=== PATIENT | female | born 1970 | race Caucasian/White ===

== ENCOUNTER → 2018-02-10 12:46 | Outpatient (REF) | payer MEDICAID, SELFPAY ==
[2018-02-10 20:46] LABS: TSH (W/Ref FT4) 2.23 uIU/mL (0.358-3.74)
== END ==
LOC: NCHCN 12:46
PROVIDERS: PCP Nurse Practitioner Family; Visit Provider Nurse Practitioner Family
DX: E03.9 Hypothyroidism, unspecified (principal)
CPT/HCPCS: 84443

== ENCOUNTER 2018-07-19 12:50 | Emergency (ER) | payer MEDICAID, SELFPAY ==
[2018-07-19] VITALS (23 sets, daily range): BP systolic 107–175; BP diastolic 57–94; PULSE 73–110; RESP 11–21; TEMP 36.8–37; O2SAT 91–100
[2018-07-19 13:48] LABS: Bilirubin Negative (Negative); Blood Negative (Negative); Clarity Clear; Glucose Negative (Negative); Ketones Negative (Negative); Leukocyte Esterase Negative (Negative); Nitrite Negative (Negative); Urobilinogen 0.2 EU/dL (Up TO 0.2)
--- NOTE | 2018-07-19 14:10 | DI.CT_ITS ---
SYMPTOM/DIAGNOSIS: PAIN, THORACIC SPINE AND TENDER RIGHT PARASPINAL CT THORACIC SPINE: There is no evidence of fracture. There is slight scoliosis vs patient positioning. End plate osteophytes are seen projecting anteriorly in the mid thoracic region. There is no gross evidence of a disc herniation. The central canal is well maintained. There is no significant neural foraminal narrowing. No paraspinal mass or bony destruction is seen. The visualized portions of the lungs appear clear. No pleural or pericardial effusions seen. IMPRESSION: Degenerative disc changes . No acute abnormality.
--- NOTE | 2018-07-19 14:13 | ED.GENADUL_ITS ---
Discharge Plan Disposition Patient Disposition: HOME Discharge Details Chief Complaint: FlankPain Clinical Impression: Acute hypokalemia, Back pain Primary Care Provider: Rozina Tee ED Provider: Bladimir Park Home Meds and New Rx's Prescriptions: Continued omeprazole [Prilosec] 40 MG capsule,delayed release(DR/EC) 40 mg PO DAILY RF: 0 methadone [Methadose] 40 MG tablet,soluble 130 mg PO DAILY RF: 0 ProAir HFA 8.5 GM HFA aerosol inhaler 1 - 2 puff Inhalation Q6H PRN RF: 0 mirtazapine 7.5 MG tablet 7.5 mg PO HS RF: 0 cyclobenzaprine 10 MG tablet 10 mg PO BID PRNRF: 0 duloxetine [Cymbalta] 20 MG capsule,delayed release(DR/EC) 60 mg PO BID RF: 0 triamcinolone acetonide [Nasacort AQ] 16.5 GM aerosol,spray 2 spry Inhalation DAILY PRNRF: 0 hydroxyzine HCl 25 MG tablet 25 mg PO TID PRNRF: 0 clonidine HCl 0.1 MG tablet extended release 12 hr 0.1 mg PO BID RF: 0 gabapentin 800 MG tablet 800 mg PO TID RF: 0 lamotrigine [Lamictal] 100 MG tablet 100 mg PO HS RF: 0 simvastatin 40 MG tablet 40 mg PO HS RF: 0 epinephrine 0.3 MG/SYR auto-injector 0.3 mg IJ PRN PRN (Reason: Anaphylaxis) Qty: 1 RF: 0 chlorthalidone 25 MG tablet 12.5 mg PO DAILY RF: 0 levothyroxine 25 MCG tablet 25 mcg PO DAILY RF: 0 Discontinued Symbicort 10.2 GM HFA aerosol inhaler 2 puff Inhalation DAILY RF: 0 Discharge Instructions Instructions: Hypokalemia (ED), Back Pain (ED) Additional Instructions: Please follow-up with your primary care physician. If pain persist additional diagnostics will be needed. Work today revealed that you have anemia. This appears to be chronic. You also have low potassium. Please contact your primary care physician to arrange follow-up. Return to the ER for any worsening or new concerning symptoms. Referrals: Rozina Tee [Primary Care Provider] - Discharge Data Discharge Date/Time-TO BE ENTERED AT DEPARTURE: 07/19/18 18:59 Medical Decision Making 47-year-old female with prior history thoracic spinal surgery, here with right flank and back pain. Consider renal stone. Urine negative for blood. Patient notes no hematuria or dysuria. Pain does seem higher then CVA. Saturating well no respiratory distress with clear lung vasquez and normal saturations. Labs reviewed: Chronic anemia noted. Patient does have hypokalemia of unclear etiology. Labs were reviewed with the patient. She was given potassium IV supplementation as well as oral. She was tolerating oral intake and feeling better and requested discharge. Disposition decision was made weighing the risks and benefits of hospitalization versus outpatient treatment, the risk for further decompensation, and the patient's wishes. The patient was stable and requested discharge. Prior to discharge, my usual and customary return precautions were reviewed with the patient - this included follow-up instructions and reason to return to the emergency department if condition worsens, does not improve as expected, or other new concerns arise. HPI General Mode of arrival: ambulatory . Date/Time Provider Initiated Documentation: 07/19/18 13:45 . Limitations to Documentation: no limitations . Information obtained by: patient . HPI Narrative: 47-year-old female with prior history thoracic spinal surgery, here with right flank and back pain. Pain started yesterday. Pain is moderate to severe. Intermittent. Feels like a spasm. No associated SOB. No fever. Related Data Home Medications Medication Instructions Recorded Confirmed cyclobenzaprine 10 mg PO BID PRN 11/28/12 07/19/18 duloxetine [Cymbalta] 60 mg PO BID 11/28/12 07/19/18 hydroxyzine HCl 25 mg PO TID PRN 04/13/13 07/19/18 triamcinolone acetonide [Nasacort 2 spry INHALATION DAILY PRN 04/13/13 07/19/18 AQ] clonidine HCl 0.1 mg PO BID 09/05/15 07/19/18 gabapentin 800 mg PO TID 09/06/15 07/19/18 ProAir HFA 1 - 2 puff INHALATION Q6H PRN 11/02/15 07/19/18 inhaler methadone [Methadose] 130 mg PO DAILY tab-cap 11/02/15 07/19/18 mirtazapine 7.5 mg PO HS tab-cap 11/02/15 07/19/18 omeprazole [Prilosec] 40 mg PO DAILY tab-cap 11/02/15 07/19/18 lamotrigine [Lamictal] 100 mg PO HS 03/16/16 07/19/18 simvastatin 40 mg PO HS 03/16/16 07/19/18 epinephrine 0.3 mg IJ PRN PRN #1 kit 08/16/16 07/19/18 chlorthalidone 12.5 mg PO DAILY 07/12/17 07/19/18 levothyroxine 25 mcg PO DAILY 07/12/17 07/19/18 Previous Rx's Medication Instructions Recorded epinephrine 0.3 mg IJ PRN PRN #1 kit 08/16/16 Allergies Allergy/AdvReac Type Severity Reaction Status Date / Time penicillin G Allergy Severe THROAT Unverified 07/19/18 13:44 CLOSES clindamycin Allergy Intermediate Skin Rash Unverified 07/19/18 13:44 milnacipran HCl Allergy Intermediate Skin Rash Unverified 07/19/18 13:44 [From Savella] cefuroxime axetil Allergy Unverified 07/19/18 13:44 [From Ceftin] doxycycline Allergy possible Unverified 07/19/18 13:44 allergy acetaminophen [From Vicodin] AdvReac Intermediate I cant Unverified 07/19/18 13:44 take it it ruins my liver azithromycin [From Zithromax] AdvReac Intermediate GI upset Unverified 07/19/18 13:44 clarithromycin [From Biaxin] AdvReac Intermediate Nausea Unverified 07/19/18 13:44 hydrocodone [From Vicodin] AdvReac Intermediate I cant Unverified 07/19/18 13:44 take it it ruins my liver ibuprofen AdvReac Intermediate GI Upset Unverified 07/19/18 13:44 ketorolac tromethamine AdvReac Intermediate GI Upset, Unverified 07/19/18 13:44 [From Toradol] can take IV form pregabalin [From Lyrica] AdvReac Intermediate Worsen Mood Unverified 07/19/18 13:44 Sulfa (Sulfonamide AdvReac Intermediate GI upset Unverified 07/19/18 13:44 Antibiotics) ENVIORNMENTAL Allergy Mild SINUSES Uncoded 07/19/18 13:44 MESSED UP-EYES General Stated Complaint: FlankPain GRISEL: 3 Review of Systems Review of Systems All systems reviewed & are unremarkable except as noted in HPI and below Cardiovascular Denies chest pain and Denies dyspnea Respiratory Denies dyspnea Gastrointestinal Denies abdominal pain PFSH Surgical History Cholecystectomy Vaginal hysterectomy right arm surgery on nerves Social History Smoking and Tabacco status: Current every day Exam Const General: cooperative and no acute distress HENMT Head: normocephalic and atraumatic Mouth: moist mucous membranes Eyes Conjunctivae: normal conjunctivae Sclera: normal sclerae EOM: EOM intact bilaterally Neck Neck: trachea midline and supple Resp Auscultation: clear to auscultation bilaterally, no rales, no rhonchi and no wheezes Cardio Jugular venous pressure: no JVD Rate: regular rate and not tachycardic Rhythm: regular rhythm GI Palpation: soft, not firm, no guarding, no masses, not rigid and nontender Back/Spine/Pelvis Back: no CVA tenderness Skin General skin exam: no rashes or lesions noted Neuro General: alert, awake, oriented x3 and tone normal Extrem General: no edema Psych Appearance: grossly normal Mental Status: mental status grossly normal Speech and Movement: speech and movement normal Course Vital Signs Temperature 37 C 07/19/18 13:39 Pulse 110 H 07/19/18 13:39 Respiratory Rate 18 07/19/18 13:39 Blood Pressure 175/94 H 07/19/18 13:39 Pulse Oximetry 100 07/19/18 13:39 Temperature 37 C 07/19/18 13:39 Temperature Source Temporal Artery Scan 07/19/18 13:39 Pulse 110 H 07/19/18 13:39 Respiratory Rate 18 07/19/18 13:39 Respiratory Effort Non-Labored 07/19/18 13:43 Blood Pressure 175/94 H 07/19/18 13:39 Blood Pressure Position Sitting 07/19/18 13:39 Pulse Oximetry 100 07/19/18 13:39 Oxygen Delivery Method Room Air 07/19/18 13:39 Oxygen Flow Rate 0 07/19/18 13:39 Pain Level 4 07/19/18 13:49 Lab/Test Results Lab/Test Results: Laboratory Tests Range/Units 07/19/18 13:38 Urine Color (Yellow) Yellow Urine Clarity Clear Urine pH (5-8) 6.0 Ur Specific [place] (1.005-1.025) 1.020 Urine Protein (Negative) mg/dL Negative Urine Ketones (Negative) mg/dL Negative Urine Blood (Negative) Negative Urine Nitrite (Negative) Negative Urine Bilirubin (Negative) Negative Urine Urobilinogen (Up TO 0.2) EU/dL 0.2 Ur Leukocyte Esterase (Negative) Negative Urine Glucose (Negative) mg/dL Negative
--- NOTE | 2018-07-19 15:11 | DI.VRAD_ITS ---
EXAM: CT Thoracic Spine Without Contrast EXAM DATE/TIME: 07/19/2018 2:11 PM CLINICAL HISTORY: 47 years old, female; Pain; Pain in thoracic spine TECHNIQUE: Axial computed tomography images of the thoracic spine without intravenous contrast. Coronal and sagittal reformatted images were created and reviewed. COMPARISON: CR THORACIC SPINE 01/01/2013 11:46 AM FINDINGS: Vertebrae: Mild degenerative spondylosis of the thoracic spine. Normal bone density. No fracture or subluxation. Discs/Spinal canal/Neural foramina: No bony spinal stenosis. Soft tissues: Unremarkable. IMPRESSION: Mild degenerative spondylosis of the thoracic spine. Dictated and Authenticated by: Brant Costa MD. Ordering:ARLET Garrison MD
[2018-07-19 15:17] LABS: ALT 12 U/L (12-78); AST 18 U/L (15-37); Albumin 3.5 g/dL (3.4-5.0); Alkaline Phosphatase 117 U/L (46-116); Anion Gap 7.9 mmol/L (3-11); BUN 16 mg/dL (7-18); Bilirubin, Total 0.2 mg/dL (0.2-1.0); CO2 34.1 mmol/L (21.0-32.0); Calcium 9.1 mg/dL (8.5-10.1); Chloride 96 mmol/L (98-107); Estimated GFR 52.79 (mL/min/1.73m2); Glucose 86 mg/dL (70-100); Sodium 138 mmol/L (136-145); Total Protein 7.3 g/dL (6.4-8.2)
[2018-07-19 15:26] LABS: HCT 26.5 % (36.0-46.0); HGB 7.4 g/dL (12.0-15.5); Mean Corp. HGB Concentration 27.9 g/dL (32.0-36.0); Mean Corpuscular Hemoglobin 18.2 pg (27.0-33.0); Mean Corpuscular Volume 65.1 fL (80-95); Mean Platelet Volume 9.7 fL (8.0-11.0); Platelet Count 298 x1000/uL (130-400); RBC 4.07 m/cumm (4.00-5.20); RBC Distribution Width 20.2 % (11.7-14.6); White Blood Cell Count 5.39 k/cumm (4.4-10.8)
[2018-07-19 15:29] LABS: Potassium 2.9 mmol/L (3.5-5.1)
[2018-07-19] MEDS: Potassium Chloride 10 MEQ TABCR 20 MEQ PO (15:51)
[2018-07-19] MEDS: Normal Saline 1,000 ML 100 ML IV (16:00)
[2018-07-19] MEDS: POTASSIUM CHLORIDE 20 MEQ/100 ML BAG 50 MEQ IVPB (16:03)
== END 2018-07-19 18:59 | disposition home or self-care (01) ==
PROVIDERS: Emergency Provider Student in an Organized Health Care Education/Training Program; PCP Nurse Practitioner Family
DX: E87.6 Hypokalemia (principal); M54.9 Dorsalgia, unspecified
CPT/HCPCS: 36415; 80053; 85027; 96361; 96365; 96366; 99284; 72128; 81003; J3480

== ENCOUNTER 2018-07-22 10:47 | Outpatient (REF) | payer MEDICAID, SELFPAY ==
[2018-07-22 13:31] LABS: Abs Immature Grans 0.01 k/cumm (0.0-0.09); Absolute Basophil Count 0.02 k/cumm (0.0-0.2); Absolute Lymphocyte Count 2.32 k/cumm (1.2-3.4); Absolute Monocyte Count 0.77 k/cumm (0.11-0.7); Absolute Neutrophil Count 3.32 k/cumm (1.2-6.7); Basophils % 0.3; Eosinophils % 1.5; HCT 30.6 % (36.0-46.0); HGB 8.7 g/dL (12.0-15.5); Immature Grans % 0.2; Lymphocytes % 35.5; Mean Corp. HGB Concentration 28.4 g/dL (32.0-36.0); Mean Corpuscular Hemoglobin 18.8 pg (27.0-33.0); Mean Corpuscular Volume 66.2 fL (80-95); Mean Platelet Volume 9.8 fL (8.0-11.0); Monocytes % 11.8; Neutrophils % 50.7; RBC 4.62 m/cumm (4.00-5.20); RBC Distribution Width 21.1 % (11.7-14.6); White Blood Cell Count 6.54 k/cumm (4.4-10.8)
[2018-07-22 13:54] LABS: Platelet Count 355 x1000/uL (130-400)
[2018-07-22 13:55] LABS: Anisocytosis 3+; Diff Comment RBC Morph Reviewed; Hypochromasia 2+; Microcytosis 2+; Polychromasia Present
[2018-07-22 13:56] LABS: Poikilocytes 1+
[2018-07-22 14:01] LABS: ALT 15 U/L (12-78); AST 22 U/L (15-37); Albumin 3.8 g/dL (3.4-5.0); Alkaline Phosphatase 122 U/L (46-116); Anion Gap 5.2 mmol/L (3-11); BUN 10 mg/dL (7-18); Bilirubin, Total 0.2 mg/dL (0.2-1.0); CO2 35.8 mmol/L (21.0-32.0); CREATININE 0.95 mg/dL (0.55-1.02); Calcium 9.2 mg/dL (8.5-10.1); Chloride 98 mmol/L (98-107); Glucose 46 mg/dL (70-100); Potassium 3.2 mmol/L (3.5-5.1); Sodium 139 mmol/L (136-145); TSH (W/Ref FT4) 1.16 uIU/mL (0.358-3.74); Total Protein 7.5 g/dL (6.4-8.2)
== END 2018-07-22 11:07 ==
LOC: NCHCN 10:47
PROVIDERS: PCP Nurse Practitioner Family; Visit Provider Nurse Practitioner Family
DX: D53.9 Nutritional anemia, unspecified (principal); R94.6 Abnormal results of thyroid function studies; E87.6 Hypokalemia
CPT/HCPCS: 80053; 84443; 85025

== ENCOUNTER 2018-07-29 10:28 | Outpatient (REF) | payer MEDICAID, SELFPAY ==
[2018-07-29 13:51] LABS: Iron 12 ug/dL (50-175); Total Iron Binding Capacity 383 ug/dL (250-450); Transferrin Sat 3 % (15-50)
[2018-07-29 14:07] LABS: Anion Gap 5.8 mmol/L (3-11); CO2 34.2 mmol/L (21.0-32.0); Chloride 101 mmol/L (98-107); Ferritin 7 ng/mL (8-388); Potassium 3.7 mmol/L (3.5-5.1); Sodium 141 mmol/L (136-145)
== END 2018-07-29 10:48 ==
LOC: NCHCN 10:28
PROVIDERS: PCP Nurse Practitioner Family; Visit Provider Nurse Practitioner Family
DX: D53.9 Nutritional anemia, unspecified (principal); E87.6 Hypokalemia
CPT/HCPCS: 80051; 82728; 83540; 83550

== ENCOUNTER 2018-08-06 11:31 | Outpatient (REF) | payer MEDICAID, SELFPAY ==
[2018-08-06 12:43] LABS: Abs Immature Grans 0.01 k/cumm (0.0-0.09); Absolute Basophil Count 0.02 k/cumm (0.0-0.2); Absolute Eosinophil Count 0.09 k/cumm (0.0-0.7); Absolute Lymphocyte Count 1.85 k/cumm (1.2-3.4); Absolute Monocyte Count 0.67 k/cumm (0.11-0.7); Absolute Neutrophil Count 3.21 k/cumm (1.2-6.7); Basophils % 0.3; Eosinophils % 1.5; HCT 31.2 % (36.0-46.0); HGB 8.8 g/dL (12.0-15.5); Immature Grans % 0.2; Lymphocytes % 31.6; Mean Corp. HGB Concentration 28.2 g/dL (32.0-36.0); Mean Corpuscular Hemoglobin 20.6 pg (27.0-33.0); Mean Corpuscular Volume 72.9 fL (80-95); Mean Platelet Volume 10.1 fL (8.0-11.0); Monocytes % 11.5; Neutrophils % 54.9; Platelet Count 341 x1000/uL (130-400); RBC 4.28 m/cumm (4.00-5.20); RBC Distribution Width 26.8 % (11.7-14.6); White Blood Cell Count 5.85 k/cumm (4.4-10.8)
[2018-08-06 13:15] LABS: Total Iron Binding Capacity 347 ug/dL (250-450); Transferrin Sat 20 % (15-50)
[2018-08-06 13:19] LABS: Anisocytosis 3+; Diff Comment RBC Morph Reviewed; Hypochromasia 3+; Microcytosis 3+; Poikilocytes 2+; Polychromasia Present
[2018-08-06 13:20] LABS: Iron 71 ug/dL (50-175)
[2018-08-06 13:26] LABS: Anion Gap 8.4 mmol/L (3-11); CO2 32.6 mmol/L (21.0-32.0); Chloride 100 mmol/L (98-107); Ferritin 42 ng/mL (8-388); Potassium 3.5 mmol/L (3.5-5.1); Sodium 141 mmol/L (136-145)
[2018-08-08 13:15] LABS: IgA 240 mg/dL (85-499); Interpretation SEE COMMENTS; Tissue Transglutaminase IgA <1.2 U/mL (<4.0)
== END 2018-08-06 11:51 ==
LOC: NCHCN 11:31
PROVIDERS: PCP Nurse Practitioner Family; Visit Provider Nurse Practitioner Family
DX: D53.9 Nutritional anemia, unspecified (principal); E87.6 Hypokalemia
CPT/HCPCS: 80051; 82784; 83516; 82728; 83540; 83550; 85025

== ENCOUNTER 2018-08-13 11:06 | Outpatient (REF) | payer MEDICAID, SELFPAY ==
[2018-08-13 12:58] LABS: HGB 10.1 g/dL (12.0-15.5); Mean Corp. HGB Concentration 28.9 g/dL (32.0-36.0); Mean Corpuscular Hemoglobin 22.1 pg (27.0-33.0); Mean Corpuscular Volume 76.4 fL (80-95); Mean Platelet Volume 10.1 fL (8.0-11.0); Platelet Count 326 x1000/uL (130-400); RBC 4.58 m/cumm (4.00-5.20); RBC Distribution Width 32.5 % (11.7-14.6); White Blood Cell Count 6.37 k/cumm (4.4-10.8)
== END 2018-08-13 11:26 ==
LOC: NCHCN 11:06
PROVIDERS: PCP Nurse Practitioner Family; Visit Provider Nurse Practitioner Family
DX: D64.9 Anemia, unspecified (principal)
CPT/HCPCS: 85027

== ENCOUNTER 2018-09-23 06:08 | Day surgery (SDC) | payer MEDICAID, SELFPAY ==
[2018-09-23 06:19] VITALS: BP 130/80; PULSE 93; RESP 18; TEMP 36.3; O2SAT 98
--- NOTE | 2018-09-23 06:31 | ENDO_ITS ---
Date of service: 09/23/18 Time of Service: 07:25 Endoscopy Report DATE OF PROCEDURE: 09/23/18 PRE-OP DIAGNOSIS: Iron deficiency anemia and Family history of colon cancer POST-OP DIAGNOSIS: other (gastritis/ incomplete prep) PROCEDURE: 1. EGD with biopsies 2. flex. sig SURGEON: Ivonne Townsend ANESTHESIA: other (General/ ASA 3/ Hemant Romero, SARA) ESTIMATED BLOOD LOSS: 2 PATHOLOGY: other (Antral biopsies) COMPLICATIONS: None DISPOSITION: same day INDICATIONS: Mrs. Goldberg is a pleasant 48 year old with chronic iron deficiency anemia and positive occult blood who was seen in the office for a colonoscopy and EGD. She also has a family history of colon cancer in her father who was in his 60's. She had a normal colonoscopy in 2010. She has a history of heart burn and has been on omeprazole. She has never had an EGD before. Risks, benefits and complications have been reviewed. Complications include but are not limited to bleeding, pain, perforation, missed small lesion/polyp, sore throat, aspiration and adverse reaction to the medications. Questions were entertained and answered to their satisfaction and they wished to proceed. No guarantees were given or implied. PREP: Miralax/Dulcolax PROCEDURE START TIME: 07:25 PROCEDURE END TIME: 07:36 FINDINGS: 1. EGD- moderate inflammation of the stomach. No ulcers. Duodenum normal Esophagus normal ? Lesion in front of the vocal cords 2. Flex. Sig- Incomplete prep. Lots of liquid stool and formed stool. PROCEDURE DESCRIPTION: After informed consent was obtained the patient was take to the procedure room and placed in a supine position. Monitors were applied and a time out was done. The patients name, date of , procedure type, allergies to medications and metal in their body was reviewed. A bite block was placed and the patient was sedated. Once sedated and comfortable the gastroscope was advanced through the oropharynx which was grossly normal into the esophagus. The proximal and mid- esophagus were normal. In the distal esophagus there was no inflammation noted. The scope was advanced into the stomach and through the pylorus into the 3rd portion of the duodenum. The duodenum was noted to be normal. The scope was retracted back into the stomach and biopsies were done in the antrum to rule out H. pylori. There were no ulcers. There was moderate inflammation. The scope was retroflexed. The cardia and fundus were noted to be normal. There was no hiatal hernia noted. The scope was retracted back into the esophagus which was normal. The Z line was regular. The GE junction was at 38 cm. While the patient was still sedated they were placed in a left decubitous position. A rectal exam was done. External exam revealed some skin tags. Internal exam revealed a normal sphincter tone and no palpable masses. The scope was then introduced and retro-flexed. No internal hemorrhoids were identified. The scope was then advanced to the sigmoid colon. There was a large amount of liquid and formed stool in the sigmoid colon. The scope was removed and the patient was woken up and taken back to Same day surgery in stable condition. The patient tolerated the procedure well and there were no immediate complications. I have spoken to the patient and we will do some enemas in the SDS department and try the colonoscopy again later. Dr. Bean will do the colonoscopy as I have office this afternoon. Patient is in agreement with that.
[2018-09-23] MEDS: Lactated Ringers 1,000 ML 80 ML IV ×2 (07:02→10:47)
[2018-09-23] MEDS: Lidocaine 2% Viscous 15 ML CUP (07:25)
--- NOTE | 2018-09-23 07:25 | STOM_PTH ---
PATIENT: Krissy Goldberg LOC: [facility] U#:[id number] AGE/SX: 48/F ROOM: RE09/23/[address]: Ivonne Townsend MD : 1970 BED: DIS: 09/23/2018 SPEC #: [id number] RECD: 09/23/18 09:39 STATUS: DAVIE RE #: [id number] WESLY: 09/23/18 07:[address]: Ivonne Townsend DEPT: Surgical Specimen RECD BY: Yeny Ferrell ENTERED: 09/23/18 09:39 SP TYPE: STOMACH OTHR DR: Rozina Tee Tissues: 1 - STOMACH BIOPSY Procedures: GROSS AND MICRO LEVEL 4 Comments: [id number]
[2018-09-23 09:07] VITALS: BP 128/80; PULSE 84; RESP 18; TEMP 36.8; O2SAT 96
--- NOTE | 2018-09-23 12:00 | BOWEL_PTH ---
PATIENT: Krissy Goldberg LOC: [facility] U#:[id number] AGE/SX: 48/F ROOM: RE09/23/[address]: Ivonne Townsend MD : 1970 BED: DIS: 09/23/2018 SPEC #: [id number] RECD: 09/23/18 13:14 STATUS: DAVIE RE #: [id number] WESLY: 09/23/18 12:[address]: Ivonne Townsend DEPT: Surgical Specimen RECD BY: Yeny Ferrell ENTERED: 09/23/18 13:17 SP TYPE: Bowel OTHR DR: Rozina Tee Tissues: 1 - BIOPSY BOWEL 2 - BIOPSY BOWEL Procedures: GROSS AND MICRO LEVEL 4 Comments: [id number]
--- NOTE | 2018-09-23 12:50 | W.COLOREPORT ---
Date of service: 09/23/18 Time of Service: 12:50 Colonoscopy Report Date of procedure: 09/23/18 Pre-op diagnosis general: iron defn anemai Post-op diagnosis procedure note: other Procedure: small polyp in rectum- removed w/ cold biter. no divertic. could not visualize cecum secondary to retained stool. scope was other trejo nl adn does not explain anemia. pt was noted to have mass in pharynx and should f/u w/ ENT for bx Procedure Description: After informed consent was obtained the patient was taken to the procedure room and placed in a left decubitous position. Monitors were applied and a time out was done. The patients name, date of , procedure, allergies to medications and metal in their body was reviewed. The patient was then sedated. Once sedated and comfortable a rectal exam was done. External exam grade III hemorrhoids. Internal exam revealed a normal sphincter tone and no palpable masses. The scope was then introduced and retrofelexed. grade II internal hemorrhoids were identified. There is a 5mm polyp in the rectum. This is removed w/ a cold biting forcept. Specimen is retrieved and no bleeding noted. The scope was then advanced to the cecum without difficulty. pt had an OK prep- the colon gutierrez/ most of the mucosa visualized. Once I get to the cecum- there is signif heavy green material. There are no large masses, but anything ,1cm would not have been visualized. The scope was then slowly retracted over 15 minutes back into the rectum. Polyps were removed at rectum. The scope was removed and the patient was woken up and taken back to Same day surgery in stable condition. The patient tolerated the procedure well and there were no immediate complications. Follow up: The patient should follow up in 10 years unless they develop changes in bowel habits or other new gastrointestinal complaints.
[2018-09-23 13:32] VITALS: BP 119/77; PULSE 70; RESP 18; TEMP 36.1; O2SAT 100
--- NOTE | 2018-09-23 13:41 | PDOC.DSDIS_ITS ---
Discharge Plan Disposition Patient Disposition: HOME Condition: Good Discharge Details Reason For Visit: CHRONIC ANEMIA Attending Provider: Ivonne Townsend Primary Care Provider: Rozina Tee Home Meds and New Rx's Prescriptions: Continued ferrous gluconate 324 mg (37.5 mg iron) tablet 324 mg PO BID RF: 0 potassium chloride 20 mEq tablet,ER particles/crystals 20 meq PO DAILY RF: 0 ketorolac 60 mg/2 mL cartridge 60 mg IM ONCE RF: 0 albuterol 90 mcg/actuation aerosol 2 puff IH PRN PRNRF: 0 Symbicort 160-4.5 mcg/actuation HFA aerosol inhaler 2 puff IH BID RF: 0 omeprazole [Prilosec] 40 MG capsule,delayed release(DR/EC) 40 mg PO DAILY RF: 0 methadone [Methadose] 40 MG tablet,soluble 130 mg PO DAILY RF: 0 mirtazapine 7.5 MG tablet 7.5 mg PO HS RF: 0 cyclobenzaprine 10 MG tablet 10 mg PO BID PRNRF: 0 duloxetine [Cymbalta] 20 MG capsule,delayed release(DR/EC) 60 mg PO BID RF: 0 triamcinolone acetonide [Nasacort AQ] 16.5 GM aerosol,spray 2 spry Inhalation DAILY PRNRF: 0 hydroxyzine HCl 25 MG tablet 25 mg PO TID PRNRF: 0 clonidine HCl 0.1 MG tablet extended release 12 hr 0.1 mg PO BID RF: 0 gabapentin 800 MG tablet 800 mg PO TID RF: 0 lamotrigine [Lamictal] 100 MG tablet 100 mg PO TID RF: 0 epinephrine 0.3 MG/SYR auto-injector 0.3 mg IJ PRN PRN (Reason: Anaphylaxis) Qty: 1 RF: 0 chlorthalidone 25 MG tablet 12.5 mg PO DAILY RF: 0 levothyroxine 25 MCG tablet 25 mcg PO DAILY RF: 0 Discharge Instructions Instructions: Colonoscopy (DC), Upper Endoscopy (DC) Additional Instructions: Findings: moderate inflammation of the stomach Follow up:10/17/18 @ 10:30 Please call if you develop: fevers >101.5 Nausea or Vomiting Abdominal pain that is not transient DAY SURGERY UNIT POST COLONOSCOPY INSTRUCTIONS 1. Because there will be medication in your system for the next 24 hours, you may feel a little sleepy. Your coordination will be affected. Therefore: a. Do not drive or operate dangerous equipment for 24 hours. b. Do not drink alcohol beverages for 24 hours (not even beer). c. Plan to go home and rest for the day. 2. Generally there are no restrictions on your activity after a day or so has gone by, but you may feel a bit fatigued for a few days. 3 After you arrive home you may have a light meal and return to a normal diet as you can tolerate it without feeling sick to your stomach. 4. After surgery, you may feel pain or discomfort. This should be only transient, but if it persists please contact your doctor. 5. If there are any questions regarding the findings of your procedure, please feel free to contact your doctor. 6. If you are unable to contact your doctor with a problem, contact the hospital at [phone]. 7. Continue all your regular medications unless directed otherwise. I understand the above instructions and have no questions. Signature of Patient or Responsible Adult Escort Date/Time Name of Responsible Adult Escort Signature of Nurse Date/Time Referrals: Ivonne Townsend MD [ [facility] STAFF PHYSICIAN] - 10/17/18 10:30 am Activity:: Activity as Tolerated Diet:: As Tolerated Discharge Orders Discharge Orders: Discharge Order (Routine); Ordered 09/23/18 Ordered By: Ivonne Townsend DS: Diagnosis Discharge Diagnosis (1) H/O esophagogastroduodenoscopy: Status: Chronic (2) Anemia: Status: Chronic
== END 2018-09-23 14:10 | disposition home or self-care (01) ==
PROVIDERS: Surgery; PCP Nurse Practitioner Family; Visit Provider Surgery
PROC: (CPT 45380; principal; 2018-09-23 07:30)
PROC: 0DJD8ZZ Inspection of Lower Intestinal Tract, Via Natural or Artificial Opening Endoscopic (ICD-10-PCS; CPT 45378; principal; 2018-09-23 09:45)
DX: D50.9 Iron deficiency anemia, unspecified (principal); Z80.0 Family history of malignant neoplasm of digestive organs; K31.89 Other diseases of stomach and duodenum; R19.5 Other fecal abnormalities; K21.9 Gastro-esophageal reflux disease without esophagitis; K29.70 Gastritis, unspecified, without bleeding; K64.4 Residual hemorrhoidal skin tags; J44.9 Chronic obstructive pulmonary disease, unspecified; I10 Essential (primary) hypertension
CPT/HCPCS: 45380; 43239; 88305

== ENCOUNTER 2018-10-09 00:57 | Outpatient (CLI) | payer MEDICAID, SELFPAY ==
[2018-10-09 13:30] LABS: BUN 10 mg/dL (7-18); CREATININE 1.15 mg/dL (0.55-1.02); Estimated GFR 49.95 (mL/min/1.73m2)
[2018-10-09] MEDS: Omnipaque 350 MG/ML 100 ML BTL IJ (14:10)
[2018-10-09] MEDS: Normal Saline Flush 10 ML SYR IVP (14:11)
--- NOTE | 2018-10-09 14:20 | DI.CT_ITS ---
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 CT examination of the abdomen and pelvis was performed utilizing CTA protocol with intravenous infusion of 100 cc of Omnipaque 350. Images obtained through the lung bases are unremarkable. The liver, spleen and pancreas appear normal. Mild biliary dilatation is noted at about 15 mm in a post cholecystectomy patient. This finding appears to have been present on previous examinations. Adrenals and kidneys appear normal with unremarkable bilateral cortical symmetrical enhancement of the kidneys. No abdominal wall hernia seen. No abdominal or pelvic adenopathy seen. The appendix is normal. No evidence of diverticulitis or bowel obstruction. Abdominal aorta is of normal diameter. No significant atheromatous disease. The common internal and external iliac arteries appear normal. Celiac trunk, superior mesenteric artery, inferior mesenteric artery and major branches appear normal. Renal arteries appear normal bilaterally. Note is made of previously described Lakhani rods in place in the lumbar spine. CONCLUSION: Normal abdominal and pelvic CTA. Mild common duct dilatation in a patient who is post cholecystectomy.
== END 2018-10-09 01:17 ==
PROVIDERS: PCP Nurse Practitioner Family; Visit Provider Surgery
DX: I99.8 Other disorder of circulatory system (principal); D64.9 Anemia, unspecified; K55.9 Vascular disorder of intestine, unspecified; K83.8 Other specified diseases of biliary tract; I10 Essential (primary) hypertension; E03.9 Hypothyroidism, unspecified
CPT/HCPCS: 36415; 84520; 74174; 82565; J3490

== ENCOUNTER 2018-11-13 06:23 | Day surgery (SDC) | payer MEDICAID, SELFPAY ==
[2018-11-13] VITALS (7 sets, daily range): BP systolic 91–117; BP diastolic 48–63; PULSE 66–82; RESP 11–18; TEMP 36.6–36.9; O2SAT 94–100
[2018-11-13] MEDS: Lactated Ringers 1,000 ML 80 ML IV (07:10)
--- NOTE | 2018-11-13 07:33 | W.PM.DSUDISC ---
Discharge Plan Disposition Patient Disposition: HOME Condition: Good Discharge Details Reason For Visit: Miccrolaryngoscopy Attending Provider: John Elder Primary Care Provider: Peter Piña Home Meds and New Rx's Prescriptions: No Action omeprazole [Prilosec] 40 MG capsule,delayed release(DR/EC) 40 mg PO DAILY RF: 0 methadone [Methadose] 40 MG tablet,soluble 130 mg PO DAILY RF: 0 mirtazapine 7.5 MG tablet 7.5 mg PO HS RF: 0 nicotine [Nicoderm CQ] 21 mg/24 hr Patch 24 Hour 1 patch TRANSDERMAL DAILY RF: 0 Discharge Instructions Additional Instructions: No whispering, shouting or throat clearing or excessive speech for 1 week. No smoking. Call with any concerns Referrals: John Elder MD [ [facility] STAFF PHYSICIAN] - (1 month) Activity:: No driving for 48 hours Diet:: As Tolerated Discharge Data Discharge Date/Time-TO BE ENTERED AT DEPARTURE: 11/13/18 07:33
--- NOTE | 2018-11-13 07:58 | VOCCOR_PTH ---
PATIENT: Krissy Goldberg LOC: [facility] U#:[id number] AGE/SX: 48/F ROOM: RE11/13/[address]: John Elder MD : 1970 BED: DIS: 11/13/2018 SPEC #: [id number] RECD: 11/13/18 11:29 STATUS: DAVIE REQ #: [id number] WESLY: 11/13/18 07:[address]: John Elder DEPT: Surgical Specimen RECD BY: Yeny Ferrell ENTERED: 11/13/18 11:30 SP TYPE: VOCCOR OTHR DR: Peter Piña Tissues: 1 - VOCAL CORD Procedures: GROSS AND MICRO LEVEL 4 Comments: [id number]
--- NOTE | 2018-11-13 12:59 | ROE_ITS ---
REPORT OF OPERATIVE PROCEDURE DATE OF PROCEDURE November 13, 2018 SURGEON John Elder M.D. ANESTHESIA General endotracheal. PREOPERATIVE DIAGNOSIS Right vocal cord mass. POSTOPERATIVE DIAGNOSIS Right vocal cord mass. PROCEDURES Microlaryngoscopy with right true vocal cord mass excision. SPECIMENS Right true vocal cord mass. ESTIMATED BLOOD LOSS Minimal. FLUIDS 300 cc. COMPLICATIONS None. FINDINGS Right true vocal cord polypoid mass with a broad mucosal base with no hypervascularity. This appears to be a polyp. Left vocal cord appears normal. INDICATIONS FOR SURGERY The patient with the above problems. Options were explained to the family regarding further manageme nt. They elected to undergo the above procedure. Consent was filled out and signed prior to surgery. OPERATIVE DESCRIPTION After obtaining adequate level of general endotracheal anesthesia, the patient was positioned in supi ne position, prepped and draped in appropriate fashion. A 4x4 was placed along the upper gumline to protect the upper gumline and a Aby laryngoscope was then carefully introduced in the oral cavi ty, advanced into the oropharynx and then advanced into the supraglottis to allow good visualization of the larynx. With this in place, the laryngoscope was placed into suspension. The operating microsc ope with a 400-mm lens was moved into position, and the larynx further examined. This revealed the ri ght-sided vocal cord mass and no other masses or lesions within the vocal cord. The mass was grasped and pulled medially and then a pair of upgoing scissors was then used to excise the vocal cord mass, taking care to avoid damage to the medial aspect of the vocal cord, and taking care to leave a small amount of soft tissue within Max's space. Once this mass had been excised completely, the wound wa s inspected for hemostasis. The mucosa was fairly well approximated side to side. After ensuring adeq uate hemostasis, the laryngoscope was removed from suspension and then withdrawn revealing no damage to the tissues on the way out. The patient was then awakened and extubated by Anesthesia and taken to the Recovery Room in stable condition. I was present during the entire case. CC: John Elder M.D. Peter Piña NP
== END 2018-11-13 10:25 | disposition home or self-care (01) ==
LOC: SUR 06:23
PROVIDERS: PCP Nurse Practitioner Family; Visit Provider Otolaryngology
PROC: 0CJS8ZZ Inspection of Larynx, Via Natural or Artificial Opening Endoscopic (ICD-10-PCS; CPT 31575; principal; 2018-11-13 07:30)
DX: J38.1 Polyp of vocal cord and larynx (principal); J38.3 Other diseases of vocal cords
CPT/HCPCS: 31541; 88305; J1100; J2405

== ENCOUNTER 2018-12-05 11:42 | Outpatient (REF) | payer MEDICAID, SELFPAY ==
[2018-12-05 12:36] LABS: ALT 15 U/L (12-78); Albumin 3.6 g/dL (3.4-5.0); Alkaline Phosphatase 129 U/L (46-116); Anion Gap 9.6 mmol/L (3-11); BUN 19 mg/dL (7-18); Bilirubin, Total 0.2 mg/dL (0.2-1.0); CO2 31.4 mmol/L (21.0-32.0); CREATININE 1.05 mg/dL (0.55-1.02); Calcium 9.2 mg/dL (8.5-10.1); Chloride 95 mmol/L (98-107); Estimated GFR 55.48 (mL/min/1.73m2); Glucose 303 mg/dL (70-100); Potassium 3.2 mmol/L (3.5-5.1); Sodium 136 mmol/L (136-145); TSH (W/Ref FT4) 2.39 uIU/mL (0.358-3.74)
[2018-12-05 12:42] LABS: Absolute Basophil Count 0.01 k/cumm (0.0-0.2); Absolute Eosinophil Count 0.12 k/cumm (0.0-0.7); Absolute Monocyte Count 0.63 k/cumm (0.11-0.7); Absolute Neutrophil Count 2.61 k/cumm (1.2-6.7); Basophils % 0.2; Eosinophils % 2.3; HCT 37.9 % (36.0-46.0); HGB 11.9 g/dL (12.0-15.5); Lymphocytes % 34.8; Mean Corp. HGB Concentration 31.4 g/dL (32.0-36.0); Mean Corpuscular Hemoglobin 27.1 pg (27.0-33.0); Mean Corpuscular Volume 86.3 fL (80-95); Monocytes % 12.2; Neutrophils % 50.5; Platelet Count 347 x1000/uL (130-400); RBC 4.39 m/cumm (4.00-5.20); RBC Distribution Width 16.4 % (11.7-14.6); White Blood Cell Count 5.17 k/cumm (4.4-10.8)
[2018-12-05 12:50] LABS: AST 21 U/L (15-37); Total Protein 6.9 g/dL (6.4-8.2)
== END 2018-12-05 12:02 ==
LOC: NCHCN 11:42
PROVIDERS: PCP Nurse Practitioner Family; Visit Provider Nurse Practitioner Family
DX: I10 Essential (primary) hypertension (principal); E87.6 Hypokalemia; D64.9 Anemia, unspecified; R94.6 Abnormal results of thyroid function studies
CPT/HCPCS: 80053; 84443; 85025

== ENCOUNTER 2019-01-13 00:40 | Outpatient (CLI) | payer MEDICAID, SELFPAY ==
--- NOTE | 2019-01-13 08:45 | DI.MAMMO_ITS ---
SYMPTOM/DIAGNOSIS: SCREENING, [facility], Z00.00 MAMMOGRAMS: Mammograms were interpreted according to the usual protocol including computer analysis with CAD system, tomosynthesis and C view imaging. Comparison is with the prior examinations. No suspicious masses or microcalcifications are seen. There is no definite evidence of malignancy. IMPRESSION: Negative mammogram. Routine screening is recommended. Category 1, breast density B. SA ASSESSMENT OF FINDINGS: Negative. Category 1. Patient will receive a letter notifying them of these results. BI-RADS category B. There are scattered areas of fibroglandular density.
== END 2019-01-13 01:00 ==
PROVIDERS: PCP Nurse Practitioner Family; Visit Provider Nurse Practitioner Family
DX: Z12.31 Encounter for screening mammogram for malignant neoplasm of breast (principal)
CPT/HCPCS: 77063; 77067

== ENCOUNTER 2019-01-15 11:37 | Outpatient (CLI) | payer MEDICAID, SELFPAY ==
--- NOTE | 2019-01-15 11:34 | DI.RAD_ITS ---
SYMPTOM/DIAGNOSIS: LEFT SHOULDER PAIN LEFT SHOULDER: No fracture or dislocation is seen. The AC joint and glenohumeral joint are well maintained. No tendon or joint space calcifications are seen. IMPRESSION: Negative left shoulder.
== END 2019-01-15 11:57 ==
PROVIDERS: PCP Nurse Practitioner Family; Visit Provider Physician Assistant
DX: M25.512 Pain in left shoulder (principal)
CPT/HCPCS: 73030

== ENCOUNTER 2019-03-17 13:19 | Outpatient (REF) | payer MEDICAID, SELFPAY ==
[2019-03-17 14:13] LABS: ALT 23 U/L (14-59); AST 16 U/L (15-37); Albumin 3.7 g/dL (3.4-5.0); Alkaline Phosphatase 102 U/L (46-116); Anion Gap 8.2 mmol/L (3-11); BUN 14 mg/dL (7-18); Bilirubin, Total 0.2 mg/dL (0.2-1.0); CO2 32.8 mmol/L (21.0-32.0); CREATININE 1.02 mg/dL (0.55-1.02); Calcium 9.5 mg/dL (8.5-10.1); Chloride 96 mmol/L (98-107); Cholesterol 301 mg/dL (50-200); Estimated GFR 57.36 (mL/min/1.73m2); Glucose 126 mg/dL (70-100); HDL Cholesterol 38 mg/dL (40-60); Potassium 3.1 mmol/L (3.5-5.1); Sodium 137 mmol/L (136-145); Triglyceride 567 mg/dL (30-150)
[2019-03-17 14:27] LABS: LDL CHOLESTEROL 141 mg/dL (<100)
== END 2019-03-17 13:39 ==
LOC: NCHCN 13:19
PROVIDERS: PCP Nurse Practitioner Family; Visit Provider Nurse Practitioner Family
DX: E87.6 Hypokalemia (principal); E78.5 Hyperlipidemia, unspecified
CPT/HCPCS: 80053; 80061; 83721

== ENCOUNTER 2019-07-24 18:39 | Outpatient (REF) | payer MEDICAID, SELFPAY ==
[2019-07-24 18:39] LABS: BUN 9 mg/dL (7-18); CREATININE 1.12 mg/dL (0.55-1.02); Calcium 8.9 mg/dL (8.5-10.1); Chloride 100 mmol/L (98-107); Estimated GFR 51.49 (mL/min/1.73m2); Glucose 80 mg/dL (74-106); Potassium 3.1 mmol/L (3.5-5.1); Sodium 139 mmol/L (136-145)
== END 2019-07-24 18:59 ==
LOC: NCHCN 18:39
PROVIDERS: PCP Nurse Practitioner Family; Visit Provider Nurse Practitioner Family
DX: E87.6 Hypokalemia (principal)
CPT/HCPCS: 80048

== ENCOUNTER 2019-08-17 01:01 | Outpatient (CLI) | payer MEDICAID, SELFPAY ==
--- NOTE | 2019-08-17 09:45 | DI.MRI_ITS ---
EXAM: MR UPPER JOINT LT WO CLINICAL HISTORY: L SHOULDER PAIN, TENDONITIS, M75.82-OTHER SHOULDER LESIONS, LT SHOULDER. TECHNIQUE: Multiplanar multisequence MRI was performed. COMPARISON: No exams were available for comparison FINDINGS: MR examination of the shoulder was performed according to the usual protocol. There are slight hyper trophic degenerative changes of the acromioclavicular joint. There is mild superior subluxation of h umeral head with respect to the glenoid without evidence of superior rotator cuff tear. Glenoid labr um appears grossly intact as visualized on this noncontrast examination. There is mild signal abnormality in supraspinatus tendon consistent with tendinosis. Otherwise the r otator cuff structures appear normal with no evidence of a full or partial thickness tear. Biceps tendon is normally positioned and shows normal signal within intact anchor. IMPRESSION: Mild AC joint DJD, mild superior subluxation of humerus with respect to glenoid which is uncertain cl inical significance. No rotator cuff tear identified. DATA REPOSITORY:
== END 2019-08-17 01:21 ==
PROVIDERS: PCP Nurse Practitioner Family; Visit Provider Orthopaedic Surgery
DX: M25.512 Pain in left shoulder (principal); M75.82 Other shoulder lesions, left shoulder; M19.012 Primary osteoarthritis, left shoulder
CPT/HCPCS: 73221

== ENCOUNTER 2019-09-03 12:32 | Outpatient (REF) | payer MEDICAID, SELFPAY ==
[2019-09-03 17:52] LABS: HCT 29.1 % (36.0-46.0); HGB 8.1 g/dL (12.0-15.5); Mean Corp. HGB Concentration 27.8 g/dL (32.0-36.0); Mean Corpuscular Hemoglobin 19.3 pg (27.0-33.0); Mean Corpuscular Volume 69.3 fL (80-95); Mean Platelet Volume 9.5 fL (8.0-11.0); Platelet Count 432 x1000/uL (130-400); RBC Distribution Width 20.4 % (11.7-14.6); White Blood Cell Count 6.15 k/cumm (4.4-10.8)
[2019-09-03 18:06] LABS: ALT 18 U/L (14-59); AST 23 U/L (15-37); Alkaline Phosphatase 115 U/L (46-116); Anion Gap 8.9 mmol/L (3-11); BUN 10 mg/dL (7-18); Bilirubin, Total 0.3 mg/dL (0.2-1.0); CO2 32.1 mmol/L (21.0-32.0); CREATININE 1.05 mg/dL (0.55-1.02); Calcium 8.5 mg/dL (8.5-10.1); Chloride 95 mmol/L (98-107); Cholesterol 254 mg/dL (<200); Estimated GFR 55.48 (mL/min/1.73m2); Glucose 108 mg/dL (74-106); HDL Cholesterol 38 mg/dL (40-60); Potassium 3.2 mmol/L (3.5-5.1); Sodium 136 mmol/L (136-145); Total Protein 7.4 g/dL (6.4-8.2); Triglyceride 460 mg/dL (<150)
[2019-09-03 18:28] LABS: LDL CHOLESTEROL 121 mg/dL (<100)
== END 2019-09-03 12:52 ==
LOC: NCHCN 12:32
PROVIDERS: PCP Nurse Practitioner Family; Visit Provider Nurse Practitioner Family
DX: E87.6 Hypokalemia (principal); I10 Essential (primary) hypertension; E78.5 Hyperlipidemia, unspecified; Z00.00 Encounter for general adult medical examination without abnormal findings
CPT/HCPCS: 80053; 80061; 83721; 85027

== ENCOUNTER 2019-09-08 19:54 | Outpatient (REF) | payer MEDICAID, SELFPAY ==
[2019-09-11 12:21] LABS: IgA 281 mg/dL (85-499); Tissue Transglutaminase IgA <1.2 U/mL (<4.0)
== END 2019-09-08 20:14 ==
LOC: NCHCN 19:54
PROVIDERS: PCP Nurse Practitioner Family; Visit Provider Nurse Practitioner Family
DX: D64.9 Anemia, unspecified (principal)
CPT/HCPCS: 82784; 83516

== ENCOUNTER 2019-10-05 16:27 | Outpatient (REF) | payer MEDICAID, SELFPAY ==
[2019-10-05 18:15] LABS: HCT 40.8 % (36.0-46.0); HGB 12.7 g/dL (12.0-15.5); Mean Corp. HGB Concentration 31.1 g/dL (32.0-36.0); Mean Corpuscular Hemoglobin 25.7 pg (27.0-33.0); Mean Corpuscular Volume 82.6 fL (80-95); Mean Platelet Volume 9.9 fL (8.0-11.0); Platelet Count 286 x1000/uL (130-400); RBC 4.94 m/cumm (4.00-5.20)
[2019-10-05 18:24] LABS: Iron 107 ug/dL (50-170); Total Iron Binding Capacity 293 ug/dL (250-450)
[2019-10-05 18:37] LABS: Ferritin 61 ng/mL (8-252)
== END 2019-10-05 16:47 ==
LOC: NCHCN 16:27
PROVIDERS: PCP Nurse Practitioner Family; Visit Provider Nurse Practitioner Family
DX: D64.9 Anemia, unspecified (principal)
CPT/HCPCS: 85027; 82728; 83540; 83550

== ENCOUNTER 2019-11-05 15:20 | Outpatient (REF) | payer MEDICAID, SELFPAY ==
[2019-11-05 18:14] LABS: HCT 44.3 % (36.0-46.0); HGB 14.7 g/dL (12.0-15.5); Mean Corp. HGB Concentration 33.2 g/dL (32.0-36.0); Mean Corpuscular Hemoglobin 28.5 pg (27.0-33.0); Mean Corpuscular Volume 85.9 fL (80-95); Mean Platelet Volume 10.1 fL (8.0-11.0); Platelet Count 284 x1000/uL (130-400); RBC 5.16 m/cumm (4.00-5.20); RBC Distribution Width 25.2 % (11.7-14.6); White Blood Cell Count 6.66 k/cumm (4.4-10.8)
[2019-11-05 19:09] LABS: Anion Gap 5.3 mmol/L (3-11); BUN 10 mg/dL (7-18); CO2 32.7 mmol/L (21.0-32.0); CREATININE 1.07 mg/dL (0.55-1.02); Calcium 9.7 mg/dL (8.5-10.1); Chloride 99 mmol/L (98-107); Estimated GFR 54.06 (mL/min/1.73m2); Glucose 84 mg/dL (74-106); Potassium 4.1 mmol/L (3.5-5.1); Sodium 137 mmol/L (136-145)
== END 2019-11-05 15:40 ==
LOC: NCHCN 15:20
PROVIDERS: PCP Nurse Practitioner Family; Visit Provider Nurse Practitioner Family
DX: D64.9 Anemia, unspecified (principal); E87.6 Hypokalemia; Z01.818 Encounter for other preprocedural examination
CPT/HCPCS: 80048; 85027

== ENCOUNTER 2019-11-09 14:59 | Outpatient (REF) | payer MEDICAID, SELFPAY ==
[2019-11-10 18:05] LABS: COVID-19 RT-PCR Result NEGATIVE (Negative)
== END 2019-11-09 15:19 ==
LOC: NCHCN 14:59
PROVIDERS: PCP Nurse Practitioner Family; Visit Provider Nurse Practitioner Family
DX: Z11.59 Encounter for screening for other viral diseases (principal); Z01.818 Encounter for other preprocedural examination
CPT/HCPCS: U0003

== ENCOUNTER 2019-11-19 07:14 | Outpatient (CLI) | payer MEDICAID, SELFPAY ==
[2019-11-20 15:54] LABS: COVID-19 RT-PCR UVMMC Result Negative (Negative)
== END 2019-11-19 07:34 ==
PROVIDERS: PCP Nurse Practitioner Family; Visit Provider Orthopaedic Surgery
DX: Z11.59 Encounter for screening for other viral diseases (principal)
CPT/HCPCS: U0003

== ENCOUNTER 2019-11-23 09:15 | Day surgery (SDC) | payer MEDICAID, SELFPAY ==
[2019-11-23] VITALS (10 sets, daily range): BP systolic 100–130; BP diastolic 56–80; PULSE 69–81; RESP 12–18; TEMP 36.1–36.7; O2SAT 93–100
[2019-11-23] MEDS: Lactated Ringers 1,000 ML 80 ML IV (09:50)
[2019-11-23] MEDS: ceFAZolin 1 GM/50 ML BAG IVPB (11:19)
--- NOTE | 2019-11-23 12:00 | W.PM.DSUDISC ---
Discharge Plan Disposition Patient Disposition: HOME Condition: Good Discharge Details Reason For Visit: Excision Distal Clavicle L Attending Provider: Derek Zamorano Primary Care Provider: Peter Piña Home Meds and New Rx's Prescriptions: New oxycodone 5 mg tablet 5 mg PO Q6H PRN (Reason: pain) Qty: 14 RF: 0 celecoxib [Celebrex] 200 mg capsule 200 mg PO BID Qty: 20 RF: 0 Continued diazepam [Valium] 10 mg tablet 10 mg PO ONCE PRNRF: 0 ferrous gluconate 324 mg (37.5 mg iron) tablet 324 mg PO BID RF: 0 potassium chloride 20 mEq tablet,ER particles/crystals 20 meq PO DAILY RF: 0 albuterol 90 mcg/actuation aerosol 2 puff IH PRN PRNRF: 0 budesonide-formoterol [Symbicort] 160-4.5 mcg/actuation HFA aerosol inhaler 2 puff IH BID RF: 0 omeprazole [Prilosec] 40 MG capsule,delayed release(DR/EC) 40 mg PO DAILY RF: 0 methadone [Methadose] 40 MG tablet,soluble 130 mg PO DAILY RF: 0 mirtazapine 7.5 MG tablet 7.5 mg PO HS RF: 0 cyclobenzaprine 10 MG tablet 10 mg PO BID PRNRF: 0 duloxetine [Cymbalta] 20 MG capsule,delayed release(DR/EC) 60 mg PO BID RF: 0 triamcinolone acetonide [Nasacort AQ] 16.5 GM aerosol,spray 2 spry Intranasal DAILY PRNRF: 0 hydroxyzine HCl 25 MG tablet 25 mg PO TID PRNRF: 0 clonidine HCl 0.1 MG tablet extended release 12 hr 0.1 mg PO BID RF: 0 gabapentin 800 MG tablet 800 mg PO TID RF: 0 lamotrigine [Lamictal] 100 MG tablet 100 mg PO TID RF: 0 epinephrine 0.3 MG/SYR auto-injector 0.3 mg IJ PRN PRN (Reason: Anaphylaxis) Qty: 1 RF: 0 chlorthalidone 25 MG tablet 12.5 mg PO DAILY RF: 0 levothyroxine 25 MCG tablet 25 mcg PO DAILY RF: 0 nicotine [Nicoderm CQ] 21 mg/24 hr Patch 24 Hour 1 patch TRANSDERMAL DAILY RF: 0 Discharge Instructions Additional Instructions: Sling for comfort. May take L arm out of sling as much as your pain allows. May discontinue sling when comfortable. Leave cyrocuff on L shoulder continuously overnite. Tomorrow, start to use 4 times/day for 1 hour each time. May shower and get dressing wet after 72 hours. Let the dressing fall off by itself. Take celebrex twice/day as prescribed to decrease swelling and inflammation. Take oxycodone for breakthru pain. if needed. Follow up with in 2 weeks. Outpatient Physical Therapy later this week. Equipment/Supplies: Sling Activity:: Activity as Tolerated Remove Dressings/Wound Care:: Do Not Remove Shower/Bathe:: 72 hours Diet:: As Tolerated Discharge Orders Discharge Orders: Discharge Order (Routine); Ordered 11/23/19 Ordered By: Derek Zamorano DS: Diagnosis Discharge Diagnosis (1) DJD of left AC (acromioclavicular) joint: Status: Acute
[2019-11-23] MEDS: oxyCODONE 5 mg/Acetaminophen 325 mg TAB 1 TAB PO (14:18)
--- NOTE | 2019-11-23 15:25 | W.PM.OP ---
Date of service: 11/23/19 Time of Service: 15:25 Operative Note Operative Note DATE OF PROCEDURE: 11/23/19 PRE-OP DIAGNOSIS: DJD AC joint left POST-OP DIAGNOSIS: same PROCEDURE: Excision distal clavicle left SURGEON: Derek Zamorano SCHEDULE PLANNING MANAGER: Faith Xavier ANESTHESIA: GETA PATHOLOGY: none sent COMPLICATIONS: None Patient was transported to: PACU Patient's condition: stable Indications: The 49-year-old white female with left shoulder pain over a years duration. Initially she presented as a rotator cuff tendinitis. Over time it became clear that her AC joint was the source of her pain. It was thought that the AC joint was causing irritation of her rotator cuff. MRI scan showed no significant rotator cuff pathology. Did show the significant DJD of the AC joint. Excision distal clavicle is recommended to alleviate her pain on a permanent basis since nonoperative treatment had failed. Procedure Description: Patient was taken to the operating room on 11/23/2019 she is placed supine on the operating table and general anesthetic was administered. She was placed in the stewart chair position. The left shoulder was prepped and draped in usual sterile fashion. Incision was made in the superior aspect of the AC joint incision was about 3 inches in length. Incision was carried down to the capsule of the AC joint. The AC Joint Was Longitudinally Incised and Then the Distal Clavicle Was Exposed with Subperiosteal Dissection. The Distal Centimeter of the Clavicle Was Then Transected with Oscillating Saw. The Resected End of the Clavicle Was Irrigated with Saline Solution and Then Packed with Bone Wax to Limit Postoperative Bleeding. The Wound Margins Were Infiltrated 0.5% Marcaine with Epinephrine Solution. AC Joint Capsule and Periosteum over the Distal Clavicle Were Repaired with Interrupted [id number] Sutures of #1 Backslash. Skin and Subcu Approximated with Running Subarticular Monocryl Suture Supplemented with Tissue Glue and Steri-Strips. Mepilex Dressing Was Applied. Left Arm Was Placed in a Sling. Patient's Anesthesia Was Resolved Complication Blood Loss Was Minimal and She Was Discharged to Recovery Room in Good Condition. Patient Was Later Discharged Home from Day Surgery Unit When Fully Recovered from Her General Anesthesia. She Is Given Instructions to Use a Sling for Comfort. She May Take Her Arm Out Of the Sling As Much As Discomfort Allows. She Can Wean Herself Out Of the Sling As Soon As She Is Comfortable. She May Shower and Get Her Dressing Wet in 72 Hours. She Should Not Attempt to Take the Dressing off. She Should Just Let It Fall off by Itself. Should Attend Outpatient Physical Therapy Later This Week for Range Of Motion of Her Left Shoulder. Follow-Up with Dr. Zamorano in 2 Weeks. She Has Had Prescription for Celebrex 200 Mg P.O. Twice Daily for Swelling and Inflammation. And She Is Given a Prescription of Oxycodone with APAP 10/24/2024 1 Tablet Every 6 Hours As Needed. She is him instructions also to apply ice to the surgical site 4 times a day for an hour each time.
== END 2019-11-23 15:30 | disposition home or self-care (01) ==
PROVIDERS: PCP Nurse Practitioner Family; Visit Provider Orthopaedic Surgery
PROC: (CPT 23120; principal; 2019-11-23 11:45)
DX: M19.012 Primary osteoarthritis, left shoulder (principal)
CPT/HCPCS: 23120; J0690; J1100; J1885; J2250; J2405; J2704; L3650

== ENCOUNTER 2019-12-01 02:38 | Outpatient (CLI) | payer MEDICAID, SELFPAY ==
--- NOTE | 2019-12-01 | DI.MRI_ITS ---
EXAM: MR LUMBAR SPINE WO CLINICAL HISTORY: LOW BACK PAIN,M54.5. TECHNIQUE: Multiplanar multisequence MRI of the Lumbar spine was performed. COMPARISON: MR MRI - LUMBAR SPINE WO CONTRAST from 04/06/2014 CT LUMBAR SPINE SI JOINTS WO from 10/27/2017 FINDINGS: There is artifact from the patient's posterior spinal surgery from L4 through S1 Bones: The last intervertebral disc space is designated the L5/S1 level for the numbering purpose of this examination. The vertebral body heights are well maintained. There is grade 1 spondylolisthesi s of L5 on S1. The signal characteristics are unremarkable. Cord: The conus tip ends at the L1 level. It is of normal size and signal intensity. T12-L1: No disc herniations or bulges are present. No central spinal canal or neural foraminal stenos is. L1-2: No disc herniations or bulges are present. No central spinal canal or neural foraminal stenosis . L2-3: No disc herniations or bulges are present. No central spinal canal or neural foraminal stenosis . L3-4: No disc herniations or bulges are present. No central spinal canal or neural foraminal stenosis . L4-5: No disc herniations or bulges are present. No central spinal canal or neural foraminal stenosis .There is loss of signal of the disc. L5-S1: No disc herniations or bulges are present. No central spinal canal stenosis is present. There does appear to be mild bilateral neural foraminal narrowing.There is loss of signal of the disc. Soft tissues: The visualized SI joints and sacrum are well maintained. The paraspinal soft tissues ar e unremarkable. IMPRESSION: 1. Posterior spinal surgery from L4 through S1. 2. Grade 1 spondylolisthesis of L5 on S1. Mild bilateral neural foraminal narrowing at L5-S1. DATA REPOSITORY:
== END 2019-12-01 02:58 ==
PROVIDERS: PCP Nurse Practitioner Family; Visit Provider Family Medicine
DX: M54.5 Low back pain (principal); M43.17 Spondylolisthesis, lumbosacral region; Z98.890 Other specified postprocedural states
CPT/HCPCS: 72148

== ENCOUNTER 2020-01-11 16:18 | Emergency (ER) | payer MEDICAID, SELFPAY ==
[2020-01-11 16:26] VITALS: BP 149/88; PULSE 96; RESP 18; TEMP 36.6; O2SAT 98
--- NOTE | 2020-01-11 16:40 | ED.GENADUL_ITS ---
Discharge Plan Disposition Patient Disposition: HOME Condition: Fair Discharge Details Chief Complaint: Allergic Clinical Impression: Cellulitis, Wasp sting Primary Care Provider: Peter Piña ED Provider: Anabela Parker Home Meds and New Rx's Prescriptions: New doxycycline hyclate 100 mg capsule 100 mg PO BID Qty: 14 RF: 0 Continued diazepam [Valium] 10 mg tablet 10 mg PO ONCE PRNRF: 0 ferrous gluconate 324 mg (37.5 mg iron) tablet 324 mg PO BID RF: 0 potassium chloride 20 mEq tablet,ER particles/crystals 20 meq PO DAILY RF: 0 albuterol 90 mcg/actuation aerosol 2 puff IH PRN PRNRF: 0 budesonide-formoterol [Symbicort] 160-4.5 mcg/actuation HFA aerosol inhaler 2 puff IH BID RF: 0 omeprazole [Prilosec] 40 MG capsule,delayed release(DR/EC) 40 mg PO DAILY RF: 0 methadone [Methadose] 40 MG tablet,soluble 130 mg PO DAILY RF: 0 mirtazapine 7.5 MG tablet 7.5 mg PO HS RF: 0 cyclobenzaprine 10 MG tablet 10 mg PO BID PRNRF: 0 duloxetine [Cymbalta] 20 MG capsule,delayed release(DR/EC) 60 mg PO BID RF: 0 triamcinolone acetonide [Nasacort AQ] 16.5 GM aerosol,spray 2 spry Intranasal DAILY PRNRF: 0 hydroxyzine HCl 25 MG tablet 25 mg PO TID PRNRF: 0 clonidine HCl 0.1 MG tablet extended release 12 hr 0.1 mg PO BID RF: 0 gabapentin 800 MG tablet 800 mg PO TID RF: 0 lamotrigine [Lamictal] 100 MG tablet 100 mg PO TID RF: 0 epinephrine 0.3 MG/SYR auto-injector 0.3 mg IJ PRN PRN (Reason: Anaphylaxis) Qty: 1 RF: 0 celecoxib [Celebrex] 200 mg capsule 200 mg PO BID Qty: 20 RF: 0 chlorthalidone 25 MG tablet 12.5 mg PO DAILY RF: 0 levothyroxine 25 MCG tablet 25 mcg PO DAILY RF: 0 nicotine [Nicoderm CQ] 21 mg/24 hr Patch 24 Hour 1 patch TRANSDERMAL DAILY RF: 0 Discharge Instructions Instructions: Cellulitis (ED) Additional Instructions: Encourage better intake. Try to cut back on smoking. Elevate your lower extremities. Pain continues to have infection of the skin around your stings. Please take antibiotics as prescribed. Even if symptoms improve, please take the entire course. Please hold on your iron until you finish your antibiotics. Please avoid sun exposure as this can cause skin reaction You may use Benadryl to help with swelling and possible slight reaction from your stings. Please keep the current dressings on until reevaluated by primary care. Please call primary care tomorrow, would like you to be seen in 3 days for reevaluation. If you develop fever/chills, redness, drainage and seems to your dressing or the new/worsening symptom please seek care urgently once again. Referrals: Peter Piña NP [Primary Care Provider] - Discharge Data Discharge Date/Time-TO BE ENTERED AT DEPARTURE: 01/11/20 18:20 Medical Decision Making Patient is a pleasant 49 of multiple wasp stings. She reports that she was cesar ng 5 days ago while mowing her lawn. States that since then, she has had erythema to the lateral aspect of the right ankle and wound to the medial right thigh. She also sustained smaller ulcerative wound to the left anterior calf as well as 2 puncture wounds to the right anterior calf. She denies any fevers or chills. Last tetanus was in 2010, will update this today. She states that she is not been taking her pulling at these. States that she is been cleaning the wounds and covered with bandages. Denies any numbness or tingling. On exam, patient is resting comfortably. On the right lower extremity, patient has a quarter size open wound. It is at this point that the patient report that she was stung multiple times by wasp. This is an ulcer. I will see if wound care is able to evaluate this. Mild ring of erythema but no spreading of this. No crepitus. No fluctuance or discharge. Exam of the right lateral ankle shows much smaller ulcerative wound. This is surrounded by erythema and warmth. This is tender to palpation. 2+ distal pulses. Sensation is intact. Brisk capillary refill. Good range of motion without any evidence of discomfort. Patient is ambulating without evidence of discomfort. She also has a small ulcerative lesion on the left anterior calf as well as 2 puncture wounds on the right anterior calf. None of these appear to be a significant wound. Wound care nursing staff to come to evaluate the patient. He applied antiseptic gel followed by Mepilex. He advised that this could stand for the next 3 days but that patient should be seen by primary care after that for wound reevaluation and dressing change. He did dress all 3 of the ulcerative wounds. Patient has a multitude of allergies. I am concerned that she has cellulitis in the setting of wasp stings. We did discuss using Benadryl if there is any correlation with potential persistent reaction although I do not see any evidence to suggest more of a diffuse reaction. I do not feel that steroids are appropriate at this point. We will place the patient on doxycycline. She will given her first dose while here. Patient will contact her primary care tomorrow and follow-up in 3 days for wound care assessment. She was given strict return precautions. All questions and concerns were addressed and she is in agreement this plan. HPI General Mode of arrival: ambulatory . Date/Time Provider Initiated Documentation: 01/11/20 16:40 . Limitations to Documentation: no limitations . Information obtained by: patient and RN notes reviewed . History of Present Illness 49 year old F presents to the emergency department with the chief complaint of wasp stings, described as moderate, with intensity rated at 7. Quality is described as aching, and is localized to the left, right and lower extremity. Patient reports no radiation. Patient started experiencing this day(s) (5) and it has been constant. No relieving factors improve symptom(s), No exacerbating factors reported . Patient notes rash; denies fever/chills, shortness of breath and weakness. Patient did receive the following treatments prior to arrival, none Related Data Home Medications Medication Instructions Recorded Confirmed cyclobenzaprine 10 mg PO BID PRN 11/28/12 01/11/20 duloxetine [Cymbalta] 60 mg PO BID 11/28/12 01/11/20 hydroxyzine HCl 25 mg PO TID PRN 04/13/13 01/11/20 triamcinolone acetonide [Nasacort 2 spry INTRANASAL DAILY PRN 04/13/13 01/11/20 AQ] clonidine HCl 0.1 mg PO BID 09/05/15 01/11/20 gabapentin 800 mg PO TID 09/06/15 01/11/20 methadone [Methadose] 130 mg PO DAILY tab-cap 11/02/15 01/11/20 mirtazapine 7.5 mg PO HS tab-cap 11/02/15 01/11/20 omeprazole [Prilosec] 40 mg PO DAILY tab-cap 11/02/15 01/11/20 lamotrigine [Lamictal] 100 mg PO TID 03/16/16 01/11/20 epinephrine 0.3 mg IJ PRN PRN #1 kit 08/16/16 01/11/20 chlorthalidone 12.5 mg PO DAILY 07/12/17 01/11/20 levothyroxine 25 mcg PO DAILY 07/12/17 01/11/20 albuterol 90 mcg/actuation aerosol 2 puff IH PRN PRN 08/19/18 01/11/20 inhaler budesonide-formoterol HFA 160 2 puff IH BID 08/19/18 01/11/20 mcg-4.5 mcg/actuation aerosol inhaler ferrous gluconate 324 mg (37.5 mg 324 mg PO BID tab 08/19/18 01/11/20 iron) tablet potassium chloride 20 mEq 20 meq PO DAILY 08/19/18 01/11/20 tablet,extended release(part/cryst) nicotine [Nicoderm CQ] 1 patch TRANSDERMAL DAILY 11/13/18 01/11/20 diazepam 10 mg tablet 10 mg PO ONCE PRN tab 08/04/19 01/11/20 celecoxib [Celebrex] 200 mg PO BID #20 cap 11/23/19 01/11/20 doxycycline hyclate 100 mg PO BID #14 cap 01/11/20 Previous Rx's Medication Instructions Recorded epinephrine 0.3 mg IJ PRN PRN #1 kit 08/16/16 celecoxib [Celebrex] 200 mg PO BID #20 cap 11/23/19 doxycycline hyclate 100 mg PO BID #14 cap 01/11/20 Allergies Allergy/AdvReac Type Severity Reaction Status Date / Time penicillin G Allergy Severe THROAT Unverified 01/11/20 16:32 CLOSES clindamycin Allergy Intermediate Skin Rash Unverified 01/11/20 16:32 milnacipran HCl Allergy Intermediate Skin Rash Unverified 01/11/20 16:32 [From Savella] cefuroxime axetil Allergy Unverified 01/11/20 16:32 [From Ceftin] acetaminophen [From Vicodin] AdvReac Intermediate I cant Unverified 01/11/20 16:32 take it it ruins my liver azithromycin [From Zithromax] AdvReac Intermediate GI upset Unverified 01/11/20 16:32 clarithromycin [From Biaxin] AdvReac Intermediate Nausea Unverified 01/11/20 16:32 hydrocodone [From Vicodin] AdvReac Intermediate I cant Unverified 01/11/20 16:32 take it it ruins my liver ibuprofen AdvReac Intermediate GI Upset Unverified 01/11/20 16:32 ketorolac tromethamine AdvReac Intermediate GI Upset, Unverified 01/11/20 16:32 [From Toradol] can take IV form pregabalin [From Lyrica] AdvReac Intermediate Worsen Mood Unverified 01/11/20 16:32 Sulfa (Sulfonamide AdvReac Intermediate GI upset Unverified 01/11/20 16:32 Antibiotics) ENVIORNMENTAL Allergy Mild SINUSES Uncoded 01/11/20 16:32 MESSED UP-EYES General Stated Complaint: Allergic GRISEL: 3 Review of Systems Constitutional Constitutional: Reports as per HPI, Denies chills and Denies fever(s) Musculoskeletal Musculoskeletal: Reports as per HPI Integumentary/Breasts Skin/Breast: Reports as per HPI Neurologic Neurologic: Reports as per HPI, Denies sensory deficit and Denies paresthesias [facility] Social History Smoking/Tobacco Use Status: Current every day Tobacco Type: cigarettes Smoking packs per day: 1 Smoking cigarettes per day: 20.0 Tobacco: How many years used: 25 Alcohol Intake: never Drug use: Occasionally Substance use type: marijuana Current gender identity: female Do you feel safe at home: Yes Do you feel safe in your relationship?: Yes Exam Const General: cooperative, healthy appearing, comfortable, no acute distress and well developed Nutritional Appearance: average body habitus and well nourished Orientation: alert and awake Resp Effort & Inspection: normal respiratory effort, able to speak in complete sent ences and no respiratory distress Cardio Rate: regular rate Rhythm: regular rhythm Skin General skin exam: erythema Wounds: wounds noted (as drawn below) Neuro General: patient alert and patient awake Cognition: normal cognition Speech: speech normal Gait: normal gait Sensory Exam: no sensory deficits noted Extrem Knee images: 1. Open ulcerative area. Mild surrounding erythema. No crepitus, no discharge, no fluctuance. Ankle/foot/toe images: 1. Area of erythema and tenderness surrounding small puncture wound. No swelling or fluctuance. No drainage. Full ROM of ankle and toes. 2+ distal pulses, brisk capillary refill, sensation intact. No crepitus. 2. Small ulcerated area, approximately 3mm in diameter. No erythema, warmth, crepitus Psych Appearance: grossly normal and well kempt Mental Status: mental status grossly normal Speech and Movement: speech and movement normal Course Vital Signs Vital signs: Vital Signs Temperature 36.6 C 01/11/20 16:26 Pulse 96 H 01/11/20 16:26 Respiratory Rate 18 01/11/20 16:26 Blood Pressure 149/88 H 01/11/20 16:26 Pulse Oximetry 98 01/11/20 16:26 Temperature 36.6 C 01/11/20 16:26 Temperature Source Temporal Artery Scan 01/11/20 16:26 Pulse 96 H 01/11/20 16:26 Respiratory Rate 18 01/11/20 16:26 Respiratory Effort Non-Labored 01/11/20 16:31 Blood Pressure 149/88 H 01/11/20 16:26 Blood Pressure Position Supine 01/11/20 16:26 Pulse Oximetry 98 01/11/20 16:26 Oxygen Delivery Method Room Air 01/11/20 16:26 Oxygen Flow Rate 0 01/11/20 16:26 Pain Level 7 01/11/20 16:26
[2020-01-11] MEDS: Ketorolac 30 MG/ML VIAL IM (17:33)
[2020-01-11] MEDS: Doxycycline Hyclate 100 MG CAP PO (17:52)
[2020-01-11 18:13] VITALS: BP 109/74; PULSE 72; RESP 16; TEMP 36.5; O2SAT 94
== END 2020-01-11 18:20 | disposition home or self-care (01) ==
PROVIDERS: Emergency Provider Physician Assistant; PCP Nurse Practitioner Family
DX: L03.115 Cellulitis of right lower limb (principal); L03.116 Cellulitis of left lower limb; S81.801A Unspecified open wound, right lower leg, initial encounter; T63.461A Toxic effect of venom of wasps, accidental (unintentional), initial encounter
CPT/HCPCS: 90471; 96372; 99284; J1885

== ENCOUNTER 2020-01-20 00:54 | Outpatient (CLI) | payer MEDICAID, SELFPAY ==
--- NOTE | 2020-01-20 | DI.DEXA_ITS ---
EXAM: XR DEXA BONE DENSITY W/WO ARIANNA CLINICAL HISTORY: SCREENING FOR OSTEOPOROSIS, PREVENTIVE HEALTH CARE,Z00.00 TECHNIQUE: HoloSpurfly Horizon C densitometer COMPARISON: DX DEXA BONE DENSITY WITH ARIANNA from 11/14/2011 DX DEXA BONE DENSITY WITH ARIANNA from 04/06/[address] thoracic spine wo from 07/19/2018 MR MR LUMBAR SPINE WO from 12/01/2019 FINDINGS: The ARIANNA image shows no gross evidence of compression fractures. Hardware is noted from L4 through S1. The L1 through L3 vertebral bodies were analyzed. The total T-score of the lumbar spine is -1.5. Th is represents a 3.9 percent decrease when compared with 2013 and a 2.5 percent decrease when compared with 2011. The bone mineral density measurements of the left hip correspond to a total T-score of - 0.6 and a femoral neck T-score of -1.4 in the osteopenic range. The bone mineral density is decrease d 4.6 percent when compared with 2013 and 2.5 percent when compared with 2011. The bone mineral dens ity measurements of the left forearm correspond to a T-score of the distal 3rd of -1.2, consistent wi th osteopenia. This is not significantly changed from previous exams. IMPRESSION: Osteopenia of the lumbar spine, left hip and left forearm with mild decreases when compared with prev ious exams.
== END 2020-01-20 01:14 ==
PROVIDERS: PCP Nurse Practitioner Family; Visit Provider Nurse Practitioner Family
DX: M85.88 Other specified disorders of bone density and structure, other site (principal); M85.832 Other specified disorders of bone density and structure, left forearm
CPT/HCPCS: 77080

== ENCOUNTER 2020-02-12 13:09 | Outpatient (REF) | payer MEDICAID, SELFPAY ==
[2020-02-12 21:07] LABS: Abs Immature Grans 0.01 10^3/uL (0.0-0.06); Absolute Basophil Count 0.03 10^3/uL (0.0-0.2); Absolute Eosinophil Count 0.11 10^3/uL (0.0-0.7); Absolute Lymphocyte Count 2.19 10^3/uL (1.2-3.4); Absolute Monocyte Count 0.45 10^3/uL (0.1-0.8); Absolute Neutrophil Count 2.15 10^3/uL (1.2-6.7); Basophils % 0.6; Eosinophils % 2.2; HCT 42.4 % (36.0-46.0); HGB 13.8 g/dL (11.2-15.7); Immature Grans % 0.2; Lymphocytes % 44.3; MCH 30.3 pg (27.0-33.0); MCHC 32.5 % (32.0-36.0); MCV 93.2 fL (80-95); MPV 10.5 fL (8.0-11.0); Monocytes % 9.1; Neutrophils % 43.6; Nucleated RBC 0 %; Platelet Count 308 10^3/uL (130-400); RBC 4.55 10^6/uL (3.93-5.22); RDW 12.8 % (11.7-14.6); RDW-SD 43.7 fL; WBC 4.94 10^3/uL (4.4-10.8)
[2020-02-12 21:50] LABS: ALT 39 U/L (14-59); AST 39 U/L (15-37); Albumin 4.1 g/dL (3.4-5.0); Alkaline Phosphatase 122 U/L (46-116); Anion Gap 7.8 mmol/L (3-11); BUN 10 mg/dL (7-18); Bilirubin, Total 0.3 mg/dL (0.2-1.0); CO2 34.2 mmol/L (21.0-32.0); CREATININE 0.98 mg/dL (0.55-1.02); Calcium 9.7 mg/dL (8.5-10.1); Chloride 96 mmol/L (98-107); Estimated GFR 59.83 (mL/min/1.73m2); Glucose 92 mg/dL (74-106); Potassium 3.6 mmol/L (3.5-5.1); Sodium 138 mmol/L (136-145); Total Protein 7.3 g/dL (6.4-8.2); Vitamin B12 528 pg/mL (193-986)
== END 2020-02-12 13:29 ==
LOC: NCHCN 13:09
PROVIDERS: PCP Nurse Practitioner Family; Visit Provider Nurse Practitioner Family
DX: E87.6 Hypokalemia (principal); L08.9 Local infection of the skin and subcutaneous tissue, unspecified; L03.116 Cellulitis of left lower limb
CPT/HCPCS: 80053; 87077; 82607; 85025; 87070; 87186; 87205

== ENCOUNTER 2020-04-04 11:18 | Emergency (ER) | payer MEDICAID, SELFPAY ==
--- NOTE | 2020-04-04 11:15 | DI.RAD_ITS ---
EXAM: XR FOOT LT COMPLETE CLINICAL HISTORY: Left foot ankle injury, R/o fracture. TECHNIQUE: 2D digital imaging was performed. COMPARISON: No exams were available for comparison FINDINGS: BONES: No acute fracture is present. No bony destructive lesion is seen. JOINTS: No dislocation present. SOFT TISSUE: Soft tissue swelling of the forefoot. No radiopaque foreign bodies. IMPRESSION: No acute fracture or dislocation. DATA REPOSITORY: RADIATION DOSE DELIVERED:
--- NOTE | 2020-04-04 11:30 | DI.RAD_ITS ---
EXAM: XR SHOULDER LT COMPLETE 2+V CLINICAL HISTORY: Fall, Injury, hx of surgery. TECHNIQUE: 2D digital imaging was performed. COMPARISON: CR XR shoulder LT complete 2+V from 01/15/2019 FINDINGS: BONES: No acute fracture is present. No bony destructive lesion is seen. Since the prior examination there has been resection of the distal clavicle. JOINTS: No dislocation present. SOFT TISSUE: Normal. IMPRESSION: No acute fracture or dislocation. DATA REPOSITORY: RADIATION DOSE DELIVERED:
--- NOTE | 2020-04-04 11:30 | DI.RAD_ITS ---
EXAM: XR HIP LT COMPLETE AP PELVIS CLINICAL HISTORY: Fall/pain. TECHNIQUE: 2D digital imaging was performed. COMPARISON: CR SACRO ILIAC JOINTS from 10/31/2017 FINDINGS: BONES: No acute fracture is present. No bony destructive lesion is seen. Stable postsurgical changes in the lumbosacral spine. JOINTS: No dislocation present. SOFT TISSUE: Normal. IMPRESSION: No acute fracture or dislocation. DATA REPOSITORY: RADIATION DOSE DELIVERED:
[2020-04-04 11:34] VITALS: BP 134/78; PULSE 91; RESP 16; TEMP 36.6; O2SAT 98
--- NOTE | 2020-04-04 11:44 | ED.GENADUL_ITS ---
Discharge Plan Disposition Patient Disposition: HOME Condition: Stable Discharge Details Clinical Impression: Fall, Left ankle sprain Primary Care Provider: Peter Piña ED Provider: Christie Virgen Home Meds and New Rx's Prescriptions: Continued diazepam [Valium] 10 mg tablet 10 mg PO ONCE PRNRF: 0 ferrous gluconate 324 mg (37.5 mg iron) tablet 324 mg PO BID RF: 0 potassium chloride 20 mEq tablet,ER particles/crystals 20 meq PO DAILY RF: 0 albuterol 90 mcg/actuation aerosol 2 puff IH PRN PRNRF: 0 budesonide-formoterol [Symbicort] 160-4.5 mcg/actuation HFA aerosol inhaler 2 puff IH BID RF: 0 prednisone 5 mg tablet 5 mg PO DAILY Qty: 30 RF: 1 omeprazole [Prilosec] 40 MG capsule,delayed release(DR/EC) 40 mg PO DAILY RF: 0 methadone [Methadose] 40 MG tablet,soluble 130 mg PO DAILY RF: 0 mirtazapine 7.5 MG tablet 7.5 mg PO HS RF: 0 cyclobenzaprine 10 MG tablet 10 mg PO BID PRNRF: 0 duloxetine [Cymbalta] 20 MG capsule,delayed release(DR/EC) 60 mg PO BID RF: 0 triamcinolone acetonide [Nasacort AQ] 16.5 GM aerosol,spray 2 spry Intranasal DAILY PRNRF: 0 hydroxyzine HCl 25 MG tablet 25 mg PO TID PRNRF: 0 clonidine HCl 0.1 MG tablet extended release 12 hr 0.1 mg PO BID RF: 0 gabapentin 800 MG tablet 800 mg PO TID RF: 0 lamotrigine [Lamictal] 100 MG tablet 100 mg PO TID RF: 0 epinephrine 0.3 MG/SYR auto-injector 0.3 mg IJ PRN PRN (Reason: Anaphylaxis) Qty: 1 RF: 0 chlorthalidone 25 MG tablet 12.5 mg PO DAILY RF: 0 levothyroxine 25 MCG tablet 25 mcg PO DAILY RF: 0 nicotine [Nicoderm CQ] 21 mg/24 hr Patch 24 Hour 1 patch TRANSDERMAL DAILY RF: 0 doxycycline hyclate 100 mg capsule 100 mg PO BID Qty: 14 RF: 0 Discharge Instructions Instructions: Ankle Sprain (ED), Fall Prevention (ED) Additional Instructions: Follow up with primary care provider in 3-5 days. Return to ED sooner if any worsening or concerns. Increase oral fluids. Please take Tylenol or Ibuprofen with food every 4-6 hours as needed for pain and swelling. Rest, ice, compression, elevation. Referrals: Peter Piña NP [Primary Care Provider] - Discharge Data Discharge Date/Time-TO BE ENTERED AT DEPARTURE: 04/04/20 13:46 Medical Decision Making 49-year-old female presents the ER with chief complaint of left ankle and foot pain, left hip pain and left shoulder pain after a fall last night. Patient states around 10 PM she was chasing her dog and fell onto her left side. Denies any neck pain or loss of consciousness or head injury, she is complaining of left posterior shoulder pain, left posterior hip pain, and left foot pain. She has no obvious deformity. Circulation sensation intact distally to injuries. She took her normal medications prior to arrival. EXAM: XR ANKLE LT COMPLETE CLINICAL HISTORY: R/O fracture TECHNIQUE: 2D digital imaging was performed. COMPARISON: No exams were available for comparison FINDINGS: BONES: No acute fracture is present. No bony destructive lesion is seen. JOINTS:The ankle mortise is normally aligned. SOFT TISSUE: Normal. IMPRESSION: Unremarkable radiographs of the left ankle. EXAM: XR FOOT LT COMPLETE CLINICAL HISTORY: Left foot ankle injury, R/o fracture. TECHNIQUE: 2D digital imaging was performed. COMPARISON: No exams were available for comparison FINDINGS: BONES: No acute fracture is present. No bony destructive lesion is seen. JOINTS: No dislocation present. SOFT TISSUE: Soft tissue swelling of the forefoot. No radiopaque foreign bodies. IMPRESSION: No acute fracture or dislocation. EXAM: XR SHOULDER LT COMPLETE 2+V CLINICAL HISTORY: Fall, Injury, hx of surgery. TECHNIQUE: 2D digital imaging was performed. COMPARISON: CR XR shoulder LT complete 2+V from 01/15/2019 FINDINGS: BONES: No acute fracture is present. No bony destructive lesion is seen. Since the prior examination there has been resection of the distal clavicle. JOINTS: No dislocation present. SOFT TISSUE: Normal. IMPRESSION: No acute fracture or dislocation. EXAM: XR HIP LT COMPLETE AP PELVIS CLINICAL HISTORY: Fall/pain. TECHNIQUE: 2D digital imaging was performed. COMPARISON: CR SACRO ILIAC JOINTS from 10/31/2017 FINDINGS: BONES: No acute fracture is present. No bony destructive lesion is seen. Stable postsurgical changes in the lumbosacral spine. JOINTS: No dislocation present. SOFT TISSUE: Normal. IMPRESSION: No acute fracture or dislocation. Discussed x-ray results with patient who verbalizes understanding. Patient was given a Ortho walking boot prior to arrival and a tramadol 50 mg p.o. which improved her symptoms. Discussed rest ice, compression elevation. HPI General Mode of arrival: wheelchair . Date/Time Provider Initiated Documentation: 04/04/20 11:24 . Limitations to Documentation: no limitations . Information obtained by: patient . HPI Narrative: 49-year-old female presents the ER with chief complaint of left ankle and foot pain, left hip pain and left shoulder pain after a fall last night. Patient states around 10 PM she was chasing her dog and fell onto her left side. Denies any neck pain or loss of consciousness or head injury, she is complaining of left posterior shoulder pain, left posterior hip pain, and left foot pain. She has no obvious deformity. Circulation sensation intact distally to injuries. She took her normal medications prior to arrival. Related Data Home Medications Medication Instructions Recorded Confirmed cyclobenzaprine 10 mg PO BID PRN 11/28/12 02/24/20 duloxetine [Cymbalta] 60 mg PO BID 11/28/12 02/24/20 hydroxyzine HCl 25 mg PO TID PRN 04/13/13 02/24/20 triamcinolone acetonide [Nasacort 2 spry INTRANASAL DAILY PRN 04/13/13 02/24/20 AQ] clonidine HCl 0.1 mg PO BID 09/05/15 02/24/20 gabapentin 800 mg PO TID 09/06/15 02/24/20 methadone [Methadose] 130 mg PO DAILY tab-cap 11/02/15 02/24/20 mirtazapine 7.5 mg PO HS tab-cap 11/02/15 02/24/20 omeprazole [Prilosec] 40 mg PO DAILY tab-cap 11/02/15 02/24/20 lamotrigine [Lamictal] 100 mg PO TID 03/16/16 02/24/20 epinephrine 0.3 mg IJ PRN PRN #1 kit 08/16/16 02/24/20 chlorthalidone 12.5 mg PO DAILY 07/12/17 02/24/20 levothyroxine 25 mcg PO DAILY 07/12/17 02/24/20 albuterol 90 mcg/actuation aerosol 2 puff IH PRN PRN 08/19/18 02/24/20 inhaler budesonide-formoterol HFA 160 2 puff IH BID 08/19/18 02/24/20 mcg-4.5 mcg/actuation aerosol inhaler ferrous gluconate 324 mg (37.5 mg 324 mg PO BID tab 08/19/18 02/24/20 iron) tablet potassium chloride 20 mEq 20 meq PO DAILY 08/19/18 02/24/20 tablet,extended release(part/cryst) nicotine [Nicoderm CQ] 1 patch TRANSDERMAL DAILY 11/13/18 02/24/20 diazepam 10 mg tablet 10 mg PO ONCE PRN tab 08/04/19 02/24/20 doxycycline hyclate 100 mg PO BID #14 cap 01/11/20 02/24/20 prednisone 5 mg tablet 5 mg PO DAILY #30 tab 02/24/20 02/24/20 Previous Rx's Medication Instructions Recorded epinephrine 0.3 mg IJ PRN PRN #1 kit 08/16/16 doxycycline hyclate 100 mg PO BID #14 cap 01/11/20 prednisone 5 mg tablet 5 mg PO DAILY #30 tab 02/24/20 Allergies Allergy/AdvReac Type Severity Reaction Status Date / Time penicillin G Allergy Severe THROAT Unverified 04/04/20 11:42 CLOSES clindamycin Allergy Intermediate Skin Rash Unverified 04/04/20 11:42 milnacipran HCl Allergy Intermediate Skin Rash Unverified 04/04/20 11:42 [From Savella] cefuroxime axetil Allergy Unverified 04/04/20 11:42 [From Ceftin] acetaminophen [From Vicodin] AdvReac Intermediate I cant Unverified 04/04/20 11:42 take it it ruins my liver azithromycin [From Zithromax] AdvReac Intermediate GI upset Unverified 04/04/20 11:42 clarithromycin [From Biaxin] AdvReac Intermediate Nausea Unverified 04/04/20 11:42 hydrocodone [From Vicodin] AdvReac Intermediate I cant Unverified 04/04/20 11:42 take it it ruins my liver ibuprofen AdvReac Intermediate GI Upset Unverified 04/04/20 11:42 ketorolac tromethamine AdvReac Intermediate GI Upset, Unverified 04/04/20 11:42 [From Toradol] can take IV form pregabalin [From Lyrica] AdvReac Intermediate Worsen Mood Unverified 04/04/20 11:42 Sulfa (Sulfonamide AdvReac Intermediate GI upset Unverified 04/04/20 11:42 Antibiotics) ENVIORNMENTAL Allergy Mild SINUSES Uncoded 04/04/20 11:42 MESSED UP-EYES General Stated Complaint: Orthopedic GRISEL: 4 Review of Systems Narrative: Constitutional: Negative for weight loss, alert and oriented, well groomed, normal body habitus, appears comfortable. HEENT: Denies trauma, headaches, blurry vision, nasal discharge, sore throat, trouble swallowing. Chest: Denies chest pain, palpitations, irregular rhythm, hypertension. Respiratory: Denies Shortness of breath, cough, hemoptysis. GI: Denies abdominal pain, nausea, vomiting, diarrhea, constipation. : Denies dysuria, hematuria, flank pain, rectal bleeding. Neuro: Denies dizziness, blurry vision, weakness, syncope, headache or facial numbness. Hematologic: Denies easy bruising, intolerance to heat or cold, hair loss. [facility] Medical History Anemia Anxiety Chronic anemia Chronic sinusitis COPD (chronic obstructive pulmonary disease) Depression Edema of left lower extremity Fibromyalgia Hyperlipidemia Hypertension Hypokalemia Hypothyroid Migraine Opioid abuse pt. denies this Spondylolisthesis Surgical History Cholecystectomy H/O esophagogastroduodenoscopy (~09/23/18) H/O hernia repair H/O spinal fusion History of carpal tunnel surgery of left wrist History of total abdominal hysterectomy with BSO right arm surgery on nerves Family History Father , from Colon Cancer in his late 60's Colon cancer Mother Diverticulitis s/p resection Social History Smoking/Tobacco Use Status: Current every day Tobacco Type: cigarettes Smoking packs per day: 1 Smoking cigarettes per day: 20.0 Tobacco: How many years used: 25 Alcohol Intake: never Drug use: Occasionally Substance use type: marijuana Current gender identity: female Do you feel safe at home: Yes Do you feel safe in your relationship?: Yes Exam Narrative Exam Narrative: Constitutional: Alert and oriented x3. Appears stated age. Normal body habitus. Head: Normocephalic, no signs of trauma including hematoma or depressed skull fractures palpated. Eyes: Pupils PERRLA, Red reflex noted, EOM's intact. Eyelids symmetrical without lesions, discharge, or swelling. ENT: Bilateral TM's WNL, External ear normal to inspection, no mastoid TTP, swelling, or erythema, Nasal turbinates WNL, no nasal discharge. Normal dentition, Posterior pharynx WNL, no exudate. Chest: RRR, Normal S1, S2, distal pulses intact. Resp: Lungs clear to auscultation bilaterally, no wheezes, rales, or rhonchi. Musculoskeletal: Normal gait, 5/5 strength to all four extremities. She does have some tenderness noted to her posterior left shoulder, left posterior hip, and dorsum of her left foot. No obvious deformity noted. Distal pulses are intact. Skin: No suspicious rashes or lesions. Capillary refill less than 2 sec. Neurologic: Cranial nerves II-XII intact. Alert and oriented x 3. DTR's intact. Hematologic/Lymphatic: No ecchymosis, no lymphadenopathy. Course Vital Signs Vital signs: Vital Signs Temperature 36.6 C 04/04/20 11:34 Pulse 91 H 04/04/20 11:34 Respiratory Rate 16 04/04/20 11:34 Blood Pressure 134/78 04/04/20 11:34 Pulse Oximetry 98 04/04/20 11:34 Temperature 36.6 C 04/04/20 11:34 Temperature Source Tympanic 04/04/20 11:34 Pulse 91 H 04/04/20 11:34 Respiratory Rate 16 04/04/20 11:34 Respiratory Effort Non-Labored 04/04/20 11:34 Blood Pressure 134/78 04/04/20 11:34 Pulse Oximetry 98 04/04/20 11:34 Oxygen Delivery Method Room Air 04/04/20 11:34 Oxygen Flow Rate 0 04/04/20 11:34 Pain Level 2 04/04/20 11:34
--- NOTE | 2020-04-04 12:46 | DI.RAD_ITS ---
EXAM: XR ANKLE LT COMPLETE CLINICAL HISTORY: R/O fracture TECHNIQUE: 2D digital imaging was performed. COMPARISON: No exams were available for comparison FINDINGS: BONES: No acute fracture is present. No bony destructive lesion is seen. JOINTS:The ankle mortise is normally aligned. SOFT TISSUE: Normal. IMPRESSION: Unremarkable radiographs of the left ankle. DATA REPOSITORY: RADIATION DOSE DELIVERED:
[2020-04-04] MEDS: traMADol 50 MG TAB PO (13:31)
[2020-04-04 13:33] VITALS: BP 112/72; PULSE 78; RESP 16; O2SAT 98
== END 2020-04-04 13:46 | disposition home or self-care (01) ==
PROVIDERS: Emergency Provider Registered Nurse Emergency; PCP Nurse Practitioner Family
DX: S93.492A Sprain of other ligament of left ankle, initial encounter (principal); M25.552 Pain in left hip; M25.512 Pain in left shoulder; W19.XXXA Unspecified fall, initial encounter; Y93.K1 Activity, walking an animal; I10 Essential (primary) hypertension; J44.9 Chronic obstructive pulmonary disease, unspecified; F17.210 Nicotine dependence, cigarettes, uncomplicated
CPT/HCPCS: 29515; 99284; 73030; 73502; 73610; 73630; 99283; L4361

== ENCOUNTER 2020-04-15 14:47 | Outpatient (REF) | payer MEDICAID, SELFPAY ==
[2020-04-17 22:54] LABS: Patient Race White; SARS-CoV-2 RNA Undetected (Undetected); SARS-CoV-2 Specimen Source Nasal
== END 2020-04-15 15:07 ==
LOC: NCHCN 14:47
PROVIDERS: PCP Nurse Practitioner Family; Visit Provider Nurse Practitioner Family
DX: Z20.828 Contact with and (suspected) exposure to other viral communicable diseases (principal)
CPT/HCPCS: U0003

== ENCOUNTER 2020-05-23 16:12 | Outpatient (REF) | payer MEDICAID, SELFPAY ==
[2020-05-24 22:58] LABS: Patient Race White; SARS-CoV-2 RNA Undetected (Undetected); SARS-CoV-2 Specimen Source Nasal
== END 2020-05-23 16:32 ==
LOC: NCHCN 16:12
PROVIDERS: PCP Nurse Practitioner Family; Visit Provider Nurse Practitioner Family
DX: R05 Cough (principal); R06.02 Shortness of breath
CPT/HCPCS: U0003

== ENCOUNTER 2020-06-01 01:49 | Outpatient (CLI) | payer MEDICAID, SELFPAY ==
--- NOTE | 2020-06-01 | DI.RAD_ITS ---
EXAM: XR CHEST 2V PA LATERAL CLINICAL HISTORY: SOB, R06.02. TECHNIQUE: 2D digital imaging was performed. COMPARISON: No exams were available for comparison FINDINGS: Heart size is normal. The mediastinum is not widened. Lungs are clear. No infiltrates nor pleural effusions. IMPRESSION: No acute pulmonary findings. DATA REPOSITORY: RADIATION DOSE DELIVERED:
== END 2020-06-01 02:09 ==
PROVIDERS: PCP Nurse Practitioner Family; Visit Provider Nurse Practitioner Family
DX: R06.02 Shortness of breath (principal)
CPT/HCPCS: 71046

== ENCOUNTER 2020-06-01 14:39 | Outpatient (REF) | payer MEDICAID, SELFPAY ==
[2020-06-04 10:01] LABS: COVID-19 RT-PCR Result NEGATIVE (Negative)
== END 2020-06-01 14:59 ==
LOC: NCHCN 14:39
PROVIDERS: PCP Nurse Practitioner Family; Visit Provider Nurse Practitioner Family
DX: Z20.828 Contact with and (suspected) exposure to other viral communicable diseases (principal)
CPT/HCPCS: U0003

== ENCOUNTER 2020-06-28 10:45 | Outpatient (REF) | payer MEDICAID, SELFPAY ==
[2020-06-30 16:34] LABS: COVID-19 RT-PCR UVMMC Result Negative (Negative)
== END 2020-06-28 11:05 ==
LOC: NCHCN 10:45
PROVIDERS: PCP Nurse Practitioner Family; Visit Provider Nurse Practitioner Family
DX: Z20.828 Contact with and (suspected) exposure to other viral communicable diseases (principal)
CPT/HCPCS: U0003

== ENCOUNTER 2020-07-10 18:22 | Emergency (ER) | payer MEDICAID, SELFPAY ==
[2020-07-10] VITALS (22 sets, daily range): BP systolic 104–149; BP diastolic 68–119; PULSE 78–120; RESP 7–23; TEMP 37.1; O2SAT 95–100
--- NOTE | 2020-07-10 18:34 | W.ED.GENAD ---
Discharge Plan Disposition Patient Disposition: HOME Condition: Stable Discharge Details Clinical Impression: Anemia, Tobacco abuse, Hypokalemia, Creatinine elevation Primary Care Provider: Peter Piña ED Provider: Anabela Parker Home Meds and New Rx's Prescriptions: Continued diazepam [Valium] 10 mg tablet 10 mg PO ONCE PRNRF: 0 ferrous gluconate 324 mg (37.5 mg iron) tablet 324 mg PO BID RF: 0 potassium chloride 20 mEq tablet,ER particles/crystals 20 meq PO DAILY RF: 0 albuterol 90 mcg/actuation aerosol 2 puff IH PRN PRNRF: 0 budesonide-formoterol [Symbicort] 160-4.5 mcg/actuation HFA aerosol inhaler 2 puff IH BID RF: 0 prednisone 5 mg tablet 5 mg PO DAILY Qty: 30 RF: 1 omeprazole [Prilosec] 40 MG capsule,delayed release(DR/EC) 40 mg PO DAILY RF: 0 methadone [Methadose] 40 MG tablet,soluble 130 mg PO DAILY RF: 0 mirtazapine 7.5 MG tablet 7.5 mg PO HS RF: 0 cyclobenzaprine 10 MG tablet 10 mg PO BID PRNRF: 0 duloxetine [Cymbalta] 20 MG capsule,delayed release(DR/EC) 60 mg PO BID RF: 0 triamcinolone acetonide [Nasacort AQ] 16.5 GM aerosol,spray 2 spry Intranasal DAILY PRNRF: 0 hydroxyzine HCl 25 MG tablet 25 mg PO TID PRNRF: 0 clonidine HCl 0.1 MG tablet extended release 12 hr 0.1 mg PO BID RF: 0 gabapentin 800 MG tablet 800 mg PO TID RF: 0 lamotrigine [Lamictal] 100 MG tablet 100 mg PO TID RF: 0 epinephrine 0.3 MG/SYR auto-injector 0.3 mg IJ PRN PRN (Reason: Anaphylaxis) Qty: 1 RF: 0 chlorthalidone 25 MG tablet 12.5 mg PO DAILY RF: 0 levothyroxine 25 MCG tablet 25 mcg PO DAILY RF: 0 nicotine [Nicoderm CQ] 21 mg/24 hr Patch 24 Hour 1 patch TRANSDERMAL DAILY RF: 0 doxycycline hyclate 100 mg capsule 100 mg PO BID Qty: 14 RF: 0 Discharge Instructions Instructions: Hypokalemia (ED), Anemia (ED) Additional Instructions: Please encourage water intake. Please continue to cut back on smoking. Your potassium was low today, this was replaced but please try to increase your potassium intake. You are anemic. I would like you discuss your anemia as well as your kidney function further with your primary care. You may also need more outpatient respiratory assessment. Please follow-up with primary care this week for reevaluation. If you develop chest pain, fevers, increased work of breathing or other new/worsening symptoms seek care urgently once again. Otherwise, please continue with your medications as prescribed. Referrals: Peter Piña NP [Primary Care Provider] - Discharge Data Discharge Date/Time-TO BE ENTERED AT DEPARTURE: 07/10/20 21:40 Medical Decision Making Patient is a pleasant 49-year-old female with past medical history pertinent for anxiety, COPD, depression, fibromyalgia, hyperlipidemia, hypertension, hypothyroid. She presents today with chief complaint of shortness of breath. She reports has been intermittent and did not actually associated with activity. She denies any chest pain. She is questioning initially if this was a COPD exacerbation. She was evaluated by her primary care and declined chest x-ray at that time. Patient has been using her medications as prescribed. On exam, patient appears anxious. Normal cardiac exam. Lungs are surprisingly clear. Was initially stating that her history was most consistent with COPD exacerbation. Patient feels that the weather can often exacerbate her COPD and that this is what she was expecting as well. She also continues to smoke. No lower extremity edema, calves are soft and nontender. Abdomen is nontender. Plan for chest x-ray. Patient is a smoker and fairly sedentary, I did consider PE. Will screen with a D-dimer. I find ACS less likely, will screen with an ECG as well as troponin. I do not see any evidence to suggest dissection, pneumothorax. FINDINGS: Lungs: There are faint opacities in the bilateral lower lung zones, which are nonspecific. No dense consolidation. Pleural space: No pleural effusion. No pneumothorax. Heart/Mediastinum: Unremarkable. No cardiomegaly. Bones/joints: Unremarkable. IMPRESSION: 1. Faint opacities in the bilateral lower lung zones, which are nonspecific and could represent overlying breast tissue versus faint ground-glass opacities from infectious etiologies such as viral pneumonia. Correlate with laboratory testing. 2. No dense consolidation. Patient does not have indication at this time to suggest infectious etiology as she is not had any cough or fever. Plan to Covid swab the patient but did not clinically feel the patient has indications of pneumonia. Labs reviewed. No leukocytosis. Patient is anemic with a hemoglobin of 10.7. Patient seems to also oscillate into anemia. She does report baseline has been worked up thoroughly including evaluation for potential GI bleed over the past year with no evidence noted. She denies any melena or active evidence of bleeding. Her abdomen is benign. Patient coags are normal. D-dimer within normal limits. Potassium is low at 3.1, will replenish orally here. Creatinine is elevated at 1.16. Patient has been elevated historically. When I went to discuss the findings with patient, she reports that she rarely drinks water but is actively drinking Coca-Cola. We will give a 500 cc bolus. Troponin is within normal limits. As he has been going on for the last week, I do not feel that repeat troponin is warranted at this time. BNP is within normal limits. Patient I discussed her shortness of breath further. She reports that she is not clear if this is anxiety driven as she does feel very anxious when she has the symptoms. She feels that anxiety could be contributing to her current symptoms. She is now also reporting that she stopped her Synthroid abruptly 1 month ago and has not have her thyroid checked since. She reports that she stopped because they told me I was taking it wrong. TSH is normal at 2.47. I discussed these findings with the patient at length. She believes at this time that this is all anxiety driven. Although certainly may be the case, patient is at high risk based on her long smoking history and comorbidities for potential further respiratory assessment. Notices primary care for referral. However, will obtain a Covid test as she does have some shortness of breath and may need further procedures completed. She reports that she has had Covid testing recently which was negative. Patient I discussed strict return precautions. She will follow-up closely with her primary care. All of her questions and concerns were addressed and she is in agreement plan. HPI General Mode of arrival: ambulatory. Date/Time Provider Initiated Documentation: 07/10/20 18:31. Limitations to Documentation: no limitations. Information obtained by: patient, RN notes reviewed and old records reviewed. History of Present Illness 49 year old F presents to the emergency department with the chief complaint of SOB, described as moderate, with intensity rated at 9 (reports severe chronic pain that is unchaged, not source of her visit). and is localized to the chest. Patient reports no radiation. Patient started experiencing this week(s) and it has been intermittent. No relieving factors improve symptom(s), No exacerbating factors reported . Patient notes cough (smoker), shortness of breath and other (reports feeling anxious); denies confusion, chest pain, diaphoresis, fever/chills, headaches, loss of appetite, nausea/vomiting, rash and weakness. Patient did receive the following treatments prior to arrival, none Related Data Home Medications Medication Instructions Recorded Confirmed cyclobenzaprine 10 mg PO BID PRN 11/28/12 04/06/20 duloxetine [Cymbalta] 60 mg PO BID 11/28/12 04/06/20 hydroxyzine HCl 25 mg PO TID PRN 04/13/13 04/06/20 triamcinolone acetonide [Nasacort 2 spry INTRANASAL DAILY PRN 04/13/13 04/06/20 AQ] clonidine HCl 0.1 mg PO BID 09/05/15 04/06/20 gabapentin 800 mg PO TID 09/06/15 04/06/20 methadone [Methadose] 130 mg PO DAILY tab-cap 11/02/15 04/06/20 mirtazapine 7.5 mg PO HS tab-cap 11/02/15 04/06/20 omeprazole [Prilosec] 40 mg PO DAILY tab-cap 11/02/15 04/06/20 lamotrigine [Lamictal] 100 mg PO TID 03/16/16 04/06/20 epinephrine 0.3 mg IJ PRN PRN #1 kit 08/16/16 04/06/20 chlorthalidone 12.5 mg PO DAILY 07/12/17 04/06/20 levothyroxine 25 mcg PO DAILY 07/12/17 04/06/20 albuterol 90 mcg/actuation aerosol 2 puff IH PRN PRN 08/19/18 04/06/20 inhaler budesonide-formoterol HFA 160 2 puff IH BID 08/19/18 04/06/20 mcg-4.5 mcg/actuation aerosol inhaler ferrous gluconate 324 mg (37.5 mg 324 mg PO BID tab 08/19/18 04/06/20 iron) tablet potassium chloride 20 mEq 20 meq PO DAILY 08/19/18 04/06/20 tablet,extended release(part/cryst) nicotine [Nicoderm CQ] 1 patch TRANSDERMAL DAILY 11/13/18 04/06/20 diazepam 10 mg tablet 10 mg PO ONCE PRN tab 08/04/19 04/06/20 doxycycline hyclate 100 mg PO BID #14 cap 01/11/20 04/06/20 prednisone 5 mg tablet 5 mg PO DAILY #30 tab 02/24/20 04/06/20 Previous Rx's Medication Instructions Recorded epinephrine 0.3 mg IJ PRN PRN #1 kit 08/16/16 doxycycline hyclate 100 mg PO BID #14 cap 01/11/20 prednisone 5 mg tablet 5 mg PO DAILY #30 tab 02/24/20 Allergies Allergy/AdvReac Type Severity Reaction Status Date / Time penicillin G Allergy Severe THROAT Unverified 07/10/20 18:39 CLOSES clindamycin Allergy Intermediate Skin Rash Unverified 07/10/20 18:39 milnacipran HCl Allergy Intermediate Skin Rash Unverified 07/10/20 18:39 [From Savella] cefuroxime axetil Allergy Unverified 07/10/20 18:39 [From Ceftin] acetaminophen [From Vicodin] AdvReac Intermediate I cant Unverified 07/10/20 18:39 take it it ruins my liver azithromycin [From Zithromax] AdvReac Intermediate GI upset Unverified 07/10/20 18:39 clarithromycin [From Biaxin] AdvReac Intermediate Nausea Unverified 07/10/20 18:39 hydrocodone [From Vicodin] AdvReac Intermediate I cant Unverified 07/10/20 18:39 take it it ruins my liver ibuprofen AdvReac Intermediate GI Upset Unverified 07/10/20 18:39 ketorolac tromethamine AdvReac Intermediate GI Upset, Unverified 07/10/20 18:39 [From Toradol] can take IV form pregabalin [From Lyrica] AdvReac Intermediate Worsen Mood Unverified 07/10/20 18:39 Sulfa (Sulfonamide AdvReac Intermediate GI upset Unverified 07/10/20 18:39 Antibiotics) ENVIORNMENTAL Allergy Mild SINUSES Uncoded 07/10/20 18:39 MESSED UP-EYES General GRISEL: 4 Review of Systems Constitutional Constitutional: Reports as per HPI, Denies chills, Denies fever(s), Denies headache(s), Denies lethargy and Denies poor appetite Eyes Eyes: Denies change in vision ENT Ears, Nose, Mouth, and Throat: Denies dizziness and Denies headache(s) Cardiovascular Cardiovascular: Reports as per HPI, Reports dyspnea (unclear what brings symptoms on) and Denies dyspnea on exertion Respiratory Respiratory: Reports as per HPI, Denies chest congestion, Denies cough, Denies pain on inspiration, Denies pain with cough, Reports dyspnea (unclear what brings symptoms on), Denies dyspnea on exertion and Denies wheezing Gastrointestinal Gastrointestinal: Reports as per HPI, Denies abdominal pain, Denies diarrhea, Denies nausea and Denies vomiting Musculoskeletal Musculoskeletal: Reports as per HPI and Denies back pain Integumentary/Breasts Skin/Breast: Reports as per HPI and Denies rash Neurologic Neurologic: Reports as per HPI, Denies dizziness and Denies headache(s) Allergic/Immunologic Allergic/Immunologic: Denies wheezing [facility] Medical History Anemia Anxiety Chronic anemia Chronic sinusitis COPD (chronic obstructive pulmonary disease) Depression Edema of left lower extremity Fibromyalgia Hyperlipidemia Hypertension Hypokalemia Hypothyroid Migraine Opioid abuse pt. denies this Spondylolisthesis Surgical History Cholecystectomy H/O esophagogastroduodenoscopy (~09/23/18) H/O hernia repair H/O spinal fusion History of carpal tunnel surgery of left wrist History of total abdominal hysterectomy with BSO right arm surgery on nerves Family History Father , from Colon Cancer in his late 60's Colon cancer Mother Diverticulitis s/p resection Social History Smoking/Tobacco Use Status: Current every day Tobacco Type: cigarettes Smoking packs per day: 1 Smoking cigarettes per day: 20.0 Tobacco: How many years used: 25 Smoking risk assessment performed?: Yes Alcohol Intake: never Drug use: Rarely Substance use type: marijuana Current gender identity: female Do you feel safe at home: Yes Do you feel safe in your relationship?: Yes Exam Const General: cooperative, healthy appearing, comfortable, no acute distress, well developed and anxious Nutritional Appearance: average body habitus and well nourished Orientation: alert, awake and oriented x3 [facility] Head: normal to inspection Ears: hearing grossly normal bilaterally Mouth: moist mucous membranes Chest Chest: normal inspection of the chest, normal palpation of entire chest wall and no crepitus Resp Effort & Inspection: normal respiratory effort, able to speak in complete sentences and no respiratory distress Auscultation: clear to auscultation bilaterally, no rales, no rhonchi and no wheezes Cardio Rate: regular rate Rhythm: regular rhythm Heart Sounds: S1 normal and S2 normal GI Inspection: normal to inspection, no edema and non-distended Palpation: soft, no hepatosplenomegaly, not firm, no guarding, not rigid and nontender Auscultation: normal bowel sounds Back/Spine/Pelvis Back: no CVA tenderness Thoracic/Lumbar Spine: thoracic and lumbar spine normal to inspection Skin General skin exam: no rashes or lesions noted Trauma: no lacerations or abrasions Neuro General: patient alert, patient awake and patient oriented x3 Cognition: normal cognition Speech: speech normal Gait: normal gait Extrem General: normal to inspection, capillary refill normal, no pedal edema, no calf tenderness and normal gait Psych Appearance: grossly normal and well kempt Mental Status: mental status grossly normal Speech and Movement: speech and movement normal
--- NOTE | 2020-07-10 18:45 | RT.EKG_ITS ---
APPROVED REPORT Exam: Resting ECG Patient Location: E HR:94 bpm ECG Measurements Heart Rate 94 AXIS WI 159 P 56 QRSd 102 QRS 71 QT 434 T 29 QTc 544 Conclusion Sinus rhythm...normal P axis, V-rate 60- 99 Probable left atrial enlargement...P >50mS, <-0.10mV V1 Prolonged QT interval...QTc >510mS I have reviewed and interpreted ECG and agree with software generated interpretation.
--- NOTE | 2020-07-10 19:17 | DI.RAD_ITS ---
EXAM: XR PORTABLE CHEST AP CLINICAL HISTORY: SOB TECHNIQUE: 2D digital imaging was performed. COMPARISON: CR XR CHEST 2V PA LATERAL from 06/01/2020 FINDINGS: MEDIASTINUM: Normal. HEART: Normal. PULMONARY VASCULATURE: Normal. LUNGS: No focal consolidating infiltrates are present. PLEURAL SPACE: No pleural effusion or pneumothorax. BONE:Within normal limits for the patient's age. OTHER FINDINGS:Normal. IMPRESSION: No acute pulmonary findings. DATA REPOSITORY: RADIATION DOSE DELIVERED:
[2020-07-10 19:25] LABS: Abs Immature Grans 0.01 10^3/uL (0.0-0.06); Absolute Basophil Count 0.02 10^3/uL (0.0-0.2); Absolute Eosinophil Count 0.08 10^3/uL (0.0-0.7); Absolute Lymphocyte Count 1.52 10^3/uL (1.2-3.4); Absolute Monocyte Count 0.53 10^3/uL (0.1-0.8); Absolute Neutrophil Count 2.56 10^3/uL (1.2-6.7); Basophils % 0.4; Eosinophils % 1.7; HGB 10.7 g/dL (11.2-15.7); Immature Grans % 0.2; Lymphocytes % 32.2; MCH 27.4 pg (27.0-33.0); MCHC 31.5 % (32.0-36.0); MPV 9.5 fL (8.0-11.0); Monocytes % 11.2; Neutrophils % 54.3; Nucleated RBC 0 %; Platelet Count 324 10^3/uL (130-400); RBC 3.91 10^6/uL (3.93-5.22); RDW 14.2 % (11.7-14.6); RDW-SD 45.2 fL; WBC 4.72 10^3/uL (4.4-10.8)
[2020-07-10 19:41] LABS: INR 0.9 (0.9-1.1); PTT Activated 22.8 sec (21.0-27.5); Prothrombin Time 9.3 sec (9.3-11.0)
--- NOTE | 2020-07-10 19:41 | DI.VRAD_ITS ---
PROCEDURE INFORMATION: Exam: XR Chest, 1 View Exam date and time: 07/10/2020 7:16 PM Age: 49 years old Clinical indication: Shortness of breath TECHNIQUE: Imaging protocol: XR of the chest Views: 1 view. COMPARISON: CR XR CHEST 2V PA LATERAL 06/01/2020 1:02 PM FINDINGS: Lungs: There are faint opacities in the bilateral lower lung zones, which are nonspecific. No dense consolidation. Pleural space: No pleural effusion. No pneumothorax. Heart/Mediastinum: Unremarkable. No cardiomegaly. Bones/joints: Unremarkable. IMPRESSION: 1. Faint opacities in the bilateral lower lung zones, which are nonspecific and could represent overlying breast tissue versus faint ground-glass opacities from infectious etiologies such as viral pneumonia. Correlate with laboratory testing. 2. No dense consolidation. Dictated and Authenticated by: Mary Ann York MD. Ordering:KRISS Peñaloza MD
[2020-07-10 19:43] LABS: ALT 22 U/L (14-59); AST 16 U/L (15-37); Albumin 3.9 g/dL (3.4-5.0); Alkaline Phosphatase 103 U/L (46-116); Anion Gap 9.1 mmol/L (3-11); BUN 12 mg/dL (7-18); Bilirubin, Total 0.2 mg/dL (0.2-1.0); CO2 29.9 mmol/L (21.0-32.0); CREATININE 1.16 mg/dL (0.55-1.02); Calcium 9.1 mg/dL (8.5-10.1); Chloride 100 mmol/L (98-107); Estimated GFR 49.25 (mL/min/1.73m2); Glucose 110 mg/dL (74-106); Magnesium 2.2 mg/dL (1.8-2.4); NT-proBNP 101 pg/mL (<300); Potassium 3.1 mmol/L (3.5-5.1); Sodium 139 mmol/L (136-145); Total Protein 7.5 g/dL (6.4-8.2); Troponin I < 0.05 ng/mL (<0.06)
[2020-07-10 19:58] LABS: D-Dimer 448 ng/mlFEU (<500)
[2020-07-10] MEDS: POTASSIUM CHLORIDE 20 MEQ, POTASSIUM CHLORIDE 10 MEQ 30 MEQ PO (20:30)
[2020-07-10] MEDS: Normal Saline 250 ML 500 ML IV (20:30)
[2020-07-10 21:05] LABS: TSH (W/Ref FT4) 2.47 uIU/mL (0.36-3.74)
[2020-07-12 12:39] LABS: COVID-19 RT-PCR UVMMC Result Negative (Negative)
--- NOTE | 2020-07-12 17:22 | NUR.NOTE ---
Nursing Note: 1752 Krissy notified of Negative Covid test result. Verbalizes understanding.
--- NOTE | 2020-07-14 11:30 | NUR.NOTE ---
called patient and after verifying her identity, relayed negative covid results to her 07/14/20 @ [id number]
== END 2020-07-10 21:40 | disposition home or self-care (01) ==
PROVIDERS: Emergency Provider Physician Assistant; PCP Nurse Practitioner Family
DX: E87.6 Hypokalemia (principal); R94.4 Abnormal results of kidney function studies; D64.9 Anemia, unspecified; F17.210 Nicotine dependence, cigarettes, uncomplicated; F41.8 Other specified anxiety disorders; Z03.818 Encounter for observation for suspected exposure to other biological agents ruled out; J44.9 Chronic obstructive pulmonary disease, unspecified; I10 Essential (primary) hypertension
CPT/HCPCS: 36415; 80053; 93005; 96360; 99285; U0003; 71045; 83735; 83880; 84443; 84484; 85025; 85379; 85610; 85730; 93010

== ENCOUNTER 2020-07-28 22:00 | Outpatient (CLI) | payer MEDICAID, SELFPAY ==
--- NOTE | 2020-07-28 | DI.RAD_ITS ---
EXAM: XR SHOULDER LT COMPLETE 2+V CLINICAL HISTORY: PAIN LT SHOUDLER M25.512. TECHNIQUE: 2D digital imaging was performed. COMPARISON: CR XR SHOULDER LT COMPLETE 2+V from 04/04/2020 FINDINGS: There are again seen postsurgical changes of resection of the distal left clavicle. No acute fractur e or dislocation is seen. There is again seen a calcification adjacent to the greater tuberosity sug gesting calcific tendinitis. The bones are normally mineralized. The glenohumeral joint is well giovana ntained. IMPRESSION: Stable appearance of the left shoulder. No acute abnormality. DATA REPOSITORY: RADIATION DOSE DELIVERED:
== END 2020-07-28 22:01 ==
LOC: DI 08-01 22:02
PROVIDERS: PCP Nurse Practitioner Family; Visit Provider Nurse Practitioner Family
DX: M25.512 Pain in left shoulder (principal)
CPT/HCPCS: 73030

== ENCOUNTER 2020-08-05 03:02 | Outpatient (CLI) | payer MEDICAID, SELFPAY ==
--- NOTE | 2020-08-05 | DI.MRI_ITS ---
EXAM: MR UPPER JOINT LT WO CLINICAL HISTORY: LT SHOULDER PAIN, M25.512,H/O ROTATOR CUFF SURGERY, FELL ON ICE, NOW SEVERE. LT SHOULDER PAIN, M25.512,H/O ROTATOR CUFF SURGERY, FELL ON ICE, NOW SEVERE. Plain films TECHNIQUE: Multiplanar multisequence MRI was performed. COMPARISON: Plain films dated 29 July 2020 FINDINGS: Bones: There is no fracture or contusion pattern. There has been a previous distal clavicular resection. A small amount of fluid is seen in the subacromial subdeltoid bursa and glenohumeral joint as well as c oracoid bursa. Rotator Cuff: There is thickening of the supraspinatus, subscapularis and infraspinatus tendons. Edema is seen with in the fibers, consistent with tendinosis or partial tear is. There is a small low signal focus in th e distal anterior supraspinatus tendon consistent with calcification. Is no muscle atrophy.. Labrum and biceps anchor: There is thickening of the superior long head of the biceps tendon with linear increased signal exten ding along the length which could indicate a longitudinally oriented tear. The biceps tendon is locat ed. The anchor is well maintained. The labrum is within normal limits. IMPRESSION: Tendinosis of the supraspinatus, infraspinatus and subscapularis tendons. Longitudinally oriented tea r of the long head of the biceps tendon. DATA REPOSITORY:
== END 2020-08-05 03:03 ==
LOC: DI 03:02
PROVIDERS: PCP Nurse Practitioner Family; Visit Provider Nurse Practitioner Family
DX: M77.8 Other enthesopathies, not elsewhere classified (principal); M25.512 Pain in left shoulder; S46.112A Strain of muscle, fascia and tendon of long head of biceps, left arm, initial encounter
CPT/HCPCS: 73221

== ENCOUNTER 2020-09-21 02:44 | Outpatient (CLI) | payer MEDICAID, SELFPAY ==
[2020-09-21 11:38] LABS: Source Nasal/Nares
[2020-09-21 22:32] LABS: COVID-19 PCR Negative (Negative)
== END 2020-09-21 02:45 | disposition home or self-care (01) ==
LOC: LBO 02:44
PROVIDERS: PCP Nurse Practitioner Family; Visit Provider Student in an Organized Health Care Education/Training Program
DX: Z20.822 Contact with and (suspected) exposure to COVID-19 (principal); Z01.818 Encounter for other preprocedural examination
CPT/HCPCS: 87635

== ENCOUNTER 2020-09-23 10:44 | Day surgery (SDC) | payer MEDICAID, SELFPAY ==
[2020-09-23] VITALS (9 sets, daily range): BP systolic 100–137; BP diastolic 59–85; PULSE 75–85; RESP 10–18; TEMP 36.2–36.6; O2SAT 90–99
[2020-09-23] MEDS: Lactated Ringers 1,000 ML 100 ML IV (11:43)
[2020-09-23] MEDS: ceFAZolin 2 GM/50 ML BAG IVPB (14:36)
[2020-09-23] MEDS: EPINEPHrine 30 MG/30 ML VIAL (15:29)
--- NOTE | 2020-09-23 15:42 | W.PM.DSUDISC ---
Discharge Plan Disposition Patient Disposition: HOME Condition: Stable Discharge Details Reason For Visit: Left shoulder surgery Attending Provider: Vasyl Kaur Primary Care Provider: Peter Piña Home Meds and New Rx's Prescriptions: New aspirin 81 mg tablet,delayed release (DR/EC) 81 mg PO DAILY 14 Days Qty: 14 RF: 0 celecoxib 200 mg capsule 200 mg PO DAILY PRN (Reason: pain) Qty: 30 RF: 0 oxycodone 5 mg tablet 5 - 10 mg PO Q4H PRN (Reason: moderate to severe pain) Qty: 7 RF: 0 Continued ferrous gluconate 324 mg (37.5 mg iron) tablet 324 mg PO BID RF: 0 potassium chloride 20 mEq tablet,ER particles/crystals 20 meq PO DAILY RF: 0 albuterol 90 mcg/actuation aerosol 2 puff IH PRN PRNRF: 0 budesonide-formoterol [Symbicort] 160-4.5 mcg/actuation HFA aerosol inhaler 2 puff IH BID RF: 0 omeprazole [Prilosec] 40 MG capsule,delayed release(DR/EC) 40 mg PO DAILY RF: 0 methadone [Methadose] 40 MG tablet,soluble 130 mg PO DAILY RF: 0 mirtazapine 7.5 MG tablet 7.5 mg PO HS RF: 0 cyclobenzaprine 10 MG tablet 10 mg PO BID PRNRF: 0 duloxetine [Cymbalta] 20 MG capsule,delayed release(DR/EC) 60 mg PO BID RF: 0 triamcinolone acetonide [Nasacort AQ] 16.5 GM aerosol,spray 2 spry Intranasal DAILY PRNRF: 0 hydroxyzine HCl 25 MG tablet 25 mg PO TID PRNRF: 0 clonidine HCl 0.1 MG tablet extended release 12 hr 0.1 mg PO BID RF: 0 gabapentin 800 MG tablet 800 mg PO TID RF: 0 lamotrigine [Lamictal] 100 MG tablet 100 mg PO TID RF: 0 epinephrine 0.3 MG/SYR auto-injector 0.3 mg IJ PRN PRN (Reason: Anaphylaxis) Qty: 1 RF: 0 chlorthalidone 25 MG tablet 12.5 mg PO DAILY RF: 0 levothyroxine 25 MCG tablet 25 mcg PO DAILY RF: 0 nicotine [Nicoderm CQ] 21 mg/24 hr Patch 24 Hour 1 patch TRANSDERMAL DAILY RF: 0 Discharge Instructions Additional Instructions: Surgery: Shoulder arthroscopy with extensive debridement, subacromial decompression, and open biceps tenodesis. Activity: You should gradually increase range of motion motion and use of your shoulder. Please perform daily stretching exercises. You may use your shoulder for all regular activities. Avoid heavy lifting, reaching overhead, and lifting away from body for approximately 6 to 8 weeks. You may use the sling whenever you are out of the house for a few weeks. At home it is best to remove the sling and rest the arm on a pillow at your side or support the operative side with your other hand. A physical therapy prescription will be sent electronically to start in about 3 weeks. Prescriptions: Aspirin 81 mg take 1 daily to prevent a blood clot for 2 weeks Celecoxib 200 mg take 1 every 24 hours with a meal as needed for moderate pain Oxycodone 5 mg take 1-2 every 4-6 hours as needed for severe pain You may use [id number] Tylenol (acetaminophen) as needed for mild pain. These pain medications may be taken all at once or in different combinations as needed. Also, recommend Colace (docusate) as a stool softener as surgery and pain medicine cause constipation. Dressings: Remove shoulder bandage after 3 days. Leave the sticky Steri-Strips in place until they fall off or remove them after you shower. Cover the incisions with Band-Aids or leave them open to air. the biceps bandage (inside upper arm) is glued on separately. You may leave this one on a few days longer if it is difficult to remove. There is also glue underneath this bandage that can be left in place until it peels off. O You may shower after 5 days. Follow-up: 10-14 days with an orthopedic physician certified physician's assistant and then 6-[address] Kaur You may take off the leg compression stockings this evening at home. You may also leave them on a few days longer if you have a history of leg swelling or edema. Let us know right away if you develop any redness, drainage, fevers, chest pain, or trouble breathing. Do not drink alcohol or drive for at least 24 hours after anesthesia. Please call the office during business hours with any questions or concerns. Referrals: Vasyl Kaur MD [ [facility] STAFF PHYSICIAN] - Discharge Orders Discharge Orders: Discharge Order (Routine); Ordered 09/23/20 Ordered By: Vasyl Kaur DS: Diagnosis Discharge Diagnosis (1) Tendinitis of long head of biceps brachii of left shoulder: Status: Acute (2) Bursitis of left shoulder: Status: Acute (3) Calcific tendinitis of left shoulder: Status: Acute (4) Impingement syndrome of left shoulder: Status: Acute
[2020-09-23] MEDS: Albuterol/Ipratropium 3 ML UPD VIAL UPD (16:35)
--- NOTE | 2020-09-23 17:48 | W.PM.OP ---
Date of service: 09/23/20 Time of Service: 15:00 Operative Note Operative Note DATE OF PROCEDURE: 09/23/20 PRE-OP DIAGNOSIS: Left: 2. LHB tendinopathy 3. Bursitis 4. Impingement POST-OP DIAGNOSIS: same PROCEDURE: Left: 1. Open biceps tenodesis, CPT# 37006. This involved reattaching the long head of the biceps tendon to the proximal humerus in the sub-pectoral area of the bicipital groove at the correct tension. 2. Extensive debridement, CPT# 83725. This involved using arthroscopic hand instruments, power instruments, and radiofrequency instruments to release to release the long head of the biceps tendon and debride areas of labral tearing, synovitis, chondromalacia, and partial articular rotator cuff tearing working within the glenohumeral joint anteriorly, superiorly and posteriorly. 3. Subacromial decompression with partial acromioplasty, CPT# 05864. This involved using arthroscopic power instruments and a radiofrequency wand to complete a bursectomy and remove bone spurs on the undersurface of the acromion. The assistant football coach was medically required in order to help assist in techniques above, which require positioning the arm, holding the arthroscope, and manipulating multiple instruments and sutures at the same time. This cannot be done without the help of an experienced assistant football coach. SURGEON: Vasyl Kaur CARPET REPAIRER: Cheyenne Martinez ANESTHESIA TYPE: Local By Surgeon, General LMA/ETT and Primary Nerve Block Refer to Anesthesia Record ESTIMATED BLOOD LOSS: 5 PATHOLOGY: none sent COMPLICATIONS: None Patient was transported to: PACU Patient's condition: stable Implants: Arthrex: Unicortical Proximal Biceps Tenodesis Button Indications: The patient was diagnosed with the above conditions and appropriately indicated for surgical intervention. Please see complete medical record for details. Findings: Exam under anesthesia: Full range of motion, no instability Glenohumeral joint: Significant anterior and superior synovitis. Degenerative type labral fraying anteriorly. Superior SLAP tear fraying and long of the biceps injection possible small split tearing. Intact subscapularis. Small articular sided supraspinatus leading edge partial tearing maybe 15% of the footprint for about 1 cm posterior to the biceps rotator interval. Intact remainder articular supraspinatus and infraspinatus. Largely intact cartilaginous surfaces. Subacromial space: Moderate bursitis. Minimal undersurface acromial bone spur. No obvious calcific deposition. Intact bursal rotator cuff. Procedure Description: In the operating room, general anesthesia was induced. Bilateral shoulders were examined. The patient was positioned in the beachchair position. All bony prominences were well-padded. Preoperative antibiotics were administered. The shoulder was prepped and draped in the usual sterile fashion. The correct patient, procedure, and side of the procedure were all verified prior to incision. Starting through the posterior portal a standard complete diagnostic arthroscopy was performed of the glenohumeral joint including inspection of the long head of the biceps, anterior and superior labrum, subscapularis tendon, supraspinatus and infraspinatus tendons, and axillary recess. The glenoid and humeral head cartilage as well as the posterior labrum were inspected from an anterior viewing portal. Significant findings and interventions noted above. The biceps tendon was released from the superior labrum using arthroscopic scissors. Starting through the posterior portal, the arthroscope was directed into the subacromial space. A lateral 50 yard line lateral portal was created. A combination of power instruments and a radiofrequency ablator were used to debride bursitis anteriorly, posteriorly, and laterally as well as expose and smooth bone spurring on the undersurface of the acromion. The coracoacromial ligament was only minimally released. The bursectomy was completed viewing laterally and working from posteriorly and the rotator cuff was thoroughly inspected with findings noted above. 20 cc of 0.5% bupivacaine with epinephrine was infiltrated about a 3 cm longitudinal incision at the inferior margin of the pectoralis major localized over the long head of the biceps tendon. Blunt and sharp dissection were used to expose the tendon in the bicipital groove. The tendon was brought out of the wound and kept off the skin on top of a blue towel. Using a fiber loop suture the tendon was prepped from the musculotendinous junction a few centimeters proximal. The excess tendon was amputated. The correct location for sub-pectoral fixation was localized, prepped with a rasp, and then drilled with a 2.6 mm drill pin in a unicortical fashion through the guide. The FiberTak button implant was inserted through the guide, deployed, and tested. The first free fiber loop suture end was then attempted to be passed through the implant. When it met resistance and was shuttled through further it pulled out of the bone socket with the fiber tack implant. The decision was made to redrill with a 3.2 mm drill pin in a unicortical fashion confirming unicortical location and slightly enlarging the prior hole maintaining same trajectory. The free suture ends were then passed through the unicortical button implant. The drill pin was removed and the implant was placed into the humeral intramedullary canal. The button was flipped and the sutures were tensioned bringing the tendon down to bone. Tension and fixation were then tested and found to be appropriate. The sutures were brought on either side of the tendon and the free ends of the suture were were tied compressing tendon to bone. The wound was copiously irrigated with normal saline. Subcutaneous tissue was closed using 3-0 Monocryl in a buried interrupted fashion. Skin was closed using 3-0 Monocryl in a buried subcuticular running fashion. Skin glue was applied over the incision. Mastisol was applied about the incision. The incision was covered with Telfa, gauze, and covered with a Tegaderm dressing. The shoulder was drained of arthroscopic fluid. All portal sites were copiously irrigated. These incisions were closed using 3-0 Monocryl in a buried fashion, covered with Mastisol, Steri-Strips, Xeroform, dry gauze, and ABDs. The dressings were covered and secured with Medipore tape. The operative extremity was placed into a sling for immobilization. The patient awoke from anesthesia without complication and was transferred to the recovery room in a stable condition.
== END 2020-09-23 18:34 | disposition home or self-care (01) ==
LOC: SUR 10:44
PROVIDERS: PCP Nurse Practitioner Family; Visit Provider Student in an Organized Health Care Education/Training Program
PROC: (CPT 29805; principal; 2020-09-23 11:45)
PROC: (CPT 23430; 2020-09-23 11:45)
DX: M75.22 Bicipital tendinitis, left shoulder (principal); M75.52 Bursitis of left shoulder; M75.32 Calcific tendinitis of left shoulder; M75.42 Impingement syndrome of left shoulder
CPT/HCPCS: 23430; 29826; 29823; 76942; J0690; J1100; J1885; J2250; J2370; J2405; J2704; J7620

== ENCOUNTER 2020-11-28 10:13 | Inpatient (IN) | payer MEDICAID, SELFPAY ==
[2020-11-28] VITALS (37 sets, daily range): BP systolic 121–172; BP diastolic 83–134; PULSE 80–103; RESP 10–23; TEMP 36.4–36.9; O2SAT 94–100
--- NOTE | 2020-11-28 10:30 | RT.EKG_ITS ---
APPROVED REPORT Exam: Resting ECG Reason for Exam: epigastgric pain Patient Location: E HR:92 bpm ECG Measurements Heart Rate 92 AXIS LA 157 P 48 QRSd 99 QRS 63 QT 397 T 28 QTc 493 Conclusion Sinus rhythm...normal P axis, V-rate 60- 99 Probable left atrial enlargement...P >50mS, <-0.10mV V1
[2020-11-28 10:51] LABS: Abs Immature Grans 0.03 10^3/uL (0.0-0.06); Absolute Basophil Count 0.02 10^3/uL (0.0-0.2); Absolute Eosinophil Count 0.01 10^3/uL (0.0-0.7); Absolute Lymphocyte Count 1.36 10^3/uL (1.2-3.4); Absolute Monocyte Count 0.73 10^3/uL (0.1-0.8); Basophils % 0.2; Eosinophils % 0.1; HCT 36.7 % (36.0-46.0); HGB 11.2 g/dL (11.2-15.7); Immature Grans % 0.3; Lymphocytes % 14.2; MCH 21.6 pg (27.0-33.0); MCHC 30.5 % (32.0-36.0); MCV 70.8 fL (80-95); MPV 9.3 fL (8.0-11.0); Monocytes % 7.6; Neutrophils % 77.6; Nucleated RBC 0 %; RBC 5.18 10^6/uL (3.93-5.22); RDW 20.1 % (11.7-14.6); RDW-SD 49.3 fL; WBC 9.55 10^3/uL (4.4-10.8)
[2020-11-28 11:02] LABS: Lactate 1.1 mmol/L (0.6-1.4)
[2020-11-28] MEDS: Pantoprazole 40 MG VIAL IVP (11:05)
[2020-11-28 11:11] LABS: ALT 15 U/L (14-59); AST 15 U/L (15-37); Albumin 3.9 g/dL (3.4-5.0); Alkaline Phosphatase 157 U/L (46-116); BUN 18 mg/dL (7-18); Bilirubin, Total 0.6 mg/dL (0.2-1.0); Calcium 9.7 mg/dL (8.5-10.1); Chloride 95 mmol/L (98-107); Estimated GFR 58.22 (mL/min/1.73m2); Glucose 129 mg/dL (74-106); Sodium 137 mmol/L (136-145); Total Protein 8.1 g/dL (6.4-8.2)
[2020-11-28 11:12] LABS: Potassium 2.6 mmol/L (3.5-5.1)
[2020-11-28] MEDS: FAMOTIDINE 20 MG/50 ML BAG 200 MG IVPB (11:12)
[2020-11-28 11:18] LABS: Platelet Count 570 10^3/uL (130-400)
[2020-11-28 11:19] LABS: Anisocytosis 2+; Diff Comment Diff Reviewed; Microcytosis 2+; Polychromasia Present
[2020-11-28 11:23] LABS: Troponin I < 0.05 ng/mL (<0.06)
[2020-11-28 11:23] LABS: Lipase 3294 U/L (73-393)
--- NOTE | 2020-11-28 11:31 | DI.CT_ITS ---
Exam(s) CT ABDOMEN PELVIS W EXAM: CT ABDOMEN PELVIS W CLINICAL HISTORY: epigastric pain, elevated lipase TECHNIQUE: Imaging Protocol: Axial computed tomography images with coronal and sagittal reformatted images were created and reviewed CONTRAST MATERIAL: Intravenous: Omnipaque 350 Contrast volume:90 mL Oral: No COMPARISON: CT CT ABDOMEN/ PELVIS CTA from 10/09/2018 FINDINGS: ABDOMEN: Lung Bases: Normal where visualized. Liver: Normal density. There is a stable nonspecific hypodensity in the dome of the right lobe of the liver. It is too small for further characterization. Portal, Superior Mesenteric, and Splenic Veins: Unremarkable. Gallbladder and Biliary Tract: Status post cholecystectomy. There has been no change in the intra and extrahepatic biliary ductal dilatation compared to 10/09/2018. No evidence of choledocholithiasis. Pancreas: The pancreas is of normal density. There is peripancreatic inflammatory stranding present. No focal peripancreatic fluid collection is seen to suggest abscess or pseudocyst. Spleen: Normal. Adrenals: No masses seen. Kidneys: Normal size, contour and axis. No radiodense stones or obstructive uropathy. There is a stab le cyst in the left kidney. Abdominal Aorta: Abdominal portion non-dilated. Atherosclerosis. Bowel: There is mild thickening of the wall of the splenic flexure which may be secondary to the kasandra cent pancreatitis. There is a normal appendix. There is mild dilatation and bowel wall thickening see n in the duodenum and proximal small bowel which may reflect a focal ileus secondary to the acute aquino creatitis. There is diverticulosis of the sigmoid colon but no evidence of acute diverticulitis. Peritoneal Cavity: Please see the above section on the pancreas. No free air.There is a trace amount of free fluid in the pelvis. Lymph Nodes: Within normal limits. Bones: Posterior spinal surgery is seen at the lumbosacral spine. There is stable alignment of the lucero mbar spine. Soft Tissues: Unremarkable. PELVIS: Bladder: There is incomplete distension of the urinary bladder. Reproductive Organs: The patient appears to be status post hysterectomy. Lymph Nodes: Within normal limits. Bones: Please see the above discussion for complete details. IMPRESSION: 1. Findings consistent with acute pancreatitis. No abscess or pseudocyst. 2. Mild bowel wall thickening involving the splenic flexure which may be secondary to the adjacent pa ncreatitis. 3. Mild bowel wall thickening and dilatation of the duodenum and proximal small bowel which may refle ct focal ileus/enteritis secondary to the acute pancreatitis. 4. Stable intra and extrahepatic biliary ductal dilatation. 5. Results of this exam have been verbally communicated with provider.. RADIATION DOSE DELIVERED: 650.03mGy.cm Total DLP DATA REPOSITORY: All CT scans at this facility are submitted to the National Radiology Data Registry (NRDR) Dose Index Registry (DIR) with the [employer] ([employer]). RADIATION OPTIMIZATION: All CT scans at this facility use at least one of these dose optimization te chniques: automated exposure control; mA and/or kV adjustment per patient size (includes targeted exa ms where dose is matched to clinical indication); or iterative reconstruction.
[2020-11-28] MEDS: Potassium Chloride 20 MEQ TABCR 40 MEQ PO (11:34)
[2020-11-28] MEDS: POTASSIUM CHLORIDE 20 MEQ/100 ML BAG 50 MEQ IVPB ×3 (11:34→23:39)
[2020-11-28] MEDS: HYDROmorphone 2 MG/ML VIAL 1 MG IVP ×2 (11:40→13:14)
[2020-11-28] MEDS: Omnipaque 350 MG/ML 100 ML BTL IV (11:46)
[2020-11-28] MEDS: Normal Saline - Diluent 50 ML VIAL IV (11:47)
[2020-11-28] MEDS: Normal Saline 1,000 ML 1000 ML IV (12:20)
--- NOTE | 2020-11-28 12:35 | ED.GENADUL_ITS ---
Discharge Plan Disposition Patient Disposition: [facility] INPATIENT Condition: Good Discharge Details Clinical Impression: Acute pancreatitis, Acute hypokalemia Admit Date/Time: 11/28/20 13:46 Admit Provider: Martir Calzada Attending Provider: Martir Cazlada Primary Care Provider: Peter Piña ED Provider: Martir Wise Discharge Data Discharge Date/Time-TO BE ENTERED AT DEPARTURE: 11/28/20 14:20 Medical Decision Making <JUANITA Harrison - Last Filed: 11/28/20 13:46> 50-year-old female presents complaining of abdominal pain worsening over the past 3 days, decreased p.o. intake, now with nausea and vomiting today. She appears to be in mild-moderate distress, uncomfortable, slightly diaphoretic, grimacing in pain. Pain is worse in the epigastric region. Differential includes but not excluded to gastritis, peptic ulcer disease, pancreatitis, atypical ACS, small bowel obstruction, etc. Will obtain IV access, routine laboratory values including a single troponin and EKG. We will give a GI cocktail, IV Pepcid and Protonix and reassess. Upon reevaluation she reports no improvement of her pain. Case was discussed with Dr. Park who personally saw the patient, please see his note. Received a critical potassium at 1112 of 2.6. Added on a magnesium, will give 20 IV and 40 p.o. potassium. Patient will now be given 1 mg IV Dilaudid. Upon reevaluation she no longer appears to be in distress or diaphoretic. Dilaudid has brought her pain from a 10 down to a 7 or 6. Laboratory values reveal a white blood cell count of 9.55 hemoglobin 11.2 hematocrit 36.7 platelet count 570. Potassium 2.6 chloride 95 anion gap 10 creatinine 1.0 with a GFR 58.22 glucose 129, magnesium 2.0, total bili 0.6 AST 15 ALT 15 alk phosphatase 157, troponin less than 0.05. Lipase is 3294. Patient denies history of pancreatitis. Denies history of alcohol abuse. She was recently on doxycycline for elbow skin infection, when looking up adverse effect pancreatitis is on the list. Certainly this could be causing her symptoms. Will obtain CT imaging of her abdomen and pelvis. Patient reports pain is returning, given a second dose of IV Dilaudid. CT imaging resulted as findings consistent with acute pancreatitis. The patient has required 2 doses of IV Dilaudid, likely requires inpatient hospitalization as she would likely not be able to tolerate discharge. Will discuss the case with her hospitalist team. Case discussed with Dr. Calzada who is agreeable to admission. I will place holding orders Medical Records Medical records reviewed: Yes I reviewed the patient's medical records. 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 No abscess or pseudocyst. Mild bowel wall thickening involving the spine lecture and duodenum which may findings consistent with adjacent pancreatitis. Lab Data Lab results reviewed: Yes I reviewed the patient's lab results. Labs: Laboratory Tests Range/Units 11/28/20 11/28/20 11/28/20 10:30 10:30 10:30 WBC (4.4-10.8) 10^3/uL 9.55 RBC (3.93-5.22) 10^6/uL 5.18 Hgb (11.2-15.7) g/dL 11.2 Hct (36.0-46.0) % 36.7 MCV (80-95) fL 70.8 L MCH (27.0-33.0) pg 21.6 L MCHC (32.0-36.0) % 30.5 L RDW (11.7-14.6) % 20.1 H Plt Count (130-400) 10^3/uL 570 H MPV (8.0-11.0) fL 9.3 Immature Gran % 0.3 Neutrophils % 77.6 Lymphocytes % 14.2 Monocytes % 7.6 Eosinophils % 0.1 Basophils % 0.2 Nucleated RBC % % 0 Absolute Neutrophils (1.2-6.7) 10^3/uL 7.40 H Absolute Lymphocytes (1.2-3.4) 10^3/uL 1.36 Absolute Monocytes (0.1-0.8) 10^3/uL 0.73 Absolute Eosinophils (0.0-0.7) 10^3/uL 0.01 Absolute Basophils (0.0-0.2) 10^3/uL 0.02 RBC Morphology See below Polychromasia Present Anisocytosis 2+ Microcytosis 2+ VBG Lactate (0.6-1.4) mmol/L Sodium (136-145) mmol/L 137 Potassium (3.5-5.1) mmol/L 2.6 L* Chloride (98-107) mmol/L 95 L Carbon Dioxide (21.0-32.0) mmol/L 32.0 Anion Gap (3-11) mmol/L 10.0 BUN (7-18) mg/dL 18 Creatinine (0.55-1.02) mg/dL 1.0 Estimated GFR/1.73 m2 (mL/min/1.73m2) 58.22 Glucose (74-106) mg/dL 129 H Calcium (8.5-10.1) mg/dL 9.7 Magnesium (1.8-2.4) mg/dL 2.0 Total Bilirubin (0.2-1.0) mg/dL 0.6 AST (15-37) U/L 15 ALT (14-59) U/L 15 Alkaline Phosphatase (46-116) U/L 157 H Troponin I (<0.06) ng/mL Total Protein (6.4-8.2) g/dL 8.1 Albumin (3.4-5.0) g/dL 3.9 Lipase (73-393) U/L 3294 H Range/Units 11/28/20 11/28/20 10:55 10:55 WBC (4.4-10.8) 10^3/uL RBC (3.93-5.22) 10^6/uL Hgb (11.2-15.7) g/dL Hct (36.0-46.0) % MCV (80-95) fL MCH (27.0-33.0) pg MCHC (32.0-36.0) % RDW (11.7-14.6) % Plt Count (130-400) 10^3/uL MPV (8.0-11.0) fL Immature Gran % Neutrophils % Lymphocytes % Monocytes % Eosinophils % Basophils % Nucleated RBC % % Absolute Neutrophils (1.2-6.7) 10^3/uL Absolute Lymphocytes (1.2-3.4) 10^3/uL Absolute Monocytes (0.1-0.8) 10^3/uL Absolute Eosinophils (0.0-0.7) 10^3/uL Absolute Basophils (0.0-0.2) 10^3/uL RBC Morphology Polychromasia Anisocytosis Microcytosis VBG Lactate (0.6-1.4) mmol/L 1.1 Sodium (136-145) mmol/L Potassium (3.5-5.1) mmol/L Chloride (98-107) mmol/L Carbon Dioxide (21.0-32.0) mmol/L Anion Gap (3-11) mmol/L BUN (7-18) mg/dL Creatinine (0.55-1.02) mg/dL Estimated GFR/1.73 m2 (mL/min/1.73m2) Glucose (74-106) mg/dL Calcium (8.5-10.1) mg/dL Magnesium (1.8-2.4) mg/dL Total Bilirubin (0.2-1.0) mg/dL AST (15-37) U/L ALT (14-59) U/L Alkaline Phosphatase (46-116) U/L Troponin I (<0.06) ng/mL < 0.05 Total Protein (6.4-8.2) g/dL Albumin (3.4-5.0) g/dL Lipase (73-393) U/L ECG Data Attestation: I personally reviewed and interpreted this ECG (s) as follows: Interpretation: Please see official report by Dr. Park. Sinus rhythm, ventricular rate of 92. No STEMI. <Bladimir Park MD - Last Filed: 12/17/20 01:03> Patient seen, examined, and discussed with JUANITA Wise. I agree with treatment plan as discussed/documented. Lab Data Lab results reviewed: Yes I reviewed the patient's lab results. HPI <JUANITA Harrison - Last Filed: 11/28/20 13:46> General Mode of arrival: ambulatory . Date/Time Provider Initiated Documentation: 11/28/20 10:14 . Limitations to Documentation: no limitations . Information obtained by: patient . HPI Narrative: This is a 50-year-old female, past nuchal history of hypertension, COPD, anemia, fibromyalgia, opiate addiction, currently on methadone, smokes nearly a pack of cigarettes daily. She has a past medical history that includes cholecystectomy, ventral hernia repair, spinal fusion, total hysterectomy. She is presenting to the ER today reporting 3-day history of upper abdominal pain worse in the epigastric region. Today he began with nausea and vomiting. She reports p.o. intake for the past 3 days, complains of generalized weakness. She denies alcohol use. She denies headache, fever, recent illness or trauma, chest pain, shortness of breath, dysuria, hematuria, diarrhea or constipation. Reports that her pain was initially mild but now is severe, sharp, stabbing, burning in nature. Does not radiate anywhere. She has never had pain like this before. Related Data Home Medications Medication Instructions Recorded Confirmed cyclobenzaprine 10 mg PO TID PRN PRN 11/28/12 11/29/20 duloxetine [Cymbalta] 60 mg PO BID 11/28/12 11/28/20 hydroxyzine HCl 25 mg PO TID PRN 04/13/13 11/28/20 clonidine HCl 0.1 mg PO BID 09/05/15 11/28/20 gabapentin 800 mg PO TID 09/06/15 11/28/20 methadone [Methadose] 140 mg PO DAILY tab-cap 11/02/15 11/28/20 mirtazapine 60 mg PO HS tab-cap 11/02/15 11/28/20 omeprazole [Prilosec] 40 mg PO DAILY tab-cap 11/02/15 11/28/20 lamotrigine [Lamictal] 300 mg PO DIRECTED 03/16/16 11/30/20 epinephrine 0.3 mg IJ PRN PRN #1 kit 08/16/16 11/28/20 chlorthalidone 25 mg PO DAILY 07/12/17 11/28/20 albuterol 90 mcg/actuation aerosol 2 puff IH Q4H PRN 08/19/18 11/28/20 inhaler budesonide-formoterol HFA 160 2 puff IH BID 08/19/18 11/28/20 mcg-4.5 mcg/actuation aerosol inhaler ferrous gluconate 324 mg (37.5 mg 324 mg PO DAILY tab 08/19/18 11/28/20 iron) tablet potassium chloride 20 mEq 20 meq PO DAILY 08/19/18 11/28/20 tablet,extended release(part/cryst) Dulera 2 puff INHALATION BID 11/28/20 11/28/20 artificial tears solution 1 - 2 drp OPHTHALMIC (EYE) TID 11/28/20 11/28/20 mometasone [Nasonex] 1 spray INTRANASAL BID 11/28/20 11/28/20 sucralfate [Carafate] 10 ml PO QACHS #420 ml 12/01/20 Previous Rx's Medication Instructions Recorded epinephrine 0.3 mg IJ PRN PRN #1 kit 08/16/16 sucralfate [Carafate] 10 ml PO QACHS #420 ml 12/01/20 Allergies Allergy/AdvReac Type Severity Reaction Status Date / Time penicillin G Allergy Severe THROAT Unverified 11/28/20 10:35 CLOSES clindamycin Allergy Intermediate Skin Rash Unverified 11/28/20 10:35 milnacipran HCl Allergy Intermediate Skin Rash Unverified 11/28/20 10:35 [From Savella] cefuroxime axetil Allergy Unverified 11/28/20 10:35 [From Ceftin] acetaminophen [From Vicodin] AdvReac Intermediate I cant Unverified 11/28/20 10:35 take it it ruins my liver azithromycin [From Zithromax] AdvReac Intermediate GI upset Unverified 11/28/20 10:35 clarithromycin [From Biaxin] AdvReac Intermediate Nausea Unverified 11/28/20 10:35 hydrocodone [From Vicodin] AdvReac Intermediate I cant Unverified 11/28/20 10:35 take it it ruins my liver ibuprofen AdvReac Intermediate GI Upset Unverified 11/28/20 10:35 ketorolac tromethamine AdvReac Intermediate GI Upset, Unverified 11/28/20 10:35 [From Toradol] can take IV form pregabalin [From Lyrica] AdvReac Intermediate Worsen Mood Unverified 11/28/20 10:35 Sulfa (Sulfonamide AdvReac Intermediate GI upset Unverified 11/28/20 10:35 Antibiotics) ENVIORNMENTAL Allergy Mild SINUSES Uncoded 11/28/20 10:35 MESSED UP-EYES General Stated Complaint: Abd Prob GRISEL: 3 Review of Systems <JUANITA Harrison - Last Filed: 11/28/20 13:46> Constitutional Constitutional: Denies fatigue, Denies fever(s) and Denies headache(s) ENT Ears, Nose, Mouth, and Throat: Denies headache(s) and Denies neck pain Cardiovascular Cardiovascular: Denies chest pain and Denies dyspnea Respiratory Respiratory: Denies cough and Denies dyspnea Gastrointestinal Gastrointestinal: Reports abdominal pain, Denies melena, Denies hematochezia, Denies constipation, Denies diarrhea, Reports nausea and Reports vomiting Genitourinary Genitourinary: Denies dysuria Musculoskeletal Musculoskeletal: Reports back pain (Chronic) and Denies neck pain Integumentary/Breasts Skin/Breast: Denies rash Neurologic Neurologic: Denies headache(s) and Reports weakness (Generalized) Endocrine Endocrine: Denies fatigue Hematologic/Lymphatic Hematologic/Lymphatic: Denies easy bleeding and Denies easy bruising PFSH <JUANITA Harrison - Last Filed: 11/28/20 13:46> Medical History (Updated 12/01/20 @ 15:03 by Martir Calzada) Anemia Anxiety Chronic anemia Chronic sinusitis COPD (chronic obstructive pulmonary disease) Depression Edema of left lower extremity Fibromyalgia GERD (gastroesophageal reflux disease) Hyperlipidemia Hypertension Hypokalemia Hypothyroid Migraine Opioid abuse pt. denies this Spondylolisthesis Surgical History Cholecystectomy H/O esophagogastroduodenoscopy (~09/23/18) H/O hernia repair H/O spinal fusion History of carpal tunnel surgery of left wrist History of total abdominal hysterectomy with BSO right arm surgery on nerves Status post arthroscopy of left shoulder (09/23/20) S/P open biceps tenodesis, extensive debridement and subacromial decompression with partial acromioplasty Dr. Kaur Family History Father , from Colon Cancer in his late 60's Colon cancer Mother Diverticulitis s/p resection Social History Smoking/Tobacco Use Status: Current every day Tobacco Type: cigarettes Smoking packs per day: 1 Smoking cigarettes per day: 20.0 Tobacco: How many years used: 25 Smoking risk assessment performed?: Yes Alcohol Intake: never Drug use: Rarely Substance use type: marijuana Details: methadone client Current gender identity: female Do you feel safe at home: Yes Do you feel safe in your relationship?: Yes Exam <JUANITA Harrison - Last Filed: 11/28/20 13:46> Const General: cooperative and in distress mild and moderate Orientation: alert and awake [facility] Head: normal to inspection, normocephalic and atraumatic Face and sinus: normal facial exam Mouth: moist mucous membranes and moist mucous membranes abnormal (Dry) Eyes General: appearance normal, both eyes and all related structures Conjunctivae: conjunctivae normal Neck Neck: normal visual inspection, full ROM, trachea midline and supple Resp Effort & Inspection: normal respiratory effort and able to speak in complete sentences Auscultation: diminished lung sounds bilaterally in the lower lung vasquez Cardio Rate: regular rate Rhythm: regular rhythm GI Inspection: normal to inspection Palpation: soft, not firm, guarding, no pulsatile masses and tender in the epigastrum, in the LUQ and in the RUQ; with no rebound tenderness Auscultation: normal bowel sounds Back/Spine/Pelvis Back: back tenderness (Diffuse mild lumbar) Skin General skin exam: no rashes or lesions noted Neuro General: patient alert, patient awake, moves all extremities and no focal motor deficits Cognition: normal cognition Speech: speech normal Gait: normal gait Sensory Exam: no sensory deficits noted Extrem General: normal to inspection, full ROM and capillary refill normal Psych Appearance: grossly normal Mental Status: mental status grossly normal Course <JUANITA Harrison - Last Filed: 11/28/20 13:46> Vital Signs Vital signs: Vital Signs Temperature 36.7 C 11/28/20 10:15 Pulse 100 H 11/28/20 10:15 Respiratory Rate 22 11/28/20 10:15 Blood Pressure 162/99 H 11/28/20 10:15 Pulse Oximetry 100 11/28/20 10:15 Temperature 36.7 C 11/28/20 10:15 Temperature Source Skin 11/28/20 10:15 Pulse 96 H 11/28/20 11:30 Pulse 95 H 11/28/20 11:40 Respiratory Rate 21 11/28/20 11:40 Respiratory Effort 11/28/20 10:41 Blood Pressure 146/95 H 11/28/20 11:30 Blood Pressure Mean 109 11/28/20 11:30 Pulse Oximetry 100 11/28/20 11:40 Oxygen Delivery Method Room Air 11/28/20 10:15 Oxygen Flow Rate 0 11/28/20 10:15 Pain Level 10 11/28/20 11:40 Lab/Test Results Lab/Test Results: Laboratory Tests Range/Units 11/28/20 11/28/20 11/28/20 10:30 10:30 10:30 WBC (4.4-10.8) 10^3/uL 9.55 RBC (3.93-5.22) 10^6/uL 5.18 Hgb (11.2-15.7) g/dL 11.2 Hct (36.0-46.0) % 36.7 MCV (80-95) fL 70.8 L MCH (27.0-33.0) pg 21.6 L MCHC (32.0-36.0) % 30.5 L RDW (11.7-14.6) % 20.1 H Plt Count (130-400) 10^3/uL 570 H MPV (8.0-11.0) fL 9.3 Immature Gran % 0.3 Neutrophils % 77.6 Lymphocytes % 14.2 Monocytes % 7.6 Eosinophils % 0.1 Basophils % 0.2 Nucleated RBC % % 0 Absolute Neutrophils (1.2-6.7) 10^3/uL 7.40 H Absolute Lymphocytes (1.2-3.4) 10^3/uL 1.36 Absolute Monocytes (0.1-0.8) 10^3/uL 0.73 Absolute Eosinophils (0.0-0.7) 10^3/uL 0.01 Absolute Basophils (0.0-0.2) 10^3/uL 0.02 RBC Morphology See below Polychromasia Present Anisocytosis 2+ Microcytosis 2+ VBG Lactate (0.6-1.4) mmol/L Sodium (136-145) mmol/L 137 Potassium (3.5-5.1) mmol/L 2.6 L* Chloride (98-107) mmol/L 95 L Carbon Dioxide (21.0-32.0) mmol/L 32.0 Anion Gap (3-11) mmol/L 10.0 BUN (7-18) mg/dL 18 Creatinine (0.55-1.02) mg/dL 1.0 Estimated GFR/1.73 m2 (mL/min/1.73m2) 58.22 Glucose (74-106) mg/dL 129 H Calcium (8.5-10.1) mg/dL 9.7 Magnesium (1.8-2.4) mg/dL 2.0 Total Bilirubin (0.2-1.0) mg/dL 0.6 AST (15-37) U/L 15 ALT (14-59) U/L 15 Alkaline Phosphatase (46-116) U/L 157 H Troponin I (<0.06) ng/mL Total Protein (6.4-8.2) g/dL 8.1 Albumin (3.4-5.0) g/dL 3.9 Lipase (73-393) U/L 3294 H Range/Units 11/28/20 11/28/20 10:55 10:55 WBC (4.4-10.8) 10^3/uL RBC (3.93-5.22) 10^6/uL Hgb (11.2-15.7) g/dL Hct (36.0-46.0) % MCV (80-95) fL MCH (27.0-33.0) pg MCHC (32.0-36.0) % RDW (11.7-14.6) % Plt Count (130-400) 10^3/uL MPV (8.0-11.0) fL Immature Gran % Neutrophils % Lymphocytes % Monocytes % Eosinophils % Basophils % Nucleated RBC % % Absolute Neutrophils (1.2-6.7) 10^3/uL Absolute Lymphocytes (1.2-3.4) 10^3/uL Absolute Monocytes (0.1-0.8) 10^3/uL Absolute Eosinophils (0.0-0.7) 10^3/uL Absolute Basophils (0.0-0.2) 10^3/uL RBC Morphology Polychromasia Anisocytosis Microcytosis VBG Lactate (0.6-1.4) mmol/L 1.1 Sodium (136-145) mmol/L Potassium (3.5-5.1) mmol/L Chloride (98-107) mmol/L Carbon Dioxide (21.0-32.0) mmol/L Anion Gap (3-11) mmol/L BUN (7-18) mg/dL Creatinine (0.55-1.02) mg/dL Estimated GFR/1.73 m2 (mL/min/1.73m2) Glucose (74-106) mg/dL Calcium (8.5-10.1) mg/dL Magnesium (1.8-2.4) mg/dL Total Bilirubin (0.2-1.0) mg/dL AST (15-37) U/L ALT (14-59) U/L Alkaline Phosphatase (46-116) U/L Troponin I (<0.06) ng/mL < 0.05 Total Protein (6.4-8.2) g/dL Albumin (3.4-5.0) g/dL Lipase (73-393) U/L
[2020-11-28 13:24] LABS: Bilirubin Negative (Negative); Blood Negative (Negative); Clarity Clear (Clear); Glucose Negative (Negative); Ketones Negative (Negative); Leukocyte Esterase Negative (Negative); Nitrite Negative (Negative); Urobilinogen 0.2 EU/dL (Up TO 0.2); pH 7.5 (5-8)
[2020-11-28 13:49] LABS: Source Nasal/Nares
[2020-11-28] MEDS: Normal Saline 1,000 ML 150 ML IV (13:50)
[2020-11-28] MEDS: POTASSIUM CHLORIDE/0.9% NACL 1,000 ML 200 MEQ IV (16:44)
[2020-11-28] MEDS: HYDROmorphone 2 MG/ML VIAL IVP ×3 (16:50→20:22)
[2020-11-28] MEDS: Normal Saline Flush 10 ML SYR ×2 (17:00→17:15)
[2020-11-28 17:41] LABS: Potassium 3.2 mmol/L (3.5-5.1)
[2020-11-28] MEDS: Enoxaparin 40 MG/0.4 ML SYR SC (17:57)
--- NOTE | 2020-11-28 18:12 | HPE_ITS ---
Date of service: 11/28/20 Time of Service: 18:12 Assessment and Plan Assessment and plan (1) Acute pancreatitis: Status: Acute Assessment and plan: Keep the patient n.p.o. give generous IV fluid hydration and correct her electrolyte abnormalities. We will give generous narcotic analgesics along with antiemetics. Once her pain is under control and her lipase is coming down to normal we will initiate clear liquids and advance her diet slowly. A lipid profile was not performed emergency department but has since been obtained and there is no evidence for hypertriglyceridemia as a cause for her pancreatitis. CT scan did not show any choledocholithiasis. She has had previous cholecystectomy. She denies any alcohol use. Presumptively the cause was due to doxycycline. However upon review of the medications that are associated with acute pancreatitis doxycycline is not one of the primary causes. Number of antibiotics including sulfonamides and penicillins as well as erythromycin and clarithromycin and tetracyclines have all been associated. For now we will keep her NPO and treat her symptoms and monitor her progression. Qualifiers: Pancreatitis type: drug induced Acute pancreatitis complication: no infection or necrosis Qualified Code(s): K85.30 - Drug induced acute pancreatitis without necrosis or infection (2) Acute hypokalemia: Status: Acute Assessment and plan: Patient will be given parenteral potassium supplementation we will monitor electrolyte levels. (3) Dehydration: Status: Acute Assessment and plan: Aggressive IV fluid hydration. (4) DVT prophylaxis: Status: Acute Assessment and plan: Enoxaparin subcutaneous 40 mg daily History of Present Illness History of Present Illness Chief Complaint: Abdominal pain Narrative: 50-year-old white female who was a nonconsumer of alcoholic beverages and has had prior cholecystectomy presents with acute epigastric and left upper quadrant abdominal pain that is worsened over the last 3 days and now is associated with decreased oral intake and nausea and vomiting. Evaluation in the ER demonstrated an elevated lipase of 3300 with a normal CBC and normal triglyceride of 145 and normal transaminases with only a minimally elevated alkaline phosphatase of 157 and a normal total bilirubin of 0.6. Subsequent CT scan of her abdomen demonstrated a nonspecific hypodensity in the dome of the right lobe of the liver too small to further characterize. Portal, superior mesenteric and splenic veins are unremarkable. Biliary tract showed absence of her gallbladder she has chronic intra and extrahepatic biliary ductal dilatation compared to prior study from October 09, 2018 and she had no evidence of choledocholithiasis. Pancreas is of normal density but there was some peripancreatic inflammatory stranding with no focal peripancreatic fluid collection and no evidence of pseudocyst or abscess. Spleen and adrenals were normal. Kidneys showed no obstructive uropathy and she has a stable cyst in the left kidney. Aorta was nondilated but with some atherosclerosis. Review of the bowel showed some mild thickening of the wall the splenic flexure possibly secondary to adjacent peripancreatic inflammatory changes. Appendix was normal. There is mild dilatation of bowel wall thickening in the duodenum and proximal small bowel possibly reflecting a focal ileus due to her acute pancreatitis. Patient denies any alcohol intake. 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 New medications that she was recently put on doxycycline and completed a 2-week course for treatment of a soft skin infection of her left elbow as well as sinusitis. Patient was treated in the emergency department with IV Dilaudid and Zofran and IV fluids. She is now admitted for treatment of acute pancreatitis of undetermined etiology. Presumably this is secondary to medication. Review of Systems Constitutional Constitutional: Reports poor appetite and Reports weakness Eyes Eyes: Reports system reviewed and no additional complaints, except as documented ENT Ears, Nose, Mouth, and Throat: Reports system reviewed and no additional complaints, except as documented Cardiovascular Cardiovascular: Reports system reviewed and no additional complaints, except as documented Respiratory Respiratory: Reports system reviewed and no additional complaints, except as documented Gastrointestinal Gastrointestinal: Reports as per HPI Genitourinary Genitourinary: Reports system reviewed and no additional complaints, except as documented Musculoskeletal Musculoskeletal: Reports system reviewed and no additional complaints, except as documented and Reports myalgias Integumentary/Breasts Skin/Breast: Reports system reviewed and no additional complaints, except as documented Neurologic Neurologic: Reports system reviewed and no additional complaints, except as documented and Reports weakness Psychiatric Psychiatric: Reports system reviewed and no additional complaints, except as documented Endocrine Endocrine: Reports system reviewed and no additional complaints, except as documented Hematologic/Lymphatic Hematologic/Lymphatic: Reports system reviewed and no additional complaints, except as documented [facility]LY [facility] Medical History Anemia Anxiety Chronic anemia Chronic sinusitis COPD (chronic obstructive pulmonary disease) Depression Edema of left lower extremity Fibromyalgia Hyperlipidemia Hypertension Hypokalemia Hypothyroid Migraine Opioid abuse pt. denies this Spondylolisthesis Surgical History Cholecystectomy H/O esophagogastroduodenoscopy (~09/23/18) H/O hernia repair H/O spinal fusion History of carpal tunnel surgery of left wrist History of total abdominal hysterectomy with BSO right arm surgery on nerves Status post arthroscopy of left shoulder (09/23/20) S/P open biceps tenodesis, extensive debridement and subacromial decompression with partial acromioplasty Dr. Kaur Family History Father , from Colon Cancer in his late 60's Colon cancer Mother Diverticulitis s/p resection Social History Smoking/Tobacco Use Status: Current every day Tobacco Type: cigarettes Smoking packs per day: 1 Smoking cigarettes per day: 20.0 Tobacco: How many years used: 25 Smoking risk assessment performed?: Yes Alcohol Intake: never Drug use: Rarely Substance use type: marijuana Details: methadone client Current gender identity: female Do you feel safe at home: Yes Do you feel safe in your relationship?: Yes Meds Allergies and Home Medications Allergies Allergy/AdvReac Type Severity Reaction Status Date / Time penicillin G Allergy Severe THROAT Unverified 11/28/20 10:35 CLOSES clindamycin Allergy Intermediate Skin Rash Unverified 11/28/20 10:35 milnacipran HCl Allergy Intermediate Skin Rash Unverified 11/28/20 10:35 [From Savella] cefuroxime axetil Allergy Unverified 11/28/20 10:35 [From Ceftin] acetaminophen [From Vicodin] AdvReac Intermediate I cant Unverified 11/28/20 10:35 take it it ruins my liver azithromycin [From Zithromax] AdvReac Intermediate GI upset Unverified 11/28/20 10:35 clarithromycin [From Biaxin] AdvReac Intermediate Nausea Unverified 11/28/20 10:35 hydrocodone [From Vicodin] AdvReac Intermediate I cant Unverified 11/28/20 10:35 take it it ruins my liver ibuprofen AdvReac Intermediate GI Upset Unverified 11/28/20 10:35 ketorolac tromethamine AdvReac Intermediate GI Upset, Unverified 11/28/20 10:35 [From Toradol] can take IV form pregabalin [From Lyrica] AdvReac Intermediate Worsen Mood Unverified 11/28/20 10:35 Sulfa (Sulfonamide AdvReac Intermediate GI upset Unverified 11/28/20 10:35 Antibiotics) ENVIORNMENTAL Allergy Mild SINUSES Uncoded 11/28/20 10:35 MESSED UP-EYES Home Medications Medication Instructions Recorded Confirmed Type cyclobenzaprine 10 mg PO TID 11/28/12 11/28/20 History duloxetine [Cymbalta] 60 mg PO BID 11/28/12 11/28/20 History hydroxyzine HCl 25 mg PO TID PRN 04/13/13 11/28/20 History clonidine HCl 0.1 mg PO BID 09/05/15 11/28/20 History gabapentin 800 mg PO TID 09/06/15 11/28/20 History methadone [Methadose] 140 mg PO DAILY tab-cap 11/02/15 11/28/20 History mirtazapine 60 mg PO HS tab-cap 11/02/15 11/28/20 History omeprazole [Prilosec] 40 mg PO DAILY tab-cap 11/02/15 11/28/20 History lamotrigine [Lamictal] 100 mg PO DAILY 03/16/16 11/28/20 History epinephrine 0.3 mg IJ PRN PRN #1 kit 08/16/16 11/28/20 Rx chlorthalidone 25 mg PO DAILY 07/12/17 11/28/20 History albuterol 90 mcg/actuation aerosol 2 puff IH Q4H PRN 08/19/18 11/28/20 History inhaler budesonide-formoterol HFA 160 2 puff IH BID 08/19/18 11/28/20 History mcg-4.5 mcg/actuation aerosol inhaler ferrous gluconate 324 mg (37.5 mg 324 mg PO DAILY tab 08/19/18 11/28/20 History iron) tablet potassium chloride 20 mEq 20 meq PO DAILY 08/19/18 11/28/20 History tablet,extended release(part/cryst) artificial tears solution 1 - 2 drp OPHTHALMIC (EYE) TID 11/28/20 11/28/20 History ketorolac 15 mg IM PRN 11/28/20 History mometasone [Nasonex] 1 spray INTRANASAL BID 11/28/20 11/28/20 History mometasone-formoterol [Dulera] 2 puff INHALATION BID 11/28/20 11/28/20 History Exam Narrative Exam Narrative: Middle-age female who appears to be older than her stated age of 50. She appears to be uncomfortable in in mild distress secondary to pain. HEENT is remarkable for dry mucous membranes. Upper jaw is edentulous. No exudate and no oral pharyngeal erythema. Neck is supple nontender no JVD with normal carotid pulses no bruits no thyromegaly no cervical lymphadenopathy. Lungs are clear to auscultation with prolonged expiratory phase without wheezes rales or rhonchi Heart is regular rate and rhythm without murmur rub or gallop. Abdomen is slightly distended and firm with epigastric tenderness but no rebound tenderness. Unable to palpate any organomegaly. There are no bruits. No palpable masses. Lower extremities without peripheral cyanosis or edema. Neuro exam is grossly intact without focal motor or sensory deficits no cranial nerve abnormalities. Results Labs Result diagrams: 11/28/20 10:30 11/28/20 17:15 Labs: Laboratory Results - last 24 hr 11/28/20 11/28/20 11/28/20 10:30 10:30 10:30 WBC 9.55 RBC 5.18 Hgb 11.2 Hct 36.7 MCV 70.8 L MCH 21.6 L MCHC 30.5 L RDW 20.1 H Plt Count 570 H MPV 9.3 Immature Gran % 0.3 Neutrophils % 77.6 Lymphocytes % 14.2 Monocytes % 7.6 Eosinophils % 0.1 Basophils % 0.2 Nucleated RBC % 0 Absolute Neutrophils 7.40 H Absolute Lymphocytes 1.36 Absolute Monocytes 0.73 Absolute Eosinophils 0.01 Absolute Basophils 0.02 RBC Morphology See below Polychromasia Present Anisocytosis 2+ Microcytosis 2+ VBG Lactate Sodium 137 Potassium 2.6 L* Chloride 95 L Carbon Dioxide 32.0 Anion Gap 10.0 BUN 18 Creatinine 1.0 Estimated GFR/1.73 m2 58.22 Glucose 129 H Calcium 9.7 Magnesium 2.0 Total Bilirubin 0.6 AST 15 ALT 15 Alkaline Phosphatase 157 H Troponin I Total Protein 8.1 Albumin 3.9 Lipase 3294 H Urine Color Urine Clarity Urine pH Ur Specific [place] Urine Protein Urine Ketones Urine Blood Urine Nitrite Urine Bilirubin Urine Urobilinogen Ur Leukocyte Esterase Urine Glucose COVID-19 Source 11/28/20 11/28/20 11/28/20 10:55 10:55 13:20 WBC RBC Hgb Hct MCV MCH MCHC RDW Plt Count MPV Immature Gran % Neutrophils % Lymphocytes % Monocytes % Eosinophils % Basophils % Nucleated RBC % Absolute Neutrophils Absolute Lymphocytes Absolute Monocytes Absolute Eosinophils Absolute Basophils RBC Morphology Polychromasia Anisocytosis Microcytosis VBG Lactate 1.1 Sodium Potassium Chloride Carbon Dioxide Anion Gap BUN Creatinine Estimated GFR/1.73 m2 Glucose Calcium Magnesium Total Bilirubin AST ALT Alkaline Phosphatase Troponin I < 0.05 Total Protein Albumin Lipase Urine Color Yellow Urine Clarity Clear Urine pH 7.5 Ur Specific [place] 1.010 Urine Protein Negative Urine Ketones Negative Urine Blood Negative Urine Nitrite Negative Urine Bilirubin Negative Urine Urobilinogen 0.2 Ur Leukocyte Esterase Negative Urine Glucose Negative COVID-19 Source 11/28/20 11/28/20 13:45 17:15 WBC RBC Hgb Hct MCV MCH MCHC RDW Plt Count MPV Immature Gran % Neutrophils % Lymphocytes % Monocytes % Eosinophils % Basophils % Nucleated RBC % Absolute Neutrophils Absolute Lymphocytes Absolute Monocytes Absolute Eosinophils Absolute Basophils RBC Morphology Polychromasia Anisocytosis Microcytosis VBG Lactate Sodium Potassium 3.2 L Chloride Carbon Dioxide Anion Gap BUN Creatinine Estimated GFR/1.73 m2 Glucose Calcium Magnesium Total Bilirubin AST ALT Alkaline Phosphatase Troponin I Total Protein Albumin Lipase Urine Color Urine Clarity Urine pH Ur Specific [place] Urine Protein Urine Ketones Urine Blood Urine Nitrite Urine Bilirubin Urine Urobilinogen Ur Leukocyte Esterase Urine Glucose COVID-19 Source Nasal/nares Last Vital Signs Temp 36.7 C 11/28/20 14:25 Pulse 85 11/28/20 14:25 Resp 18 11/28/20 14:25 BP 155/87 H 11/28/20 14:25 Pulse Ox 100 11/28/20 14:25 COVID-19 Screening Have you, or household traveled for leisure in last 14 days?: No Had IN PERSON contact w/suspected or confirmed C-19 person: No
[2020-11-28 18:16] LABS: Calculated LDL 134 mg/dL (<100); Cholesterol 198 mg/dL (<200); HDL Cholesterol 35 mg/dL (40-60); Triglyceride 145 mg/dL (<150)
[2020-11-28] MEDS: DULoxetine 30 MG CAP 60 MG PO (20:20)
[2020-11-28] MEDS: Gabapentin 800 MG TAB PO (20:20)
[2020-11-28] MEDS: Refresh PLUS Eye Drops 0.4ml OP (20:20)
[2020-11-28] MEDS: cloNIDine 0.1 MG TAB PO (20:20)
[2020-11-28 21:02] LABS: COVID-19 PCR Negative (Negative)
[2020-11-28] MEDS: Mirtazapine 15 MG TAB 60 MG PO (21:42)
[2020-11-29] MEDS: HYDROmorphone 2 MG/ML VIAL IVP ×8 (00:25→19:27)
[2020-11-29] MEDS: POTASSIUM CHLORIDE/0.9% NACL 1,000 ML 200 MEQ IV ×2 (04:24→10:13)
[2020-11-29 07:24] VITALS: BP 129/86; PULSE 98; RESP 18; TEMP 37.6; O2SAT 98
[2020-11-29 07:28] LABS: Abs Immature Grans 0.02 10^3/uL (0.0-0.06); Absolute Basophil Count 0.02 10^3/uL (0.0-0.2); Absolute Eosinophil Count 0.07 10^3/uL (0.0-0.7); Absolute Lymphocyte Count 1.61 10^3/uL (1.2-3.4); Absolute Neutrophil Count 6.35 10^3/uL (1.2-6.7); Basophils % 0.2; Eosinophils % 0.8; HCT 31.5 % (36.0-46.0); HGB 9.2 g/dL (11.2-15.7); Immature Grans % 0.2; Lymphocytes % 17.9; MCH 21.6 pg (27.0-33.0); MCHC 29.2 % (32.0-36.0); MCV 74.1 fL (80-95); MPV 9.5 fL (8.0-11.0); Neutrophils % 70.9; Nucleated RBC 0 %; Platelet Count 403 10^3/uL (130-400); RBC 4.25 10^6/uL (3.93-5.22); RDW 20.4 % (11.7-14.6); RDW-SD 52.5 fL; WBC 8.97 10^3/uL (4.4-10.8)
[2020-11-29 07:50] LABS: ALT 11 U/L (14-59); AST 12 U/L (15-37); Albumin 2.8 g/dL (3.4-5.0); Alkaline Phosphatase 125 U/L (46-116); Anion Gap 6.3 mmol/L (3-11); BUN 8 mg/dL (7-18); Bilirubin, Total 0.4 mg/dL (0.2-1.0); CO2 26.7 mmol/L (21.0-32.0); CREATININE 0.7 mg/dL (0.55-1.02); Chloride 104 mmol/L (98-107); Glucose 89 mg/dL (74-106); Lipase 1453 U/L (73-393); Potassium 3.5 mmol/L (3.5-5.1); Sodium 137 mmol/L (136-145); TSH (W/Ref FT4) 2.03 uIU/mL (0.36-3.74); Total Protein 6.1 g/dL (6.4-8.2)
[2020-11-29] MEDS: DULoxetine 30 MG CAP 60 MG PO ×2 (07:52→19:25)
[2020-11-29] MEDS: Normal Saline Flush 10 ML SYR IVP ×5 (07:52→19:28)
[2020-11-29] MEDS: Refresh PLUS Eye Drops 0.4ml OP ×3 (07:53→19:28)
[2020-11-29] MEDS: cloNIDine 0.1 MG TAB PO ×2 (07:53→19:26)
[2020-11-29] MEDS: Potassium Chloride 20 MEQ TABCR PO (07:53)
[2020-11-29] MEDS: Gabapentin 800 MG TAB PO ×3 (07:53→19:25)
[2020-11-29 07:56] LABS: Anisocytosis 1+; Diff Comment Diff Reviewed; Microcytosis 1+
[2020-11-29] MEDS: Pantoprazole 40 MG VIAL IVP (08:01)
--- NOTE | 2020-11-29 08:25 | RESPIRATORY ---
Pt stated that she used to use Symbicort at home and it did not agree with her. Pt refused Symbicort this morning.
[2020-11-29] MEDS: Methadone Liquid 10 MG/ML 140 MG PO (08:52)
--- NOTE | 2020-11-29 08:58 | PDOC.CMIN ---
- If Service Date Differs Date of service: 11/29/20 Time of Service: 08:58 Care Management Initial Assess REASON FOR HOSPITALIZATION:: Acute pancreatitis PAST MEDICAL HISTORY/PAST SURGICAL HISTORY:: Medical History . Anemia. Anxiety. Chronic anemia. Chronic sinusitis. COPD (chronic obstructive pulmonary disease). Depression. Edema of left lower extremity. Fibromyalgia. Hyperlipidemia. Hypertension. Hypokalemia. Hypothyroid. Migraine. Opioid abuse. pt. denies this. Spondylolisthesis. Surgical History . Cholecystectomy. H/O esophagogastroduodenoscopy (~09/23/18). H/O hernia repair. H/O spinal fusion. History of carpal tunnel surgery of left wrist. History of total abdominal hysterectomy. with BSO. right arm surgery on nerves. Status post arthroscopy of left shoulder (09/23/20). S/P open biceps tenodesis, extensive debridement and subacromial decompression with partial acromioplasty. Dr. Kaur PREVIOUS FUNCTIONAL STATUS/SOCIAL/FAMILY SUPPORTS:: Felicity lives in [place], [place] Her daughter Praveena and her daughter's boyfriend live with her but plan to move soon. Praveena is Felicity's only child. Felicity has been disabled for about 14 years secondary to back surgeries she has had. She does not use a cane or walker and does not receive any community services. CURRENT FUNCTIONAL STATUS:: Felicity was sitting up in bed when CM met with her. She was pleasant and talkative and engaged readily with CM. Felicity talked a bit about some disappointing experiences she has had trying to help people and getting used in the process. She admitted to being reluctant to form new friendships now as trust does not come easily to her. She does not routinely receive any community services but admitted she has gone to the food shelf a few times when she needed to. ADVANCE DIRECTIVES:: none on file Has patient been provided with info about the portal/API?: Yes Did the patient sign up for the portal?: Yes (previously) CODE STATUS:: Full Code INSURANCE COVERAGE / FINANCIAL ISSUES:: Medicaid CURRENT HOME/COMMUNITY SERVICES/EQUIPMENT:: none PRIMARY CARE PHYSICIAN:: Peter Piña POTENTIAL DISCHARGE NEEDS:: Follow up with PCP and discharge plan of care PATIENT/FAMILY EDUCATION NEEDS:: Review of discharge instructions, medications, limitations, activity, Ask Me Three TRANSPORTATION:: via private vehicle with family PLAN:: Felicity will likely be discharged home with no new services. She will follow up with her community providers and plan of care. CM will continue to support Felicity and assess for discharge planning needs.
[2020-11-29] MEDS: lamoTRIgine 100 MG TAB PO (10:02)
[2020-11-29 14:31] VITALS: BP 116/76; PULSE 89; RESP 20; TEMP 36.8; O2SAT 98
--- NOTE | 2020-11-29 14:52 | CHAPLAIN ---
Krissy said this is first time she's had pancreatitis and was sick for a few days before coming in. She is from [place], and then moved to [place]. She expects her mom and daughter to visit today.
--- NOTE | 2020-11-29 15:22 | W.PM.PROGNOT ---
Date of Service Date of service: 11/29/20 Time of Service: 15:22 Assessment and Plan Assessment and plan (1) Acute pancreatitis: Status: Acute Assessment and plan: advance to clear liquid diet, decr. frequency of narcotics; if tolerating foods then switch to po narcotics. Qualifiers: Acute pancreatitis complication: no infection or necrosis Pancreatitis type: drug induced Qualified Code(s): K85.30 - Drug induced acute pancreatitis without necrosis or infection (2) Acute hypokalemia: Status: Acute Assessment and plan: potassium improved to 3.5 today. Will give additional potassium. Patient continues to receive iv fluids w/ potassium. Will decrease her rate of her fluids now that her pancreatitis is improving (3) Dehydration: Status: Acute Assessment and plan: Aggressive IV fluid hydration. She now appears to be repleted. I have decreased her rate of her iv to 100 mL/hr. (4) Anemia: Status: Chronic Assessment and plan: It appears that she has a chronic anemia w/ microcytic changes which would suggest an iron deficiency. I will check stool for occult blood and check her iron levels. Her Hb dropped acutely overnight from 11.2 gm to 9.2 gm. This probably is a dilutional drip from the aggressive iv fluids for her pancreatitis. She has been put on parenteral iv protonix. I will check her stool for occult blood, although she has not had a BM since admission (this also goes against any acute GIB as she would have had diarrhea w/ melena. (5) DVT prophylaxis: Status: Acute Assessment and plan: Enoxaparin subcutaneous 40 mg daily. Will hold in light of her anemia. No hx of acute gi bleeding this admission but her Hb dropped over night by 2 gm probably dilutional. Will use SCD instead Subjective Subjective Interval history since last seen: Patient's pain is better although not gone. No nausea or vomiting. Passing flatus although no BM's. Lipase is down to 1400. She would like to eat something. I told her that I would start her on clear liquids today and advance as tolerated. She asked whether or not she will go home tomorrow. I told her that I would like to see her not requiring iv narcotics and tolerating solid foods. Exam Narrative Exam Narrative: She appears much better today. Not looking toxic and now smiling and getting out of bed on her own w/out severe abdominal pain Abdomen: normal bowel sounds, soft, not distended. Minimal tenderness, tolerating my abdominal exam whereas yesterday she was not tolerating any palpation of her abdomen Lungs clear Heart RRR Objective Last Vital Signs Temp 36.8 C 11/29/20 14:31 Pulse 89 11/29/20 14:31 Resp 20 11/29/20 14:31 BP 116/76 11/29/20 14:31 Pulse Ox 98 11/29/20 14:31 Laboratory Results - last 24 hr 11/28/20 11/28/20 11/28/20 13:45 17:15 17:15 WBC RBC Hgb Hct MCV MCH MCHC RDW Plt Count MPV Immature Gran % Neutrophils % Lymphocytes % Monocytes % Eosinophils % Basophils % Nucleated RBC % Absolute Neutrophils Absolute Lymphocytes Absolute Monocytes Absolute Eosinophils Absolute Basophils RBC Morphology Anisocytosis Microcytosis Sodium Potassium 3.2 L Chloride Carbon Dioxide Anion Gap BUN Creatinine Estimated GFR/1.73 m2 Glucose Calcium Total Bilirubin AST ALT Alkaline Phosphatase Total Protein Albumin Triglycerides 145 Total Cholesterol 198 LDL Cholesterol, Calc 134 H HDL Cholesterol 35 L Lipase TSH SARS-CoV-2 (PCR) Negative 11/29/20 11/29/20 07:15 07:15 WBC 8.97 RBC 4.25 Hgb 9.2 L Hct 31.5 L MCV 74.1 L D MCH 21.6 L MCHC 29.2 L RDW 20.4 H Plt Count 403 H MPV 9.5 Immature Gran % 0.2 Neutrophils % 70.9 Lymphocytes % 17.9 Monocytes % 10.0 Eosinophils % 0.8 Basophils % 0.2 Nucleated RBC % 0 Absolute Neutrophils 6.35 Absolute Lymphocytes 1.61 Absolute Monocytes 0.90 H Absolute Eosinophils 0.07 Absolute Basophils 0.02 RBC Morphology See below Anisocytosis 1+ Microcytosis 1+ Sodium 137 Potassium 3.5 Chloride 104 Carbon Dioxide 26.7 Anion Gap 6.3 BUN 8 D Creatinine 0.7 Estimated GFR/1.73 m2 >= 60.00 Glucose 89 Calcium 8.0 L Total Bilirubin 0.4 AST 12 L ALT 11 L Alkaline Phosphatase 125 H Total Protein 6.1 L Albumin 2.8 L Triglycerides Total Cholesterol LDL Cholesterol, Calc HDL Cholesterol Lipase 1453 H TSH 2.03 SARS-CoV-2 (PCR) Reviewed Pertinent PMH: Yes
[2020-11-29] MEDS: POTASSIUM CHLORIDE/0.9% NACL 1,000 ML 100 MEQ IV (15:38)
[2020-11-29] MEDS: POTASSIUM CHLORIDE 10 MEQ/100 ML BAG 100 MEQ IVPB ×3 (15:45→18:20)
[2020-11-29 16:02] VITALS: BP 124/79; PULSE 91; RESP 18; TEMP 36.5; O2SAT 98
[2020-11-29 18:16] LABS: HCT 28.5 % (36.0-46.0); HGB 8.5 g/dL (11.2-15.7)
[2020-11-29] MEDS: Cyclobenzaprine 10 MG TAB PO (19:25)
[2020-11-29] MEDS: Budesonide/Formoterol 160/4.5 6 GM 60 PUFF INH IH (19:26)
[2020-11-29 20:15] VITALS: BP 124/82; PULSE 95; RESP 17; TEMP 36.7; O2SAT 98
[2020-11-29] MEDS: Mirtazapine 15 MG TAB 60 MG PO (21:29)
[2020-11-30] MEDS: POTASSIUM CHLORIDE/0.9% NACL 1,000 ML 100 MEQ IV (01:41)
[2020-11-30] MEDS: HYDROmorphone 2 MG/ML VIAL IVP ×2 (03:26→06:51)
[2020-11-30] MEDS: Normal Saline Flush 10 ML SYR IVP ×4 (03:27→21:15)
[2020-11-30 03:38] VITALS: BP 125/80; PULSE 99; RESP 18; TEMP 36.9; O2SAT 95
[2020-11-30 06:49] LABS: Abs Immature Grans 0.02 10^3/uL (0.0-0.06); Absolute Basophil Count 0.03 10^3/uL (0.0-0.2); Absolute Eosinophil Count 0.18 10^3/uL (0.0-0.7); Absolute Monocyte Count 0.85 10^3/uL (0.1-0.8); Absolute Neutrophil Count 4.51 10^3/uL (1.2-6.7); Basophils % 0.4; Eosinophils % 2.5; HGB 8.1 g/dL (11.2-15.7); Immature Grans % 0.3; Lymphocytes % 22.3; MCH 21.8 pg (27.0-33.0); MCHC 28.9 % (32.0-36.0); MCV 75.3 fL (80-95); MPV 9.1 fL (8.0-11.0); Monocytes % 11.8; Neutrophils % 62.7; Nucleated RBC 0 %; Platelet Count 327 10^3/uL (130-400); RBC 3.72 10^6/uL (3.93-5.22); RDW 20.7 % (11.7-14.6); RDW-SD 54.4 fL; WBC 7.19 10^3/uL (4.4-10.8)
[2020-11-30 07:16] LABS: ALT 10 U/L (14-59); AST 13 U/L (15-37); Albumin 2.6 g/dL (3.4-5.0); Alkaline Phosphatase 110 U/L (46-116); Anion Gap 5.7 mmol/L (3-11); BUN 6 mg/dL (7-18); Bilirubin, Total 0.4 mg/dL (0.2-1.0); CO2 27.3 mmol/L (21.0-32.0); CREATININE 0.7 mg/dL (0.55-1.02); Calcium 8.4 mg/dL (8.5-10.1); Chloride 105 mmol/L (98-107); Glucose 71 mg/dL (74-106); Potassium 3.8 mmol/L (3.5-5.1); Sodium 138 mmol/L (136-145); Total Protein 5.7 g/dL (6.4-8.2)
[2020-11-30 07:19] LABS: Lipase 307 U/L (73-393)
[2020-11-30 07:24] LABS: Iron 25 ug/dL (50-170); Total Iron Binding Capacity 214 ug/dL (250-450); Transferrin Sat 12 % (15-50)
[2020-11-30 07:53] VITALS: BP 123/85; PULSE 97; RESP 18; TEMP 36.6; O2SAT 96
[2020-11-30] MEDS: Budesonide/Formoterol 160/4.5 6 GM 60 PUFF INH IH ×2 (08:17→21:16)
[2020-11-30 08:19] LABS: Ferritin 25 ng/mL (8-252)
[2020-11-30] MEDS: Refresh PLUS Eye Drops 0.4ml OP ×3 (08:20→21:16)
[2020-11-30] MEDS: Gabapentin 800 MG TAB PO ×3 (08:21→21:17)
[2020-11-30] MEDS: lamoTRIgine 100 MG TAB PO ×2 (08:21→21:17)
[2020-11-30] MEDS: cloNIDine 0.1 MG TAB PO ×2 (08:21→21:17)
[2020-11-30] MEDS: DULoxetine 30 MG CAP 60 MG PO ×2 (08:21→21:17)
[2020-11-30] MEDS: Cyclobenzaprine 10 MG TAB PO ×3 (08:21→21:18)
[2020-11-30] MEDS: Potassium Chloride 20 MEQ TABCR PO (08:22)
[2020-11-30] MEDS: Pantoprazole 40 MG VIAL IVP ×2 (08:22→21:16)
[2020-11-30] MEDS: Methadone Liquid 10 MG/ML 140 MG PO (08:22)
--- NOTE | 2020-11-30 09:51 | PDOC.CMPRO ---
- If Service Date Differs Date of service: 11/30/20 Time of Service: 16:22 Care Management Progress Note S/O: Krissy continues to be closely monitored and treated for acute pancreatitis. She remains NPO, and will have an EGD tomorrow per MD. CM continues to follow. A: 50 year old female admitted to [facility] 11/28/20 with pancreatitis, hypokalemia P: Felicity will discharge home with no new services anticipated at this time. She will follow up with her community providers and plan of care as prescribed and transport via private vehicle with her daughter. CM will continue to support Felicity and assess for discharge planning needs.
[2020-11-30 11:25] VITALS: BP 108/72; PULSE 98; RESP 18; TEMP 36; O2SAT 96
--- NOTE | 2020-11-30 13:55 | W.PM.PROGNOT ---
Date of Service Date of service: 11/30/20 Time of Service: 13:55 Assessment and Plan Assessment and plan (1) Acute pancreatitis: Status: Resolved Assessment and plan: patient was requesting regular foods. diet was advanced and she had no nausea or vomiting. however given she is having epigastric discomfort and worsening anemia, I will put her back on clears and have surgery to see for possible EGD tomorrow. If unable to do then get UGI series. I have incr. her Protonix to 40 mg bid and added carafate. Qualifiers: Pancreatitis type: drug induced Acute pancreatitis complication: no infection or necrosis Qualified Code(s): K85.30 - Drug induced acute pancreatitis without necrosis or infection (2) Anemia: Status: Chronic Assessment and plan: patient has had no diarrhea/melena but her anemia is worsening and is an iron deficiency anemia. She needs further GI workup as listed above. She denies chronic use of NSAIDS and does not drink alcohol, however she does smoke Qualifiers: Anemia type: iron deficiency Iron deficiency anemia type: unspecified iron deficiency Qualified Code(s): D50.9 - Iron deficiency anemia, unspecified (3) Acute hypokalemia: Status: Resolved Assessment and plan: resolved. patient has been repleted w/ oral and iv potassium. level now 3.8 (4) Dehydration: Status: Resolved Assessment and plan: repleted. iv fluids stopped (5) DVT prophylaxis: Status: Acute Assessment and plan: Enoxaparin on hold d/t worsening anemia. patient is now ambulatory and lower risk for DVT. She can use SCD. Subjective Subjective Interval history since last seen: Patient's abdominal pain is much improved although still w/ some epigastric tenderness. No nausea or vomiting. Lipase has normalized at 307. She is anemic w/ iron deficiency. Hb today is 8.1 gm down from her admission level of 11.2 gm. Initially her Hb dropped to 9.2 yesterday and partly explained by dilution from her IV fluids for her pancreatitis but now w/ further drop I am concerned for PUD. I will consult surgery for EGD. If unable to perform tomorrow then get UGI series. Patient has been on protonix 40 mg iv daily since admission. Enoxaparin was put on hold yesterday (she was receiving for DVT prophylaxis). I oliver double her Protonix to 40 mg bid and add carafate and ask that surgery see her and will check stools for occult blood. Exam Narrative Exam Narrative: Middle age white female sitting up at bedside, leaving her room to get a shower Abdomen: soft, normal bowel sounds, mild tenderness in epigastrium, normal bowel sounds, no rebound tenderness. Objective Last Vital Signs Temp 36.0 C L 11/30/20 11:25 Pulse 98 H 11/30/20 11:25 Resp 18 11/30/20 11:25 BP 108/72 11/30/20 11:25 Pulse Ox 96 11/30/20 11:25 Laboratory Results - last 24 hr 11/29/20 11/29/20 11/30/20 18:03 18:03 06:30 WBC RBC Hgb 8.5 L Hct 28.5 L MCV MCH MCHC RDW Plt Count MPV Immature Gran % Neutrophils % Lymphocytes % Monocytes % Eosinophils % Basophils % Nucleated RBC % Absolute Neutrophils Absolute Lymphocytes Absolute Monocytes Absolute Eosinophils Absolute Basophils Sodium Potassium Chloride Carbon Dioxide Anion Gap BUN Creatinine Estimated GFR/1.73 m2 Glucose Calcium Iron 25 L TIBC 214 L Transferrin % Sat 12 L Ferritin Total Bilirubin AST ALT Alkaline Phosphatase Total Protein Albumin Lipase Patient ABO/Rh O Positive Antibody Screen Negative 11/30/20 11/30/20 11/30/20 06:30 06:30 06:30 WBC 7.19 RBC 3.72 L Hgb 8.1 L Hct 28.0 L MCV 75.3 L MCH 21.8 L MCHC 28.9 L RDW 20.7 H Plt Count 327 MPV 9.1 Immature Gran % 0.3 Neutrophils % 62.7 Lymphocytes % 22.3 Monocytes % 11.8 Eosinophils % 2.5 Basophils % 0.4 Nucleated RBC % 0 Absolute Neutrophils 4.51 Absolute Lymphocytes 1.60 Absolute Monocytes 0.85 H Absolute Eosinophils 0.18 Absolute Basophils 0.03 Sodium 138 Potassium 3.8 Chloride 105 Carbon Dioxide 27.3 Anion Gap 5.7 BUN 6 L Creatinine 0.7 Estimated GFR/1.73 m2 >= 60.00 Glucose 71 L Calcium 8.4 L Iron TIBC Transferrin % Sat Ferritin 25 Total Bilirubin 0.4 AST 13 L ALT 10 L Alkaline Phosphatase 110 Total Protein 5.7 L Albumin 2.6 L Lipase 307 Patient ABO/Rh Antibody Screen
[2020-11-30] MEDS: Docusate Sodium 100 MG CAP PO ×2 (14:38→21:17)
--- NOTE | 2020-11-30 14:54 | PHA.REVIEW ---
Pharmacy Admission Review - Admission Clinical Review (Last Reviewed 11/28/20 @ 21:50 by Martir Calzada) DVT prophylaxis (Acute) penicillin G Allergy (Severe, Unverified 11/28/20 10:35) THROAT CLOSES clindamycin Allergy (Intermediate, Unverified 11/28/20 10:35) Skin Rash milnacipran HCl [From Savella] Allergy (Intermediate, Unverified 11/28/20 10:35) Skin Rash cefuroxime axetil [From Ceftin] Allergy (Unverified 11/28/20 10:35) acetaminophen [From Vicodin] Adverse Reaction (Intermediate, Unverified 11/28/20 10:35) I cant take it it ruins my liver azithromycin [From Zithromax] Adverse Reaction (Intermediate, Unverified 11/28/20 10:35) GI upset clarithromycin [From Biaxin] Adverse Reaction (Intermediate, Unverified 11/28/20 10:35) Nausea hydrocodone [From Vicodin] Adverse Reaction (Intermediate, Unverified 11/28/20 10:35) I cant take it it ruins my liver ibuprofen Adverse Reaction (Intermediate, Unverified 11/28/20 10:35) GI Upset ketorolac tromethamine [From Toradol] Adverse Reaction (Intermediate, Unverified 11/28/20 10:35) GI Upset, can take IV form pregabalin [From Lyrica] Adverse Reaction (Intermediate, Unverified 11/28/20 10:35) Worsen Mood Sulfa (Sulfonamide Antibiotics) Adverse Reaction (Intermediate, Unverified 11/28/20 10:35) GI upset ENVIORNMENTAL Allergy (Mild, Uncoded 11/28/20 10:35) SINUSES MESSED UP-EYES Resuscitation Status Full Code Height 5 ft Weight 66.6 kg - Renal Dosing Renal Dosing: BUN 6 mg/dL (7-18) L 11/30/20 06:30 Creatinine 0.7 mg/dL (0.55-1.02) 11/30/20 06:30 Medications needing adjustments: Reviewed List of meds needing interventions: eCrCl 59 ml/min - Anticoagulation Anticoagulation: Hgb 8.1 g/dL (11.2-15.7) L 11/30/20 06:30 Hct 28.0 % (36.0-46.0) L 11/30/20 06:30 Plt Count 327 10^3/uL (130-400) 11/30/20 06:30 Creatinine 0.7 mg/dL (0.55-1.02) 11/30/20 06:30 DVT Prohphylaxis: Reviewed Medications: Enoxaparin (currently on hold due to worsening anemia) - Opiate Usage Evaluate Pain Scale/Pains Meds: Reviewed Scheduled Bowel Reg ordered if on Opiates?: Yes - Relevant Labs Sodium 138 mmol/L (136-145) 11/30/20 06:30 Potassium 3.8 mmol/L (3.5-5.1) 11/30/20 06:30 Chloride 105 mmol/L (98-107) 11/30/20 06:30 Magnesium 2.0 mg/dL (1.8-2.4) 11/28/20 10:30 Electrolytes, C-Reactive P, ESR: Reviewed - DM Control DM Control: Glucose 71 mg/dL (74-106) L 11/30/20 06:30 Insulin Dosing: N/A - Heart Failure/NC Heart Failure/NC: Troponin I < 0.05 ng/mL (<0.06) 11/28/20 10:55 EF%, YAMINI's, B-Blockers, Diuretics: Reviewed - BP Control BP Control: Blood Pressure 108/72 Blood Pressure 123/85 Blood Pressure 125/80 If elevated: Reviewed - Qtc Review If Elevated: Reviewed List meds needing interventions: QTc 493 on admission -- to be expected with methadone use, monitor for addition of other QT prolonging medications (zofran active but hasn't used) - IV to PO Switch IV Medications: Reviewed - Home Meds Home Med List reviewed: Intervened Relevent Home Meds Not ordered & why?: all ordered; last rx filled for lamotrigine states take 2 tabs every morning and 1 tab in the evening -- RN is checking with patient as to how she is supposed to be taking -- is taking 2 am and 1 pm, will change order - Current meds Current Medication Order Review: Reviewed - Comments Comments/Follow Ups: EGD tomorrow, protonix increased to BID, worsening anemia
[2020-11-30 16:00] VITALS: BP 106/64; PULSE 85; RESP 18; TEMP 36.9; O2SAT 94
--- NOTE | 2020-11-30 16:04 | SCONE_ITS ---
Date of service: 11/30/20 Time of Service: 14:00 Assessment and Plan Assessment and plan (1) Acute pancreatitis: Status: Resolved Assessment and plan: Resolving. Possible drug induced vs secondary to p ossible duodenal ulcer Qualifiers: Pancreatitis type: drug induced Acute pancreatitis complication: no infection or necrosis Qualified Code(s): K85.30 - Drug induced acute pancreatitis without necrosis or infection (2) GERD (gastroesophageal reflux disease): Status: Chronic Assessment and plan: EGD tomorrow NPO p MN continue PPI The risks and benefits of the procedure, including but not limited to, bleeding, infection, perforation, or explained the patient. She understands the risks and wished to proceed. History of Present Illness History of Present Illness Chief Complaint: abdominal pain Narrative: There is a very pleasant 50-year-old female who began having epigastric abdominal pain 3 days ago. She did have nausea and vomiting at that time, but not since. The pain has radiated down both flanks. She has not had a bowel movement in a few days. The pain is dull/crampy. Moving makes it worse. Narcotics makes it better. She never had discounted pain before. She has a working diagnosis of drug-induced pancreatitis. She was taking doxycycline for cutaneous infection, and that is thought to be the cause. She does have a history of GERD and takes omeprazole daily. Surgery was consulted to rule out possible duodenal ulcer causing secondary pancreatitis. Consults Consult date: 11/30/20 Requesting physician: Martir Calzada Review of Systems All systems reviewed & are unremarkable except as noted in HPI and below PFSH Medical History (Updated 11/30/20 @ 16:12 by Johnathan Ornelas DO) Anemia Anxiety Chronic anemia Chronic sinusitis COPD (chronic obstructive pulmonary disease) Depression Edema of left lower extremity Fibromyalgia GERD (gastroesophageal reflux disease) Hyperlipidemia Hypertension Hypokalemia Hypothyroid Migraine Opioid abuse pt. denies this Spondylolisthesis Surgical History Cholecystectomy H/O esophagogastroduodenoscopy (~09/23/18) H/O hernia repair H/O spinal fusion History of carpal tunnel surgery of left wrist History of total abdominal hysterectomy with BSO right arm surgery on nerves Status post arthroscopy of left shoulder (09/23/20) S/P open biceps tenodesis, extensive debridement and subacromial decompression with partial acromioplasty Dr. Kaur Family History Father , from Colon Cancer in his late 60's Colon cancer Mother Diverticulitis s/p resection Social History Smoking/Tobacco Use Status: Current every day Tobacco Type: cigarettes Smoking packs per day: 1 Smoking cigarettes per day: 20.0 Tobacco: How many years used: 25 Smoking risk assessment performed?: Yes Alcohol Intake: never Drug use: Rarely Substance use type: marijuana Details: methadone client Current gender identity: female Do you feel safe at home: Yes Do you feel safe in your relationship?: Yes Exam Const General: cooperative, healthy appearing and comfortable Nutritional Appearance: well nourished Orientation: alert, awake and oriented x3 HENMT Head: normal to inspection, normocephalic and atraumatic Ears: external ears normal General nose exam: external nose normal Eyes General: appearance normal, both eyes and all related structures Pupils: PERRL Neck Neck: normal visual inspection, full ROM and trachea midline Resp Effort & Inspection: normal respiratory effort, able to speak in complete sentences and no use of accessory muscles Cardio Rate: regular rate Rhythm: regular rhythm Pulses: normal peripheral pulses GI Inspection: distended Palpation: soft, no guarding and tender in the epigastrum Back/Spine/Pelvis Back: no CVA tenderness and No ecchymosis Skin General skin exam: no rashes or lesions noted Lesions: no lesions Trauma: no lacerations or abrasions Neuro General: patient alert, patient awake and patient oriented x3 Cranial Nerves: CN's II-XI intact bilaterally Extrem General: normal to inspection and full ROM Psych Appearance: grossly normal Mental Status: mental status grossly normal Speech and Movement: speech and movement normal Results Last Vital Signs Temp 96.8 F L 11/30/20 11:25 Pulse 98 H 11/30/20 11:25 Resp 18 11/30/20 11:25 BP 108/72 11/30/20 11:25 Pulse Ox 96 11/30/20 11:25 Labs Result diagrams: 11/30/20 06:30 11/30/20 06:30 Labs: Laboratory Results - last 24 hr 06/08/21 06/08/21 06/09/21 18:03 18:03 06:30 WBC RBC Hgb 8.5 L Hct 28.5 L MCV MCH MCHC RDW Plt Count MPV Immature Gran % Neutrophils % Lymphocytes % Monocytes % Eosinophils % Basophils % Nucleated RBC % Absolute Neutrophils Absolute Lymphocytes Absolute Monocytes Absolute Eosinophils Absolute Basophils Sodium Potassium Chloride Carbon Dioxide Anion Gap BUN Creatinine Estimated GFR/1.73 m2 Glucose Calcium Iron 25 L TIBC 214 L Transferrin % Sat 12 L Ferritin Total Bilirubin AST ALT Alkaline Phosphatase Total Protein Albumin Lipase Patient ABO/Rh O Positive Antibody Screen Negative 11/30/20 11/30/20 11/30/20 06:30 06:30 06:30 WBC 7.19 RBC 3.72 L Hgb 8.1 L Hct 28.0 L MCV 75.3 L MCH 21.8 L MCHC 28.9 L RDW 20.7 H Plt Count 327 MPV 9.1 Immature Gran % 0.3 Neutrophils % 62.7 Lymphocytes % 22.3 Monocytes % 11.8 Eosinophils % 2.5 Basophils % 0.4 Nucleated RBC % 0 Absolute Neutrophils 4.51 Absolute Lymphocytes 1.60 Absolute Monocytes 0.85 H Absolute Eosinophils 0.18 Absolute Basophils 0.03 Sodium 138 Potassium 3.8 Chloride 105 Carbon Dioxide 27.3 Anion Gap 5.7 BUN 6 L Creatinine 0.7 Estimated GFR/1.73 m2 >= 60.00 Glucose 71 L Calcium 8.4 L Iron TIBC Transferrin % Sat Ferritin 25 Total Bilirubin 0.4 AST 13 L ALT 10 L Alkaline Phosphatase 110 Total Protein 5.7 L Albumin 2.6 L Lipase 307 Patient ABO/Rh Antibody Screen
[2020-11-30] MEDS: oxyCODONE 5 MG TAB PO ×2 (16:05→22:28)
[2020-11-30] MEDS: Sucralfate 1 GM TAB PO ×2 (16:05→21:17)
[2020-11-30 19:55] VITALS: BP 102/71; PULSE 90; RESP 18; TEMP 37; O2SAT 97
[2020-11-30] MEDS: Mirtazapine 15 MG TAB 60 MG PO (21:17)
[2020-11-30] MEDS: Senna TAB 1 TAB PO (21:17)
[2020-12-01] VITALS (13 sets, daily range): BP systolic 87–138; BP diastolic 61–92; PULSE 82–92; RESP 7–18; TEMP 36.4–36.9; TEMPC 36.9; O2SAT 93–96; BMI 28.6
[2020-12-01] MEDS: oxyCODONE 5 MG TAB PO ×3 (04:13→11:41)
[2020-12-01 06:35] LABS: Abs Immature Grans 0.02 10^3/uL (0.0-0.06); Absolute Basophil Count 0.02 10^3/uL (0.0-0.2); Absolute Eosinophil Count 0.13 10^3/uL (0.0-0.7); Absolute Lymphocyte Count 1.67 10^3/uL (1.2-3.4); Absolute Monocyte Count 0.68 10^3/uL (0.1-0.8); Absolute Neutrophil Count 2.97 10^3/uL (1.2-6.7); Basophils % 0.4; Eosinophils % 2.4; HCT 26.8 % (36.0-46.0); HGB 7.9 g/dL (11.2-15.7); Immature Grans % 0.4; Lymphocytes % 30.4; MCH 22.1 pg (27.0-33.0); MCHC 29.5 % (32.0-36.0); MCV 74.9 fL (80-95); MPV 9.1 fL (8.0-11.0); Monocytes % 12.4; Nucleated RBC 0 %; Platelet Count 325 10^3/uL (130-400); RBC 3.58 10^6/uL (3.93-5.22); RDW 20.6 % (11.7-14.6); RDW-SD 53.1 fL; WBC 5.49 10^3/uL (4.4-10.8)
[2020-12-01 06:48] LABS: ALT 10 U/L (14-59); AST 12 U/L (15-37); Albumin 2.8 g/dL (3.4-5.0); Alkaline Phosphatase 105 U/L (46-116); BUN 5 mg/dL (7-18); Bilirubin, Total 0.3 mg/dL (0.2-1.0); CREATININE 0.7 mg/dL (0.55-1.02); Calcium 8.8 mg/dL (8.5-10.1); Chloride 104 mmol/L (98-107); Glucose 101 mg/dL (74-106); Lipase 168 U/L (73-393); Potassium 3.6 mmol/L (3.5-5.1); Sodium 141 mmol/L (136-145); Total Protein 6.2 g/dL (6.4-8.2)
--- NOTE | 2020-12-01 07:15 | NUR.NOTE ---
Patient IV was assessed at the beginning of the shift to the right antecubital fossa. Above the area of the site was a little swollen, IV was then removed by this Nurse. At approximately 0530 Patient state her right shoulder hurts and she thinks it is an infection from the IV that was removed. Po oxycodone was administered and CC informed
[2020-12-01 07:23] LABS: Anisocytosis 2+; Diff Comment RBC Morph Reviewed; Hypochromasia 2+; Microcytosis 1+
[2020-12-01] MEDS: cloNIDine 0.1 MG TAB PO (07:44)
[2020-12-01] MEDS: Cyclobenzaprine 10 MG TAB PO ×2 (07:44→13:29)
[2020-12-01] MEDS: DULoxetine 30 MG CAP 60 MG PO (07:44)
[2020-12-01] MEDS: Gabapentin 800 MG TAB PO ×2 (07:44→13:30)
[2020-12-01] MEDS: Pantoprazole 40 MG VIAL IVP (07:45)
[2020-12-01] MEDS: Normal Saline Flush 10 ML SYR IVP ×2 (07:45)
[2020-12-01] MEDS: Methadone Liquid 10 MG/ML 140 MG PO (07:45)
--- NOTE | 2020-12-01 07:55 | PDOC.CMPRO ---
Care Management Progress Note S/O: Krissy continues to be closely monitored and treated for acute pancreatitis. She remains NPO, and will have an EGD tomorrow per MD. CM continues to follow. A: 50 year old female admitted to [facility] 11/28/20 with pancreatitis, hypokalemia P: Felicity will discharge home with no new services anticipated at this time. She will follow up with her community providers and plan of care as prescribed and transport via private vehicle with her daughter. CM will continue to support Felicity and assess for discharge planning needs.
--- NOTE | 2020-12-01 08:55 | ANES.PREOP_ITS ---
General Info Date of Service Date Performed: 12/01/20 Height: 5 ft Weight: 66.6 kg Body Mass Index (BMI): 28.6 Surgical Procedure: Operation Date: 12/01/20 13:05 Proposed Procedures Side Surgeon p Gastroscopy Johnathan Ornelas DO Meds Allergies and Home Medications Allergies Allergy/AdvReac Type Severity Reaction Status Date / Time penicillin G Allergy Severe THROAT Unverified 11/28/20 10:35 CLOSES clindamycin Allergy Intermediate Skin Rash Unverified 11/28/20 10:35 milnacipran HCl Allergy Intermediate Skin Rash Unverified 11/28/20 10:35 [From Savella] cefuroxime axetil Allergy Unverified 11/28/20 10:35 [From Ceftin] acetaminophen [From Vicodin] AdvReac Intermediate I cant Unverified 11/28/20 10:35 take it it ruins my liver azithromycin [From Zithromax] AdvReac Intermediate GI upset Unverified 11/28/20 10:35 clarithromycin [From Biaxin] AdvReac Intermediate Nausea Unverified 11/28/20 10:35 hydrocodone [From Vicodin] AdvReac Intermediate I cant Unverified 11/28/20 10:35 take it it ruins my liver ibuprofen AdvReac Intermediate GI Upset Unverified 11/28/20 10:35 ketorolac tromethamine AdvReac Intermediate GI Upset, Unverified 11/28/20 10:35 [From Toradol] can take IV form pregabalin [From Lyrica] AdvReac Intermediate Worsen Mood Unverified 11/28/20 10:35 Sulfa (Sulfonamide AdvReac Intermediate GI upset Unverified 11/28/20 10:35 Antibiotics) ENVIORNMENTAL Allergy Mild SINUSES Uncoded 11/28/20 10:35 MESSED UP-EYES Home Medication Medication Instructions Recorded cyclobenzaprine 10 mg PO TID PRN PRN 11/28/12 duloxetine [Cymbalta] 60 mg PO BID 11/28/12 hydroxyzine HCl 25 mg PO TID PRN 04/13/13 clonidine HCl 0.1 mg PO BID 09/05/15 gabapentin 800 mg PO TID 09/06/15 methadone [Methadose] 140 mg PO DAILY tab-cap 11/02/15 mirtazapine 60 mg PO HS tab-cap 11/02/15 omeprazole [Prilosec] 40 mg PO DAILY tab-cap 11/02/15 lamotrigine [Lamictal] 300 mg PO DIRECTED 03/16/16 epinephrine 0.3 mg IJ PRN PRN #1 kit 08/16/16 chlorthalidone 25 mg PO DAILY 07/12/17 albuterol 90 mcg/actuation aerosol 2 puff IH Q4H PRN 08/19/18 inhaler budesonide-formoterol HFA 160 2 puff IH BID 08/19/18 mcg-4.5 mcg/actuation aerosol inhaler ferrous gluconate 324 mg (37.5 mg 324 mg PO DAILY tab 08/19/18 iron) tablet potassium chloride 20 mEq 20 meq PO DAILY 08/19/18 tablet,extended release(part/cryst) artificial tears solution 1 - 2 drp OPHTHALMIC (EYE) TID 11/28/20 ketorolac 15 mg IM PRN 11/28/20 mometasone [Nasonex] 1 spray INTRANASAL BID 11/28/20 mometasone-formoterol [Dulera] 2 puff INHALATION BID 11/28/20 Current Visit Medications: Current Medications Generic Name Dose Route Start Last Admin Trade Name Freq PRN Reason Stop Dose Admin Albuterol Sulfate 0 puff 11/28/20 15:56 Albuterol Hfa 8 Gm 60 Puff Inh IH Q4H PRN PRN Budesonide/Formoterol Fumarate 0 puff 11/29/20 08:30 12/01/20 08:30 Budesonide/Formoterol 160/4.5 6 Gm 60 Puff Inh IH Not Given BID IDALIA Carboxymethylcellulose Sodium 1 - 2 each 11/28/20 20:00 12/01/20 08:45 Refresh Plus Eye Drops 0.4ml OP Not Given TID IDALIA Clonidine 0.1 mg 11/28/20 20:00 12/01/20 07:44 Clonidine 0.1 Mg Tab PO 0.1 mg BID IDALIA Administration Cyclobenzaprine HCl 10 mg 11/29/20 20:00 12/01/20 07:44 Cyclobenzaprine 10 Mg Tab PO 10 mg TID IDALIA Administration Dimethicone/Zinc Oxide 0 gm 11/28/20 16:06 Maryjane Protect Cream 142 Gm Tube TP PRN PRN Docusate Sodium 100 mg 11/30/20 14:00 12/01/20 08:44 Docusate Sodium 100 Mg Cap PO Not Given TID IDALIA Duloxetine HCl 60 mg 11/28/20 20:00 12/01/20 07:44 Duloxetine 30 Mg Cap PO 60 mg BID IDALIA Administration Enoxaparin Sodium 40 mg 11/28/20 18:00 11/28/20 17:57 Enoxaparin 40 Mg/0.4 Ml Syr SC 40 mg Q24H IDALIA Administration Gabapentin 800 mg 11/28/20 20:00 12/01/20 07:44 Gabapentin 800 Mg Tab PO 800 mg TID IDALIA Administration Sodium Chloride 500 mls @ 0 mls/hr 11/29/20 08:01 Saline 500ml Bag IV PRN PRN As Directed Sodium Chloride 50 mls @ 0 mls/hr 11/29/20 08:01 Saline 50ml Bag IV PRN PRN As Directed IV Miscellaneous Supplies 1 each 11/28/20 14:00 Iv Access IV DIRECTED IDALIA Lamotrigine 200 mg 12/01/20 08:30 Lamotrigine 100 Mg Tab PO DAILY IDALIA Lamotrigine 100 mg 11/30/20 22:00 11/30/20 21:17 Lamotrigine 100 Mg Tab PO 100 mg HS IDALIA Administration Levothyroxine Sodium 25 mcg 11/29/20 06:00 12/01/20 06:08 Levothyroxine 25 Mcg Tab PO Not Given 0600 IDALIA Methadone HCl 140 mg 11/29/20 08:30 12/01/20 07:45 Methadone Liquid 10 Mg/Ml PO 140 mg DAILY IDALIA Administration Mirtazapine 60 mg 11/28/20 22:00 11/30/20 21:17 Mirtazapine 15 Mg Tab PO 60 mg HS IDALIA Administration Mometasone Furoate 0 gm 11/28/20 20:00 12/01/20 08:45 Mometasone Nasal 17 Gm Btl NS Not Given BID IDALIA Ondansetron HCl 4 mg 11/28/20 13:46 Ondansetron 4 Mg/2 Ml Vial IVP Q4H PRN PRN Oxycodone HCl 5 - 10 mg 11/30/20 09:47 12/01/20 06:19 Oxycodone 5 Mg Tab PO 5 mg Q6H PRN PRN Administration Pantoprazole Sodium 40 mg 11/30/20 20:00 12/01/20 07:45 Pantoprazole 40 Mg Vial IVP 40 mg Q12H IDALIA Administration Potassium Chloride 20 meq 11/29/20 08:30 11/30/20 08:22 Potassium Chloride 20 Meq Tabcr PO 20 meq DAILY IDALIA Administration Sennosides 1 tab 11/30/20 22:00 11/30/20 21:17 Senna Tab PO 1 tab HS IDALIA Administration Sodium Chloride 10 ml 11/29/20 08:30 12/01/20 07:45 Normal Saline Flush 10 Ml Syr IVP 10 ml BID IDALIA Administration Sodium Chloride 10 ml 11/29/20 08:01 12/01/20 07:45 Normal Saline Flush 10 Ml Syr IVP 10 ml PRN PRN Administration Sucralfate 1 gm 11/30/20 16:30 12/01/20 08:45 Sucralfate 1 Gm Tab PO Not Given AC & HS IDALIA PFSH Active Problems Active Problems: Problem Status Onset Code GERD (gastroesophageal reflux disease) K21.9 DVT prophylaxis Z29.9 Dehydration E86.0 Acute pancreatitis K85.90 Acute hypokalemia E87.6 Impingement syndrome of left shoulder M75.42 Bursitis of left shoulder M75.52 Tendinitis of long head of biceps brachii of left shoulder M75.22 Calcific tendinitis of left shoulder M75.32 Contusion of left shoulder S40.012A Superficial postoperative wound infection T81.49XA Biliary colic 06/30/13 K80.50 Status post laparoscopic cholecystectomy 06/30/13 Z90.49 Throat irritation J39.2 Left carpal tunnel syndrome 02/23/16 G56.02 Hoarse 06/25/13 R49.0 Chronic laryngitis 06/25/13 J37.0 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 denies this Spondylolisthesis Surgical History Surgical History Cholecystectomy H/O esophagogastroduodenoscopy (~09/23/18) H/O hernia repair H/O spinal fusion History of carpal tunnel surgery of left wrist History of total abdominal hysterectomy with BSO right arm surgery on nerves Status post arthroscopy of left shoulder (09/23/20) S/P open biceps tenodesis, extensive debridement and subacromial decompression with partial acromioplasty Dr. Kaur Tobacco Smoking/Tobacco Use Status: Current every day Tobacco Type: cigarettes Smoking packs per day: 1 Tobacco: How many years used: 25 Alcohol Alcohol Intake: never Substance Use Substance use: Rarely Substance use type: marijuana Details: methadone client Vital Signs and Lab Results Vital Signs Most Recent Vital Signs in EMR: Most Recent Vital Signs Temp Pulse Resp BP Pulse Ox 36.8 C 87 18 138/92 H 96 12/01/20 08:16 12/01/20 08:16 12/01/20 08:16 12/01/20 08:16 12/01/20 08:16 Lab Results Result Diagrams: 12/01/20 05:55 12/01/20 05:55 Blood Type / Crossmatch: Patient ABO/Rh O Positive 11/29/20 18:03 11/29/20 Antibody Screen Negative 11/29/20 18:03 11/29/20 Complete Blood Count: White Blood Count 5.49 10^3/uL (4.4-10.8) 12/01/20 05:55 12/01/20 Red Blood Count 3.58 10^6/uL (3.93-5.22) L 12/01/20 05:55 12/01/20 Hemoglobin 7.9 g/dL (11.2-15.7) L 12/01/20 05:55 12/01/20 Hematocrit 26.8 % (36.0-46.0) L 12/01/20 05:55 12/01/20 Platelet Count 325 10^3/uL (130-400) 12/01/20 05:55 12/01/20 Complete Metabolic Panel: Sodium Level 141 mmol/L (136-145) 12/01/20 05:55 12/01/20 Potassium Level 3.6 mmol/L (3.5-5.1) 12/01/20 05:55 12/01/20 Chloride Level 104 mmol/L (98-107) 12/01/20 05:55 12/01/20 Carbon Dioxide Level 32.0 mmol/L (21.0-32.0) 12/01/20 05:55 12/01/20 Blood Urea Nitrogen 5 mg/dL (7-18) L 12/01/20 05:55 12/01/20 Creatinine 0.7 mg/dL (0.55-1.02) 12/01/20 05:55 12/01/20 Magnesium Level 2.0 mg/dL (1.8-2.4) 11/28/20 10:30 11/28/20 Calcium Level 8.8 mg/dL (8.5-10.1) 12/01/20 05:55 12/01/20 Albumin 2.8 g/dL (3.4-5.0) L 12/01/20 05:55 12/01/20 Glucose Level 101 mg/dL (74-106) 12/01/20 05:55 12/01/20 Liver Function Panel: Alanine Aminotransferase (ALT/SGPT) 10 U/L (14-59) L 12/01/20 05:55 12/01/20 Aspartate Amino Transf (AST/SGOT) 12 U/L (15-37) L 12/01/20 05:55 12/01/20 Coagulation Panel: No Data to Display Cardiac Panel: Troponin I < 0.05 ng/mL (<0.06) 11/28/20 10:55 11/28/20 Arterial Blood Gas: No Data to Display Venous Blood Gas: Venous Blood Lactate 1.1 mmol/L (0.6-1.4) 11/28/20 10:55 11/28/20 Pancreas Panel: Lipase 168 U/L (73-393) 12/01/20 05:55 12/01/20 Thyroid Panel: Thyroid Stimulating Hormone (TSH) 2.03 uIU/mL (0.36-3.74) 11/29/20 07:15 11/29/20 Infectious Disease: 2 Coronavirus (COVID-19)(PCR) Negative (Negative) 11/28/20 13:45 11/28/20 Coronavirus 2019 Source Nasal/nares 11/28/20 13:45 11/28/20 Blood Cultures: No Data to Display Toxicology Panel: No Data to Display Panel: No Data to Display Imaging and Studies Imaging and Studies Stress Test Summary: 01/11/16 Impressions: Normal study after pharmacologic stress. Summary: 1. Myocardial perfusion imaging: No myocardial perfusion defects noted. 2. The calculated left ventricular ejection fraction after stress: 50%. LV global systolic function is normal. No left ventricular regional motion abnormality. Anesthesia Assessment and Plan Anesthesia History Personal History: No History of Anesthesia Complications Family History: No Family History of Anesthesia Complications Exercise Tolerance Exercise Tolerance: Metabolic Equivalents>4 Pertinent Negatives Pertinent Negatives: No Symptoms of GERD Cardiac & Pulmonary Exam Cardiac Exam: Normal S1/S2 Heart Sounds Pulmonary Exam: Clear Bilateral Breath Sounds Airway Exam Known Difficult Airway: No Mallampati Class: 2 Mouth Opening: Normal (> 3cm) Thyromental Distance: Greater than 3 cm Neck Range of Motion: Full ROM Neck Circumference: Normal Teeth Condition: Normal Dentition and Removable Dentures/Plates Upper ASA Classification ASA Score: ASA 3 Emergency Case?: No NPO Status NPO Status: NPO Clears >2 hours, Solids >8 hours Status Status: Not Relevant due to Medical History Anesthesia Plan Resuscitation Status: Full Code Anesthesia Technique: General Anesthesia Airway Planned: Natural Airway Monitors Used: Standard Monitors
[2020-12-01] MEDS: lamoTRIgine 100 MG TAB 200 MG PO (09:00)
--- NOTE | 2020-12-01 09:33 | W.PM.PROGNOT ---
Date of Service Date of service: 12/01/20 Time of Service: 09:34 Subjective Subjective Interval history since last seen: To OR for EGD. Risks and benefits explained and accepted. Objective Last Vital Signs Temp 98.2 F 12/01/20 08:16 Pulse 87 12/01/20 08:16 Resp 18 12/01/20 08:16 BP 138/92 H 12/01/20 08:16 Pulse Ox 96 12/01/20 08:16 Laboratory Results - last 24 hr 12/01/20 12/01/20 05:55 05:55 WBC 5.49 RBC 3.58 L Hgb 7.9 L Hct 26.8 L MCV 74.9 L MCH 22.1 L MCHC 29.5 L RDW 20.6 H Plt Count 325 MPV 9.1 Immature Gran % 0.4 Neutrophils % 54.0 Lymphocytes % 30.4 Monocytes % 12.4 Eosinophils % 2.4 Basophils % 0.4 Nucleated RBC % 0 Absolute Neutrophils 2.97 Absolute Lymphocytes 1.67 Absolute Monocytes 0.68 Absolute Eosinophils 0.13 Absolute Basophils 0.02 RBC Morphology See below Hypochromasia 2+ Anisocytosis 2+ Microcytosis 1+ Sodium 141 Potassium 3.6 Chloride 104 Carbon Dioxide 32.0 Anion Gap 5.0 BUN 5 L Creatinine 0.7 Estimated GFR/1.73 m2 >= 60.00 Glucose 101 Calcium 8.8 Total Bilirubin 0.3 AST 12 L ALT 10 L Alkaline Phosphatase 105 Total Protein 6.2 L Albumin 2.8 L Lipase 168
--- NOTE | 2020-12-01 09:51 | STOM_PTH ---
PATIENT: Krissy Goldberg LOC: U#:[id number] AGE/SX: 50/F ROOM: 207 RE11/28/[address]: Martir Calzada : 1970 BED: A DIS: 12/01/2020 SPEC #: [id number] RECD: 12/01/20 12:56 STATUS: DAVIE REQ #: [id number] WESLY: 12/01/20 09:[address]: Martir Calzada DEPT: Surgical Specimen RECD BY: Yeny Ferrell ENTERED: 12/01/20 12:56 SP TYPE: STOMACH OTHR DR: Peter Johns Tissues: 1 - STOMACH BIOPSY Procedures: GROSS AND MICRO LEVEL 4 Comments: [id number]
[2020-12-01] MEDS: Lactated Ringers 1,000 ML 30 ML IV (09:57)
--- NOTE | 2020-12-01 09:57 | W.PM.ENDDOP ---
Date of service: 12/01/20 Time of Service: 09:57 Endoscopy Report DATE OF PROCEDURE: 12/01/20 PRE-OP DIAGNOSIS: Acute pancreatitis, GERD POST-OP DIAGNOSIS: other (Mild antral gastritis, No evidence of duodenal ulcer) PROCEDURE: EGD with cold forceps biopsy of antrum SURGEON: Johnathan Ornelas ANESTHESIA TYPE: MAC ESTIMATED BLOOD LOSS: 2 PATHOLOGY: other (cold forceps biopsy of antrum) COMPLICATIONS: None DISPOSITION: PACU INDICATIONS: 50 year old female who is currently in the hospital with acute pancreatitis. EGD was recommended given her history of GERD and to rule out possible duodenal ulcer causing secondary pancreatitis. Risks and benefits were explained and accepted. FINDINGS: Mild antral gastritis No evidence of ulceration PROCEDURE DESCRIPTION: Timeout was performed. All present were in agreement. MAC was performed by anesthesia. The scope was then inserted into the mouth and easily advanced to the stomach. The pylorus was cannulated and the scope was advanced to the 3rd portion of the duodenum. The duodenum was carefully inspected, and no evidence of ulceration or any other pathology was identified. The scope was then slowly withdrawn. Very mild antral gastritis was identified. A cold forceps biopsy of the antrum was obtained. Further inspection of the stomach did not reveal any pathology. A retroflexion view was obtained, and there was no hiatal hernia. The scope was further withdrawn. The GE junction was pristine, as was the esophagus. The scope was completely withdrawn without incident. Patient tolerated the procedure well.
[2020-12-01] MEDS: Albuterol/Ipratropium 3 ML UPD VIAL UPD (10:45)
--- NOTE | 2020-12-01 10:54 | W.ANESPOSTOP ---
Postoperative Evaluation Date, Time and Location Date Performed: 12/01/20 Time Performed: 10:24 Patient Location: PACU Vital Signs Most Recent Imported Vital Signs: Most Recent Vital Signs Temp Pulse Resp BP Pulse Ox 36.9 C 86 11 L 116/85 94 12/01/20 10:52 12/01/20 10:52 12/01/20 10:52 12/01/20 10:52 12/01/20 10:40 Most Recent Manually Entered Vital Signs: Adult Blood Pressure: 98/74 Heart Rate: 88 Respirations: 10 Oxygen Saturation (%): 95 Temperature (C): 36.9 C Pain Score (0-10 Scale): 0 Pain Score Most Recent Pain Score: Most Recent Pain Score Pain Level [Mid Abdomen] 8 11/28/20 15:13 Pain Level 9 12/01/20 08:16 Assessment Mental Status: Awake (Alert & Oriented to Patient Baseline) Airway and Respiratory Function: Patent airway with normal (patient baseline) respiratory exam Cardiovascular Function: Hemodynamically Stable Hydration Status: Adequately Hydrated Nausea & Vomiting: No Nausea or Vomiting Pain: Pt. Denies Any Pain Peripheral Nerve Block: Patient did not receive a nerve block
[2020-12-01] MEDS: Sucralfate 1 GM TAB PO (11:25)
[2020-12-01] MEDS: Potassium Chloride 20 MEQ TABCR PO (11:25)
--- NOTE | 2020-12-01 11:45 | W.PM.PROGNOT ---
Date of Service Date of service: 12/01/20 Time of Service: 11:45 Assessment and Plan Assessment and plan (1) Acute pancreatitis: Status: Resolved Assessment and plan: patient tolerating solid foods after having an EGD this morning that showed some gastritis. No bleeding ulcers. she can be discharged home on a low fat, low acid soft foods diet. she will increase her omeprazole to 40 mg bid and I have prescribed carafate 1 gm po ac/hs Qualifiers: Pancreatitis type: drug induced Acute pancreatitis complication: no infection or necrosis Qualified Code(s): K85.30 - Drug induced acute pancreatitis without necrosis or infection (2) Anemia: Status: Chronic Assessment and plan: patient has had no diarrhea/melena but her anemia is worsening and is an iron deficiency anemia. She needs further GI workup as listed above. She denies chronic use of NSAIDS and does not drink alcohol, however she does smoke Qualifiers: Anemia type: iron deficiency Iron deficiency anemia type: unspecified iron deficiency Qualified Code(s): D50.9 - Iron deficiency anemia, unspecified (3) Acute hypokalemia: Status: Resolved Assessment and plan: resolved. patient has been repleted w/ oral and iv potassium. level now 3.6. Her PCP should put her on supplementation [facility] while she is on chlorthalidone (4) Dehydration: Status: Resolved Assessment and plan: repleted. iv fluids stopped (5) DVT prophylaxis: Status: Resolved Assessment and plan: Enoxaparin on hold d/t worsening anemia. patient is now ambulatory and lower risk for DVT. She can use SCD. (6) Discharge planning issues: Status: Resolved Assessment and plan: discharge home today. no need for home health. patient can follow up next week w/ her PCP. Subjective Subjective Interval history since last seen: Patient reports that her epigastric pain is much better. No nausea or vomiting. She would like regular foods. EGD was reported as showing mild gastritis but no ulcer. I will keep her on carafate and a PPI. Exam Narrative Exam Narrative: Patient is sitting up at her bedside and eating lunch. She denies any abdominal pains nor nausea Abdomen exam is benign, soft, nontender w/ normal bowel sounds. Objective Last Vital Signs Temp 36.9 C 12/01/20 11:05 Pulse 86 12/01/20 11:05 Resp 13 12/01/20 11:05 BP 94/61 L 12/01/20 11:05 Pulse Ox 95 12/01/20 11:05 Laboratory Results - last 24 hr 12/01/20 12/01/20 05:55 05:55 WBC 5.49 RBC 3.58 L Hgb 7.9 L Hct 26.8 L MCV 74.9 L MCH 22.1 L MCHC 29.5 L RDW 20.6 H Plt Count 325 MPV 9.1 Immature Gran % 0.4 Neutrophils % 54.0 Lymphocytes % 30.4 Monocytes % 12.4 Eosinophils % 2.4 Basophils % 0.4 Nucleated RBC % 0 Absolute Neutrophils 2.97 Absolute Lymphocytes 1.67 Absolute Monocytes 0.68 Absolute Eosinophils 0.13 Absolute Basophils 0.02 RBC Morphology See below Hypochromasia 2+ Anisocytosis 2+ Microcytosis 1+ Sodium 141 Potassium 3.6 Chloride 104 Carbon Dioxide 32.0 Anion Gap 5.0 BUN 5 L Creatinine 0.7 Estimated GFR/1.73 m2 >= 60.00 Glucose 101 Calcium 8.8 Total Bilirubin 0.3 AST 12 L ALT 10 L Alkaline Phosphatase 105 Total Protein 6.2 L Albumin 2.8 L Lipase 168
[2020-12-01] MEDS: Refresh PLUS Eye Drops 0.4ml OP (13:30)
[2020-12-01] MEDS: Docusate Sodium 100 MG CAP PO (13:30)
--- NOTE | 2020-12-01 15:00 | DSE_ITS ---
Date of service: 12/01/20 Time of Service: 15:00 DS: Diagnosis Discharge Diagnosis (1) Acute pancreatitis: Status: Resolved Asessment and Plan: patient presented to the hospital w/ upper abdominal pain and nausea and vomiting. lipase elevated at 3294 and overnight it came down to 1453 w/ aggressive iv fluid hydration. At discharge her lipase was 168. She denies any alcohol intake since her teenage years when she suffered from acute alcohol poisoning. She is s/p cholecystectomy and abdominal CT scan showed no choledocholithiasis and usual post cholecystectomy intra/extrahepatic ductal dilatation. She has a stable nonspecific hypodensity of the dome of the right lobe of the liver. She was treated w/ aggressive iv fluid hydration, parenteral narcotics, and anti emetics. She did well w/ this and as noted her pancreatitis quickly resolved. Unclear as to the etiology. She did recently complete a course of doxycycline (not known to cause pancreatitis but may have contributed to her gastritis). (2) Antral gastritis: Status: Acute Asessment and Plan: EGD performed on 12/[address] Johnathan Ornelas, surgery, which showed a mild antral gastritis. patient begun on carafate 1 gm AC/HS and her Priolosec increased to 40 mg bid. avoid NSAID's. (3) Anemia: Status: Chronic Asessment and Plan: iron deficiency anemia. It is recommended to the PCP to trial her on oral iron after she recuperates from her acute gastritis and pancreatitis and if she is intolerant the arrange outpatient infusions of Venofer. Admission H&H demonstrated a normocytic anemia w/ Hb 9.2 gm and HCT 31%, MCV 74, RDW 20. Iron tests were consistent w/ an iron deficiency anemia w/ iron level 25, TIBC 214 and transferrini saturation 12% and ferritin of 25. Her Hb dropped after iv fluid hydration to 7.9 gm. This resulted in surgical consult for EGD which showed antral gastritis. She had no melena nor hematochezia during her stay. It is recommended for her to follow up w/ surgery or GI for c-scope if none has been done in the recent past. Othewise she ought to have capsule endoscopy if she has had negativ c-scope. (4) Acute hypokalemia: Status: Resolved (5) Dehydration: Status: Resolved Discharge Plan Disposition Patient Disposition: HOME Condition: Good Discharge Details Reason For Visit: Pancreatitis, hypokalemia Admit Date/Time: 11/28/20 13:46 Admit Provider: Martir Calzada Attending Provider: Martir Calzada Primary Care Provider: Peter Piña [facility] Hospital Course Hospital Course: see above for details Home Meds and New Rx's Prescriptions: New sucralfate [Carafate] 100 mg/mL suspension 10 ml PO QACHS Qty: 420 RF: 1 Continued ferrous gluconate 324 mg (37.5 mg iron) tablet 324 mg PO DAILY RF: 0 potassium chloride 20 mEq tablet,ER particles/crystals 20 meq PO DAILY RF: 0 albuterol 90 mcg/actuation aerosol 2 puff IH Q4H PRNRF: 0 budesonide-formoterol [Symbicort] 160-4.5 mcg/actuation HFA aerosol inhaler 2 puff IH BID RF: 0 omeprazole [Prilosec] 40 MG capsule,delayed release(DR/EC) 40 mg PO DAILY RF: 0 methadone [Methadose] 40 MG tablet,soluble 140 mg PO DAILY RF: 0 mirtazapine 7.5 MG tablet 60 mg PO HS RF: 0 cyclobenzaprine 10 MG tablet 10 mg PO TID PRN PRNRF: 0 duloxetine [Cymbalta] 20 MG capsule,delayed release(DR/EC) 60 mg PO BID RF: 0 hydroxyzine HCl 25 MG tablet 25 mg PO TID PRNRF: 0 clonidine HCl 0.1 MG tablet extended release 12 hr 0.1 mg PO BID RF: 0 gabapentin 800 MG tablet 800 mg PO TID RF: 0 lamotrigine [Lamictal] 100 MG tablet 300 mg PO DIRECTED RF: 0 epinephrine 0.3 MG/SYR auto-injector 0.3 mg IJ PRN PRN (Reason: Anaphylaxis) Qty: 1 RF: 0 Dulera 100-5 mcg/actuation Hfa Aerosol Inhaler 2 puff INHALATION BID RF: 0 artificial tears solution Drops 1 - 2 drp OPHTHALMIC (EYE) TID RF: 0 mometasone [Nasonex] 50 mcg/actuation [place],Non-Aerosol 1 spray INTRANASAL BID RF: 0 chlorthalidone 25 MG tablet 25 mg PO DAILY RF: 0 Discontinued ketorolac 15 mg/mL Solution 15 mg IM PRNRF: 0 Discharge Instructions Instructions: Pancreatitis (DC), Diet for Stomach Ulcers and Gastritis (ED) Additional Instructions: increase your Prilosec (omeprazole) to 40 mg twice a day for the next two weeks. Avoid use of any NSAID's (nonsteroidal anti-inflammatory drugs such as ibuprofen, naproxen, aspirin). Start slowly with your diet w/ low fat foods w/ low acidity and avoid alcohol or caffeine. Begin w/ soft foods and advance as tolerated to regular foods. Avoid fried foods or greasy foods. Referrals: Indy Motta [NURSE PRACTITIONER] - 12/08/20 9:15 am Activity:: Activity as Tolerated Equipment/Supplies:: No Equipment Needed Diet:: low fat Discharge Orders Discharge Orders: Discharge Order (Routine); Ordered 12/01/20 Ordered By: Martir Calzada DS: Summary Time Spent with Patient providing and/or coordinating discharge services: Less than 30 minutes Status at Discharge Functional status at discharge: independent ambulation Overall status at discharge: patient is back to baseline Mental Status: mental status grossly normal Speech and Movement: speech and movement normal Mood: congruent mood Affect: normal affect Exam Narrative Exam Narrative: Patient is sitting up at her bedside and eating lunch. She denies any abdominal pains nor nausea Abdomen exam is benign, soft, nontender w/ normal bowel sounds. Psych Mental Status: mental status grossly normal Speech and Movement: speech and movement normal Mood: congruent mood Affect: normal affect DS: Data Vitals/I&O Vitals and I&O: Vital Signs Temperature 36.6 C 12/01/20 12:05 Temperature Source Tympanic 12/01/20 12:05 Pulse 86 12/01/20 12:05 Pulse Rhythm Regular 12/01/20 07:50 Pulse 80 11/28/20 13:40 Respiratory Rate 18 12/01/20 12:05 Respiratory Effort Non-Labored 12/01/20 07:50 Respiratory Depth Normal 12/01/20 07:50 Respiratory Pattern Normal 12/01/20 07:50 Blood Pressure 100/65 12/01/20 12:05 Blood Pressure Mean 104 11/28/20 13:15 Pulse Oximetry 93 12/01/20 12:05 Respiratory End-tidal CO2 48 12/01/20 11:05 Oxygen Delivery Method Room Air 12/01/20 12:05 Oxygen Flow Rate 0 12/01/20 12:05 Pain Level 8 12/01/20 11:45 Comment 11/29/20 07:24 Intake & Output 11/30/20 12/01/20 12/01/20 23:59 11:59 23:59 Intake Total 500 / 2901.667 72.5 / 72.5 Output Total 450 / 2740 Balance 50 / 161.667 72.5 / 72.5 Weight 66.6 kg Intake: IV 72.5 / 72.5 Oral 500 / 940 Output: Urine 450 / 2740 Other: Urine Color Yellow Pale Yellow Urine Appearance Clear Clear Urine Odor Normal None Comment Patient voided independently in toilet, urine not visualized by nursing. Emesis Description None Voiding Methods Toilet Toilet Data Completed and Pending Completed studies during hospitalization [Text1]: EGD Pending studies at discharge: gastric antral biopsy from 12/01/2020 Labs on day of discharge: Labs from last 24 hours 12/01/20 12/01/20 05:55 05:55 WBC 5.49 RBC 3.58 L Hgb 7.9 L Hct 26.8 L MCV 74.9 L MCH 22.1 L MCHC 29.5 L RDW 20.6 H Plt Count 325 MPV 9.1 Immature Gran % 0.4 Neutrophils % 54.0 Lymphocytes % 30.4 Monocytes % 12.4 Eosinophils % 2.4 Basophils % 0.4 Nucleated RBC % 0 Absolute Neutrophils 2.97 Absolute Lymphocytes 1.67 Absolute Monocytes 0.68 Absolute Eosinophils 0.13 Absolute Basophils 0.02 RBC Morphology See below Hypochromasia 2+ Anisocytosis 2+ Microcytosis 1+ Sodium 141 Potassium 3.6 Chloride 104 Carbon Dioxide 32.0 Anion Gap 5.0 BUN 5 L Creatinine 0.7 Estimated GFR/1.73 m2 >= 60.00 Glucose 101 Calcium 8.8 Total Bilirubin 0.3 AST 12 L ALT 10 L Alkaline Phosphatase 105 Total Protein 6.2 L Albumin 2.8 L Lipase 168 [facility] Medical History (Updated 12/01/20 @ 15:03 by Martir Calzada) Anemia Anxiety Chronic anemia Chronic sinusitis COPD (chronic obstructive pulmonary disease) Depression Edema of left lower extremity Fibromyalgia GERD (gastroesophageal reflux disease) Hyperlipidemia Hypertension Hypokalemia Hypothyroid Migraine Opioid abuse pt. denies this Spondylolisthesis Surgical History Cholecystectomy H/O esophagogastroduodenoscopy (~09/23/18) H/O hernia repair H/O spinal fusion History of carpal tunnel surgery of left wrist History of total abdominal hysterectomy with BSO right arm surgery on nerves Status post arthroscopy of left shoulder (09/23/20) S/P open biceps tenodesis, extensive debridement and subacromial decompression with partial acromioplasty Dr. Kaur Family History Father , from Colon Cancer in his late 60's Colon cancer Mother Diverticulitis s/p resection Social History Smoking/Tobacco Use Status: Current every day Tobacco Type: cigarettes Smoking packs per day: 1 Smoking cigarettes per day: 20.0 Tobacco: How many years used: 25 Smoking risk assessment performed?: Yes Alcohol Intake: never Drug use: Rarely Substance use type: marijuana Details: methadone client Current gender identity: female Do you feel safe at home: Yes Do you feel safe in your relationship?: Yes
--- NOTE | 2020-12-01 15:15 | PDOC.CMDIS ---
LACE Index Scoring Tool - Questions: Length of Stay (in days): 3 Acuity (Admit via E.D.?): Yes Comorbidities: Chronic Pulmonary Disease E.D. Visits: 4 - Answers: Total Score: 12 Risk of Readmission: High Risk Care Management Discharge Reason for Hospitalization: Acute pancreatitis Discharge Plan: Felicity will discharge home with no new services anticipated at this time. She will follow up with her community providers and plan of care as prescribed and transport via private vehicle with her daughter, Praveena. Patient/Family Education Needs: Review discharge instructions, discuss Ask Me Three.
== END 2020-12-01 15:38 | disposition home or self-care (01) | DRG 439 ==
LOC: ER 13:37 → MS 14:29
PROVIDERS: Surgery; Admitting Provider Internal Medicine; Emergency Provider Physician Assistant; PCP Nurse Practitioner Family; Visit Provider Internal Medicine
PROC: 0DJ68ZZ Inspection of Stomach, Via Natural or Artificial Opening Endoscopic (ICD-10-PCS; CPT 43235; principal; 2020-12-01 13:00)
DX: K85.30 Drug induced acute pancreatitis without necrosis or infection (principal); F11.20 Opioid dependence, uncomplicated; E86.0 Dehydration; E87.6 Hypokalemia; Z20.822 Contact with and (suspected) exposure to COVID-19; I10 Essential (primary) hypertension; J44.9 Chronic obstructive pulmonary disease, unspecified; M79.7 Fibromyalgia; F17.210 Nicotine dependence, cigarettes, uncomplicated; Z98.1 Arthrodesis status; T36.4X5A Adverse effect of tetracyclines, initial encounter; F41.9 Anxiety disorder, unspecified; J32.9 Chronic sinusitis, unspecified; F32.9 Major depressive disorder, single episode, unspecified; E78.5 Hyperlipidemia, unspecified; E03.9 Hypothyroidism, unspecified; G43.909 Migraine, unspecified, not intractable, without status migrainosus; D50.9 Iron deficiency anemia, unspecified; K21.9 Gastro-esophageal reflux disease without esophagitis; K29.70 Gastritis, unspecified, without bleeding
CPT/HCPCS: 43239; 36415; 80053; 80061; 83690; 86850; 86900; 86901; 87635; 88305; 93005; 94640; 96361; 96365; 96366; 96368; 96375; 96376; 99285; J1650; 74177; 81003; 82728; 83540; 83550; 83605; 83735; 84132; 84443; 84484; 85014; 85018; 85025; 93010; 99222; 99231; 99232; 99238; J2250; J3480; J3490; J7620

== ENCOUNTER 2021-01-17 19:41 | Emergency (ER) | payer MEDICAID, SELFPAY ==
[2021-01-17 19:55] VITALS: BP 143/88; PULSE 101; RESP 17; TEMP 36.9; O2SAT 97
--- NOTE | 2021-01-17 20:15 | DI.RAD_ITS ---
Exam(s) XR CHEST 2V PA LATERAL EXAM: XR CHEST 2V PA LATERAL CLINICAL HISTORY: Cough. TECHNIQUE: 2D digital imaging was performed. COMPARISON: CR,XR XR PORTABLE CHEST AP from 07/10/2020 FINDINGS: Heart size is normal. The mediastinum is not widened. Lungs are clear. No infiltrates nor pleural effusions. IMPRESSION: No acute pulmonary findings. DATA REPOSITORY: RADIATION DOSE DELIVERED:
--- NOTE | 2021-01-17 20:22 | W.ED.GENAD ---
Discharge Plan Disposition Patient Disposition: HOME Condition: Stable Discharge Details Clinical Impression: Hypokalemia, Anemia Primary Care Provider: Peter Piña ED Provider: Christie Virgen Home Meds and New Rx's Prescriptions: New Effer-K 20 mEq tablet, effervescent 20 meq PO BID 3 Days Qty: 6 RF: 0 potassium chloride [K-Tab] 20 mEq tablet extended release 20 meq PO DAILY 5 Days Qty: 5 RF: 0 Discontinued potassium chloride 20 mEq tablet,ER particles/crystals 20 meq PO DAILY RF: 0 No Action ferrous gluconate 324 mg (37.5 mg iron) tablet 324 mg PO DAILY RF: 0 albuterol 90 mcg/actuation aerosol 2 puff IH Q4H PRNRF: 0 budesonide-formoterol [Symbicort] 160-4.5 mcg/actuation HFA aerosol inhaler 2 puff IH BID RF: 0 omeprazole [Prilosec] 40 MG capsule,delayed release(DR/EC) 40 mg PO DAILY RF: 0 methadone [Methadose] 40 MG tablet,soluble 140 mg PO DAILY RF: 0 mirtazapine 7.5 MG tablet 60 mg PO HS RF: 0 cyclobenzaprine 10 MG tablet 10 mg PO TID PRN PRNRF: 0 duloxetine [Cymbalta] 20 MG capsule,delayed release(DR/EC) 60 mg PO BID RF: 0 hydroxyzine HCl 25 MG tablet 25 mg PO TID PRNRF: 0 clonidine HCl 0.1 MG tablet extended release 12 hr 0.1 mg PO BID RF: 0 gabapentin 800 MG tablet 800 mg PO TID RF: 0 lamotrigine [Lamictal] 100 MG tablet 300 mg PO DIRECTED RF: 0 epinephrine 0.3 MG/SYR auto-injector 0.3 mg IJ PRN PRN (Reason: Anaphylaxis) Qty: 1 RF: 0 Dulera 100-5 mcg/actuation Hfa Aerosol Inhaler 2 puff INHALATION BID RF: 0 artificial tears solution Drops 1 - 2 drp OPHTHALMIC (EYE) TID RF: 0 mometasone [Nasonex] 50 mcg/actuation [place],Non-Aerosol 1 spray INTRANASAL BID RF: 0 sucralfate [Carafate] 100 mg/mL suspension 10 ml PO QACHS Qty: 420 RF: 1 chlorthalidone 25 MG tablet 25 mg PO DAILY RF: 0 Discharge Instructions Instructions: Hypokalemia (ED) Additional Instructions: Take potassium supplement daily x5 days. Follow up with primary care provider in 3-5 days. Return to ED sooner if any worsening or concerns. Increase oral fluids. You may also eat bananas or increase foods with potassium content. Your potassium was low this may be what is causing your symptoms. Continue taking the antibiotic as previously prescribed by your primary care. Continue gargling with warm salt water. The rapid strep swab was negative. Referrals: Peter Piña NP [Primary Care Provider] - 5 days Medical Decision Making 50-year-old female presents to the ER chief complaint of sore throat, weakness. Patient was placed on levofloxacin recently and recently finished a stent of 60 mg prednisone daily. She reports increased muscle fatigue and sore throat she has been gargling with warm salt water which has helped. She was sent here by her PCP for further evaluation and some lab and chest x-ray. She is speaking in full sentences no respiratory distress. She is a daily smoker. She has a history of opioid abuse disorder and takes methadone, migraine, hypothyroidism, hypertension, hyperlipidemia, GERD, fibromyalgia, COPD. Labs show chronic anemia, potassium 3.0 chloride 96, urine drug screen is pending at this time. Rapid strep is negative. Imaging protocol: XR of the chest. Views: 2 views. COMPARISON: CR XR PORTABLE CHEST AP 07/10/2020 7:01 PM FINDINGS: Lungs: Unremarkable. No consolidation. Pleural spaces: Unremarkable. No pleural effusion. No pneumothorax. Heart/Mediastinum: Unremarkable. No cardiomegaly. Bones/joints: Unremarkable. IMPRESSION: No acute findings. I will encourage a multivitamin or potassium supplements adid-fdd-huukyzo over the next few days. We will instruct patient to continue previously prescribed regimen of antibiotic. And strict follow-up with PCP. HPI General Mode of arrival: ambulatory. Date/Time Provider Initiated Documentation: 01/17/21 19:43. Limitations to Documentation: no limitations. Information obtained by: patient. HPI Narrative: 50-year-old female presents to the ER chief complaint of sore throat, weakness. Patient was placed on levofloxacin recently and recently finished a stent of 60 mg prednisone daily. She reports increased muscle fatigue and sore throat she has been gargling with warm salt water which has helped. She was sent here by her PCP for further evaluation and some lab and chest x-ray. She is speaking in full sentences no respiratory distress. She is a daily smoker. She has a history of opioid abuse disorder and takes methadone, migraine, hypothyroidism, hypertension, hyperlipidemia, GERD, fibromyalgia, COPD. Related Data Home Medications Medication Instructions Recorded Confirmed cyclobenzaprine 10 mg PO TID PRN PRN 11/28/12 01/17/21 duloxetine [Cymbalta] 60 mg PO BID 11/28/12 01/17/21 hydroxyzine HCl 25 mg PO TID PRN 04/13/13 01/17/21 clonidine HCl 0.1 mg PO BID 09/05/15 01/17/21 gabapentin 800 mg PO TID 09/06/15 01/17/21 methadone [Methadose] 140 mg PO DAILY tab-cap 11/02/15 01/17/21 mirtazapine 60 mg PO HS tab-cap 11/02/15 01/17/21 omeprazole [Prilosec] 40 mg PO DAILY tab-cap 11/02/15 01/17/21 lamotrigine [Lamictal] 300 mg PO DIRECTED 03/16/16 01/17/21 epinephrine 0.3 mg IJ PRN PRN #1 kit 08/16/16 01/17/21 chlorthalidone 25 mg PO DAILY 07/12/17 01/17/21 albuterol 90 mcg/actuation aerosol 2 puff IH Q4H PRN 08/19/18 01/17/21 inhaler budesonide-formoterol HFA 160 2 puff IH BID 08/19/18 01/17/21 mcg-4.5 mcg/actuation aerosol inhaler ferrous gluconate 324 mg (37.5 mg 324 mg PO DAILY tab 08/19/18 01/17/21 iron) tablet Dulera 2 puff INHALATION BID 11/28/20 01/17/21 artificial tears solution 1 - 2 drp OPHTHALMIC (EYE) TID 11/28/20 01/17/21 mometasone [Nasonex] 1 spray INTRANASAL BID 11/28/20 01/17/21 sucralfate [Carafate] 10 ml PO QACHS #420 ml 12/01/20 01/17/21 potassium bicarb-citric acid 20 meq PO BID 3 Days #6 tab 01/17/21 [Effer-K] potassium chloride [K-Tab] 20 meq PO DAILY 5 Days #5 tab 01/17/21 Previous Rx's Medication Instructions Recorded epinephrine 0.3 mg IJ PRN PRN #1 kit 08/16/16 sucralfate [Carafate] 10 ml PO QACHS #420 ml 12/01/20 potassium bicarb-citric acid 20 meq PO BID 3 Days #6 tab 01/17/21 [Effer-K] potassium chloride [K-Tab] 20 meq PO DAILY 5 Days #5 tab 01/17/21 Allergies Allergy/AdvReac Type Severity Reaction Status Date / Time penicillin G Allergy Severe THROAT Unverified 01/17/21 20:02 CLOSES clindamycin Allergy Intermediate Skin Rash Unverified 01/17/21 20:02 milnacipran HCl Allergy Intermediate Skin Rash Unverified 01/17/21 20:02 [From Savella] cefuroxime axetil Allergy Unverified 01/17/21 20:02 [From Ceftin] acetaminophen [From Vicodin] AdvReac Intermediate I cant Unverified 01/17/21 20:02 take it it ruins my liver azithromycin [From Zithromax] AdvReac Intermediate GI upset Unverified 01/17/21 20:02 clarithromycin [From Biaxin] AdvReac Intermediate Nausea Unverified 01/17/21 20:02 hydrocodone [From Vicodin] AdvReac Intermediate I cant Unverified 01/17/21 20:02 take it it ruins my liver ibuprofen AdvReac Intermediate GI Upset Unverified 01/17/21 20:02 ketorolac tromethamine AdvReac Intermediate GI Upset, Unverified 01/17/21 20:02 [From Toradol] can take IV form pregabalin [From Lyrica] AdvReac Intermediate Worsen Mood Unverified 01/17/21 20:02 Sulfa (Sulfonamide AdvReac Intermediate GI upset Unverified 01/17/21 20:02 Antibiotics) ENVIORNMENTAL Allergy Mild SINUSES Uncoded 01/17/21 20:02 MESSED UP-EYES General Stated Complaint: Sorethroat GRISEL: 4 Review of Systems All systems reviewed & are unremarkable except as noted in HPI and below ENT Ears, Nose, Mouth, and Throat: Reports sore throat and Denies throat swelling Cardiovascular Cardiovascular: Denies chest pain and Denies chest pain at rest Respiratory Respiratory: Reports cough Musculoskeletal Musculoskeletal: Reports muscle weakness Allergic/Immunologic Allergic/Immunologic: Denies throat swelling [facility] Medical History Anemia Anxiety Chronic anemia Chronic sinusitis COPD (chronic obstructive pulmonary disease) Depression Edema of left lower extremity Fibromyalgia GERD (gastroesophageal reflux disease) Hyperlipidemia Hypertension Hypokalemia Hypothyroid Migraine Opioid abuse pt. denies this Spondylolisthesis Surgical History Cholecystectomy H/O esophagogastroduodenoscopy (~09/23/18) H/O hernia repair H/O spinal fusion History of carpal tunnel surgery of left wrist History of total abdominal hysterectomy with BSO right arm surgery on nerves Status post arthroscopy of left shoulder (09/23/20) S/P open biceps tenodesis, extensive debridement and subacromial decompression with partial acromioplasty Dr. Kaur Family History Father , from Colon Cancer in his late 60's Colon cancer Mother Diverticulitis s/p resection Social History Smoking/Tobacco Use Status: Current every day Tobacco Type: cigarettes Smoking packs per day: 1 Smoking cigarettes per day: 20.0 Tobacco: How many years used: 25 Smoking risk assessment performed?: Yes Alcohol Intake: never Drug use: Rarely Substance use type: marijuana Details: methadone client Current gender identity: female Do you feel safe at home: Yes Do you feel safe in your relationship?: Yes Exam Narrative Exam Narrative: Constitutional: Alert and oriented x3. Appears stated age. Normal body habitus. Head: Normocephalic, no trauma. Eyes: Pupils PERRLA, Red reflex noted, EOM's intact. Eyelids symmetrical without lesions, discharge, or swelling. ENT: Bilateral TM's WNL, External ear normal to inspection, no mastoid TTP, swelling, or erythema, Nasal turbinates WNL, no nasal discharge. Normal dentition, Posterior pharynx WNL, no exudate. Chest: RRR, Normal S1, S2, distal pulses intact. Resp: Lungs clear to auscultation bilaterally, no wheezes, rales, or rhonchi. Musculoskeletal: Normal gait, 5/5 strength to all four extremities. Skin: No suspicious rashes or lesions. Capillary refill less than 2 sec. Neurologic: Cranial nerves II-XII intact. Alert and oriented x 3. DTR's intact. Hematologic/Lymphatic: No ecchymosis, no lymphadenopathy. Course Vital Signs Vital signs: Vital Signs Temperature 36.9 C 01/17/21 19:55 Pulse 101 H 01/17/21 19:55 Respiratory Rate 17 01/17/21 19:55 Blood Pressure 143/88 H 01/17/21 19:55 Pulse Oximetry 97 01/17/21 19:55 Temperature 36.9 C 01/17/21 19:55 Temperature Source Temporal Artery Scan 01/17/21 19:55 Pulse 101 H 01/17/21 19:55 Respiratory Rate 17 01/17/21 19:55 Respiratory Effort Non-Labored 01/17/21 20:01 Blood Pressure 143/88 H 01/17/21 19:55 Blood Pressure Position Sitting 01/17/21 19:55 Pulse Oximetry 97 01/17/21 19:55 Oxygen Delivery Method Room Air 01/17/21 19:55 Oxygen Flow Rate 0 01/17/21 19:55 Pain Level 0 01/17/21 19:55
[2021-01-17 20:43] LABS: Abs Immature Grans 0.01 10^3/uL (0.0-0.06); Absolute Basophil Count 0.04 10^3/uL (0.0-0.2); Absolute Eosinophil Count 0.14 10^3/uL (0.0-0.7); Absolute Lymphocyte Count 2.37 10^3/uL (1.2-3.4); Absolute Neutrophil Count 3.35 10^3/uL (1.2-6.7); Basophils % 0.6; Eosinophils % 2.1; HCT 31.9 % (36.0-46.0); HGB 9.3 g/dL (11.2-15.7); Immature Grans % 0.2; Lymphocytes % 35.9; MCH 21.1 pg (27.0-33.0); MCHC 29.2 % (32.0-36.0); MCV 72.3 fL (80-95); Monocytes % 10.6; Neutrophils % 50.6; Nucleated RBC 0 %; Platelet Count 399 10^3/uL (130-400); RBC 4.41 10^6/uL (3.93-5.22); RDW 20.2 % (11.7-14.6); RDW-SD 52.1 fL; WBC 6.61 10^3/uL (4.4-10.8)
[2021-01-17 20:55] LABS: ALT 17 U/L (14-59); AST 13 U/L (15-37); Albumin 3.9 g/dL (3.4-5.0); Alkaline Phosphatase 103 U/L (46-116); Anion Gap 7.6 mmol/L (3-11); BUN 12 mg/dL (7-18); Bilirubin, Total 0.2 mg/dL (0.2-1.0); CO2 32.4 mmol/L (21.0-32.0); Calcium 8.9 mg/dL (8.5-10.1); Chloride 96 mmol/L (98-107); Estimated GFR 58.22 (mL/min/1.73m2); Glucose 106 mg/dL (74-106); Sodium 136 mmol/L (136-145); Total Protein 7.6 g/dL (6.4-8.2)
[2021-01-17] MEDS: Potassium Chloride 20 MEQ TABCR 40 MEQ PO (21:18)
--- NOTE | 2021-01-17 21:36 | DI.VRAD_ITS ---
PROCEDURE INFORMATION: Exam: XR Chest Exam date and time: 01/17/2021 8:22 PM Age: 50 years old Clinical indication: Cough TECHNIQUE: Imaging protocol: XR of the chest. Views: 2 views. COMPARISON: CR XR PORTABLE CHEST AP 07/10/2020 7:01 PM FINDINGS: Lungs: Unremarkable. No consolidation. Pleural spaces: Unremarkable. No pleural effusion. No pneumothorax. Heart/Mediastinum: Unremarkable. No cardiomegaly. Bones/joints: Unremarkable. IMPRESSION: No acute findings. Dictated and Authenticated by: Esteban aVlencia MD. Ordering:URIEL Soriano MD
[2021-01-17 21:38] LABS: *AMPHETAMINES SCREEN URINE Negative (Negative); *BARBITURATES SCREEN URINE Negative (Negative); *BENZODIAZEPINES SCREEN URINE Negative (Negative); Cannabinoids THC Positive (Negative); METHADONE URINE SCREEN Positive (Negative); OPIATES URINE SCREEN Negative (Negative)
[2021-01-17 21:50] LABS: Cocaine Screen,Urine Negative (Negative)
[2021-01-17 21:51] LABS: Tricyclic Antidepressants Positive (Negative)
== END 2021-01-17 22:00 | disposition home or self-care (01) ==
PROVIDERS: Emergency Provider Registered Nurse Emergency; PCP Nurse Practitioner Family
DX: E87.6 Hypokalemia (principal); J02.9 Acute pharyngitis, unspecified; D53.9 Nutritional anemia, unspecified; M62.89 Other specified disorders of muscle
CPT/HCPCS: 36415; 80053; 80307; 87880; 99284; 71046; 85025; 87081

== ENCOUNTER 2021-02-01 14:44 | Outpatient (CLI) | payer MEDICAID, SELFPAY ==
--- NOTE | 2021-02-01 13:45 | DI.RAD_ITS ---
Exam(s) XR SHOULDER LT COMPLETE 2+V EXAM: XR SHOULDER LT COMPLETE 2+V CLINICAL HISTORY: pain in left shoulder s/p fall. TECHNIQUE: 2D digital imaging was performed. COMPARISON: CR XR SHOULDER LT COMPLETE 2+V from 07/28/2020 CR XR SHOULDER LT COMPLETE 2+V from 07/28/2020 MR MR UPPER JOINT LT WO from 08/05/2020 FINDINGS: BONES: No acute fracture is present. No bony destructive lesion is seen. Prior distal clavicular res ection. Metallic dense proximal humerus related to rotator cuff repair. JOINTS: No dislocation present. The glenohumeral joint space is well maintained. The humeral head i s normally positioned. SOFT TISSUE: Calcification above the greater tuberosity. IMPRESSION: Postsurgical changes. Calcific tendinosis. DATA REPOSITORY: RADIATION DOSE DELIVERED:
== END 2021-02-01 14:45 | disposition home or self-care (01) ==
LOC: DIORS 14:45
PROVIDERS: PCP Nurse Practitioner; Referring Provider Nurse Practitioner; Visit Provider Physician Assistant Surgical
DX: S40.012A Contusion of left shoulder, initial encounter (principal); M75.32 Calcific tendinitis of left shoulder; W19.XXXA Unspecified fall, initial encounter; Y99.8 Other external cause status
CPT/HCPCS: 73030

== ENCOUNTER 2021-02-03 00:56 | Outpatient (CLI) | payer MEDICAID, SELFPAY | END 2021-02-03 00:57 | disposition home or self-care (01) | LOC: RT 00:56 | PROVIDERS: PCP Nurse Practitioner; Visit Provider Nurse Practitioner | DX: Z53.8 Procedure and treatment not carried out for other reasons (principal) ==

== ENCOUNTER 2021-02-13 03:17 | Outpatient (CLI) | payer MEDICAID, SELFPAY | END 2021-02-13 03:18 | disposition home or self-care (01) | LOC: RT 03:17 | PROVIDERS: PCP Nurse Practitioner; Visit Provider Nurse Practitioner ==

== ENCOUNTER 2021-02-17 00:30 | Outpatient (CLI) | payer MEDICAID, SELFPAY ==
[2021-02-17] MEDS: Albuterol HFA 18 GM 200 PUFF INH IH (11:44)
--- NOTE | 2021-02-17 11:44 | W.PFT ---
Date of service: 02/17/21 Time of Service: 10:09 Pulmonary Function Test Result Requesting Provider Indy Motta Interpretation Spirometry: There is moderate airflow limitation. There is no significant bronchodilator effect. The flow volume loop is consistent with an obstructive process and there is some mild blunting of the inspiratory loop present. Lung Volumes: Lung volumes are normal. Diffusion Capacity: The diffusion is normal. Airway Pressure: There is elevated airways resistance. Impression There is moderate airflow limitation with a normal diffusion capacity. There is also mild blunting of the inspiratory loop on the flow volume loop which could represent vocal cord dysfunction in the correct clinical setting. Note: When compared to 05/05/2012 there has been a decrease in the FVC and FEV1 however this is likely consistent with normal effects of aging. There is also no longer air trapping present. The diffusion capacity has increased since 04/04/2012. Clinical Correlation therefore is recommended.
[2021-02-17] MEDS: Inhaler, Assist Device 1 EACH MC (11:45)
== END 2021-02-17 00:31 | disposition home or self-care (01) ==
LOC: RT 00:30
PROVIDERS: PCP Nurse Practitioner; Visit Provider Nurse Practitioner
DX: J44.9 Chronic obstructive pulmonary disease, unspecified (principal); R05 Cough; R06.02 Shortness of breath; F17.210 Nicotine dependence, cigarettes, uncomplicated
CPT/HCPCS: 94060; 94726; 94729

== ENCOUNTER 2021-04-06 02:05 | Outpatient (CLI) | payer MEDICAID, SELFPAY ==
--- NOTE | 2021-04-06 11:00 | DI.CTLCSR_ITS ---
Exam(s) CT CHEST LUNG CANCER SCREEN EXAM: CT CHEST LUNG CANCER SCREEN CLINICAL HISTORY: SCREENING FOR LUNG CA, CURRENT SMOKER, F17.200 TECHNIQUE: CT examination of the chest was performed utilizing low-dose lung cancer screening protoc ol. COMPARISON: No exams were available for comparison FINDINGS: Images obtained through the upper abdomen show unremarkable appearance of visualized portions of the liver, spleen, pancreas, adrenals, and kidneys. Note is made of prior cholecystectomy. There is no mediastinal or hilar adenopathy. Mediastinal vascular structures appear intact by noncon trast criteria. Tracheobronchial tree appears intact. No pleural effusion or pleural-based mass. The lungs are clear with no significant intrapulmonary nodule identified. IMPRESSION: Lung RADS Cat 1 - Negative: No nodules and definitely benign nodules Continue annual screening with LDCT in 12 months. RADIATION DOSE DELIVERED: 78.81mGy.cm Total DLP 1.84mGy CTDIvol 78.81mGy.cm Total DLP 1.84mGy CTDIvol RADIATION OPTIMIZATION: All CT scans at this facility use at least one of these dose optimization te chniques: automated exposure control; mA and/or kV adjustment per patient size (includes targeted exa ms where dose is matched to clinical indication); or iterative reconstruction.
== END 2021-04-06 02:25 ==
PROVIDERS: PCP Nurse Practitioner; Visit Provider Nurse Practitioner
DX: Z12.2 Encounter for screening for malignant neoplasm of respiratory organs (principal); F17.210 Nicotine dependence, cigarettes, uncomplicated
CPT/HCPCS: 71271

== ENCOUNTER 2021-04-24 01:59 | Outpatient (CLI) | payer MEDICAID, SELFPAY ==
--- NOTE | 2021-04-24 11:00 | DI.MAMMO_ITS ---
Exam(s) MAMMO SCREENING EXAM: MAMMO SCREENING CLINICAL HISTORY: SCREENING, Z12.39. TECHNIQUE: Bilateral full field digital CC and MLO mammographic images were obtained with 3D tomosyn thesis and utilizing computer aided detection (CAD). COMPARISON: Prior mammograms dating back to 2012, the most recent being December 2018. FINDINGS: There has no significant change in appearance distribution of the fibroglandular tissue There are no new spiculated masses nor malignant appearing microcalcification groups. There is no significant architectural distortion nor skin thickening-retraction. IMPRESSION: No radiographic evidence of malignancy. BI-RADS Category 1 - Negative Breast Density - Category B - Scattered areas of fibroglandular density Breast density Category C or D implies that the patient has dense breast tissue. Dense breast tissue can make it harder to find cancer on a mammogram. Dense breast tissue is also associated with an incr eased risk of breast cancer. This information about the result of the mammogram report was provided to the patient to raise their awareness. Use this report when you speak with the patient about their risks for breast cancer, which includes their family history. At that time, you may recommend additional screening tests (Ultrasoun d or MRI) as these tests may add significant information. A negative radiographic report should not delay biopsy if a dominant or clinically suspicious mass is present. Up to ten percent of cancers are not identified on mammography. A negative report may reinforce clinical impression. Adenosis and dense breasts may obscure an underlying neoplasm. False positive reports average 6 to 10%. Patient will receive a letter notifying them of these results.
== END 2021-04-24 02:19 ==
PROVIDERS: PCP Nurse Practitioner; Visit Provider Nurse Practitioner
DX: Z12.31 Encounter for screening mammogram for malignant neoplasm of breast (principal)
CPT/HCPCS: 77063; 77067

== ENCOUNTER 2021-04-26 11:14 | Outpatient (CLI) | payer MEDICAID, SELFPAY ==
--- NOTE | 2021-04-26 11:00 | DI.RAD_ITS ---
Exam(s) XR ELBOW LT COMPLETE EXAM: XR ELBOW LT COMPLETE CLINICAL HISTORY: left lateral epicondylitis. TECHNIQUE: 2D digital imaging was performed. COMPARISON: No exams were available for comparison FINDINGS: Three views of the left elbow reveal no evidence of acute fracture or joint effusion. Radial head ap pears unremarkable. There is, however, some swelling of the olecranon bursa noted. No calcification or radiopaque foreign body seen at this level. Subjacent olecranon appears unremarkable. IMPRESSION: Swelling of the olecranon bursa noted. No other focal radiographic findings in left elbow. DATA REPOSITORY: RADIATION DOSE DELIVERED:
== END 2021-04-26 11:15 | disposition home or self-care (01) ==
LOC: DIORS 11:14
PROVIDERS: PCP Nurse Practitioner; Referring Provider Nurse Practitioner; Visit Provider Student in an Organized Health Care Education/Training Program
DX: M77.12 Lateral epicondylitis, left elbow (principal); M70.21 Olecranon bursitis, right elbow
CPT/HCPCS: 73080

== ENCOUNTER 2021-06-27 18:09 | Outpatient (REF) | payer MEDICAID, SELFPAY ==
[2021-06-27 19:29] LABS: HCT 32.4 % (36.0-46.0); HGB 8.9 g/dL (11.2-15.7); MCHC 27.5 % (32.0-36.0); MPV 9.4 fL (8.0-11.0); Platelet Count 364 10^3/uL (130-400); RBC 4.38 10^6/uL (3.93-5.22); RDW-SD 48.2 fL; Reticulocyte 1.2 % (0.5-2.4); WBC 6.28 10^3/uL (4.4-10.8)
[2021-06-27 19:52] LABS: BUN 14 mg/dL (7-18); Calcium 9.3 mg/dL (8.5-10.1); Chloride 97 mmol/L (98-107); Estimated GFR 58.22 (mL/min/1.73m2); Ferritin 6 ng/mL (8-252); Glucose 83 mg/dL (74-106); Potassium 3.2 mmol/L (3.5-5.1); Sodium 139 mmol/L (136-145)
[2021-06-27 20:19] LABS: RDW 18.3 % (11.7-14.6)
[2021-06-27 20:20] LABS: MCH 20.3 pg (27.0-33.0)
== END 2021-06-27 18:10 | disposition home or self-care (01) ==
LOC: NCHCN 18:09
PROVIDERS: PCP Nurse Practitioner; Visit Provider Physician Assistant
DX: D50.8 Other iron deficiency anemias (principal); E87.6 Hypokalemia
CPT/HCPCS: 80048; 85027; 82728; 85045

== ENCOUNTER 2021-07-25 14:20 | Outpatient (CLI) | payer MEDICAID, SELFPAY ==
--- NOTE | 2021-07-25 14:15 | DI.RAD_ITS ---
Exam(s) XR SHOULDER LT COMPLETE 2+V EXAM: XR SHOULDER LT COMPLETE 2+V CLINICAL HISTORY: pain. TECHNIQUE: 2D digital imaging was performed of the left shoulder. Two images were obtained. AP and Y views were obtained. COMPARISON: CR XR SHOULDER LT COMPLETE 2+V from 02/01/2021 FINDINGS: BONES: No acute fracture is present. No bony destructive lesion is seen. Postsurgical changes of rese ction of the distal clavicle are again noted. JOINTS: No dislocation present. The glenohumeral joint is well maintained. SOFT TISSUE: Calcification in the soft tissues adjacent to the greater tuberosity is again seen consi stent with calcific tendinitis. IMPRESSION: Stable appearance of the left shoulder. DATA REPOSITORY: RADIATION DOSE DELIVERED:
== END 2021-07-25 14:21 | disposition home or self-care (01) ==
LOC: DIORS 14:20
PROVIDERS: PCP Nurse Practitioner; Referring Provider Nurse Practitioner; Visit Provider Physician Assistant Surgical
DX: M25.512 Pain in left shoulder; M75.32 Calcific tendinitis of left shoulder
CPT/HCPCS: 73030

== ENCOUNTER 2021-09-26 15:24 | Outpatient (REF) | payer MEDICAID, SELFPAY ==
[2021-09-26 15:41] LABS: BUN 17 mg/dL (7-18); CREATININE 1.2 mg/dL (0.55-1.02); Calcium 8.7 mg/dL (8.5-10.1); Chloride 102 mmol/L (98-107); Estimated GFR 46.99 (mL/min/1.73m2); Glucose 79 mg/dL (74-106); Potassium 4.7 mmol/L (3.5-5.1); Sodium 139 mmol/L (136-145)
[2021-09-26 15:47] LABS: HGB 7.2 g/dL (11.2-15.7)
== END 2021-09-26 15:25 | disposition home or self-care (01) ==
LOC: NCHCN 15:24
PROVIDERS: PCP Nurse Practitioner; Visit Provider Physician Assistant
DX: D50.8 Other iron deficiency anemias (principal); I10 Essential (primary) hypertension
CPT/HCPCS: 80048; 85018

== ENCOUNTER → 2021-09-28 01:21 | Outpatient (CLI) | payer MEDICAID, SELFPAY ==
--- NOTE | 2021-09-28 | DI.RAD_ITS ---
Exam(s) XR THORACIC SPINE COMPLETE EXAM: XR THORACIC SPINE COMPLETE CLINICAL HISTORY: CHRONIC THORACIC BACK PAIN, NO TRAUMA,M54.9. TECHNIQUE: 2D digital imaging was performed of the thoracic spine. Three views were obtained. AP, swimmer's and lateral views were obtained. COMPARISON: No exams were available for comparison FINDINGS: BONES: There is no fracture or destructive lesion. Moderate degenerative changes are present througho ut the thoracic spine with disc space narrowing and endplate osteophytes with sclerosis. DISKS:Alignment is within normal limits. There is disc space narrowing at multiple levels in the thor acic spine. SOFT TISSUE: Visualized lungs are clear. IMPRESSION: Moderate degenerative changes in the thoracic spine. DATA REPOSITORY: RADIATION DOSE DELIVERED:
== END ==
PROVIDERS: PCP Nurse Practitioner; Visit Provider Physician Assistant
DX: M54.6 Pain in thoracic spine (principal); M51.34 Other intervertebral disc degeneration, thoracic region
CPT/HCPCS: 72072

== ENCOUNTER 2022-04-24 16:08 | Outpatient (REF) | payer MEDICAID, SELFPAY ==
[2022-04-24 16:14] LABS: HCT 25.9 % (36.0-46.0); HGB 7.3 g/dL (11.2-15.7); MCH 20.6 pg (27.0-33.0); MCHC 28.2 % (32.0-36.0); MCV 73 fL (80-95); MPV 9.8 fL (8.0-11.0); Platelet Count 290 10^3/uL (130-400); RBC 3.54 10^6/uL (3.93-5.22); RDW 17.3 % (11.7-14.6); RDW-SD 46.4 fL; WBC 5.17 10^3/uL (4.4-10.8)
[2022-04-24 16:36] LABS: Anion Gap 4.1 mmol/L (3-11); BUN 17 mg/dL (7-18); CO2 29.9 mmol/L (21.0-32.0); CREATININE 1.2 mg/dL (0.55-1.02); Calcium 9.1 mg/dL (8.5-10.1); Chloride 102 mmol/L (98-107); Estimated GFR 54.13 (mL/min/1.73m2); FREE T4 0.71 ng/dL (0.76-1.46); Glucose 82 mg/dL (74-106); Potassium 4.9 mmol/L (3.5-5.1); Sodium 136 mmol/L (136-145); TSH 2.42 uIU/mL (0.36-3.74)
[2022-04-24 17:04] LABS: Cholesterol 212 mg/dL (<200); Ferritin 7 ng/mL (8-252); HDL Cholesterol 38 mg/dL (40-60); Triglyceride 430 mg/dL (<150)
[2022-04-24 17:20] LABS: LDL CHOLESTEROL 85 mg/dL (<100)
== END 2022-04-24 16:09 | disposition home or self-care (01) ==
LOC: NCHCN 16:08
PROVIDERS: PCP Physician Assistant; Visit Provider Physician Assistant
DX: E03.9 Hypothyroidism, unspecified (principal); D50.8 Other iron deficiency anemias; E78.5 Hyperlipidemia, unspecified
CPT/HCPCS: 80048; 80061; 83721; 85027; 82728; 84439; 84443

== ENCOUNTER 2022-06-22 13:58 | Emergency (ER) | payer MEDICAID, SELFPAY ==
[2022-06-22 14:02] VITALS: BP 190/108; PULSE 104; RESP 18; TEMP 36.6; O2SAT 98
--- NOTE | 2022-06-22 14:30 | DI.RAD_ITS ---
Exam(s) XR ELBOW LT COMPLETE EXAM: XR ELBOW LT COMPLETE CLINICAL HISTORY: FALL, PAIN. TECHNIQUE: 2D digital imaging was performed. Three views. COMPARISON: CR XR ELBOW LT COMPLETE from 04/26/2021 FINDINGS: BONES: No acute fracture is present. No bony destructive lesion is seen. JOINTS: The elbow is normally aligned. No joint effusion is seen. SOFT TISSUE: Posterior swelling. IMPRESSION: Soft tissue swelling. DATA REPOSITORY: RADIATION DOSE DELIVERED:
[2022-06-22] MEDS: Acetaminophen 325 MG TAB 650 MG PO (14:52)
[2022-06-22 15:34] VITALS: BP 136/88; PULSE 82; RESP 18; TEMP 36.2; O2SAT 95
--- NOTE | 2022-06-24 22:40 | W.ED.GENAD ---
Discharge Plan Disposition Patient Disposition: Home Condition: Stable Discharge Details Clinical Impression: Bursitis, olecranon Primary Care Provider: Ezequiel Oakley ED Provider: Yeny Prajapati Home Meds and New Rx's Prescriptions: Continued sucralfate [Carafate] 100 mg/mL suspension 15 ml PO QACHS albuterol 90 mcg/actuation aerosol 2 puff IH Q4H PRN ferrous gluconate 324 mg (37.5 mg iron) tablet 324 mg PO DAILY famotidine 40 mg tablet 40 mg PO DAILY lisinopril 10 mg tablet 10 mg PO DAILY clonidine HCl 0.1 mg tablet 0.1 mg PO BID atorvastatin 40 mg tablet 40 mg PO DAILY potassium chloride 20 mEq/15 mL liquid 20 meq PO DAILY omeprazole [Prilosec] 40 MG capsule,delayed release(DR/EC) 40 mg PO DAILY methadone [Methadose] 40 MG tablet,soluble 140 mg PO DAILY mirtazapine 7.5 MG tablet 60 mg PO HS Label Comments: pt. states that she takes two tablets, she does not know the strength duloxetine [Cymbalta] 20 MG capsule,delayed release(DR/EC) 60 mg PO BID cyclobenzaprine 10 mg tablet 10 mg PO TID PRN hydroxyzine HCl 25 MG tablet 25 mg PO TID PRN lamotrigine [Lamictal] 100 MG tablet 300 mg PO DIRECTED Rx Instructions: 2 TABS IN THE MORNING AND 1 TAB AT BEDTIME epinephrine 0.3 MG/SYR auto-injector 0.3 mg IJ PRN PRN (Reason: Anaphylaxis) Qty: 1 0RF Dulera 100-5 mcg/actuation Hfa Aerosol Inhaler 2 puff INHALATION BID artificial tears solution Drops 1 - 2 drp OPHTHALMIC (EYE) TID mometasone [Nasonex] 50 mcg/actuation [place],Non-Aerosol 1 spray INTRANASAL BID chlorthalidone 25 MG tablet 25 mg PO DAILY Discharge Instructions Additional Instructions: Ice, rest, wear your sling You have an olecranon bursitis, this will likely resolve on its own Refrain from bending and applying pressure to it Return earlier should you have spreading redness, fever, worsening pain please Please follow-up with orthopedics at your discretion L Referrals: Ezequiel Oakley [Primary Care Provider] - Discharge Data Discharge Date/Time-TO BE ENTERED AT DEPARTURE: 06/22/22 16:07 Medical Decision Making This 51-year-old female presents after a fall reported slip and fall outside, landing on her left elbow. She said pain and swelling since that time. She presents secondary to symptoms Secondary to trauma and her clinical exam, x-ray was ordered, no evidence of fracture or effusion Placed in sling for comfort Ibuprofen and Tylenol Return precautions reviewed Repeat x-ray in 1 week with persistent symptoms recommended Medical Records Medical records reviewed: Yes I reviewed the patient's medical records. HPI General Date/Time Provider Initiated Documentation: 06/22/22 14:43. HPI Narrative: This 51-year-old female presents with left elbow pain after falling last night. She denies any additional injuries. Related Data Home Medications Medication Instructions Recorded Confirmed duloxetine 20 mg capsule,delayed 60 mg PO BID 11/28/12 06/22/22 release (Cymbalta) hydroxyzine HCl 25 mg tablet 25 mg PO TID PRN 04/13/13 06/22/22 methadone 40 mg soluble tablet 140 mg PO DAILY 11/02/15 06/22/22 (Methadose) mirtazapine 7.5 mg tablet 60 mg PO HS 11/02/15 06/22/22 omeprazole 40 mg capsule,delayed 40 mg PO DAILY 11/02/15 06/22/22 release (Prilosec) lamotrigine 100 mg tablet 300 mg PO DIRECTED 03/16/16 06/22/22 (Lamictal) epinephrine 0.3 mg/0.3 mL 0.3 mg (0.3 mL) IJ PRN PRN 08/16/16 06/22/22 injection, auto-injector Anaphylaxis ##1 chlorthalidone 25 mg tablet 25 mg PO DAILY 07/12/17 06/22/22 albuterol 90 mcg/actuation aerosol 2 puff inhalation Q4H PRN 08/19/18 03/29/22 inhaler artificial tears solution eye drops 1 - 2 drp ophthalmic (eye) TID 11/28/20 06/22/22 mometasone 50 mcg/actuation nasal 1 spray intranasal BID 11/28/20 06/22/22 spray (Nasonex) mometasone-formoterol HFA 100 2 puff inhalation BID 11/28/20 06/22/22 mcg-5 mcg/actuation aerosol inhaler (Dulera) cyclobenzaprine 10 mg tablet 10 mg PO TID PRN 02/01/21 06/22/22 sucralfate 100 mg/mL oral 15 ml PO QACHS 02/01/21 06/22/22 suspension (Carafate) atorvastatin 40 mg tablet 40 mg PO DAILY 01/08/22 03/29/22 clonidine HCl 0.1 mg tablet 0.1 mg PO BID 01/08/22 06/22/22 famotidine 40 mg tablet 40 mg PO DAILY 01/08/22 06/22/22 ferrous gluconate 324 mg (37.5 mg 324 mg PO DAILY 01/08/22 06/22/22 iron) tablet lisinopril 10 mg tablet 10 mg PO DAILY 01/08/22 06/22/22 potassium chloride 20 mEq/15 mL 20 meq PO DAILY 01/08/22 06/22/22 oral liquid Previous Rx's Medication Instructions Recorded epinephrine 0.3 mg/0.3 mL 0.3 mg (0.3 mL) IJ PRN PRN 08/16/16 injection, auto-injector Anaphylaxis ##1 Allergies Allergy/AdvReac Type Severity Reaction Status Date / Time penicillin G Allergy Severe THROAT Verified 06/22/22 14:24 CLOSES penicillin V Allergy Severe Anaphylaxis Unverified 06/22/22 14:24 clindamycin Allergy Intermediate Skin Rash Verified 06/22/22 14:24 milnacipran HCl Allergy Intermediate Skin Rash Verified 06/22/22 14:24 [From Savella] chlorthalidone Allergy Unknown Palpitation Unverified 06/22/22 14:24 s milnacipran [From Savella] Allergy Unknown Rash Unverified 06/22/22 14:24 cefuroxime axetil Allergy SKIN RASH Verified 06/22/22 14:24 [From Ceftin] acetaminophen [From Vicodin] AdvReac Intermediate I cant Verified 06/22/22 14:24 take it it ruins my liver azithromycin [From Zithromax] AdvReac Intermediate GI upset Verified 06/22/22 14:24 clarithromycin [From Biaxin] AdvReac Intermediate Nausea Verified 06/22/22 14:24 hydrocodone [From Vicodin] AdvReac Intermediate I cant Verified 06/22/22 14:24 take it it ruins my liver ibuprofen AdvReac Intermediate GI Upset Verified 06/22/22 14:24 ketorolac tromethamine AdvReac Intermediate GI Upset, Verified 06/22/22 14:24 [From Toradol] can take IV form pregabalin [From Lyrica] AdvReac Intermediate Worsen Mood Verified 06/22/22 14:24 Sulfa (Sulfonamide AdvReac Intermediate GI upset Verified 06/22/22 14:24 Antibiotics) ENVIORNMENTAL Allergy Mild SINUSES Uncoded 06/22/22 14:24 MESSED UP-EYES General Stated Complaint: Orthopedic GRISEL: 4 Review of Systems All systems reviewed & are unremarkable except as noted in HPI and below PFSH All Active Problems Bursitis, olecranon (Acute) Lumbar post-laminectomy syndrome (Acute) History of vocal cord polypectomy (Acute) Hypokalemia (Acute) Antral gastritis (Acute) GERD (gastroesophageal reflux disease) (Chronic) Impingement syndrome of left shoulder (Acute) Bursitis of left shoulder (Acute) 40 mg Depo-Medrol injection: 03/27/2022; 07/25/2021 Tendinitis of long head of biceps brachii of left shoulder (Acute) Calcific tendinitis of left shoulder (Acute) Contusion of left shoulder (Acute) Superficial postoperative wound infection (Acute) Biliary colic (Acute 06/30/13) Status post laparoscopic cholecystectomy (Acute 06/30/13) Throat irritation (Acute) Left carpal tunnel syndrome (Acute 02/23/16) Hoarse (Acute 06/25/13) Chronic laryngitis (Acute 06/25/13) Vocal cord mass (Chronic) Left shoulder tendonitis (Acute) Injection: 01/15/2019 Pain of right thumb (Acute) Tobacco abuse (Acute) DJD of left AC (acromioclavicular) joint (Acute) history of distal clavicle excision Anemia (Chronic) H/O esophagogastroduodenoscopy (Chronic ~09/23/18) Medical History Acne rosacea Anxiety Change in voice Chronic anemia Chronic sinusitis COPD (chronic obstructive pulmonary disease) Depression Dyspepsia Edema of left lower extremity Fibromyalgia Hyperlipidemia Hypertension Hypokalemia Hypothyroid Low back pain Migraine Opioid abuse pt. denies this Opioid dependence Osteoarthritis Pain in left shoulder Seasonal allergies Spondylolisthesis Thoracic back pain Vitamin D deficiency Surgical History Cholecystectomy H/O hernia repair H/O spinal fusion History of carpal tunnel surgery of left wrist History of total abdominal hysterectomy with BSO History of vocal cord polypectomy Microlaryngoscopy with right vocal cord polyp excision, 11/13/2018 right arm surgery on nerves Status post arthroscopy of left shoulder (09/23/20) S/P open biceps tenodesis, extensive debridement and subacromial decompression with partial acromioplasty Dr. Kaur Family History Father , from Colon Cancer in his late 60's Colon cancer Mother Diverticulitis s/p resection Social History Smoking/Tobacco Use Status: Current every day Tobacco Type: cigarettes Smoking packs per day: 1 Smoking cigarettes per day: 20.0 Tobacco: How many years used: 25 Smoking risk assessment performed?: Yes Alcohol Intake: never Drug use: Rarely Substance use type: marijuana Details: methadone client Current gender identity: female Do you feel safe at home: Yes Do you feel safe in your relationship?: Yes Exam Const General: cooperative, comfortable and no acute distress Extrem Other: Left elbow with tenderness, no palpable olecranon bursitis, no tenderness to left shoulder or left wrist, neurovascularly intact Course Vital Signs Vital signs: Vital Signs Temperature 36.6 C 06/22/22 14:02 Pulse 104 H 06/22/22 14:02 Respiratory Rate 18 06/22/22 14:02 Blood Pressure 190/108 H 06/22/22 14:02 Pulse Oximetry 98 06/22/22 14:02 Temperature 36.2 C L 06/22/22 15:34 Temperature Source Tympanic 06/22/22 15:34 Pulse 82 06/22/22 15:34 Respiratory Rate 18 06/22/22 15:34 Respiratory Effort 06/22/22 14:04 Blood Pressure 136/88 06/22/22 15:34 Blood Pressure Position Supine 06/22/22 14:02 Pulse Oximetry 95 06/22/22 15:34 Oxygen Delivery Method Room Air 06/22/22 15:34 Oxygen Flow Rate 0 06/22/22 15:34 Pain Level 8 06/22/22 14:02
--- NOTE | 2022-06-25 15:13 | NUR.NOTE ---
Nursing Note:Accessed chart for [facility] billing purposes.
== END 2022-06-22 16:07 | disposition home or self-care (01) ==
PROVIDERS: Emergency Provider Physician Assistant; PCP Physician Assistant
DX: M70.22 Olecranon bursitis, left elbow (principal); I10 Essential (primary) hypertension; J44.9 Chronic obstructive pulmonary disease, unspecified; E03.9 Hypothyroidism, unspecified; Z79.51 Long term (current) use of inhaled steroids
CPT/HCPCS: 99283; 73080

== ENCOUNTER 2022-08-07 01:11 | Outpatient (CLI) | payer MEDICAID, SELFPAY ==
--- NOTE | 2022-08-07 | DI.RAD_ITS ---
Exam(s) XR SHOULDER RT COMPLETE 2+V EXAM: XR SHOULDER RT COMPLETE 2+V CLINICAL HISTORY: RT SHOULDER PAIN, M25.511, PROGRESSIVE, NO TRAUMA. TECHNIQUE: 2D digital imaging was performed. COMPARISON: CR XR SHOULDER LT COMPLETE 2+V from 07/25/2021 FINDINGS: Five views: No evidence of fracture or dislocation. No diminution of the subacromial space. The main finding he re is calcification in the soft tissues adjacent to the greater tuberosity indicating calcific rotato r cuff tendinitis. Calcification at this level measures 10 x 2 millimeters. There are no degenerative changes in the glenohumeral and AC joints. Bone density normal. No osseou s lesions. No os acromiale. IMPRESSION: Calcific rotator cuff tendinitis. DATA REPOSITORY: RADIATION DOSE DELIVERED:
== END 2022-08-07 01:31 ==
LOC: DI 01:11
PROVIDERS: PCP Physician Assistant; Visit Provider Physician Assistant
DX: M75.31 Calcific tendinitis of right shoulder (principal)
CPT/HCPCS: 73030

== ENCOUNTER 2022-08-31 00:56 | Outpatient (CLI) | payer MEDICAID, SELFPAY ==
--- NOTE | 2022-08-31 14:00 | DI.DEXA_ITS ---
Exam(s) XR DEXA BONE DENSITY W/WO ARIANNA EXAM: XR DEXA BONE DENSITY W/WO ARIANNA CLINICAL HISTORY: OSTEOPOROSIS, M81.0 TECHNIQUE: COMPARISON: CR XR DEXA BONE DENSITY W/WO ARIANNA from 01/20/2020 FINDINGS: Lateral Spine Image: Unremarkable. No compression deformities identified. Postsurgical changes are s een in the lower lumbar spine. Left hip: Total T-Score: -0.8. This compares to -0.6 on the prior examination. Total Z-Score: -0.1 T- and Z-scores: Within normal limits. Note is made of osteopenia in the femoral neck with a T-score of -1.9. Lumbar Spine: Total T-Score: -1.7. This compares to -1.5 on the prior examination. Total Z-Score: -0.7 T- and Z-scores: This is consistent with osteopenia. Note is made of osteoporosis in the L3 vertebra l body with a T-score of -2.5. IMPRESSION: Osteoporosis in the L3 vertebral body.
== END 2022-08-31 01:16 ==
LOC: DI 00:56
PROVIDERS: PCP Physician Assistant; Visit Provider Physician Assistant
DX: M81.0 Age-related osteoporosis without current pathological fracture (principal); F17.200 Nicotine dependence, unspecified, uncomplicated
CPT/HCPCS: 77080

== ENCOUNTER 2022-10-16 15:47 | Outpatient (REF) | payer MEDICAID, SELFPAY ==
[2022-10-16 19:49] LABS: Bilirubin Negative (Negative); Blood Negative (Negative); Clarity Sl Cloudy (Clear); Glucose Negative (Negative); Ketones Negative (Negative); Leukocyte Esterase Negative (Negative); Nitrite Negative (Negative); Specific Gravity >= 1.030 (1.005-1.025); Urobilinogen 0.2 mg/dL (Up to 0.2); pH 5.5 (5-8)
== END 2022-10-16 15:48 | disposition home or self-care (01) ==
LOC: NCHCN 15:47
PROVIDERS: PCP Physician Assistant; Visit Provider Physician Assistant
DX: R35.0 Frequency of micturition (principal); R39.15 Urgency of urination
CPT/HCPCS: 81003; 87086

== ENCOUNTER 2022-11-05 01:43 | Outpatient (CLI) | payer MEDICAID, SELFPAY ==
--- NOTE | 2022-11-05 | DI.CTLCSR_ITS ---
Exam(s) CT CHEST LUNG CANCER SCREEN EXAM: CT CHEST LUNG CANCER SCREEN CLINICAL HISTORY: SMOKER F17.200 SCREENING FOR LUNG CANCER TECHNIQUE: Imaging Protocol: Axial computed tomography images with coronal and sagittal reformatted images were created and reviewed. Low dose screening protocol. COMPARISON: CT CT CHEST LUNG CANCER SCREEN from 04/06/2021 FINDINGS: Tracheobronchial tree: No bronchiectasis or mucus plugging.. Mediastinum and Dianna: No dominant adenopathy or fluid collection. Pulmonary parenchyma: No consolidation or dominant measurable mass. Minimal emphysematous changes. Lung Nodules: None. Pleura: No effusion. No pneumothorax. Heart: The heart is not dilated. No coronary artery calcifications are seen. Aorta: Thoracic aorta non-dilated. Upper abdomen: Unremarkable. Status post cholecystectomy. Bones: Degenerative disc changes. No compression fractures. Soft Tissues: Unremarkable. IMPRESSION: No suspicious pulmonary nodules. Lung RADS Cat 1 - Negative: No nodules and definitely benign nodules Lung-RADS 1.0 CATEGORIES: Category 0 - Prior chest CT exam(s) being located for comparison. Category 1 - Annual screening in 12 months. No nodules or definitely benign nodules. Category 2 - Annual screening in 12 months. Benign appearance. Nodules with low likelihood of becomin g active cancer. Category 3 - 6-month follow-up. Probably benign. Short-term follow-up suggested. Nodules with low lik elihood of becoming active cancer. Category 4A - 3-month follow-up and CT/PET if >8 mm in size. Suspicious finding. Findings which requi re additional testing. Category 4B - Findings which require additional testing and tissue sampling. Category 4X - Category 3 or 4 nodules with additional features or imaging findings that increases the suspicion of malignancy. Modifier S- Potentially clinically significant findings (non lung cancer) RADIATION DOSE DELIVERED: 71.44mGy.cm Total DLP DATA REPOSITORY: All CT scans at this facility are submitted to the National Radiology Data Registry (NRDR) Dose Index Registry (DIR) with the [employer] ([employer]). RADIATION OPTIMIZATION: All CT scans at this facility use at least one of these dose optimization te chniques: automated exposure control; mA and/or kV adjustment per patient size (includes targeted exa ms where dose is matched to clinical indication); or iterative reconstruction.
== END 2022-11-05 02:03 ==
PROVIDERS: PCP Physician Assistant; Visit Provider Physician Assistant
DX: F17.210 Nicotine dependence, cigarettes, uncomplicated (principal); Z12.2 Encounter for screening for malignant neoplasm of respiratory organs
CPT/HCPCS: 71271

== ENCOUNTER → 2023-03-05 01:46 | Outpatient (CLI) | payer MEDICAID, SELFPAY ==
--- NOTE | 2023-03-05 08:30 | DI.MAMMO_ITS ---
Exam(s) MAMMO SCREENING EXAM: MAMMO SCREENING CLINICAL HISTORY: SCREENING FOR BREAST CANCER Z12.39 TECHNIQUE: Mammograms were interpreted according to the usual protocol including computer analysis w [employer] CAD system, tomosynthesis and C-view imaging. COMPARISON: 2018 and 2020 FINDINGS: The breasts are composed of scattered fibroglandular densities, Breast Density category B. No suspicious masses or suspicious microcalcifications are seen. No skin thickening or abnormal axillary lymph nodes are seen. There has been no significant change from prior exams. IMPRESSION: BI-RADS Category 1, Negative mammogram Yearly screening mammography is recommended. Breast Density - Category B, scattered fibroglandular densities. A negative radiographic report should not delay biopsy if a dominant or clinically suspicious mass is present. Up to ten percent of cancers are not identified on mammography. A negative report may reinforce clinical impression. Adenosis and dense breasts may obscure an underlying neoplasm. False positive reports average 6 to 10%. Patient will receive a letter notifying them of these results.
== END ==
PROVIDERS: PCP Physician Assistant; Visit Provider Physician Assistant
DX: Z12.31 Encounter for screening mammogram for malignant neoplasm of breast (principal)
CPT/HCPCS: 77063; 77067

== ENCOUNTER 2023-05-28 15:24 | Outpatient (REF) | payer MEDICAID, SELFPAY ==
[2023-05-28 15:33] LABS: Abs Immature Grans 0.01 10^3/uL (0.0-0.06); Absolute Basophil Count 0.04 10^3/uL (0.0-0.2); Absolute Eosinophil Count 0.11 10^3/uL (0.0-0.7); Absolute Lymphocyte Count 1.25 10^3/uL (1.2-3.4); Absolute Monocyte Count 0.46 10^3/uL (0.1-0.8); Basophils % 0.9; Eosinophils % 2.6; HCT 24.9 % (36.0-46.0); Immature Grans % 0.2; Lymphocytes % 29.3; MCH 19.7 pg (27.0-33.0); MCHC 27.7 % (32.0-36.0); MCV 71 fL (80-95); MPV 9.7 fL (8.0-11.0); Monocytes % 10.8; Neutrophils % 56.2; Platelet Count 283 10^3/uL (130-400); RBC 3.51 10^6/uL (3.93-5.22); RDW 17.8 % (11.7-14.6); RDW-SD 45.1 fL; WBC 4.27 10^3/uL (4.4-10.8)
[2023-05-28 16:04] LABS: ALT 15 U/L (14-59); AST 14 U/L (15-37); Albumin 3.8 g/dL (3.4-5.0); Alkaline Phosphatase 100 U/L (46-116); Anion Gap 6.2 mmol/L (3-11); BUN 13 mg/dL (7-18); Bilirubin, Total 0.2 mg/dL (0.2-1.0); CO2 30.8 mmol/L (21.0-32.0); CREATININE 1.3 mg/dL (0.55-1.02); Calcium 9.2 mg/dL (8.5-10.1); Chloride 102 mmol/L (98-107); Cholesterol 199 mg/dL (<200); Estimated GFR 48.87 (mL/min/1.73m2); FREE T4 0.67 ng/dL (0.76-1.46); Glucose 130 mg/dL (74-106); HDL Cholesterol 38 mg/dL (40-60); Potassium 4.4 mmol/L (3.5-5.1); Sodium 139 mmol/L (136-145); TSH 2.33 uIU/mL (0.36-3.74); Total Protein 6.9 g/dL (6.4-8.2); Triglyceride 409 mg/dL (<150)
[2023-05-28 16:11] LABS: Iron 11 ug/dL (50-170)
[2023-05-28 16:17] LABS: Vitamin D 25 Total 21.4 ng/mL (30-100)
[2023-05-28 16:19] LABS: Anisocytosis 2+; Diff Comment RBC Morph Reviewed; HGB 6.9 g/dL (11.2-15.7); Hypochromasia 2+; Microcytosis 1+
[2023-05-28 16:40] LABS: LDL CHOLESTEROL 78 mg/dL (<100)
== END 2023-05-28 15:25 | disposition home or self-care (01) ==
LOC: NCHCN 15:24
PROVIDERS: PCP Physician Assistant; Visit Provider Physician Assistant
DX: E78.5 Hyperlipidemia, unspecified (principal); D50.9 Iron deficiency anemia, unspecified; E55.9 Vitamin D deficiency, unspecified; E03.9 Hypothyroidism, unspecified
CPT/HCPCS: 80053; 80061; 82306; 83721; 83540; 84439; 84443; 85025

== ENCOUNTER → 2023-05-31 00:54 | Outpatient (CLI) | payer MEDICAID, SELFPAY ==
--- NOTE | 2023-05-31 | DI.RAD_ITS ---
Exam(s) XR CERVICAL SPINE COMP 4-5V EXAM: XR CERVICAL SPINE COMP 4-5V CLINICAL HISTORY: CERVICALGIA,M54.2,CHRONIC NECK PAIN. TECHNIQUE: 2D digital imaging was performed. COMPARISON: No exams were available for comparison FINDINGS: Five views: No evidence of fracture, listhesis, nor offset of the spinal laminar line. There is mild disc space narrowing at C 4-5 and C5-6 levels. C6-7 level exhibits some ally. Minimal facet joint degenerative changes. Small Luschka joint osteophytes. No cervical ribs. IMPRESSION: Mild degenerative disc disease. If clinically indicated follow-up MRI can be performed. DATA REPOSITORY: RADIATION DOSE DELIVERED:
== END ==
PROVIDERS: PCP Physician Assistant; Visit Provider Physician Assistant
DX: M50.021 Cervical disc disorder at C4-C5 level with myelopathy (principal); M50.022 Cervical disc disorder at C5-C6 level with myelopathy
CPT/HCPCS: 72050

== ENCOUNTER 2023-06-24 13:33 | Emergency (ER) | payer MEDICAID, SELFPAY ==
--- NOTE | 2023-06-24 13:30 | DI.RAD_ITS ---
Exam(s) XR SHOULDER LT COMPLETE 2+V EXAM: XR SHOULDER LT COMPLETE 2+V CLINICAL HISTORY: Left shoulder pain. TECHNIQUE: 2D digital imaging was performed. Three views. COMPARISON: CR XR SHOULDER RT COMPLETE 2+V from 08/07/2022 FINDINGS: BONES: No acute fracture is present. No bony destructive lesion is seen. Prior distal clavicular res ection. Suture anchor at proximal humerus related to biceps tendon repair. JOINTS: No dislocation present. SOFT TISSUE: Normal. IMPRESSION: Postsurgical changes. DATA REPOSITORY: RADIATION DOSE DELIVERED:
--- NOTE | 2023-06-24 13:35 | ED.GENADUL_ITS ---
Discharge Plan Disposition Patient Disposition: Home Discharge Details Clinical Impression: Left shoulder pain Primary Care Provider: Ezequiel Oakley ED Provider: Devonte Packer Home Meds and New Rx's Prescriptions: Continued mirtazapine 30 mg tablet 45 mg PO QHS albuterol 90 mcg/actuation aerosol 2 puff IH Q4H PRN ferrous gluconate 324 mg (37.5 mg iron) tablet 324 mg PO DAILY lisinopril 10 mg tablet 10 mg PO DAILY clonidine HCl 0.1 mg tablet 0.1 mg PO BID atorvastatin 40 mg tablet 40 mg PO DAILY omeprazole [Prilosec] 40 MG capsule,delayed release(DR/EC) 40 mg PO DAILY methadone [Methadose] 40 mg tablet,soluble 150 mg PO DAILY duloxetine [Cymbalta] 20 MG capsule,delayed release(DR/EC) 60 mg PO BID cyclobenzaprine 10 mg tablet 10 mg PO TID hydroxyzine HCl 25 MG tablet 25 mg PO TID PRN lamotrigine [Lamictal] 100 MG tablet 300 mg PO DIRECTED Rx Instructions: 2 TABS IN THE MORNING AND 1 TAB AT BEDTIME epinephrine 0.3 MG/SYR auto-injector 0.3 mg IJ PRN PRN (Reason: Anaphylaxis) Qty: 1 0RF Dulera 100-5 mcg/actuation Hfa Aerosol Inhaler 2 puff INHALATION BID mometasone [Nasonex] 50 mcg/actuation [place],Non-Aerosol 1 spray INTRANASAL BID chlorthalidone 25 MG tablet 25 mg PO DAILY Discharge Instructions Instructions: Shoulder Pain (ED) Additional Instructions: You were seen in the emergency department for your shoulder pain. Your x-ray showed no sign of any fractures nor dislocations. You are being placed in a sling. You should not bear weight on your left upper extremity until you are seen by the orthopedic team. Please call the orthopedic team tomorrow for follow-up appointment within the next week. Please return to the emergency department if you develop any persistent numbness or tingling in your left upper extremity if you develop any worsening pain or if you take any more falls. For your pain please take medications as follows: 1. Take acetaminophen (Tylenol), 1,000 mg (two 500 mg tabs) every 6 hours 2. Take ibuprofen (Advil), 400 mg every 6 hours. Referrals: Vasyl Kaur MD [ [facility] STAFF PHYSICIAN] - HPI General Date/Time Provider Initiated Documentation: 06/24/23 13:35 . HPI Narrative: MDM This is an overall well-appearing normothermic and not tachycardic 52-year-old azcnd-eagh-dyomcnha female with left shoulder pain status post fall last week concerning for recurrent impingement syndrome of the left shoulder versus i rritation of her bursitis or tendinitis. No pain out of proportion to suggest necrotizing soft tissue infection. No rash to shoulder to suggest zoster. No preceding chest pain or shortness of breath so doubt PE. No recent upper extremity DVT nor history of IV drug use so doubt upper extremity DVT. Left hand warm and well-perfused so I am not concerned for thoracic outlet syndrome. Furthermore patient has no known cervical rib. No cough to suggest pneumonia. No chest pain to suggest ACS. No head strike to suggest benefit from CT head. No dysuria no frequency so doubt UTI. Will provide splint with outpatient ortho care follow-up if x-ray is negative. 3:15 PM On preliminary virtual radiology read, left shoulder film read as negative. 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 I asked health community midwife Belinda to have the patient seen within the week by orthopedics. I have given patient return indications including any worsening pain any loss of sensation in her left hand or any recurrent falls. She understood her return indications and was discharged with an empiric trial of expectant outpatient management. Chronic conditions affecting the care of the patient: Left shoulder pain History obtained from an outside historian: N/A External record review: [facility] EMR Medications: Acetaminophen ibuprofen Social determinants of health affecting disposition: N/A Management discussed with: N/A Treatment/interventions considered: Hospitalization but deferred given reassuring appearance Response to therapies provided: N/A HPI This is a [id number] 52-year-old female with chronic left shoulder pain arriving to the emergency department in the setting of left shoulder pain. Patient reports that she fell approximately 1 week ago after tripping on her dog. She broke her fall by landing on her left shoulder. No preceding chest pain or shortness of breath. She has had persistent pain since her fall. She has been taking her methadone. She reports prior surgeries to her left shoulder. She did not strike her head. She did not lose consciousness. She denies any nausea or vomiting. Occasional numbness in her left hand but she has not noticed any color changes in her hands no headache or weakness in her hands. No IV drug use Exam General: Chronically ill-appearing in no acute distress speaking in complete sentences. Head: Normocephalic, atraumatic. Eye: Extraocular eye movements intact. No conjunctival injection. No scleral icterus. Ear, nose, mouth, throat: Grossly normal inspection. Normal voice, handling secretions normally. Neck: Trachea midline. Cardiovascular: Well-perfused distal extremities. Respiratory: Nonlabored respiration. Gastrointestinal: Nondistended abdomen. Musculoskeletal: Left arm with no obvious deformities no erythema. Left hand warm well-perfused 2+ left radial pulse. Sensation motor function intact in the left hand across the radial, median, and ulnar nerve distributions. Cap refill less than 2 seconds in the left fingertips. Patient is able to touch her left hand to her contralateral right shoulder. She has no clavicular tenderness. She does have tenderness over the AC joints. Her Hawking's was positive for discomfort. No proximal humeral tenderness nor elbow tenderness. Full range of motion in left elbow, forearm and hand. Skin: Normal for age and race, grossly normal temperature and turgor. No acute rash. Neurologic: Alert and appropriate, no apparent acute deficits. Psychiatric: Mood and manner are appropriate. Grooming and personal hygiene are appropriate. Related Data Home Medications Medication Instructions Recorded Confirmed duloxetine 20 mg capsule,delayed 60 mg PO BID 11/28/12 06/24/23 release (Cymbalta) hydroxyzine HCl 25 mg tablet 25 mg PO TID PRN 04/13/13 06/24/23 omeprazole 40 mg capsule,delayed 40 mg PO DAILY 11/02/15 06/24/23 release (Prilosec) lamotrigine 100 mg tablet 300 mg PO DIRECTED 03/16/16 06/24/23 (Lamictal) epinephrine 0.3 mg/0.3 mL 0.3 mg (0.3 mL) IJ PRN PRN 08/16/16 06/24/23 injection, auto-injector Anaphylaxis ##1 chlorthalidone 25 mg tablet 25 mg PO DAILY 07/12/17 06/24/23 albuterol 90 mcg/actuation aerosol 2 puff inhalation Q4H PRN 08/19/18 06/24/23 inhaler mometasone 50 mcg/actuation nasal 1 spray intranasal BID 11/28/20 06/24/23 spray (Nasonex) mometasone-formoterol HFA 100 2 puff inhalation BID 11/28/20 06/24/23 mcg-5 mcg/actuation aerosol inhaler (Dulera) atorvastatin 40 mg tablet 40 mg PO DAILY 01/08/22 06/24/23 clonidine HCl 0.1 mg tablet 0.1 mg PO BID 01/08/22 06/24/23 ferrous gluconate 324 mg (37.5 mg 324 mg PO DAILY 01/08/22 06/24/23 iron) tablet lisinopril 10 mg tablet 10 mg PO DAILY 01/08/22 06/24/23 mirtazapine 30 mg tablet 45 mg PO QHS 08/30/22 06/24/23 cyclobenzaprine 10 mg tablet 10 mg PO TID 09/18/22 06/24/23 methadone 40 mg soluble tablet 150 mg PO DAILY 09/18/22 06/24/23 (Methadose) Previous Rx's Medication Instructions Recorded epinephrine 0.3 mg/0.3 mL 0.3 mg (0.3 mL) IJ PRN PRN 08/16/16 injection, auto-injector Anaphylaxis ##1 Allergies Allergy/AdvReac Type Severity Reaction Status Date / Time penicillin G Allergy Severe THROAT Verified 09/18/22 10:00 CLOSES penicillin V Allergy Severe Anaphylaxis Unverified 09/18/22 10:00 clindamycin Allergy Intermediate Skin Rash Verified 09/18/22 10:00 milnacipran HCl Allergy Intermediate Skin Rash Verified 09/18/22 10:00 [From Savella] chlorthalidone Allergy Unknown Palpitation Unverified 09/18/22 10:00 s milnacipran [From Savella] Allergy Unknown Rash Unverified 09/18/22 10:00 cefuroxime axetil Allergy SKIN RASH Verified 09/18/22 10:00 [From Ceftin] acetaminophen [From Vicodin] AdvReac Intermediate I cant Verified 09/18/22 10:00 take it it ruins my liver azithromycin [From Zithromax] AdvReac Intermediate GI upset Verified 09/18/22 10:00 clarithromycin [From Biaxin] AdvReac Intermediate Nausea Verified 09/18/22 10:00 hydrocodone [From Vicodin] AdvReac Intermediate I cant Verified 09/18/22 10:00 take it it ruins my liver ibuprofen AdvReac Intermediate GI Upset Verified 09/18/22 10:00 ketorolac tromethamine AdvReac Intermediate GI Upset, Verified 09/18/22 10:00 [From Toradol] can take IV form pregabalin [From Lyrica] AdvReac Intermediate Worsen Mood Verified 09/18/22 10:00 Sulfa (Sulfonamide AdvReac Intermediate GI upset Verified 09/18/22 10:00 Antibiotics) ENVIORNMENTAL Allergy Mild SINUSES Uncoded 09/18/22 10:00 MESSED UP-EYES General GRISEL: 4 PFSH All Active Problems (Updated 06/24/23 @ 15:19 by Devonte Packer MD) Left shoulder pain (Acute) Right wrist pain (Acute) Lumbar post-laminectomy syndrome (Acute) History of vocal cord polypectomy (Acute) Hypokalemia (Acute) Antral gastritis (Acute) GERD (gastroesophageal reflux disease) (Chronic) Impingement syndrome of left shoulder (Acute) Bursitis of left shoulder (Acute) 40 mg Depo-Medrol injection: 03/27/2022; 07/25/2021 Tendinitis of long head of biceps brachii of left shoulder (Acute) Calcific tendinitis of left shoulder (Acute) Contusion of left shoulder (Acute) Superficial postoperative wound infection (Acute) DJD of left AC (acromioclavicular) joint (Acute) history of distal clavicle excision Tobacco abuse (Acute) Pain of right thumb (Acute) Left shoulder tendonitis (Acute) Injection: 01/15/2019 Vocal cord mass (Chronic) Anemia (Chronic) H/O esophagogastroduodenoscopy (Chronic ~09/23/18) Chronic laryngitis (Acute 06/25/13) Hoarse (Acute 06/25/13) Left carpal tunnel syndrome (Acute 02/23/16) Throat irritation (Acute) Status post laparoscopic cholecystectomy (Acute 06/30/13) Biliary colic (Acute 06/30/13) Medical History (Updated 06/24/23 @ 15:19 by Devonte Pakcer MD) Smoker Anemia, iron deficiency Anxiety with depression Stage 2 moderate COPD by GOLD classification Chronic lower back pain Hip pain Chronic back pain Pain, joint, shoulder, right Osteoporosis Acute pain of right wrist Opioid dependence Dyspepsia Vitamin D deficiency Acne rosacea Seasonal allergies Osteoarthritis Low back pain Change in voice Pain in left shoulder Thoracic back pain Migraine Chronic sinusitis Edema of left lower extremity Spondylolisthesis Chronic anemia Fibromyalgia Depression Anxiety Hyperlipidemia Hypertension COPD (chronic obstructive pulmonary disease) Opioid abuse pt. denies this Hypothyroid Hypokalemia Surgical History Status post arthroscopy of left shoulder (09/23/20) S/P open biceps tenodesis, extensive debridement and subacromial decompression with partial acromioplasty Dr. Kaur History of vocal cord polypectomy Microlaryngoscopy with right vocal cord polyp excision, 11/13/2018 H/O spinal fusion History of carpal tunnel surgery of left wrist H/O hernia repair History of total abdominal hysterectomy with BSO right arm surgery on nerves Cholecystectomy Family History Father , from Colon Cancer in his late 60's Colon cancer Mother Diverticulitis s/p resection Social History Smoking/Tobacco Use Status: Current every day Tobacco Type: cigarettes Smoking packs per day: 1 Smoking cigarettes per day: 20.0 Tobacco: How many years used: 25 Smoking risk assessment performed?: Yes Alcohol Intake: never Drug use: Rarely Substance use type: marijuana Details: methadone client Current gender identity: female Do you feel safe at home: Yes Do you feel safe in your relationship?: Yes
[2023-06-24 13:38] VITALS: BP 125/80; PULSE 95; RESP 16; TEMP 36.6; O2SAT 96
[2023-06-24] MEDS: Acetaminophen 500 MG TAB 1000 MG PO (14:42)
[2023-06-24] MEDS: Lidocaine 5% Patch 1 PATCH TP (14:44)
--- NOTE | 2023-06-24 15:10 | DI.VRAD_ITS ---
PROCEDURE INFORMATION: Exam: XR Left Shoulder Exam date and time: 06/24/2023 2:08 PM Age: 52 years old Clinical indication: Injury or trauma; Fall; Blunt trauma (contusions or hematomas); Shoulder; Left; Injury date: 06/16/23 TECHNIQUE: Imaging protocol: Radiologic exam of the left shoulder. Views: 2 or more views. COMPARISON: CR XR SHOULDER LT COMPLETE 2+V 07/25/2021 2:31 PM FINDINGS: Bones/joints: Examination negative for fracture or dislocation. Resection of the distal clavicle. Probable tenodesis of the long head of the biceps into the humeral shaft. Soft tissues: Unremarkable. IMPRESSION: No acute findings. Dictated and Authenticated by: Simeon Keller MD. Ordering:KISHA Whitney MD
== END 2023-06-24 15:26 | disposition home or self-care (01) ==
PROVIDERS: Emergency Provider Emergency Medicine; PCP Physician Assistant
DX: M25.512 Pain in left shoulder (principal); J44.9 Chronic obstructive pulmonary disease, unspecified; I10 Essential (primary) hypertension; E78.5 Hyperlipidemia, unspecified; F17.210 Nicotine dependence, cigarettes, uncomplicated; Z98.1 Arthrodesis status
CPT/HCPCS: 99283; 73030

== ENCOUNTER → 2023-07-16 03:21 | Outpatient (CLI) | payer MEDICAID, SELFPAY ==
--- NOTE | 2023-07-16 07:45 | DI.MRI_ITS ---
Exam(s) MR UPPER JOINT LT WO EXAM: MR UPPER JOINT LT WO CLINICAL HISTORY: ? RTC TEAR,lt shoulder pain, m25.512. TECHNIQUE: Multiplanar multisequence MRI was performed. COMPARISON: MR MR UPPER JOINT LT WO from 08/05/2020 CR,XR XR SHOULDER LT COMPLETE 2+V from 06/24/2023 FINDINGS: The examination is limited due to patient motion artifact. BONES: There is no fracture or contusion pattern. JOINTS: There has been prior resection of the distal clavicle. The glenohumeral joint is normal. TENDONS: Supraspinatus: There is hyperintense signal seen in the supraspinatus tendon at its insertion site (s eries [id number], image 12). The findings are consistent with a partial tendon tear. There is underlyi ng tendinosis with thickening and intermediate signal of the supraspinatus tendon. Infraspinatus: Unremarkable. Subscapularis: There is underlying tendinosis of the subscapularis tendon without evidence of a tear. Teres Minor: Unremarkable. Biceps and [place]: Findings suggestive of a prior biceps tenodesis. MUSCLES: Unremarkable. GLENOID LABRUM: Unremarkable on this noncontrast examination. SOFT TISSUES: Unremarkable. LIGAMENTS: Unremarkable. OTHER: Subacromial and subdeltoid bursae are unremarkable. IMPRESSION: 1. Postsurgical changes in the left shoulder. 2. Partial tear at the insertion site of the supraspinatus tendon on the greater tuberosity. 3. Tendinosis of the supraspinatus and subscapularis muscles. DATA REPOSITORY:
== END ==
PROVIDERS: PCP Physician Assistant; Visit Provider Student in an Organized Health Care Education/Training Program
DX: M75.111 Incomplete rotator cuff tear or rupture of right shoulder, not specified as traumatic (principal); Z98.890 Other specified postprocedural states
CPT/HCPCS: 73221

== ENCOUNTER → 2023-09-19 04:52 | Outpatient (CLI) | payer MEDICAID, SELFPAY ==
--- NOTE | 2023-09-19 | DI.RAD_ITS ---
Exam(s) XR THORACIC SPINE COMPLETE EXAM: XR THORACIC SPINE COMPLETE CLINICAL HISTORY: PAIN THORACIC SPINE M54.6. TECHNIQUE: 2D digital imaging was performed. Three views. COMPARISON: CR XR THORACIC SPINE COMPLETE from 09/28/2021 FINDINGS: BONES: There is no fracture or gross evidence of destructive lesion. ALIGNMENT: Within normal limits. DISKS: Multilevel disc space narrowing, greatest in the midthoracic region. Endplate osteophytes. SOFT TISSUE: Visualized lungs are clear. IMPRESSION: Degenerative changes greatest in the mid thoracic spine. DATA REPOSITORY: RADIATION DOSE DELIVERED:
== END ==
PROVIDERS: PCP Physician Assistant; Visit Provider Physician Assistant
DX: M54.6 Pain in thoracic spine (principal); M51.34 Other intervertebral disc degeneration, thoracic region
CPT/HCPCS: 72072

== ENCOUNTER 2024-01-20 13:02 | Emergency (ER) | payer MEDICAID, SELFPAY ==
[2024-01-20 13:14] VITALS: BP 97/77; PULSE 96; RESP 16; TEMP 36; O2SAT 99
--- OUTSIDE RECORDS SUMMARY | 2024-01-20 14:15 | XMS_ITS | Encounter Summary ---
Author Organization [facility] Address [facility] [place] [address] Care Team Providers Care Heel Shaper Name Role Phone Carleen Guillen APRN Primary Care Provider + Encounter Details Date Type Department Care Team (Late st Contact Info) Description 12/01/2019 Ancillary Procedure [place] [id number] Malick Hastings MD [facility] [place] [address] Social History Tobacco Use Types Packs/Day Years Used Date Smoking Tobacco: Every Day Cigarettes 0.5 30 Smokeless Tobacco: Never Comments:avs information giv en Alcohol Use Standard Drinks/Week Comments No 0 (1 standard drink = 0.6 oz pur e alcohol) denies h/o ETOH abuse Sex and Gender Information Value Date Recorded Sex Assigned at Not on file Gender Identity Not on file Sexual Orientation Not on file documented as of this encounter Plan of Treatment Not on file documented as of this encounter Procedures Procedure Name Priority Date/Time Associated Diagnosis Comments FILM LIBRARY STORAGE ONLY MR SPINE Routine 12/01/2019 12:00 AM EDT documented in this encounter Results * Film Library- Storage Only MR Spine (12/01/2019 12:00 AM EDT) Narrative [facility] - 01/12/2020 2:34 PM EDT This exam is auto-finalizing. It's purpose is for storage only. Malick Hastings MD IM FILM LIBRARY ORD ERABLES [place], [place] documented in this encounter Visit Diagnoses Not on filedocumented in this encounter Care Teams Heel Shaper Relationship Specialty Start Date End Date Carleen Guillen APRN PCP - General 02/12/13 12/08/19 documented as of this encounter
--- OUTSIDE RECORDS SUMMARY | 2024-01-20 14:15 | XMS_ITS | Encounter Summary ---
Author Organization Counts Include [facility] Address [facility] [place] [address] [place] [address] Care Team Providers Care Roll Grinder Operator Name Role Phone Carleen Guillen APRN Primary Care Provider + Reason for Referral * Consultation (Routine) - Closed Specialty Diagnoses / Procedures Referred By Contac t Referred To Contact Orthopaedics Diagnoses Lumbar postlaminectomy syndrome Kris Bundy MD [facility] [place] [address] Barry King MD [facility] [place] [address] Referral ID Status Reason Start Date Expiration Date V isits Requested Visits Authorized [id number] Closed Consult, Test & Treat 09/09/2015 09/08/2016 1 1 Encounter Details Date Type Department Care Team (Late st Contact Info) Description 09/09/2015 Orders [place] [phone] Kris Bundy MD [facility] [place] [address] Lumbar postlaminectomy syndrome Social History Tobacco Use Types Packs/Day Years [...] as of this encounter Plan of Treatment Scheduled Referrals Name Type Priority Associated Diagnoses Orde r Schedule Referral to Spine Center Outpatient Referral Routine Lumbar postlaminectomy syndrome Ordered: 09/09/2015 documented as of this encounter Visit Diagnoses Diagnosis Lumbar postlaminectomy syndrome Postlaminectomy syndrome, lumbar region documented in this encounter Care Teams Roll Grinder Operator Relationship Specialty Start Date End Date Carleen Guillen, RN INTERN PCP - General 02/12/13 12/08/19 documented as of this encounter
--- OUTSIDE RECORDS SUMMARY | 2024-01-20 14:15 | XMS_ITS | Encounter Summary ---
Author Organization [facility] Address [facility] [place] [address] Care Team Providers Care Copy Technician Name Role Phone Peter Piña DNP Primary Care Provider Encounter Details Date Type Department Care Team (Latest Contact Info) Description 01/14/2020 10:54 AM EDT - 01/14/2020 11:59 PM EDT Hospital Encounter XRay at [address] [place] [id number] Malick Hastings MD [facility] PHYSICAL [place] [address] Failed back syndrome of lumbar spine; Pain in left hip Discharge Disposition: Home Social History Tobacco Use Types Packs/Day Years [...] on file documented as of this encounter Medications at Time of Discharge Medication Sig Dispensed Refills Start Date End Date budesonide-formoteroL (SYMBICORT) 160-4.5 mcg/actuation HFA Aerosol Inhaler Inhale 2 puffs into the lungs 2 times daily. ferrous sulfate 324 mg (65 mg iron) Tablet, Delayed Release (E.C.) Take 324 mg by mouth daily. potassium chloride 1.3 mEq/mL Liquid Take 1 mEq/kg/day by mouth daily. methadone HCl (METHADONE ORAL) Take 140 mg by mouth daily. Patient takes liquid form chlorthalidone (Hygroten) 25 mg Tablet Take 25 mg by mouth daily. levothyroxine (Synthroid) 25 mcg Tablet Take 25 mcg by mouth daily. mirtazapine (REMERON) 30 mg Tablet Take 60 mg by mouth nightly. Doxycycline Hyclate (PERIOSTAT) 100 mg Tablet, Delayed Release (E.C.) Take 100 mg by mouth 2 times daily. triamcinolone (NASACORT AQ) 55 mcg nasal inhaler 2 sprays by Nasal route daily. ERGOCALCIFEROL, VITAMIN D2, (VITAMIN D ORAL) Take 2,000 Units by mouth daily. DULoxetine (CYMBALTA) 60 mg capsule Take 60 mg by mouth 2 times daily. simvastatin (ZOCOR) 20 mg tablet Take 20 mg by mouth nightly. lamoTRIgine (LAMICTAL XR) 50 mg TR24 Take 100 mg by mouth 3 times daily. cyclobenzaprine (FLEXERIL) 10 mg tablet Take 10 mg by mouth 2 times daily as needed. omeprazole (PRILOSEC) 40 mg capsule Take 40 mg by mouth daily. hydrOXYzine (ATARAX) 25 mg tablet Take 25 mg by mouth 3 times daily as needed. gabapentin (NEURONTIN) 800 mg tablet Take 800 mg by mouth 3 times daily. nicotine polacrilex (NICORETTE) 4 mg gum Take 2 mg by mouth as needed. albuterol (PROVENTIL HFA;VENTOLIN HFA) 90 mcg/actuation inhaler Inhale 2 puffs into the lungs every 4 hours as needed. Use with spacer documented as of this encounter Plan of Treatment Not on file documented as of this encounter Procedures Procedure Name Priority Date/Time Associated Diagnosis Comments XR PELVIS AND HIP 2 VIEWS LEFT Routine 01/14/2020 11:07 AM EDT Failed back syndrome of lumbar spine Pain in left hip documented in this encounter Results * XR Pelvis and Hip 2 Views Left (01/14/2020 11:07 AM EDT) Anatomical Region Laterality Modality Pelvis, Hip Left Digital Radiogra phy Impressions 01/14/2020 12:04 PM EDT Mild narrowing of the left hip. Thank you for letting us participate in the care of this patient. For questions regarding this report, please contact the number below. ? Narrative 01/14/2020 12:04 PM EDT EXAMINATION: XR PELVIS AND HIP 2 VIEWS LEFT CLINICAL HISTORY: OA versus bony abnormality TECHNIQUE: 3 views of the pelvis and hips COMPARISON: None FINDINGS: The femoral acetabular joints are symmetric, with mild narrowing of the central joint space. No significant osteophytosis. The sacroiliac joints are symmetric. No widening of the pubic symphysis. Orthopedic hardware at the lumbosacral junction. Procedure Note Nanette Ceja MD - 01/14/2020 EXAMINATION: XR PELVIS AND HIP 2 VIEWS LEFT CLINICAL HISTORY: OA versus bony abnormality TECHNIQUE: 3 views of the pelvis and hips COMPARISON: None FINDINGS: The femoral acetabular joints are symmetric, with mild narrowing of thecentral joint space. No significant osteophytosis. The sacroiliac joints aresymmetric. No widening of the pubic symphysis. Orthopedic hardware at thelumbosacral junction. IMPRESSION Mild narrowing of the left hip. Thank you for letting us participate in the care of this patient. Forquestions regarding this report, please contact the number below. Malick Hastings MD IMG DX ORDERABLES documented in this encounter Visit Diagnoses Diagnosis Failed back syndrome of lumbar spine Postlaminectomy syndrome, lumbar region Pain in left hip Pain in joint, pelvic region and thigh documented in this encounter Care Teams Copy Technician Relationship Specialty Start Date End Date Peter Piña DNP PCP - General Family Medicine 12/09/19 documented as of this encounter
--- OUTSIDE RECORDS SUMMARY | 2024-01-20 14:15 | XMS_ITS | Encounter Summary ---
Author Organization [facility] Address [facility] [place] [address] Care Team Providers Care Software Development Test Engineer Name Role Phone Peter Piña DNP Primary Care Provider [phone] Reason for Visit * Reason Comments Back Pain Left Leg Pain Left Foot Pain * Consultation (Routine) - Specialty Diagnoses / Procedures Referred By Contac t Referred To Contact [facility] Diagnoses Spondylolisthesis, site unspecified Spine - Lumbar spondylolisthesis/ MRI 11/2019 @ [facility] Peter Piña DNP [address] [place] [address] [facility] [place] [address] Referral ID Status Reason Start Date Expiration Date V isits Requested Visits Authorized [id number] Consult, [facility] PCP Updated and/or Approved 12/07/2019 06/07/2020 6 6 Encounter Details Date Type Department Care Team (Late st Contact Info) Description 01/14/2020 9:30 AM EDT Office Visit [facility] [place] [address] Malick Hastings MD [facility] PHYSICAL MEDICINE [place] [address] Chronic pain syndrome; Failed back syndrome of lumbar spine; Pain in left hip; Segmental and somatic dysfunction of lumbar region Social History Tobacco Use Types Packs/Day Years [...] on file documented as of this encounter Last Filed Vital Signs Vital Sign Reading Time Taken Comments Blood Pressure 132/74 01/12/2020 2:04 PM EDT Pulse 81 01/12/2020 2:04 PM EDT Temperature 36.8 ??C (98.3 ??F) 01/12/2020 2:04 PM ED T Respiratory Rate - - Oxygen Saturation - - Inhaled Oxygen Concentration - - Weight 65.8 kg (145 lb) 01/12/2020 2:04 PM EDT Height 152.4 cm (5') 01/12/2020 2:04 PM EDT Body Mass Index 28.32 01/12/2020 2:04 PM EDT documented in this encounter Progress Notes * Malick Hastings MD - 01/14/2020 9:30 AM EDT Chief Complaint Patient presents with ??? Back Pain ??? Left Leg Pain ??? Left Foot Pain Subjective: Krissy Goldberg is a 49 y.o. female who presents for Physical Medicine and Rehabilitation consultation, at the request of Peter Piña APRN. The patient has a history of chronic pain, opiate dependence and has been disabled since 2004. She is known to this Center, having undergone L4-S1 decompression and fusion with iliac crest bone graft and L5-S1 interbody fusion in January 2006 by Ameya Santiago MD. She was last seen in our Center by Barry King MD on 09/21/2015. At that visit, the patient reported that her chronic low back pain symptoms never improved following surgery. The patient was seen previously by Dr. Bundy in the Pain Clinic. Work-up demonstrated the presenceof a broken screw at S1. Dr. King completed additional radiological work-up. This demonstrated the presence of a solid fusion on the left at L4-S1 and, possibly, on the right, as well. The interbody devices at L5-S1 were unchanged in location. Although Dr. King noted the presence of a broken screw on the right at S1, he did not feel that this was the cause of the patient's symptoms. He recommended physical therapy and consideration for multidisciplinary rehabilitation through the [facility]. Current symptoms/concerns: The patient states that she is concerned that her rebuilt vertebra is slipping down and that her spine is closing down. She reports no change in her longstanding pattern of generalized lumbar pain, to which she refers as her chronic normal pain. Over the past few months, she has experienced pain in the left flank and left iliac region, as well as intermittent pinching in the anterolateral aspect of the left hip. She considers her chronic normal pain to be under good control overall and she finds methadone (140 mg daily) to be helpful. This has been administered through the [facility] program. She is primarily concerned about decreased endurance for sweeping and generalized burning pain in the lower extremities when ambulating uphill and, at times, over level ground. Symptom onset: Unclear, with respect to the newer symptoms. She denies any recent incident or injury, but reports that she has been more active with gardening and other physical activities this summer. Pain characteristics: Constant, burning to pinching in quality. Pain intensity 7-8/10. Exacerbating factors: Sweeping, raking, vacuuming or back extension from a forward flexed position. Alleviating factors: Methadone and Toradol. Patient reports that her pain goes down her lower extremities, yet cannot describe any specific pattern of pain radiation. Sensory symptoms include numbness and tingling limited to the second throughfourth toes of the left foot. Gait is antalgic on the left. Patient reports that she has had a few falls in the past year for unclear reasons. She denies focal lower extremity weakness. Bowel and bladder sensation are normal and she denies any incontinence. Treatment has been limited to the use of methadone. She has had a number of unspecified pain management procedures in the past in [facility]. The patient was seen in the Pain Clinic by Yael Pete MD. At that time, methadone taper to a total of 30 mg daily was recommended, as was a cognitive behavioral consult was recommended. It does not appear that either was completed. Spinal cord stimulator was discussed, but was refused by the patient. COVID-19 risk factors: Asthma, hypertension, COPD and ongoing smoking history. Outside reports reviewed: Clinical note of Peter Piña APRN, 12/07/2019. Past Medical History: Diagnosis Date ??? Asthma ??? Chronic pain ??? Depressive disorder ??? Fibromyalgia ??? Generalized anxiety disorder ??? GERD (gastroesophageal reflux disease) ??? Hyperlipemia ??? Hyperlipidemia ??? IBS (irritable bowel syndrome) ??? Lead toxicity ??? Migraine ??? Opiate dependence ??? Sinusitis ??? Smoker ??? Vitamin D deficiency Past Surgical History: Procedure Laterality Date ??? ABDOMINAL ADHESION SURGERY ??? CARPAL TUNNEL RELEASE ??? CHOLECYSTECTOMY 2013 ??? ELBOW SURGERY ??? HYSTERECTOMY, TOTAL ABDOMINAL ??? LUMBAR DISCECTOMY ??? LUMBAR FUSION L4-S1 with PLIF at L5-S1 and with a Bernardo procedure Family History Problem Relation Age of Onset ??? Arthritis Mother ??? Cancer Father ??? Asthma Sister ??? Coronary Artery Disease Neg Hx ??? Heart Disease Neg Hx ??? Hypertension Neg Hx ??? Substance Use Disorder Neg Hx ??? Alcohol Use Disorder Neg Hx Social History Tobacco Use ??? Smoking status: Current Every Day Smoker Packs/day: 0.50 Years: 30.00 Pack years: 15.00 Types: Cigarettes ??? Smokeless tobacco: Never Used ??? Tobacco comment: avs information given Substance Use Topics ??? Alcohol use: No Comment: denies h/o ETOH abuse ??? Drug use: Yes Comment: MJ use (not medical), denies h/o drug abuse Current Outpatient Medications on File Prior to Visit Medication Sig Dispense Refill ??? budesonide-formoteroL (SYMBICORT) 160-4.5 mcg/actuation HFA Aerosol Inhaler Inhale 2 puffs intothe lungs 2 times daily. ??? ferrous sulfate 324 mg (65 mg iron) Tablet, Delayed Release (E.C.) Take 324 mg by mouth daily. ??? potassium chloride 1.3 mEq/mL Liquid Take 1 mEq/kg/day by mouth daily. ??? methadone HCl (METHADONE ORAL) Take 140 mg by mouth daily. Patient takes liquid form ??? chlorthalidone (Hygroten) 25 mg Tablet Take 25 mg by mouth daily. ??? levothyroxine (Synthroid) 25 mcg Tablet Take 25 mcg by mouth daily. ??? mirtazapine (REMERON) 30 mg Tablet Take 60 mg by mouth nightly. ??? Doxycycline Hyclate (PERIOSTAT) 100 mg Tablet, Delayed Release (E.C.) Take 100 mg by mouth 2 times daily. ??? triamcinolone (NASACORT AQ) 55 mcg nasal inhaler 2 sprays by Nasal route daily. ??? DULoxetine (CYMBALTA) 60 mg capsule Take 60 mg by mouth 2 times daily. ??? simvastatin (ZOCOR) 20 mg tablet Take 20 mg by mouth nightly. ??? lamoTRIgine (LAMICTAL XR) 50 mg TR24 Take 100 mg by mouth 3 times daily. ??? cyclobenzaprine (FLEXERIL) 10 mg tablet Take 10 mg by mouth 2 times daily as needed. ??? omeprazole (PRILOSEC) 40 mg capsule Take 40 mg by mouth daily. ??? hydrOXYzine (ATARAX) 25 mg tablet Take 25 mg by mouth 3 times daily as needed. ??? gabapentin (NEURONTIN) 800 mg tablet Take 800 mg by mouth 3 times daily. ??? nicotine polacrilex (NICORETTE) 4 mg gum Take 2 mg by mouth as needed. ??? albuterol (PROVENTIL HFA;VENTOLIN HFA) 90 mcg/actuation inhaler Inhale 2 puffs into the lungs every 4 hours as needed. Use with spacer ??? ERGOCALCIFEROL, VITAMIN D2, (VITAMIN D ORAL) Take 2,000 Units by mouth daily. No current facility-administered medications on file prior to visit. Allergies Allergen Reactions ??? Penicillins Anaphylaxis ??? Azithromycin Hives and Rash ??? Biaxin [Clarithromycin] Other (See Comments) Gi upset ??? Cephalexin Hives ??? Ciprofloxacin (Mixture) Hives and Rash ??? Lyrica [Pregabalin] Other (See Comments) mood ??? Savella [Milnacipran] ??? Sulfa (Sulfonamide Antibiotics) Hives ??? Sulfur ??? Toradol [Ketorolac Tromethamine] Other (See Comments) Gi upset with oral administration only- she can tolerate injection Review of Systems: A comprehensive review of systems was negative except for: as noted above. Objective: BP 132/74 Pulse 81 Temp 36.8 ??C (98.3 ??F) (Oral) Ht 152.4 cm (5') Wt 65.8 kg (145 lb) BMI 28.32 kg/m?? Well-developed and well-nourished mildly anxious female. Respiratory effort normal and unlabored. There is a healing scab over the distal aspect of the right anterolateral leg with some surroundingerythema, but no lymphangitic streaking. Lower extremities are warm and well perfused. Pedal pulses are 2+ and palpable bilaterally. Alert and oriented x3. Affect is appropriate. Johanna's signs: Patient exhibits giveaway weakness in the lower extremities, right greater than left, with motor testing from the seated position. Gait and station: Gait pattern is guarded. Patient keeps her fists clenched throughout the gait cycle. She exhibits right lateral trunk flexion and turns stiffly. She is able to perform bilateral heel and toe walking. She exhibits intermittent shaking of the back and lower extremities in static standing position. There is bilateral shoulder elevation, right greater than left. Lumbar motion: Active lumbar flexion is within normal limits and is not associated with pain. Patient reports generalized paracentral low lumbosacral pain with active lumbar extension. Pelvic alignment/motion: The pelvis is shifted anteriorly and is anteriorly rotated. Interval between ribs and pelvis is decreased bilaterally. Standing iliac crest palpation is elevated on the right. There is right-sided tenderness with the assessment. Standing flexion test is positive on the right. There is apparent lengthening of right lower extremity with supine/long sitting. Palpation: Tenderness is marked over the sacrum and bilateral sacroiliac joints. Additional tenderness is noted over bilateral quadratus lumborum and bilateral buttocks and hip bursae, left much greater than right. LE flexibility: Marked tightness present in bilateral iliotibial bands and rectus femoris. There isadditional tightness in left hip flexors, although to a lesser degree. Pelvic/SI provocation: Patient reports left iliac pain to pelvic compression and generalized lumbarpain to pelvic shear. PATRICK is negative bilaterally. FADIR is positive on the right for ipsilateralhip pain. Motor: Bilateral hip abductors 4-/5 right, 3+/5 left. Lower extremity motor examination otherwise 5/5 throughout. Sensation: Nondermatomal decrease in sensation to light touch throughout the toes of the left foot. Straight leg raising: Negative bilaterally in the sitting and supine positions. Muscle stretch reflexes: 2+ bilaterally for quadriceps and Achilles tendon. Tone normal throughout the lower extremities. No ankle clonus. Imaging: Lumbar MRI, 12/01/2019: Patient is status post spinal fusion at L4-S1. Grade 1 spondylolisthesis of L5 on S1 is present. There is mild bilateral intervertebral foraminal narrowing at L5-S1. Assessment: Encounter Diagnoses Name Primary? Chronic pain syndrome ??? Failed back syndrome of lumbar spine ??? Pain in left hip ??? Segmental and somatic dysfunction of lumbar region The patient is a 49-year-old female with a history of chronic pain syndrome and opiate dependence. She presents with longstanding generalized low back pain that has remained unchanged, status post L4-S1 instrumented fusion. The fusion remains solid. The patient and I reviewed the lumbar MRI to helpaddress her concerns regarding the stability of her fusion. I pointed out the rigid fixation acrossthe L5-S1 spondylolisthesis. Also, there is no evidence of central stenosis, despite her fears thatthe spine is closing down. The patient reports more recent symptoms of left hip girdle pain. There is some suggestion of left hip impingement on examination. I explained to the patient that she is predisposed to sacroiliac pain and dysfunction secondary to the biomechanical effects of having had a lumbosacral fusion. I recommend radiographs of the pelvis and left hip to evaluate for osteoarthrosis or bony abnormality. Consideration may then be given to outpatient physical therapy to help address sacroiliac dysfunction or hip joint pathology, if that is seen on the imaging study. The patient demonstrates evidence of a behavioral overlay affecting her chronic pain. I urged her to consider multidisciplinary rehabilitation through the [facility] and reviewed the rationale for such treatment in detail with her. Plan: 1. Pelvic and left hip radiographs, as above. 2. The patient will be contacted by telephone to discuss the radiographic results and to determine possible treatment and physiatric follow-up. The consultation request of Peter Piña APRN is greatly appreciated. Malick Hastings MD, MS 01/14/2020 * Shannon Ulrich, LYFT DRIVER - 01/14/2020 9:30 AM EDT Confirmed with pt that a detailed line by line medication and allergy review was performed by Shannon Ulrich as documented on as part of the telephone Intake process. Confirmed with pt that there have been no medication/allergy additions or changes over the previous 3 days. documented in this encounter Plan of Treatment Not on file documented as of this encounter Results * XR Pelvis and [...] documented in this encounter Visit Diagnoses Diagnosis Chronic pain syndrome Failed back syndrome of lumbar spine Postlaminectomy syndrome, lumbar region Pain in left hip Pain in joint, pelvic region and thigh Segmental and somatic dysfunction of lumbar region Nonallopathic lesion of lumbar region, not elsewhere classified Failed back syndrome of lumbar spine Postlaminectomy syndrome, lumbar region Pain in left hip Pain in joint, pelvic region and thigh documented in this encounter Care Teams Software Development Test Engineer Relationship Specialty Start Date End Date Peter Piña DNP PCP - General Family Medicine 12/09/19 documented as of this encounter
--- OUTSIDE RECORDS SUMMARY | 2024-01-20 14:15 | XMS_ITS | Encounter Summary ---
Author Organization [facility] Address [facility] [address] j[address] [place] [id number] Care Team Providers Care Grand Jury Deputy Sheriff Name Role Phone Carleen Guillen APRN Primary Care Provider + Reason for Referral * Psychiatric (Routine) - Specialty Diagnoses / Procedures Referred By Contac t Referred To Contact Psychiatry Diagnoses Lumbar post-laminectomy syndrome Yael Pete MD [facility] [place] [address] Ericka Elizabeth, PhD [facility] [place] [address] Referral ID Status Reason Start Date Expiration Date V isits Requested Visits Authorized [id number] Consult, Test & Treat 08/02/2014 08/02/2015 1 1 Reason for Visit * Reason Comments Pain Management Back Pain Encounter Details Date Type Department Care Team (Late st Contact Info) Description 08/02/2014 12:30 PM EST Office [place] [address] Yael Pete MD [address] [place] [address] Yael Pete MD [facility] [place] [address] Right lumbar radiculopathy; Lumbar post-laminectomy syndrome; Encounter for long-term (current) use of other medications Discharge Disposition: Home Social History Tobacco Use [...] Sign Reading Time Taken Comments Blood Pressure 135/75 08/02/2014 1:13 PM EST Pulse 98 08/02/2014 1:13 PM EST Temperature - - Respiratory Rate - - Oxygen Saturation 95% 08/02/2014 1:13 PM EST Inhaled Oxygen Concentration - - Weight 65.8 kg (145 lb) 08/02/2014 1:13 PM EST Height 165.1 cm (5' 5) 08/02/2014 1:13 PM EST Body Mass Index 24.13 08/02/2014 1:13 PM EST documented in this encounter Progress Notes * Yael Pete MD - 08/02/2014 1:10 PM EST PAIN CLINIC CONSULTATION Date of Consultation: August 08, 2014 I am seeing Ms. Goldberg at the request of Rozina Tee for my opinion and recommendations regarding back pain. Chief Complaint: Low back pain. HPI: Subjective Krissy Goldberg is a 43 y.o. female who presents today for evaluation of low back pain. The patient is s/p lumbar fusion L4-S1 instrumented fusion for spondylolisthesis and chronic back pain with Dr. Santiago 02/07/16. Prior to that she had lumbar discectomy in [place], [place]. The patient notes thatshe had some improvement after the fusion. The patient has had symptoms since prior to surgery. The pain is located at the right lumbar area, left lumbar area or radiating to left posterior lower extremity to the ankle. She can have pain in both LE that is different from what she calls her sciatic pain. Other associated symptoms include burning in the right leg and burning in the left leg. The patient describes their pain as sharp or burning and occurs all of the time. The pain is improved with rest. Symptoms are exacerbated by lifting, walking for 10 minutes, standing for 15-20 minutes and bending. The patient also notes that she has osteopenia. The patient has trialed: -PT (current). -lyrica (affected her mood) -Interventional pain management in [facility]. She does not know what the procedure was. Notes were requested. It was helpful for 2-3 days. The patient has had imaging. 06/2014. There are no images or reports available. The patient's pain level today is a 6/ 10. (also represents average pain level) The patient is currently taking methadone 60 mg per day and oxycodone 60 mg per day. She gets about50% relief with this.This is prescribed by Rozina Tee. I spoke with Ms. Tee today. She inherited this patient from Carleen Guillen. Ms. Tee notes that the patient had some issue with compliance in 2002, although she does not know what this was related to. The patient has not had recent ECG. She is on neurontin and cymbalta with some effect. The patient has goals of being able to walk further, garden, housework and care for her animals. PAST MEDICAL HISTORY: Past Medical History Diagnosis Date ??? Chronic pain ??? IBS (irritable bowel syndrome) ??? Asthma ??? GERD (gastroesophageal reflux disease) ??? Generalized anxiety disorder ??? Smoker ??? Lead toxicity ??? Depressive disorder ??? Fibromyalgia ??? Migraine ??? Sinusitis ??? Hyperlipidemia ??? Vitamin D deficiency ??? Opiate dependence ??? Hyperlipemia PAST SURGICAL HISTORY: Past Surgical History Procedure Laterality Date ??? Lumbar fusion L4-S1 with PLIF at L5-S1 and with a Bernardo procedure ??? Elbow surgery ??? Carpal tunnel release ??? Lumbar discectomy ??? Hysterectomy, total abdominal ??? Abdominal adhesion surgery ??? Cholecystectomy 2013 ALLERGIES: Penicillins; Azithromycin; Biaxin; Cephalexin; Ciprofloxacin (mixture); Lyrica; Savella; and Toradol MEDICATIONS: Medications 08/02/14 1336 Medication Sig Taking? triamcinolone (NASACORT AQ) 55 mcg nasal inhaler 2 sprays by Nasal route daily. Yes ERGOCALCIFEROL, VITAMIN D2, (VITAMIN D ORAL) Take 2,000 Units by mouth daily. Yes OXYcodone 10 mg Tab Take 15 mg by mouth 4 times daily. Yes DULoxetine (CYMBALTA) 60 mg capsule Take 60 mg by mouth 2 times daily. Yes simvastatin (ZOCOR) 20 mg tablet Take 20 mg by mouth nightly. Yes methadone (DOLOPHINE) 10 mg tablet Take 10 mg by mouth daily. Six tablets daily Yes lamoTRIgine (LAMICTAL XR) 50 mg TR24 Take 100 mg by mouth 2 times daily. Yes cyclobenzaprine (FLEXERIL) 10 mg tablet Take 10 mg by mouth 2 times daily as needed. Yes omeprazole (PRILOSEC) 40 mg capsule Take 40 mg by mouth daily. Yes hydrOXYzine (ATARAX) 25 mg tablet Take 25 mg by mouth 3 times daily as needed. Yes gabapentin (NEURONTIN) 800 mg tablet Take 800 mg by mouth 3 times daily. Yes tiotropium (SPIRIVA) 18 mcg inhalation capsule Inhale 18 mcg into the lungs daily as needed. Yes clonAZEpam (KLONOPIN) 1 mg tablet Take 1 mg by mouth nightly as needed. Yes fluticasone-salmeterol (ADVAIR) 500-50 mcg/dose diskus inhaler Inhale 1 puff into the lungs 2 timesdaily. Yes albuterol (PROVENTIL HFA;VENTOLIN HFA) 90 mcg/actuation inhaler Inhale 2 puffs into the lungs every4 hours as needed. Use with spacer Yes nicotine polacrilex (NICORETTE) 4 mg gum Take 2 mg by mouth as needed. FAMILY HISTORY: Family History Problem Relation Age of Onset ??? Arthritis Mother ??? Cancer Father ??? Asthma Sister ??? Coronary Artery Disease Neg Hx ??? Heart Disease Neg Hx ??? Hypertension Neg Hx ??? Substance Abuse Neg Hx ??? Alcohol Abuse Neg Hx SOCIAL HISTORY: History Social History ??? Marital Status: Single Spouse Name: N/A Number of Children: 1 ??? Years of Education: N/A Occupational History ??? disability from back pain Social History Main Topics ??? Smoking status: Current Every Day Smoker -- 0.50 packs/day for 30 years Types: Cigarettes ??? Smokeless tobacco: Never Used Comment: avs information given ??? Alcohol Use: No Comment: denies h/o ETOH abuse ??? Drug Use: Yes Comment: MJ use (not medical), denies h/o drug abuse ??? Sexual Activity: Not on file Other Topics Concern ??? Not on file Social History Narrative Patient lives with her daughter and daughter's SO ROS: Review of Systems Constitutional: Positive for fatigue. Negative for fever, chills, diaphoresis, activity change, appetite change and unexpected weight change. HENT: Hoarseness Eyes: Negative. Respiratory: Negative for apnea, chest tightness, shortness of breath and wheezing. Cardiovascular: Positive for leg swelling. Negative for chest pain and palpitations. Gastrointestinal: Negative. Genitourinary: Negative for dysuria, hematuria and difficulty urinating. Musculoskeletal: Positive for back pain. Skin: Negative. Neurological: Negative. Psychiatric/Behavioral: Positive for sleep disturbance. Negative for suicidal ideas and dysphoric mood. The patient is nervous/anxious. PHYSICAL EXAM: BP 135/75 Pulse 98 Ht 165.1 cm (5' 5) Wt 65.772 kg (145 lb) BMI 24.13 kg/m2 SpO2 95% Physical Exam Constitutional: She is oriented to person, place, and time. She appears well- developed and well-nourished. Tired appearing. Hoarse voice. HENT: Head: Normocephalic. Eyes: EOM are normal. Pupils are equal, round, and reactive to light. Neck: Neck supple. Cardiovascular: Normal rate, regular rhythm and normal heart sounds. Exam reveals no friction rub. No murmur heard. Pulmonary/Chest: Effort normal and breath sounds normal. Neurological: She is alert and oriented to person, place, and time. Psychiatric: She has a normal mood and affect. Her behavior is normal. Judgment and thought contentnormal. Right Ankle Exam Muscle Strength Dorsiflexion: 5/5 Plantar flexion: 5/5 Comments: 4/5 first toe dorsiflexion-left Left Ankle Exam Muscle Strength Dorsiflexion: 5/5 Plantar flexion: 5/5 Right Hip Exam Muscle Strength Abduction: 5/5 Adduction: 5/5 Flexion: 5/5 Left Hip Exam Muscle Strength Abduction: 5/5 Adduction: 5/5 Flexion: 5/5 Back Exam Range of Motion Extension: 10 (with pain) Flexion: 60 (with pain) Muscle Strength Right Quadriceps: 5/5 Left Quadriceps: 5/5 Right Hamstrings: 5/5 Left Hamstrings: 5/5 Tests Straight leg raise right: positive Straight leg raise left: positive Reflexes Patellar: 3/4 Achilles: 2/4 Other Toe Walk: normal Heel Walk: normal Gait: antalgic Comments: Lumbar paraspinous tenderness: present, bilateral, lower. Tenderness overlying facet joints: present, bilateral. Pain with Morales's testing: present, bilateral. Scar consistent with stated surgery. RADIOLOGIC DATA: I have independently visualized the following studies : MRI: 03/10/13 Cervical spine by level: C2-C3: No central canal stenosis or neuroforaminal narrowing. C3-C4: No central canal stenosis or neural foraminal narrowing. C4-C5: Right paracentral disc /osteophyte causing mild right neural foraminal narrowing, and mild central canal narrowing on the right. . C5-C6: A central disc osteophyte indents the ventral thecal sac, and slightly alters the ventral contour of the cord producing mild central canal stenosis and no significant neuroforaminal narrowing. Lumbar spine: The patient is status post transpedicular screw fixation of the L4, L5, and S1 vertebral bodies. There is metal artifact surrounding the metallic screw and a similar degree of grade 1 L5 on S1 anterolisthesis is seen. Alignment of the lumbar spine is otherwise normal. The conus terminates at L1-L2 as before. Bone marrow signal is normal throughout. There is normal disc signal from T12-L4 and there is loss of normal fluid signal in at the L4-L5 and L5-S1 intervertebral disks. Disc spacer material at L5-S1 is unchanged. Limited view of the retroperitoneum are unremarkable. Lumbar spine by level: T12-L1: No central canal stenosis or neuroforaminal narrowing. L1-L2: No central canal stenosis or neuroforaminal narrowing. L2-L3: Small disc bulge with no central canal stenosis and no significant neural foraminal narrowing. L3-L4: Small disc bulge and moderate facet arthropathy producing mild bilateral neural foraminal narrowing. No central canal stenosis. L4-L5: Unchanged posterior disc bulge with annular tear producing mild bilateral neural foraminal narrowing and no significant central canal stenosis. L5-S1: Post surgical changes with intervertebral disc space material. No significant central canal stenosis or foraminal narrowing. Impression 1. Mild degenerative changes of the cervical spine, similar to the prior. Unchanged prominent central canal of the cord at the C1 level. 2. Postsurgical changes and moderate degenerative changes of the lower lumbar spine as detailed above are stable ASSESSMENT: Assessment 1. Right lumbar radiculopathy 2. Lumbar post-laminectomy syndrome 3. Encounter for long-term (current) use of other medications The patient has longstanding low back pain and lower extremity pain. The patient is s/p lumbar laminectomy with ongoing pain. She has undergone interventional procedures in the past, but has not had relief. She notes that she had a procedure at [facility] with 2 days of relief. She is not sure what that procedure was.Notes were received during the visit and the patient had lumbar MBB right L2 and 3 (L3-4 facet joint). She had 10% relief according to the patient. The pain has primarily been managed with opioids. She is on a considerable amount of opioids. According to her prescribing physician, the patient has not had issues with compliance,but has asked for increases in her doses. She had an issue with compliance at another practice about 12 years ago. I did speak with Ms. Tee today.She is either looking for recommendations for prescribing vs. having [facility] take over prescription writing. I did tell her that as long as the patient is using marijuana, I would not prescribe any opioids. The patient is willing to stop using marijuana. Urine toxicology would need to reflect a decrease in THC indicating that the patient has stopped using this. Ms. Tee is willing to continue prescribing until it is clear that the patient has stopped using marijuana. As far as her opioid medication is concerned, I have several recommendations. This includes weaningher opioids down to a more reasonable morphine equivalent. The patient may require some opioids, but this would have to be at a decreased dose. The patient has not had a recent ECG and I recommend this. Additionally, I would not recommend continuing Klonopin and methadone use together. I recommend decreasing the methadone first. This would have to be decreased by 5 mg every 2 weeks. I would do this until the patient is on 30 mg per day. At that point I would begin to decrease oxycodone. The patient is on 15 mg four times per day currently. The oxycodone can be decreased by 5 mg every 4-5 days. Consideration can also be given to adding clonidine during the time of opioid decrease to minimize any side effects. If there are issues with decreasing opioid dosing recommendation is given to a consult with addiction management. We discussed a multimodal approach. The patient may benefit from interventional pain procedures, but I would need to review her MRI from [facility], which was not available today. I also believe that the patient would benefit from Cognitive Behavioral Medicine Consult. The patient is willing to do this. The patient is not interested in Spinal Cord Stimulation. PLAN: 1. Cognitive Behavioral Medicine Consult 2. Please obtain MRI report and images. 3. ECG to measure QT interval. 4. Begin to decrease methadone as outlined above. 5. Return for reevaluation as needed (including evaluation for cervical pain). 6. Continue PT. Yael Pete MD documented in this encounter Plan of Treatment Scheduled Referrals Name Type Priority Associated Diagnoses Order Schedule Referral to Psychiatry Outpatient Referral Routine Lumbar post-laminectomy syndrome Ordered: 08/02/2014 documented as of this encounter Visit Diagnoses Diagnosis Right lumbar radiculopathy Thoracic or lumbosacral neuritis or radiculitis, unspecified Lumbar post-laminectomy syndrome Postlaminectomy syndrome, lumbar region Encounter for long-term (current) use of other medications documented in this encounter Care Teams Grand Jury Deputy Sheriff Relationship Specialty Start Date End Date Carleen Guillen, MONTY PCP - General 02/12/13 12/08/19 documented as of this encounter
--- OUTSIDE RECORDS SUMMARY | 2024-01-20 14:15 | XMS_ITS | Encounter Summary ---
[place] [address] Care Team Providers Care University President Name Role Phone Peter Piña DNP Primary Care Provider Encounter Details Date Type Department Care Team (Late st Contact Info) Description 02/03/2020 Telephone [facility] [place] [id number] Mari Kim Social History Tobacco Use Types Packs/Day Years [...] on file documented as of this encounter Miscellaneous Notes * Telephone Encounter - Mari Kim - 02/03/2020 10:04 AM EDT LVM for patient to return call-needs to be schedule for 8 week follow up to outside PT with Dr. Hastings documented in this encounter Plan of Treatment Not on file documented as of this encounter Visit Diagnoses Not on filedocumented in this encounter Care Teams University President Relationship Specialty Start Date End Date Peter Piña DNP PCP - General Family Medicine 12/09/19 documented as of this encounter
--- OUTSIDE RECORDS SUMMARY | 2024-01-20 14:15 | XMS_ITS | Encounter Summary ---
Author Organization [facility] [place] [address] Care Team Providers Care Resin Remover Name Role Phone Carleen Guillen APRN Primary Care Provider + Encounter Details Date Type Department Care Team (Late st Contact Info) Description 09/06/2015 - 09/06/2015 11:59 PM EDT Hospital Encounter [place] [address] [address] Ricardo Temporary Pain Discharge Disposition: Home Social History Tobacco Use [...] Sig Dispensed Refills Start Date End Date triamcinolone (NASACORT AQ) 55 mcg nasal inhaler [...] 4 hours as needed. Use with spacer OXYcodone 10 mg Tab Take 15 mg by mouth 4 times daily. 09/21/2015 methadone (DOLOPHINE) 10 mg tablet Take 10 mg by mouth daily. Six tablets daily 09/21/2015 tiotropium (SPIRIVA) 18 mcg inhalation capsule Inhale 18 mcg into the lungs daily as needed. 09/21/2015 clonAZEpam (KLONOPIN) 1 mg tablet Take 1 mg by mouth nightly as needed. 01/12/2020 fluticasone-salmeterol (ADVAIR) 500-50 mcg/dose diskus inhaler Inhale 1 puff into the lungs 2 times daily. 01/12/2020 documented as of this encounter Plan of Treatment Not on file documented as of this encounter Procedures Procedure Name Priority Date/Time Associated Diagnosis Comments FILM LIBRARY STORAGE ONLY DX SPINE Routine 09/06/2015 12:00 AM EDT Pain documented in this encounter Results * Film Library- Storage only DX Spine (09/06/2015 12:00 AM EDT) Narrative [facility] - 09/07/2015 4:29 PM EDT See PACS for result report. Dr Renee [facility] FILM LIBRARY ORD ERABLES [place], [place] documented in this encounter Visit Diagnoses Diagnosis Pain Generalized pain documented in this encounter Care Teams Resin Remover Relationship Specialty Start Date End Date Carleen Guillen APRN PCP - General 02/12/13 12/08/19 documented as of this encounter
--- OUTSIDE RECORDS SUMMARY | 2024-01-20 14:15 | XMS_ITS | Encounter Summary ---
Author Organization [facility] Address [facility] [place] [address] Care Team Providers Care Clerical Secretary Name Role Phone Carleen Guillen APRN Primary Care Provider + Reason for Referral * Physical Therapy (Routine) - Specialty Diagnoses / Procedures Referred By Contac t Referred To Contact Physical Therapy Diagnoses Chronic low back pain Barry King MD [facility] [place] [address] Referral ID Status Reason Start Date Expiration Date V isits Requested Visits Authorized [id number] Evaluate and Treat 09/21/2015 03/19/2016 12 12 Reason for Visit * Reason Comments Low Back Pain broken screw mostly on the left side Left Leg Pain * Consultation (Routine) - Closed Specialty Diagnoses / Procedures Referred By Contac t Referred To Contact Orthopaedics Diagnoses Lumbar postlaminectomy syndrome Kris Bundy MD [facility] [place] [address] Barry King MD [place] [address] Referral ID Status Reason Start Date Expiration Date V isits Requested Visits Authorized [id number] Closed Consult, Test & Treat 09/09/2015 09/08/2016 1 1 Encounter Details Date Type Department Care Team (Late st Contact Info) Description 09/21/2015 2:20 PM EDT Office [place] [address] Barry King MD [facility] [place] [address] Chronic low back pain Social History Tobacco Use Types Packs/Day Years [...] Sign Reading Time Taken Comments Blood Pressure 120/71 09/21/2015 1:40 PM EDT Pulse - - Temperature - - Respiratory Rate - - Oxygen Saturation - - Inhaled Oxygen Concentration - - Weight 68 kg (150 lb) 09/21/2015 1:40 PM EDT Height 152.4 cm (5') 09/21/2015 1:40 PM EDT Body Mass Index 29.29 09/21/2015 1:40 PM EDT documented in this encounter Progress Notes * Barry King MD - 09/21/2015 2:48 PM EDT CHIEF COMPLAINT: Low back pain greater than bilateral lower extremity pain. HISTORY OF PRESENT ILLNESS: Ms. Goldberg is a 45-year-old female seen in consultation for Dr. Bundy in regards to her back pain that radiates to her left buttock, as well as intermittently to her right anterior leg. She underwent L4-S1 decompression and fusion with a right iliac crest bone grafting and a L5-S1 interbody fusion by Dr. Santiago in January of 2006. She had some improvement after that procedure, though has had chronic back pain effectively since then. She feels as though her back pain has been slightly worse as of late, which prompted her to see Dr. Bundy, who obtained x-rays that demonstrated a broken screw at S1. She denies any numbness or weakness. She denies constitutional symptoms or changes in bowel or bladder function. She really had no treatment for this as of late. She has had physical therapy in the past. PAST MEDICAL HISTORY: COPD, irritable bowel syndrome, GERD, fibromyalgia. PAST SURGICAL HISTORY: Cubital tunnel release, abdominal surgery, carpal tunnel release. Medications and allergies reviewed and are in the eD-H. FAMILY HISTORY: None. SOCIAL HISTORY: The patient has been on disability since 2004. She worked as a headwaitress prior to that. She smokes 1 pack per day and does not drink. REVIEW OF SYSTEMS: All negative except for musculoskeletal as above. PHYSICAL EXAM: The patient is a 5 feet tall, 140 pounds with a BMI of 29.4. GENERAL: The patient is comfortable, in no acute distress. BACK: She has a well healed midline incision. She is somewhat tender to palpation over SI joints bilaterally. She can flex 60 degrees and extend to neutral, with extension being more painful. NEUROLOGIC EXAM: She walks with a somewhat forward flexed gait. She can toe walk, but has difficulty heel walking. Motor exam reveals 5/5 strength in all lower extremity motor groups. She has a normal sensory exam. Reflexes are 2/4 throughout the upper extremities, 3/4 at the knees, and 2/4 at the ankles. Straight leg raise is negative bilaterally. I am intermittently able to elicit a Willard sign bilaterally. She has no clonus. Babinski's is negative. HIP EXAM: She has a normal, painless range of motion in both hips. VASCULAR: She has palpable pulses bilaterally. IMAGING: AP and lateral x-rays of the lumbar spine from 09/06/15 demonstrate what appears to be a solid fusion at least on the left side from L4 to S1, and possibly on the right side as well. She has two interbody devices at L5-S1 that are not changed in position compared to the prior image. One of the S1 screws is broken, which is evident on the lateral view. ASSESSMENT/PLAN: Ms. Goldberg is a 45-year-old female with chronic back pain status post an L4-S1 fusion by Dr. Santiago. Her back symptoms have not changed substantially since her surgery. She really never had a period of marked pain improvement. She does have a broken screw at S1, though she also does appear to have a solid fusion. She has some hyperreflexia, though I reviewed Wilton Blanca's note from 2013 that also had these findings and her subsequent cervical MRI showed no spinal cord compression. At this point, I think she would benefit from a revisit with physical therapy for land and/or water based therapy. I gave her a referral to that effect. I also think she might be a candidate for the functional episcopal program if traditional physical therapy is not effective. She is also going to follow up with Dr. Bundy to discuss other pain control options. I do not think she would benefit from any surgery on her lumbar spine. The broken S1 screw is not a cause of her symptoms. I also believe she has a solid fusion. I will follow up with her on an as needed basis. documented in this encounter Plan of Treatment Scheduled Referrals Name Type Priority Associated Diagnoses Orde r Schedule Referral to Physical Therapy Outpatient Referral Routine Chronic low back pain Ordered: 09/21/2015 documented as of this encounter Visit Diagnoses Diagnosis Chronic low back pain Lumbago documented in this encounter Care Teams Clerical Secretary Relationship Specialty Start Date End Date Carleen Guillen APRN PCP - General 02/12/13 12/08/19 documented as of this encounter
--- OUTSIDE RECORDS SUMMARY | 2024-01-20 14:15 | XMS_ITS | Clinical Summary ---
Author Organization [facility] Address [facility] [place] [address] Care Team Providers Care Dining Service Worker Name Role Phone Peter Piña DNP Primary Care Provider [phone] Allergies Active Allergy Reactions Criticality Noted Date Comments Azithromycin Hives,Rash Clarithromycin Other (See Comments) 02/11/2013 Gi upset Cephalexin Hives Ciprofloxacin (Mixture) Hives,Rash Pregabalin Other (See Comments) 02/11/2013 mood Penicillins Anaphylaxis High Milnacipran 02/11/2013 Sulfa (Sulfonamide Antibiotics) Hives 09/21/2015 Sulfur 10/10/2011 Ketorolac Tromethamine Other (See Comments) 02/11/2013 Gi upset with oral administration only- she can tolerate injection Medications Medication Sig Dispensed Refills Start Date End Date Status lamoTRIgine (LAMICTAL XR) 50 mg TR24 Take 100 mg by mouth 3 times daily. Active cyclobenzaprine (FLEXERIL) 10 mg tablet Take 10 mg by mouth 2 times daily as needed. Active omeprazole (PRILOSEC) 40 mg capsule Take 40 mg by mouth daily. Active hydrOXYzine (ATARAX) 25 mg tablet Take 25 mg by mouth 3 times daily as needed. Active gabapentin (NEURONTIN) 800 mg tablet Take 800 mg by mouth 3 times daily. Active nicotine polacrilex (NICORETTE) 4 mg gum Take 2 mg by mouth as needed. Active albuterol (PROVENTIL HFA;VENTOLIN HFA) 90 mcg/actuation inhaler Inhale 2 puffs into the lungs every 4 hours as needed. Use with spacer Active DULoxetine (CYMBALTA) 60 mg capsule Take 60 mg by mouth 2 times daily. Active simvastatin (ZOCOR) 20 mg tablet Take 20 mg by mouth nightly. Active triamcinolone (NASACORT AQ) 55 mcg nasal inhaler 2 sprays by Nasal route daily. Active ERGOCALCIFEROL, VITAMIN D2, (VITAMIN D ORAL) Take 2,000 Units by mouth daily. Active budesonide-formoteroL (SYMBICORT) 160-4.5 mcg/actuation HFA Aerosol Inhaler Inhale 2 puffs into the lungs 2 times daily. Active ferrous sulfate 324 mg (65 mg iron) Tablet, Delayed Release (E.C.) Take 324 mg by mouth daily. Active potassium chloride 1.3 mEq/mL Liquid Take 1 mEq/kg/day by mouth daily. Active methadone HCl (METHADONE ORAL) Take 140 mg by mouth daily. Patient takes liquid form Active chlorthalidone (Hygroten) 25 mg Tablet Take 25 mg by mouth daily. Active levothyroxine (Synthroid) 25 mcg Tablet Take 25 mcg by mouth daily. Active mirtazapine (REMERON) 30 mg Tablet Take 60 mg by mouth nightly. Active Doxycycline Hyclate (PERIOSTAT) 100 mg Tablet, Delayed Release (E.C.) Take 100 mg by mouth 2 times daily. Active Active Problems Problem Noted Date Diagnosed Date Cholelithiasis 04/17/2013 Asthma 04/17/2013 IBS (irritable bowel syndrome) 04/17/2013 GERD (gastroesophageal reflux disease) 3 Migraine 04/17/2013 Anxiety 04/17/2013 Smoker 04/17/2013 Allergic rhinitis 04/17/2013 Depression 04/17/2013 Fibromyalgia 04/17/2013 Opiate dependence 04/17/2013 HLD (hyperlipidemia) 04/17/2013 HTN (hypertension) 04/17/2013 Chronic neck pain 02/11/2013 Chronic low back pain 02/11/2013 Bilateral arm pain 02/11/2013 Bilateral leg pain 02/11/2013 Immunizations Name Administration Dates Next Due Influenza Vaccine, Whole 06/06/2006 Family History Medical History Relation Comments Cancer Father Arthritis Mother Asthma Sister Alcohol Use Disorder Neg Hx Coronary Artery Disease Neg Hx Heart Disease Neg Hx Hypertension Neg Hx Substance Use Disorder Neg Hx Relation Status Comments Brother Alive Father Mother Alive Sister Alive Social History Tobacco Use Types Packs/Day Years Used Date Smoking Tobacco: Every Day Cigarettes 0.5 30 Smokeless Tobacco: Never Tobacco Cessation:Ready to Q uit: No; Counseling Given: Yes Comments:avs information given Alcohol Use Standard Drinks/Week Comments No 0 (1 standard drink = 0.6 oz pur e alcohol) denies h/o ETOH abuse Sex and Gender Information Value Date Recorded Sex Assigned at Not on file Gender Identity Not on file Sexual Orientation Not on file Last Filed Vital Signs Vital Sign Reading Time Taken Comments Blood Pressure 132/74 01/12/2020 2:04 PM EDT Pulse 81 01/12/2020 2:04 PM EDT Temperature 36.8 ??C (98.3 ??F) 01/12/2020 2:04 PM ED T Respiratory Rate - - Oxygen Saturation 95% 08/02/2014 1:13 PM EST Inhaled Oxygen Concentration - - Weight 65.8 kg (145 lb) 01/12/2020 2:04 PM EDT Height 152.4 cm (5') 01/12/2020 2:04 PM EDT Body Mass Index 28.32 01/12/2020 2:04 PM EDT Plan of Treatment Health Maintenance Due Date Last Done Comments CT Colonography 1968 Colonoscopy 1968 Colorectal Cancer Screening 1968 FIT DNA 1968 FIT 1968 Sigmoidoscopy (10 year) with FIT yearly 1968 Sigmoidoscopy 1968 HIV screen 1986 Hepatitis C Screening 1986 Hepatitis B vaccine (0-59 yrs) (1) 09/15/1987 Tdap adult 09/15/1987 Tetanus vaccine 09/15/1987 HPV test 1998 PAP Smear 1998 Breast Cancer Share Decision Needed 2008 Breast Cancer screening 2008 Zoster vaccine (1 of 2) 2018 Covid-19 Vaccine ( - season) 2023 Advance Directive 09/15/2023 Influenza (Flu) vaccine (1 o f 1 - Influenza standard series) 02/23/2024 06/06/2006 Care Teams Dining Service Worker Relationship Specialty Start Date End Date Peter Piña DNP PCP - General Family Medicine 12/09/19
--- OUTSIDE RECORDS SUMMARY | 2024-01-20 14:15 | XMS_ITS | Encounter Summary ---
Author Organization [facility] Address [facility] [place] [address] Care Team Providers Care Community Development Officer Name Role Phone Carleen Guillen APRN Primary Care Provider + Reason for Referral * Psychiatric (Routine) - Closed Specialty Diagnoses / Procedures Referred By Contac t Referred To Contact Psychiatry Diagnoses Opioid abuse Kris Bundy MD [facility] [place] [address] [address] [place] [address] Referral ID Status Reason Start Date Expiration Date V isits Requested Visits Authorized [id number] Closed Consult, Test & Treat 09/06/2015 09/05/2016 1 1 Encounter Details Date Type Department Care Team (Late st Contact Info) Description 09/06/2015 Orders Only [place] [address] Kris Bundy MD [facility] [place], [place] [id number] Opioid abuse Social History Tobacco Use Types Packs/Day Years [...] on file documented as of this encounter Progress Notes * Kris Bundy MD - 09/06/2015 1:47 PM EDT Seen at [facility] today. Needs addiction eval for cocaine, purchasing methadone from street. Ordered addiction evaluation. KRIS BUNDY MD documented in this encounter Plan of Treatment Scheduled Referrals Name Type Priority Associated Diagnoses Order Schedule Referral to Chemical Dependency Outpatient Referral Routine Opioid abuse Ordered: 09/06/2015 documented as of this encounter Visit Diagnoses Diagnosis Opioid abuse Opioid abuse, unspecified documented in this encounter Care Teams Community Development Officer Relationship Specialty Start Date End Date Carleen Guillen APRN PCP - General 02/12/13 12/08/19 documented as of this encounter
--- OUTSIDE RECORDS SUMMARY | 2024-01-20 14:15 | XMS_ITS | Encounter Summary ---
Author Organization [facility] [place] [address] Care Team Providers Care District Wire Chief Name Role Phone Peter Piña Nilepillo DNP Primary Care Provider Reason for Referral * Physical Therapy (Routine) - Closed Specialty Diagnoses / Procedures Referred By Contac t Referred To Contact Physical Therapy Diagnoses Sacroiliac dysfunction Left hip impingement syndrome Segmental and somatic dysfunction of lumbar region Chronic pain syndrome Malick Hastings MD [facility] [place] [address] Physical Therapy, [address] [address] Referral ID Status Reason Start Date Expiration Date V isits Requested Visits Authorized [id number] Closed Evaluate and Treat 01/28/2020 07/26/2020 12 12 Encounter Details Date Type Department Care Team (Late st Contact Info) Description 01/28/2020 Telephone [facility] [place] [address] Malick Hastings MD [facility] [place] [address] Social History Tobacco Use Types Packs/Day Years [...] encounter Miscellaneous Notes * Telephone Encounter - Malick Hastings MD - 01/28/2020 4:23 PM EDT Contacted patient to review pelvic and left hi radiographs. There is no significant degenerative change seen on the study. Patient is interested in pursuing PT treatment for hip pain with possible impingement, SI dysfunction and lumbopelvic segmental dysfunction. Rx will be faxed to [facility] in [place], [place]. documented in this encounter Plan of Treatment Scheduled Referrals Name Type Priority Associated Diagnoses Orde r Schedule Referral to Physical Therapy Outpatient Referral Routine Sacroiliac dysfunction Left hip impingement syndrome Segmental and somatic dysfunction of lumbar region Chronic pain syndrome Ordered: 01/28/2020 documented as of this encounter Visit Diagnoses Diagnosis Sacroiliac dysfunction Disorders of sacrum Left hip impingement syndrome Segmental and somatic dysfunction of lumbar region Nonallopathic lesion of lumbar region, not elsewhere classified Chronic pain syndrome documented in this encounter Care Teams District Wire Chief Relationship Specialty Start Date End Date Peter Piña DNP PCP - General Family Medicine 12/09/19 documented as of this encounter
--- OUTSIDE RECORDS SUMMARY | 2024-01-20 14:16 | XMS_ITS | Encounter Summary ---
Author Organization [facility] Address [address] [place] [address] Care Team Providers Care Sole Sewer Hand Name Role Phone Carleen Guillen NP Primary Care Provider [phone] Encounter Details Date Type Department Care Team (Late st Contact Info) Description 03/13/2017 Results Only [facility] [phone] Lili Ayala MD [address] [place] [address] [place] [address] Social History Tobacco Use Types Packs/Day Years Used Date Smoking Tobacco: Never Assessed Sex and Gender Information Value Date Recorded Sex Assigned at Not on file Gender Identity Not on file Sexual Orientation Not on file documented as of this encounter Plan of Treatment Not on file documented as of this encounter Procedures Procedure Name Priority Date/Time Associated Diagnosis Comments SURGICAL PATHOLOGY Routine 03/13/2017 9:37 EDT documented in this encounter Results * SURGICAL PATHOLOGY (03/13/2017 9:37 EDT) Pathology Report: SURGICAL PATHOLOGY REPORT Reports generated via electronic interface contain original data; however they are lacking the format of the original report. Caution should be taken when reading/interpret ing unformatted reports. Name: ? SAEID SINGH ? Accession #: ? [id number] ? : ? 1970 (Age: 46) ??F ? Collect Date: ? 03/13/2017 ? Location: ? [facility] ? Receive Date: ? 03/14/2017 ? Provider: LILI AYALA MD Copy to: LEAH REDDY WHEEL PRESS OPERATOR ? Final Pathologic Diagnosis: JOINT, OLECRANON, RIGHT, BURSA, EXCISION: - Bursal tissue with denuded synovium, mild chronic inflammation, reactive changes, and overlying fibrin. Document reviewed and electronically signed by: WOJCIECH GLOVER MD Report ??Date: 03/15/2017 16:31 By the signature above, the attending physician certifies that he/she has personally conducted a gross and/or microscopic examination of the described specimens and rendered or confirmed the above diagnosis. Specimen(s) Received: Right olecranon bursa Clinical History: Right olecranon bursa Gross Description: ? Received in formalin labelled with proper patient identification (initials V, K) and right olecranon bursa is a 5.2 x 4.3 x 2.8 cm camacho-yellow to pink fibromembranous cystic structure. The outer surface is inked black. Sectioning reveals a smooth lined cavity (4.5 cm in greatest dimension) filled with camacho-yellow to red-brown partially hemorrhagic, partially mucinous material. Skirt Clipper sections are submitted in 1. JUANITA Smith (ASCP) 03/14/2017 10:42 AM End of Report [facility] 03/13/2017 9:37 EDT 03/14/2017 9:37 EDT Lili Ayala MD PATHOLOGY ORDERABLES [facility] [address] [place] [address] documented in this encounter Visit Diagnoses Not on filedocumented in this encounter Care Teams Sole Sewer Hand Relationship Specialty Start Date End Date Carleen Guillen NP [address] [place] [address] [address] [place] [address] PCP - General 07/03/13 documented as of this encounter
--- OUTSIDE RECORDS SUMMARY | 2024-01-20 14:16 | XMS_ITS | Encounter Summary ---
Author Organization [facility] [place] [address] Care Team Providers Care Business Development Sales Executive Name Role Phone Cheyenne Victoria MD Primary Care Provider [phone] Encounter Details Date Type Department Care Team (Late st Contact Info) Description 12/30/2007 Orders [place] [address] Bo Blanca PA [facility] [place] [address] Social History Tobacco Use Types Packs/Day Years [...] FILM LIBRARY STORAGE ONLY DX SPINE Routine 12/30/2007 7:00 PM EDT documented in this encounter Results * Film Library- Storage only DX Spine (12/30/2007 7:00 PM EDT) 12/30/2007 7:00 PM EDT Narrative RAD - 02/17/2014 11:28 AM EDT This is a non-reportable exam. Procedure Note Max Wade - 02/17/2014 This is a non-reportable exam. [place] [facility] [place]D ERABLES RAD [address] [facility] [place] [address] documented in this encounter Visit Diagnoses Not on filedocumented in this encounter Care Teams Business Development Sales Executive Relationship Specialty Start Date End Date Cheyenne Victoria MD [address] [place] [address] PCP - General 05/16/10 02/11/13 documented as of this encounter
--- OUTSIDE RECORDS SUMMARY | 2024-01-20 14:16 | XMS_ITS | Encounter Summary ---
Author Organization [facility] Address [address] [place] [address] Care Team Providers Care Certified Orthoptist Name Role Phone Carleen Guillen NP Primary Care Provider [phone] Encounter Details Date Type Department Care Team (Latest Contact Info) Description 03/13/2017 16:27 EDT - 03/13/2017 23:59 EDT Hospital Encounter [address] [address] Unknown, Provider, Discharge Disposition: Home or Self Care Social History Tobacco Use Types Packs/Day Years Used Date Smoking Tobacco: Never Assessed Sex and Gender Information Value Date Recorded Sex Assigned at Not on file Gender Identity Not on file Sexual Orientation Not on file documented as of this encounter Discharge Disposition Disposition Code Departure Means Destination Home or Self Mcfp documented in this encounter Plan of Treatment Not on file documented as of this encounter Visit Diagnoses Not on filedocumented in this encounter Care Teams Certified Orthoptist Relationship Specialty Start Date End Date Carleen Guillen NP [address] [place] [address] [address] [place] [address] PCP - General 07/03/13 documented as of this encounter
--- OUTSIDE RECORDS SUMMARY | 2024-01-20 14:16 | XMS_ITS | Encounter Summary ---
Author Organization [facility] Address [address] [place] [address] Care Team Providers Care Wire Saw Operator Name Role Phone Carleen Guillen NP Primary Care Provider [phone] Encounter Details Date Type Department Care Team (Latest Contact Info) Description 09/23/2018 18:48 EDT - 09/23/2018 23:59 EDT Hospital Encounter [address] [address] Unknown, Provider, Discharge Disposition: Home or Self Care Social History Tobacco Use Types Packs/Day Years Used Date Smoking Tobacco: Never Assessed Sex and Gender Information Value Date Recorded Sex Assigned at Not on file Gender Identity Not on file Sexual Orientation Not on file documented as of this encounter Discharge Disposition Disposition Code Departure Means Destination Home or Self Custodial documented in this encounter Plan of Treatment Not on file documented as of this encounter Visit Diagnoses Not on filedocumented in this encounter Care Teams Wire Saw Operator Relationship Specialty Start Date End Date Carleen Guillen NP [address] [place] [address] [address] [place] [address] PCP - General 07/03/13 documented as of this encounter
--- OUTSIDE RECORDS SUMMARY | 2024-01-20 14:16 | XMS_ITS | Encounter Summary ---
Author Organization [facility] Address [address] [place] [address] Care Team Providers Care Water Valve Mechanic Name Role Phone Carleen Guillen NP Primary Care Provider [phone] Encounter Details Date Type Department Care Team (Late st Contact Info) Description 11/09/2019 Lab Requisition [facility] Pathology & Laboratory Medicine - [facility] [address] [place] [address] Outr Resulting Lab, Provider Social History Tobacco Use Types Packs/Day Years Used Date Smoking Tobacco: Never Assessed Sex and Gender Information Value Date Recorded Sex Assigned at Not on file Gender Identity Not on file Sexual Orientation Not on file documented as of this encounter Plan of Treatment Not on file documented as of this encounter Procedures Procedure Name Priority Date/Time Associated Diagnosis Comments DO NOT ORDER STANDALONE - BROAD COVID TEST Today 11/09/2019 14:05 EDT COVID-19 TESTING Routine 11/09/2019 14:0 5 EDT documented in this encounter Results * DO NOT ORDER STANDALONE - BROAD COVID TEST (11/09/2019 14:05 EDT) COVID-19 rt-PCR Result NEGATIVE Negative 11/10/2019 14:20 EDT [facility] Comment: 2019-novel Coronavirus (2019-nCoV) not detected by the qRT-PCR assay. Consider testing for other respiratory viruses or re-collecting for 2019-nCoV testing. Note: Optimum timing for peak viral levels during infections caused by 2019-nCoV have not been determined. Collection of multiple specimens from the same patient may be necessary to detect the virus. Limitations Positive results are indicative of active infection with SARS-CoV-2 but do not rule out bacterial infection or co-infection with other viruses. The agent detected may not be the definite cause of disease. In addition, detection of viral RNA may not indicate the presence of infectious virus or that SARS-CoV-2 is the causative agent for clinical symptoms. Negative results do not preclude SARS-CoV-2 infection and should not be used as the sole basis for patient management decisions. Negative results must be combined with clinical observations, patient history, and epidemiological information. False negative results may also occur if amplification inhibitors are present in the specimen or if inadequate numbers of organisms are present in the specimen. Optimum specimen types and timing for peak viral levels during infections caused by SARS-CoV-2 have not been fully determined. Collection of multiple specimens (types and time points) from the same patient may be necessary to detect the virus. The test was validated for use with upper respiratory specimens obtained via nasopharyngeal or oropharyngeal swabs in VTM, UTM, M4, M5, M6, saline, and MTM media. The performance of this test has not been established for other specimens. Specimens collected using other FDA recommended Specimen Collection Materials listed in the FDA COVID-19 [employer] communication (September 17, 2019) are processed with the caveat that they were not all validated for use with this test and the result must be interpreted in this context. Furthermore, a false negative results may occur if a specimen is improperly collected, transported or handled. If the virus mutates in the RT-PCR target region, SARS-CoV-2 may not be detected or may be detected less predictably. Inhibitors or other types of interference may produce a false negative result. An interference study evaluating the effect of common cold medications was not performed. This test is not FDA-cleared but its performance characteristics were established by our CLIA-certified, CAP-accredited, high complexity laboratory in accordance with CLIA regulations, [employer] (CAP) guidelines (Sep 10, 2019), and FDA guidance (Aug 22, 2019). This test is only for use under the Food and Drug Administration's Emergency Use Authorization. Swab ENTIRE NASOPHARYNX / Unknown 11/09/2019 14:05 EDT 11/09/2019 20:49 EDT Provider Outr Resulting Lab MICROBIOLOGY - GENERAL ORDERABLES [facility] [place], [place] * COVID-19 TESTING (11/09/2019 14:05 EDT) COVID-19 rt-PCR Result NEGATIVE Negative 11/10/2019 18:01 EDT [facility] Comment: 2019-novel Coronavirus (2019-nCoV) not detected by the qRT-PCR assay. Consider testing for other respiratory viruses or re-collecting for 2019-nCoV testing. Note: Optimum timing for peak viral levels during infections caused by 2019-nCoV have not been determined. Collection of multiple specimens from the same patient may be necessary to detect the virus. Limitations Positive results are indicative of active infection with SARS-CoV-2 but do not rule out bacterial infection or co-infection with other viruses. The agent detected may not be the definite cause of disease. In addition, detection of viral RNA may not indicate the presence of infectious virus or that SARS-CoV-2 is the causative agent for clinical symptoms. Negative results do not preclude SARS-CoV-2 infection and should not be used as the sole basis for patient management decisions. Negative results must be combined with clinical observations, patient history, and epidemiological information. False negative results may also occur if amplification inhibitors are present in the specimen or if inadequate numbers of organisms are present in the specimen. Optimum specimen types and timing for peak viral levels during infections caused by SARS-CoV-2 have not been fully determined. Collection of multiple specimens (types and time points) from the same patient may be necessary to detect the virus. The test was validated for use with upper respiratory specimens obtained via nasopharyngeal or oropharyngeal swabs in VTM, UTM, M4, M5, M6, saline, and MTM media. The performance of this test has not been established for other specimens. Specimens collected using other FDA recommended Specimen Collection Materials listed in the FDA COVID-19 [employer] communication (September 17, 2019) are processed with the caveat that they were not all validated for use with this test and the result must be interpreted in this context. Furthermore, a false negative results may occur if a specimen is improperly collected, transported or handled. If the virus mutates in the RT-PCR target region, SARS-CoV-2 may not be detected or may be detected less predictably. Inhibitors or other types of interference may produce a false negative result. An interference study evaluating the effect of common cold medications was not performed. This test is not FDA-cleared but its performance characteristics were established by our CLIA-certified, CAP-accredited, high complexity laboratory in accordance with CLIA regulations, [employer] [place] [employer] (CAP) guidelines (Sep 10, 2019), and FDA guidance (Aug 22, 2019). This test is only for use under the Food and Drug Administration's Emergency Use Authorization. Performing Lab [facility] 11/10/2019 18:01 EDT [facility] Swab ENTIRE NASOPHARYNX / Unknown 11/09/2019 14:05 EDT 11/09/2019 20:49 EDT Provider Outr Resulting Lab MICROBIOLOGY - GENERAL ORDERABLES [facility] [address] [place] [address] [facility] [place], [place] documented in this encounter Visit Diagnoses Not on filedocumented in this encounter Care Teams Water Valve Mechanic Relationship Specialty Start Date End Date Carleen Guillen NP [address] [place] [address] [address] [place] [address] PCP - General 07/03/13 documented as of this encounter
--- OUTSIDE RECORDS SUMMARY | 2024-01-20 14:16 | XMS_ITS | Encounter Summary ---
Author Organization [facility] Address [facility] [place] [address] Care Team Providers Care Publications Production Supervisor Name Role Phone Carleen Guillen APRN Primary Care Provider + Encounter Details Date Type Department Care Team (Late st Contact Info) Description 02/11/2013 External Results XRay at [address] [place] [address] Provider, Scanning Social History Tobacco Use Types Packs/Day Years Used Date Smoking Tobacco: Every Day Cigarettes 0.5 30 Sex and Gender Information Value Date Recorded Sex Assigned at Not on file Gender Identity Not on file Sexual Orientation Not on file documented as of this encounter Plan of Treatment Not on file documented as of this encounter Procedures Procedure Name Priority Date/Time Associated Diagnosis Comments DIAGNOSTIC RADIOLOGY SCAN Routine 01/01/2013 DIAGNOSTIC RADIOLOGY SCAN Routine 12/30/2007 documented in this encounter Results * Scan Doc: Diagnostic Radiology (01/01/2013) Anatomical Region Laterality Modality Other Scanning Provider MEDIA MGR SCAN EXT O RDR/RSLT * Scan Doc: Diagnostic Radiology (12/30/2007) Anatomical Region Laterality Modality Other Scanning Provider MEDIA MGR SCAN EXT O RDR/RSLT documented in this encounter Visit Diagnoses Not on filedocumented in this encounter Care Teams Publications Production Supervisor Relationship Specialty Start Date End Date Carleen Guillen APRN PCP - General 02/12/13 12/08/19 documented as of this encounter
--- OUTSIDE RECORDS SUMMARY | 2024-01-20 14:16 | XMS_ITS | Encounter Summary ---
Author Organization [facility] Address [address] [place] [address] Care Team Providers Care Forms Analysis Manager Name Role Phone Unavailable Primary Care Provider Unavailabl e Encounter Details Date Type Department Care Team (Late st Contact Info) Description 06/30/2013 Results Only [facility] Laboratory Services - [facility] [place] [address] [place], [place] [address] Yang Hyatt, DO [address] [facility] [address] [place] [address] Social History Tobacco Use Types Packs/Day Years Used Date Smoking Tobacco: Never Assessed Sex and Gender Information Value Date Recorded Sex Assigned at Not on file Gender Identity Not on file Sexual Orientation Not on file documented as of this encounter Plan of Treatment Not on file documented as of this encounter Procedures Procedure Name Priority Date/Time Associated Diagnosis Comments SURGICAL PATHOLOGY Routine 06/30/2013 8:31 EST documented in this encounter Results * SURGICAL PATHOLOGY (06/30/2013 8:31 EST) Pathology Report: SURGICAL PATHOLOGY REPORT Reports generated via electronic interface contain original data; however they are lacking the format of the original report. Caution should be taken when reading/interpreti ng unformatted reports. Name: ? SAEID SINGH ? Accession #: ? [id number] ? : ? 1970 (Age: 42) ??F ? Collect Date: ? 06/30/2013 ? Location: ? [facility] ? Receive Date: ? 07/01/2013 ? Provider: YANG HYATT DO Copy to: SAVANAH FREEDMAN WEIGHT YARDAGE CHECKER ? Final Pathologic Diagnosis: GALLBLADDER, CHOLECYSTECTOMY: - ??Chronic cholecystitis and cholelithiasis. - ??One benign reactive lymph node. Document reviewed and electronically signed by: ROMEL CERDA MD Report ??Date: 07/03/2013 11:15 By the signature above, the attending physician certifies that he/she has personally conducted a gross and/or microscopic examination of the described specimens and rendered or confirmed the above diagnosis. Specimen(s) Received: Gallbladder Clinical History: Biliary colic Gross Description: ? Received in formalin labelled with proper patient identification (initials V, K) and gallbladder is a partially opened gallbladder (8.5 cm in length and 2.5 cm in diameter) with an attached segment of cystic duct (0.8 cm in length x 0.3 cm in diameter). A dark red cystic duct lymph node (0.7 x 0.4 x 0.3 cm) is present. ? The serosa is generally smooth and glistening. The mucosa is dark green and velvety and the wall is 0.2 cm in thickness. The cystic duct lumen is patent. The cystic duct margin is inked black. Multiple black mixed choleliths are present measuring 1.5 x 0.8 x 0.4 cm in aggregate. ? Two veterans service representative sections, the inked en face cystic duct margin, and the cystic duct lymph node are submitted in block 1. Claire Diaz 07/01/2013 11:36 AM End of Report LUCAS ABRAMS 06/30/2013 8:31 EST 07/01/2013 8:31 EST Yang Hyatt DO PATHOLOGY ORDER NELSY LUCAS COUNT INCLUDES THE [facility] [address] [place] [address] documented in this encounter Visit Diagnoses Not on filedocumented in this encounter
--- OUTSIDE RECORDS SUMMARY | 2024-01-20 14:16 | XMS_ITS | Encounter Summary ---
Author Organization [facility] Address [address] [place] [address] Care Team Providers Care Rn Wound Name Role Phone Carleen Guillen NP Primary Care Provider [phone] Encounter Details Date Type Department Care Team (Late st Contact Info) Description 09/23/2018 Results Only [facility]- [facility] [phone] Hiral Lion, DO [address] [facility] [address] [place] [address] Social History Tobacco Use Types [...] Date/Time Associated Diagnosis Comments SURGICAL PATHOLOGY Routine 09/23/2018 11 :22 EDT SURGICAL PATHOLOGY Routine 09/23/2018 11 :11 EDT documented in this encounter Results * SURGICAL PATHOLOGY (09/23/2018 11:22 EDT) Pathology Report: SURGICAL PATHOLOGY REPORT Reports generated via electronic interface contain original data; however they are lacking the format of the original report. Caution should be taken when reading/interpret ing unformatted reports. Name: ? SAEID SINGH ? Accession #: ? [id number] ? : ? 1970 (Age: 48) ??F ? Collect Date: ? 09/23/2018 ? Location: ? [facility] ? Receive Date: ? 09/23/2018 ? Provider: DANELLE LEAVITT MD Copy to: LEAH REDDY POTATO CHIP SACKING MACHINE OPERATOR ? Final Pathologic Diagnosis: STOMACH, ANTRUM, BIOPSY: - Reactive antral and oxyntic mucosa with reactive gastropathy. - No evidence of Helicobacter pylori on H&E. Document reviewed and electronically signed by: MICHELLE JANG MD Report ??Date: 09/26/2018 09:46 By the signature above, the attending physician certifies that he/she has personally conducted a gross and/or microscopic examination of the described specimens and rendered or confirmed the above diagnosis. Specimen(s) Received: Antrum bx Clinical History: Chronic anemia, R/O H. pylori Gross Description: ? Received in formalin labelled with proper patient identification (initials V, K) and BX antrum r/o H. pylori are two pink-camacho tissues (0.2 x 0.2 x 0.2 cm and 0.2 x 0.2 x 0.2 cm). Entirely submitted in 1. JUANITA Alexander (ASCP) 09/24/2018 11:41 AM End of Report [facility] 09/23/2018 11:2 2 EDT 09/23/2018 11:22 EDT Danelle Leavitt MD PATHOLOGY ORDERA SHANIQUA [facility] [address] [place] [address] * SURGICAL PATHOLOGY (09/23/2018 11:11 EDT) Pathology Report: SURGICAL PATHOLOGY REPORT Reports generated via electronic interface contain original data; however they are lacking the format of the original report. Caution should be taken when reading/interpret ing unformatted reports. Name: ? SAEID SINGH ? Accession #: ? [id number] ? : ? 1970 (Age: 48) ??F ? Collect Date: ? 09/23/2018 ? Location: ? [facility] ? Receive Date: ? 09/23/2018 ? Provider: HIRAL LION DO Copy to: LEAH REDDY APRN ? Final Pathologic Diagnosis: A. RECTUM, POLYP, BIOPSY: - Fragments of hyperplastic polyp with mucosal prolapse. B. COLON, SIGMOID, BIOPSY: - Colonic mucosa with ischemic features and hyperplastic change. ?? Document reviewed and electronically signed by: MICHELLE JANG MD Report ??Date: 09/26/2018 09:57 By the signature above, the attending physician certifies that he/she has personally conducted a gross and/or microscopic examination of the described specimens and rendered or confirmed the above diagnosis. Specimen(s) Received: A. ??Rectal polyp B. ??Sigmoid bx Clinical History: Chronic anemia Gross Description: A. ?Received in formalin labelled with proper patient identification (initials V, K) and polyp were is a single pink-camacho tissue fragment (0.2 x 0.2 x 0.2 cm). Submitted intact in A1. B. ?Received in formalin labelled with proper patient identification (initials V, K) and sigmoid BX is a single pink-camacho tissue fragment (0.3 x 0.2 x 0.2 cm). Submitted intact in B1. JUANITA Alexander (ASCP) 09/24/2018 11:43 AM End of Report [facility] 09/23/2018 11:1 1 EDT 09/23/2018 11:11 EDT Hiral Lion DO PATHOLOGY ORDERABLES [facility] [address] [place] [address] documented in this encounter Visit Diagnoses Not on filedocumented in this encounter Care Teams Rn Wound Relationship Specialty Start Date End Date Carleen Guillen NP [address] [place] [address] [address] [place] [address] PCP - General 07/03/13 documented as of this encounter
--- OUTSIDE RECORDS SUMMARY | 2024-01-20 14:16 | XMS_ITS | Encounter Summary ---
Author Organization [facility] [place] [address] Care Team Providers Care Compliance Review Officer Name Role Phone Peter Piña DNP Primary Care Provider [phone] Encounter Details Date Type Department Care Team (Late st Contact Info) Description 02/07/2006 Orders Only [place] [address] Bulmaro Santiago MD [facility] [place] [address] Social History Tobacco Use Types Packs/Day Years Used Date Smoking Tobacco: Never Assessed Sex and Gender Information Value Date Recorded Sex Assigned at Not on file Gender Identity Not on file Sexual Orientation Not on file documented as of this encounter Plan of Treatment Not on file documented as of this encounter Procedures Procedure Name Priority Date/Time Associated Diagnosis Comments SURGICAL PATHOLOGY REPORT Routine 02/07/2006 5:53 PM EDT documented in this encounter Results * Surgical Pathology Report (02/07/2006 5:53 PM EDT) Surgical Pathology Report [id number] ? Location: 3T; [facility]; A The signing pathologist has (i) examined the relevant preparation(s) for the specimen(s) and (ii) rendered or confirmed the diagnosis(es). . ?Pathology Surgical Pathology Final Report Clinical Information Specimen Submitted: A - L5-S1 disc Clinical Diagnosis: L4-5, L5-S1 DDD/spondylolis thesis Gross Description Labeled/Fixativ e: ? L5-S1 disc, formalin. Quantity/Size: ?Multiple, 5.0 x 4.0 x 3.0 cm. Tissue Description: ?? Dense, beckett-white, friable fragments. Sections/Proces sing: ??No sections are submitted. ??aje/EJR Diagnosis Intervertebral disc, L5-S1. ?? Gross surgical pathology examination. CR-0 02/11/06 AJE 02/11/06 Verified by: ? Antelmo Michelle MD ?Pathologist ?(Electronic Signature) The attending pathologist whose signature appears on this report has reviewed all diagnostic slides and has edited the gross and/or microscopic portion of the report in rendering the final pathologic diagnosis. JOSE CURRIE 02/07/2006 5:53 PM EDT Bulmaro Santiago MD PATHOLOGY/CYTOLOGY O RDERABLES [facility] documented in this encounter Visit Diagnoses Not on filedocumented in this encounter Care Teams Compliance Review Officer Relationship Specialty Start Date End Date Peter Piña DNP PCP - General Family Medicine 12/09/19 documented as of this encounter
--- OUTSIDE RECORDS SUMMARY | 2024-01-20 14:16 | XMS_ITS | Encounter Summary ---
Author Organization [facility] Address [address] [place] [address] Care Team Providers Care School Bus Inspector Name Role Phone Unavailable Primary Care Provider Unavailabl e Encounter Details Date Type Department Care Team (Latest Contact Info) Description 06/30/2013 13:33 EST - 06/30/2013 23:59 EST Hospital Encounter [address] [address] Unknown, Provider, Discharge Disposition: Home or Self Care Social History Tobacco Use Types Packs/Day Years Used Date Smoking Tobacco: Never Assessed Sex and Gender Information Value Date Recorded Sex Assigned at Not on file Gender Identity Not on file Sexual Orientation Not on file documented as of this encounter Discharge Disposition Disposition Code Departure Means Destination Home or Self [facility]it[facility] documented in this encounter Plan of Treatment Not on file documented as of this encounter Visit Diagnoses Not on filedocumented in this encounter
--- OUTSIDE RECORDS SUMMARY | 2024-01-20 14:16 | XMS_ITS | Encounter Summary ---
[place] [address] Care Team Providers Care Floor Worker [place] Name Role Phone Carleen Guillen APRN Primary Care Provider + Encounter Details Date Type Department Care Team (Late st Contact Info) Description 02/13/2013 External Results [place] [address] Klaudia Andrew, RON Social History Tobacco Use Types Packs/Day Years [...] Name Priority Date/Time Associated Diagnosis Comments XR GENERIC TOTAL SPINE XRAY Routine 01/01/2013 documented in this encounter Results * *XR generic Total Spine Xray (01/01/2013) Anatomical Region Laterality Modality C-spine, T-spine, L-spine N/A Radiog raphic Imaging Historical Provider MD ALLEN DX ORDERABLES documented in this encounter Visit Diagnoses Not on filedocumented in this encounter Care Teams Floor Worker [place] Relationship Specialty Start Date End Date Carleen Guillen APRN PCP - General 02/12/13 12/08/19 documented as of this encounter
--- OUTSIDE RECORDS SUMMARY | 2024-01-20 14:16 | XMS_ITS | Encounter Summary ---
[place] [address] Care Team Providers Care National Sales Associate Name Role Phone Carleen Guillen APRN Primary Care Provider + Encounter Details Date Type Department Care Team (Latest Contact Info) Description 03/10/2013 10:23 AM EDT - 03/10/2013 11:59 PM EDT Hospital [place] [address] Chronic neck pain; Chronic low back pain; Bilateral arm pain; Bilateral leg pain Social History Tobacco Use Types Packs/Day Years Used Date Smoking Tobacco: Every Day Cigarettes 0.5 30 Smokeless Tobacco: Never Comments:avs information giv en Sex and Gender Information Value Date Recorded Sex Assigned at Not on file Gender Identity Not on file Sexual Orientation Not on file documented as of this encounter Medications at Time of Discharge Medication Sig Dispensed Refills Start Date End Date DULoxetine (CYMBALTA) 60 mg capsule Take 60 [...] daily. 01/12/2020 documented as of this encounter Miscellaneous Notes * Miscellaneous - Provider, Scanning - 03/26/2013 9:47 AM EDT documented in this encounter Plan of Treatment Not on file documented as of this encounter Procedures Procedure Name Priority Date/Time Associated Diagnosis Comments MRI CERVICAL SPINE WO CONTRAST Routine 03/10/2013 12:20 PM EDT Chronic neck pain Chronic low back pain Bilateral arm pain Bilateral leg pain documented in this encounter Results * MRI cervical spine WO contrast (03/10/2013 12:20 PM EDT) Anatomical Region Laterality Modality C-spine Magnetic Resonan ce 03/10/2013 12:2 0 PM EDT Narrative 03/10/2013 4:38 PM EDT Examination MR cervical spinewithout contrast ?? MR Lumbar Spine W/WO Nima Clinical History low back pain with reported chronic bilateral leg pain ?? s/p L5-S1 Bernardo procedure with instrumented fusion L4-S1 and L5-S1 interbody fusion ?? r/o herniated nucleus pulposus/stenosis/adjecent segment degeneration Technique Routine multiplanar MRI of the cervical spine performed without the use of intravenous contrast. ??MRI of the lumbar spine was performed before and after administration of 14 mL Magnevist IV contrast without complication. Comparison MRI of the cervical lumbar spine from 10/18/2006. Findings Cervical spine: There is straightening of the cervical spine on a degenerative basis. ??No significant bone marrow signal abnormality is identified. The central canal is prominent at the level of C1, measuring less than 2 mm. Spinal cord signal is normal otherwise. The posterior fossa in is unremarkable. ?? Cervical spine by level: ?? C2-C3: No central canal stenosis or neuroforaminal narrowing. ?? C3-C4: No central canal stenosis or neural foraminal narrowing. ?? C4-C5: Right paracentral disc /osteophyte causing mild right neural foraminal narrowing, and mild central canal narrowing on the right. . ?? C5-C6: A central disc osteophyte indents the ventral thecal sac, and slightly alters the ventral contour of the cord producing mild central canal stenosis and no significant neuroforaminal narrowing. ?? Lumbar spine: ??The patient is status post transpedicular screw fixation of the L4, L5, and S1 vertebral bodies. ??There is metal artifact surrounding the metallic screw and a similar degree of grade 1 L5 on S1 anterolisthesis is seen. ??Alignment of the lumbar spine is otherwise normal. ??The conus terminates at L1-L2 as before. ??Bone marrow signal is normal throughout. ??There is normal disc signal from T12-L4 and [...] neural foraminal narrowing. No central canal stenosis. ?? L4-L5: Unchanged posterior disc bulge with annular tear producing mild bilateral neural foraminal narrowing and no significant central canal stenosis. L5-S1: Post surgical changes with intervertebral disc space material. ??No significant central canal stenosis or foraminal narrowing. Impression ? 1. Mild degenerative changes of the cervical spine, similar to the prior. Unchanged prominent central canal of the cord at the C1 level. ? 2. Postsurgical changes and moderate degenerative changes of the lower lumbar spine as detailed above are stable Comment: The following findings are so common in people without low back pain that while we report their presence, they must be interpreted with caution and in the context of the clinical situation. (Reference-Owenk et al, Spine 2001) Findings: (prevalence in patients without low back pain), Disk degeneration (decreased T2 signal, height loss, bulge) (91%), Disk T2-signal loss (83%), Disk height loss (56%), Disk bulge (64%), Disk protrusion (32%), Annular fissure (38%). Film and interpretation reviewed by the attending Procedure Note Kris Jones MD - 03/10/2013 Examination MR cervical spinewithout contrast MR Lumbar Spine W/WO Nima Clinical History low back pain with reported chronic bilateral leg pain s/p L5-S1 Bernardo procedure with instrumented fusion L4-S1 and L5-S1 interbody fusion r/o herniated nucleus pulposus/stenosis/adjecent segment degeneration Technique Routine multiplanar MRI of the cervical spine performed without the use of intravenous contrast. MRI of the lumbar spine was performed before andafter administration of 14 mL Magnevist IV contrast without complication. Comparison MRI of the cervical lumbar spine from 10/18/2006. Findings Cervical spine: There is straightening of the cervical spine on adegenerative basis. No significant bone marrow signal abnormality is identified. The central canal is prominent at the level of C1, measuring less than 2 mm.Spinal cord signal is normal otherwise. The posterior fossa in is unremarkable. Cervical spine by level: C2-C3: No central canal stenosis or neuroforaminal narrowing. C3-C4: No central canal stenosis or neural foraminal narrowing. C4-C5: Right paracentral disc /osteophyte causing mild right neuralforaminal narrowing, and mild central canal narrowing on the right. . C5-C6: A central disc osteophyte indents the ventral thecal sac, andslightly alters the ventral contour of the cord producing mild central canalstenosis and no significant neuroforaminal narrowing. Lumbar spine: The patient is status post transpedicular screw fixation ofthe L4, L5, and S1 vertebral bodies. There is metal artifact surrounding the metallic screw and a similar degree of grade 1 L5 on S1 anterolisthesis is seen. Alignment of the lumbar spine is otherwise normal. The conusterminates at L1-L2 as before. Bone marrow signal is normal throughout. There isnormal disc signal from T12-L4 and there is [...] disc bulge and moderate facet arthropathy producing mildbilateral neural foraminal narrowing. No central canal stenosis. L4-L5: Unchanged posterior disc bulge with annular tear producing mild bilateral neural foraminal narrowing and no significant central canalstenosis. L5-S1: Post surgical changes with intervertebral disc space material. No significant central canal stenosis or foraminal narrowing. Impression 1. Mild degenerative changes of the cervical spine, similar to theprior. Unchanged prominent central canal of the cord at the C1 level. 2. Postsurgical changes and moderate degenerative changes of thelower lumbar spine as detailed above are stable Comment: The following findings are so common in people without low backpain that while we report their presence, they must be interpreted with cautionand in the context of the clinical situation. (Reference-Tomvik et al, [id number]) Findings: (prevalence in patients without low back pain), Diskdegeneration (decreased T2 signal, height loss, bulge) (91%), Disk T2-signal loss(83%), Disk height loss (56%), Disk bulge (64%), Disk protrusion (32%), Annular fissure (38%). Film and interpretation reviewed by the attending Anthony Adkins MD IMG MRI ORDERABLES documented in this encounter Visit Diagnoses Diagnosis Chronic neck pain Cervicalgia Chronic low back pain Lumbago Bilateral arm pain Pain in limb Bilateral leg pain Pain in limb documented in this encounter Administered Medications Inactive Administered Medications - up to 3 most recent administrations Medication Order MAR Action Action Date Dose Rate Site gadopentetate dimeglumine (MAGNEVIST) injection 0.2 mL/kg 0.2 mL/kg/dose, Intravenous, ONCE PRN, Per Protocol, Starting on Sat03/10/13 at 1203, 1 dose, Until Sat03/10/13 at 1204 Given 03/10/2013 12:04 PM EDT 14 mLs documented in this encounter Care Teams National Sales Associate Relationship Specialty Start Date End Date Carleen Guillen APRN PCP - General 02/12/13 12/08/19 documented as of this encounter
--- OUTSIDE RECORDS SUMMARY | 2024-01-20 14:16 | XMS_ITS | Encounter Summary ---
Author Organization [facility] Address [address] [place] [address] Care Team Providers Care X Ray Examiner Of Aircraft Name Role Phone Carleen Guillen NP Primary Care Provider [phone] Encounter Details Date Type Department Care Team (Late st Contact Info) Description 06/02/2020 Lab Requisition [facility] Pathology & Laboratory Medicine - [address] [address] Outr Resulting Lab, Provider Social History Tobacco Use Types Packs/Day Years Used Date Smoking Tobacco: Never Assessed Interpersonal Safety Answer Date Record ed Physically Hurt Never 01/24/2020 Verbally Threaten Not on file 01/24/2020 Sex and Gender Information Value Date Recorded Sex Assigned at Not on file Gender Identity Not on file Sexual Orientation Not on file documented as of this encounter Plan of Treatment Not on file documented as of this encounter Procedures Procedure Name Priority Date/Time Associated Diagnosis Comments DO NOT ORDER STANDALONE - BROAD COVID TEST Today 06/01/2020 13:50 EST COVID-19 TESTING Routine 06/01/2020 13:5 0 EST documented in this encounter Results * DO NOT ORDER STANDALONE - BROAD COVID TEST (06/01/2020 13:50 EST) COVID-19 rt-PCR Result NEGATIVE Negative 06/04/2020 8:37 EST [facility] Comment: 2019-novel Coronavirus (2019-nCoV) not [...] in accordance with CLIA regulations, College of [employer] (CAP) guidelines (Sep 10, 2019), and FDA guidance (Aug 22, 2019). This test is only for use under the Food and Drug Administration's Emergency Use Authorization. Swab ENTIRE NASOPHARYNX / Unknown 06/01/2020 13:50 EST 06/02/2020 15:59 EST Provider Outr Resulting Lab MICROBIOLOGY - GENERAL ORDERABLES [facility] * COVID-19 TESTING (06/01/2020 13:50 EST) COVID-19 rt-PCR Result NEGATIVE Negative 06/04/2020 9:55 EST [facility] Comment: 2019-novel Coronavirus (2019-nCoV) not detected [...] in accordance with CLIA regulations, College of [employer] (CAP) guidelines (Sep 10, 2019), and FDA guidance (Aug 22, 2019). This test is only for use under the Food and Drug Administration's Emergency Use Authorization. Performing Lab [facility] 06/04/2020 9:55 EST [facility] Swab 06/01/2020 13:5 0 EST 06/02/2020 15:59 EST Provider Outr Resulting Lab MICROBIOLOGY - GENERAL ORDERABLES [facility] [address] [place] [address] [facility] [place] documented in this encounter Visit Diagnoses Not on filedocumented in this encounter Care Teams X Ray Examiner Of Aircraft Relationship Specialty Start Date End Date Carleen Guillen NP [address] [place] [address] PCP - General 07/03/13 documented as of this encounter
--- OUTSIDE RECORDS SUMMARY | 2024-01-20 14:16 | XMS_ITS | Encounter Summary ---
Author Organization [facility] Address [address] [place] [address] Care Team Providers Care Technology Applications Teacher Name Role Phone Carleen Guillen NP Primary Care Provider [phone] Encounter Details Date Type Department Care Team (Late st Contact Info) Description 09/09/2019 Lab Requisition [facility] Pathology & Laboratory Medicine - [address] [address] Unknown, Provider, Social History Tobacco Use Types Packs/Day Years Used Date Smoking Tobacco: Never Assessed Sex and Gender Information Value Date Recorded Sex Assigned at Not on file Gender Identity Not on file Sexual Orientation Not on file documented as of this encounter Plan of Treatment Not on file documented as of this encounter Procedures Procedure Name Priority Date/Time Associated Diagnosis Comments CELIAC DISEASE PANEL Routine 09/08/2019 19:03 EDT documented in this encounter Results * CELIAC DISEASE PANEL (09/08/2019 19:03 EDT) Tissue Transglutaminase Antibody IGA <1.2 <4.0 U/mL 09/11/2019 12:15 EDT [facility] Comment: A negative result may be due to IgA deficiency and does not rule out celiac disease. ? Negative: ??<4.0 U/mL ? Weak Positive: ??4.0 - 10.0 U/mL ? Positive: ??>10.0 U/mL Results were obtained with the [employer] QU[employer] Lite R h-tTG IgA ZION assay on the [employer] DSX. IgA 281 85 - 499 mg/dL 09/11/2019 12:15 EDT [facility] Celiac Disease Interpretation Negative Serology. Celiac disease unlikely. Approximately 10% of patients with celiac disease are seronegative. Patients who are already adhering to a gluten-free diet may also be seronegative. If celiac disease is highly clinically suspected, referral to gastroenterology for additional evaluation is recommended. 09/11/2019 12:15 EDT [facility] Blood VENOUS BLOOD / Unknown 09/08/2019 19:03 EDT 09/09/2019 15:38 EDT Provider Unknown IMMUNOLOGY AND SEROL KAVITHA ORDERABLES [facility] [address] [place] [address] documented in this encounter Visit Diagnoses Not on filedocumented in this encounter Care Teams Technology Applications Teacher Relationship Specialty Start Date End Date Carleen Guillen NP [address] [place] [address] [address] [place] [address] PCP - General 07/03/13 documented as of this encounter
--- OUTSIDE RECORDS SUMMARY | 2024-01-20 14:16 | XMS_ITS | Encounter Summary ---
Author Organization Formerly [facility] [place] [address] Care Team Providers Care Armored Car Guard And Driver Name Role Phone Carleen Guillen APRN Primary Care Provider + Reason for Visit * Reason Comments Other follow up to mri Low Back Pain Neck Pain with right arm pain Bilateral Leg Pain Encounter Details Date Type Department Care Team (Late st Contact Info) Description 03/10/2013 2:20 PM EDT [place] [address] CLINIC, Bo Renner PA [facility] [place] [address] Bilateral arm pain; Bilateral leg pain; Chronic low back pain; Chronic neck pain Discharge Disposition: Home Social History Tobacco Use Types Packs/Day Years Used Date Smoking Tobacco: Every Day Cigarettes 0.5 30 Smokeless Tobacco: Never Tobacco Cessation:Ready to Q uit: No; Counseling Given: Yes Comments:avs information given Sex and Gender Information Value Date Recorded Sex Assigned at Not on file Gender Identity Not on file Sexual Orientation Not on file documented as of this encounter Patient Instructions * Patient Instructions* Klaudia Andrew LNA - 03/10/2013 2:09 PM EDT Stopping Smoking: After Your Visit Your Care Instructions Cigarette smokers crave the nicotine in cigarettes. Giving it up is much harder than simply changing a habit. Your body has to stop craving the nicotine. It is hard to quit, but you can do it. There are many tools that people use to quit smoking. You may find that combining tools works best for you. There are several steps to quitting. First you get ready to quit. Then you get support to help you.After that, you learn new skills and behaviors to become a nonsmoker. For many people, a necessary step is getting and using medicine. Your doctor will help you set up the plan that best meets your needs. You may want to attend a smoking cessation program to help you quit smoking. When you choose a program, look for one that has proven success. Ask your doctor for ideas. You will greatly increase your chances of success if you take medicine as well as get counseling or join a cessation program. Some of the changes you feel when you first quit tobacco are uncomfortable. Your body will miss thenicotine at first, and you may feel short-tempered and grumpy. You may have trouble sleeping or concentrating. Medicine can help you deal with these symptoms. You may struggle with changing your smoking habits and rituals. The last step is the tricky one: Be prepared for the smoking urge to continue for a time. This is a lot to deal with, but keep at it. You will feel better. Follow-up care is a bee part of your treatment and safety. Be sure to make and go to all appointments, and call your doctor if you are having problems. It???s also a good idea to know your test results and keep a list of the medicines you take. How can you care for yourself at home? Ask your family, friends, and coworkers for support. You have a better chance of quitting if you have help and support. Join a support group, such as Nicotine Anonymous, for people who are trying to quit smoking. Consider signing up for a smoking cessation program, such as the [employer]'s [place] from Smoking program. Set a quit date. Pick your date carefully so that it is not right in the middle of a big deadline or stressful time. Once you quit, do not even take a puff. Get rid of all ashtrays and lighters afteryour last cigarette. Clean your house and your clothes so that they do not smell of smoke. Learn how to be a nonsmoker. Think about ways you can avoid those things that make you reach for a cigarette. Avoid situations that put you at greatest risk for smoking. For some people, it is hard to have a drink with friends without smoking. For others, they might skip a coffee break with coworkers who smoke. Change your daily routine. Take a different route to work or eat a meal in a different place. Cut down on stress. Calm yourself or release tension by doing an activity you enjoy, such as reading a book, taking a hot bath, or gardening. Talk to your doctor or pharmacist about nicotine replacement therapy, which replaces the nicotine in your body. You still get nicotine but you do not use tobacco. Nicotine replacement products help you slowly reduce the amount of nicotine you need. These products come in several forms, many of themavailable [id number]: Nicotine patches Nicotine gum and lozenges Nicotine inhaler Ask your doctor about bupropion (Wellbutrin) or varenicline (Chantix), which are prescription medicines. They do not contain nicotine. They help you by reducing withdrawal symptoms, such as stress and anxiety. Some people find hypnosis, acupuncture, and massage helpful for ending the smoking habit. Eat a healthy diet and get regular exercise. Having healthy habits will help your body move past its craving for nicotine. Be prepared to keep trying. Most people are not successful the first few times they try to quit. Donot get mad at yourself if you smoke again. Make a list of things you learned and think about when you want to try again, such as next week, next month, or next year. Visit our health information library at http://www.[email or web address] [facility] institute[facility]antis[facility]y.[employer]olutionTube/healthinfo. You can alsoview health information on [employer], your personal patient account. Log in or sign up today. Enter Y522 in the search box to learn more about Stopping Smoking: After Your Visit. ?? [id number] [employer]. Care instructions adapted under license by [facility]. This care instruction is for use with your licensed healthcare professional. If you have questions about a medical condition or this instruction, always ask your healthcare professional. [employer] disclaims any warranty or liability for your use of this information. Content Version: 9.1.239348; Last Revised: January 10, 2011 documented in this encounter Progress Notes * Bo Blanca PA - 03/10/2013 2:34 PM EDT Chief Complaint: Chief Complaint Patient presents with ??? Other follow up to mri ??? Low Back Pain ??? Neck Pain with right arm pain ??? Bilateral Leg Pain HPI: This patient is a 42 y.o. female that presents to the spine center for A followup visit on chronic neck pain, low back pain with bilateral arm and leg symptoms. She previously did have a lumbar spine fusion from L4-S1 in association with an isthmic lytic spondylolisthesis and degenerative disc findings. She has continued to manage with chronic axial spine pain which is her predominant pain symptoms she does also have the arm and leg symptoms in a nondermatomal fashion. At the last visit I suggested the possibility fibromyalgia may be playing a part to her symptoms I felt it was reasonable to get an MRI updated of the cervical and lumbar spine to be certain that we were not missing another treatable pathology. She is here to followup and review these findings. ROS: Negative for any GI, or constitutional symptoms. Medications & Allergies: Are updated on the system. Problem List: Patient Active Problem List Diagnosis Code ??? Chronic neck pain 723.1 ??? Chronic low back pain 724.2 ??? Bilateral arm pain 729.5 ??? Bilateral leg pain 729.5 PMH: Past Medical History Diagnosis Date ??? Chronic pain ??? IBS (irritable bowel syndrome) ??? Asthma ??? GERD (gastroesophageal reflux disease) ??? Generalized anxiety disorder ??? Smoker ??? Lead toxicity ??? Depressive disorder ??? Fibromyalgia ??? Migraine ??? Sinusitis ??? Hyperlipidemia ??? Vitamin d deficiency ??? Opiate dependence PSH: Past Surgical History Procedure Date ??? Lumbar fusion L4-S1 with PLIF at L5-S1 and with a Bernardo procedure ??? Elbow surgery ??? Carpal tunnel release ??? Lumbar discectomy ??? Hysterectomy, total abdominal ??? Abdominal adhesion surgery Social Hx: History Social History ??? Marital Status: Single Spouse Name: N/A Number of Children: N/A ??? Years of Education: N/A Occupational History ??? Not on file. Social History Main Topics ??? Smoking status: Current Every Day Smoker -- 0.5 packs/day for 30 years Types: Cigarettes ??? Smokeless tobacco: Never Used Comment: avs information given ??? Alcohol Use: Not on file ??? Drug Use: Not on file ??? Sexually Active: Not on file Other Topics Concern ??? Not on file Social History Narrative ??? No narrative on file Physical Exam: This was a discussion based visit and I did not repeat physical exam on the patient. She is a relatively healthy-appearing 42-year-old female who is alert and oriented x3. Imaging: The MRI of the cervical spine and lumbar spine were reviewed and she does appear to be have a stable L4-S1 instrumented fusion. There is no adjacent segment degenerative changes. There are no disc herniations. There is no nerve compression identified. In the cervical spine there is some mild spondylitic changes at C4-C5 and C5-C6 which causes mild central canal narrowing at the C5- C6 level for without any significant foraminal narrowing. These are relatively normal image findings for her age. I reviewed these images with the patient. Assessment: Chronic axial neck and axial low back pain with bilateral arm and leg symptoms which may be partially related to fibromyalgia and degenerative changes. Plan: I have reviewed the images with the patient and discussed with her that I did not see any anatomic findings on her images to explain the cause of her pain symptoms. As I do not know the exact cause of her symptoms I would be limited as to treatment options that will be guaranteed to be beneficial. She can consider physical therapy here in the spine center, I do think the functional confucianism program may be the best option. She indicates that she would not be able to attend this program for reason that I did not delve into. She did ask about medial branch block/radiofrequency ablation,which I informed her could be an option for the cervical spine although I am uncertain if it would provide her any relief. It also could be considered for the lumbar spine, with her prior fusion I amnot certain if the pain center would consider this treatment appropriate. At this time she would like to discuss this further with her primary care physician. If she decides she would like to proceedwith a cervical medial branch block/radiofrequency ablation which would start her on the right sidebut be performed bilaterally, then she can contact the nursing staff the spine center I would be glad to make this referral. Otherwise I can see her back on an as-needed basis. 12 minutes of this 15 minute visit was spent in reviewing her imaging, medical decision making and planning. This dictation was performed using Ujogo voice recognition dictation. documented in this encounter Plan of Treatment Not on file documented as of this encounter Visit Diagnoses Diagnosis Bilateral arm pain Pain in limb Bilateral leg pain Pain in limb Chronic low back pain Lumbago Chronic neck pain Cervicalgia documented in this encounter Care Teams Armored Car Guard And Driver Relationship Specialty Start Date End Date aCrleen Guillen, MONTY PCP - General 02/12/13 12/08/19 documented as of this encounter
--- OUTSIDE RECORDS SUMMARY | 2024-01-20 14:16 | XMS_ITS | Encounter Summary ---
Author Organization [facility] Address [facility] [place] [address] Care Team Providers Care Third Steel Pourer Name Role Phone Savanah Freedman APRN Primary Care Provider + Reason for Visit * Reason Comments GI Problem Encounter Details Date Type Department Care Team (Late st Contact Info) Description 04/17/2013 9:00 AM EDT Office [place] [address] Yahir Mata MD [facility] [place] [address] RUQ pain (Primary Dx); Cholelithiasis Discharge Disposition: Home Social History Tobacco Use [...] Sign Reading Time Taken Comments Blood Pressure 150/96 04/17/2013 8:42 AM EDT Pulse 93 04/17/2013 8:42 AM EDT Temperature - - Respiratory Rate - - Oxygen Saturation - - Inhaled Oxygen Concentration - - Weight 68.9 kg (152 lb) 04/17/2013 8:42 AM EDT Height 152.4 cm (5') 04/17/2013 8:42 AM EDT Body Mass Index 29.69 04/17/2013 8:42 AM EDT documented in this encounter Progress Notes * Yahir Mata MD - 04/17/2013 10:13 AM EDT CC: She is referred by SAVANAH FREEDMAN APRN for further evaluation of symptomatic cholelithiasis. HPI Comments: She describes acute onset of sever RUQ pain this past summer that lasted several hours. Since then, she has had milder and briefer episodes of similar type pain on several occasions. She had a RUQ USG on 01/01/13 that showed cholelithiasis and a dilated CHD (11mm). She has baseline chronic pain syndrome (back pain) for which she takes chronic narcotics which may account for dilated CBD. Current Outpatient Prescriptions on File Prior to Visit Medication Sig Dispense Refill ??? OXYcodone 10 mg Tab Take 10 mg by mouth 3 times daily. ??? DULoxetine (CYMBALTA) 60 mg capsule Take 60 mg by mouth 2 times daily. ??? simvastatin (ZOCOR) 20 mg tablet Take 20 mg by mouth nightly. ??? methadone (DOLOPHINE) 10 mg tablet Take 10 mg by mouth daily. Seven tablets daily ??? lamoTRIgine (LAMICTAL XR) 50 mg TR24 Take 100 mg by mouth 2 times daily. ??? cyclobenzaprine (FLEXERIL) 10 mg tablet Take 10 mg by mouth 2 times daily as needed. ??? omeprazole (PRILOSEC) 40 mg capsule Take 40 mg by mouth daily. ??? hydrOXYzine (ATARAX) 25 mg tablet Take 25 mg by mouth 3 times daily as needed. ??? gabapentin (NEURONTIN) 800 mg tablet Take 800 mg by mouth 3 times daily. ??? tiotropium (SPIRIVA) 18 mcg inhalation capsule Inhale 18 mcg into the lungs daily. ??? nicotine polacrilex (NICORETTE) 4 mg gum Take 2 mg by mouth as needed. ??? clonAZEpam (KLONOPIN) 1 mg tablet Take 1 mg by mouth nightly as needed. ??? fluticasone-salmeterol (ADVAIR) 500-50 mcg/dose diskus inhaler Inhale 1 puff into the lungs 2 times daily. ??? albuterol (PROVENTIL HFA;VENTOLIN HFA) 90 mcg/actuation inhaler Inhale 2 puffs into the lungs every 4 hours as needed. Use with spacer Patient Active Problem List Diagnosis Code ??? Chronic neck pain 723.1, 338.29 ??? Chronic low back pain 724.2, 338.29 ??? Bilateral arm pain 729.5 ??? Bilateral leg pain 729.5 ??? Cholelithiasis 574.20 ??? Asthma 493.90 ??? IBS (irritable bowel syndrome) 564.1 ??? GERD (gastroesophageal reflux disease) 530.81 ??? Migraine 346.90 ??? Anxiety 300.00 ??? Smoker 305.1 ??? Allergic rhinitis 477.9 ??? Depression 311 ??? Fibromyalgia 729.1 ??? Opiate dependence 304.00 ??? HLD (hyperlipidemia) 272.4 ??? HTN (hypertension) 401.9 SH: single, 1 child, + smoker 1/2 ppd, no ETOH or drug use FH: non-contributory Review of Systems: Constitutional: no weight loss HEENT: no visual changes, no URI symptoms Cardio: no chest pain Resp: no cough, no SOB, no GALLEGOS or orthopnea Hem/Lymph: no new lumps or bumps on body GI: see HPI : no dysuria Integumentary: no new rashes Musculoskeletal: no new joint pains + back pain Neuro: no new numbness, weakness in extremities Objective: Physical Exam: Filed Vitals: 04/17/13 0842 BP: 150/96 Pulse: 93 Weight - Scale: 68.947 kg (152 lb) Constitutional: Appears well-developed and well-nourished. Multiple tattoos. Eyes: No scleral icterus. Abdominal: Soft. No distension. No tenderness. No masses or HSM. Assessment and Plan: Cholelithiasis with intermittent RUQ pain suggestive of biliary colic. The dilated CBD is likely related to chronic narcotics, less likely a CBD stone. Plan: Will check LFTs-if abnormal will arrange MRCP. If normal, will refer to a surgeon to considerlap mark +/- IOC which she prefers to do in [facility]. 25 minutes of this 40 minute visit spent in discussion and coordination of care regarding gallstones. Yahir Mata MD ortho rn Director, GI Endoscopy Section of Gastroenterology and Hepatology [facility] [place] [address] Cc:SAVANAH FREEDMAN APRN [facility] [address] [place] [facility] [place] [address] documented in this encounter Plan of Treatment Not on file documented as of this encounter Procedures Procedure Name Priority Date/Time Associated Diagnosis Comments HEPATIC FUNCTION PANEL Routine 04/17/2013 10:26 AM EDT RUQ pain documented in this encounter Results * Hepatic Function Panel (04/17/2013 10:26 AM EDT) Total Protein 7.8 6.4 - 8.3 gm/dL CERNER MILLENNIUM Albumin 4.5 3.2 - 5.2 gm/dL CERNER MILLENNIUM AST 18 0 - 30 unit/L CERNER MILLENNIUM ALT 15 0 - 30 unit/L CERNER MILLENNIUM Alk Phos 95 40 - 104 unit/L CERNER MILLENNIUM Total Bilirubin 0.2 0.2 - 1.3 mg/dL CERNER MILLENNIUM Bili, Direct 0.1 0.0 - 0.3 mg/dL CERNER MILLENNIUM Blood specimen (specimen) 04/17/2013 10:26 AM EDT 04/17/2013 10:36 AM EDT Narrative Resulting Agency Comment Spec In Lab Yahir Mata MD CHEMISTRY ORDERABLES [facility]ERYUNIER CURRIE documented in this encounter Visit Diagnoses Diagnosis RUQ pain- Primary Abdominal pain, right upper quadrant Cholelithiasis Calculus of gallbladder without mention of cholecystitis or obstruction documented in this encounter Care Teams Third Steel Pourer Relationship Specialty Start Date End Date Savanah Freedman APRN PCP - General 02/12/13 12/08/19 documented as of this encounter
--- OUTSIDE RECORDS SUMMARY | 2024-01-20 14:16 | XMS_ITS | Referral Summary ---
Author Organization [facility] Address [address] [place] [address] Care Team Providers Care Principal Web Developer Name Role Phone Carleen Guillen NP Primary Care Provider [phone] Social History Tobacco Use Types Packs/Day Years Used Date Smoking Tobacco: Never Assessed Interpersonal Safety Answer Date Record ed Physically Hurt Never 01/24/2020 Verbally Threaten Not on file 01/24/2020 Sex and Gender Information Value Date Recorded Sex Assigned at Not on file Gender Identity Not on file Sexual Orientation Not on file Plan of Treatment Not on file Care Teams Principal Web Developer Relationship Specialty Start Date End Date Carleen Guillen NP [address] [place] [address] [address] [place] [id number] PCP - General 07/03/13
--- OUTSIDE RECORDS SUMMARY | 2024-01-20 14:16 | XMS_ITS | Clinical Summary ---
Author Organization [facility] Address [address] [place] [address] Care Team Providers Care Cooperage Shop Supervisor Name Role Phone Carleen Guillen NP Primary Care Provider Social History Tobacco Use Types Packs/Day Years Used Date Smoking Tobacco: Never Assessed Interpersonal Safety Answer Date Record ed Physically Hurt Never 01/24/2020 Verbally Threaten Not on file 01/24/2020 Sex and Gender Information Value Date Recorded Sex Assigned at Not on file Gender Identity Not on file Sexual Orientation Not on file Plan of Treatment Health Maintenance Due Date Last Done Comments Hepatitis C Screen 1970 Hepatitis B Vaccine (1 of 3 - 19+ 3-dose series) 09/14 COVID-19 Vaccine ( season) 2023 Care Teams Cooperage Shop Supervisor Relationship Specialty Start Date End Date Carleen Guillen NP [address] [place] [address] [address] [place] [address] PCP - General 07/03/13
--- OUTSIDE RECORDS SUMMARY | 2024-01-20 14:16 | XMS_ITS | Encounter Summary ---
Author Organization [facility] [place] [address] Care Team Providers Care Supervisor Locomotive Name Role Phone Cheyenne Victoria MD Primary Care Provider [phone] Encounter Details Date Type Department Care Team (Late st Contact Info) Description 12/29/2012 Orders [place] [address] Bo Blanca PA [facility] [place] [place] [address] Social History Tobacco Use Types Packs/Day Years [...] FILM LIBRARY STORAGE ONLY DX SPINE Routine 12/29/2012 6:58 PM EDT documented in this encounter Results * Film Library- Storage only DX Spine (12/29/2012 6:58 PM EDT) 12/29/2012 6:58 PM EDT Narrative RAD - 02/17/2014 11:28 AM EDT This is a non-reportable exam. Procedure Note Max Wade - 02/17/2014 This is a non-reportable exam. Bo [facility] FILM LIBRARY ORD ERABLES RAD [address] [facility] [place] [address] documented in this encounter Visit Diagnoses Not on filedocumented in this encounter Care Teams Supervisor Locomotive Relationship Specialty Start Date End Date Cheyenne Victoria MD [address] [place] [address] PCP - General 05/16/10 02/11/13 documented as of this encounter
--- OUTSIDE RECORDS SUMMARY | 2024-01-20 14:16 | XMS_ITS | Encounter Summary ---
Author Organization [facility] Address [address] [place] [address] Care Team Providers Care Licensed And Certified Midwife Name Role Phone Carleen Guillen NP Primary Care Provider [phone] Encounter Details Date Type Department Care Team (Late st Contact Info) Description 11/13/2018 Results Only [facility] [phone] John Elder MD [address] [place] [phone] Social History Tobacco Use Types Packs/Day Years Used Date Smoking Tobacco: Never Assessed Sex and Gender Information Value Date Recorded Sex Assigned at Not on file Gender Identity Not on file Sexual Orientation Not on file documented as of this encounter Plan of Treatment Not on file documented as of this encounter Procedures Procedure Name Priority Date/Time Associated Diagnosis Comments SURGICAL PATHOLOGY Routine 11/13/2018 15 :43 EDT documented in this encounter Results * SURGICAL PATHOLOGY (11/13/2018 15:43 EDT) Pathology Report: SURGICAL PATHOLOGY REPORT Reports generated via electronic interface contain original data; however they are lacking the format of the original report. Caution should be taken when reading/interpreting unformatted reports. Name: ? SAEID SINGH ? Accession #: ? [id number] ? : ? 1970 (Age: 48) ??F ? Collect Date: ? 11/13/2018 ? Location: ? [facility] ? Receive Date: ? 11/13/2018 ? Provider: JOHN ELDER MD Copy to: STEVE CRAPENTER DNP ? Final Pathologic Diagnosis: VOCAL CORD, RIGHT, MASS, BIOPSY: - Vocal cord polyp with squamous atypia, favor reactive. See comment. Comment: Deeper levels have been examined. Collector Of Aquarium Specimens slides of this case were reviewed at the intradepartmental consultation conference. Dr. Kvng Black 11/18/2018 9:47 AM Document reviewed and electronically signed by: KVNG BLACK MD Report ??Date: 11/18/2018 15:06 By the signature above, the attending physician certifies that he/she has personally conducted a gross and/or microscopic examination of the described specimens and rendered or confirmed the above diagnosis. Specimen(s) Received: Rt vocal cord mass Clinical History: Vocal cord mass; smoker Gross Description: ? Received in formalin labelled with proper patient identification (initials V, K) and Rt vocal cord mass is an aggregate of camacho-hinojosa membranous tissue (0.6 x 0.6 x 0.3 cm). The specimen is submitted entirely in 1-2. JUANITA Batres (ASCP) 11/13/2018 4:25 PM End of Report [facility] 11/13/2018 15:4 3 EDT 11/13/2018 15:43 EDT John Elder MD PATHOLOGY ORDERABLES [facility] [address] [place] [address] documented in this encounter Visit Diagnoses Not on filedocumented in this encounter Care Teams Licensed And Certified Midwife Relationship Specialty Start Date End Date Carleen Guillen NP [address] [place] [address] [address] [place] [address] PCP - General 07/03/13 documented as of this encounter
--- OUTSIDE RECORDS SUMMARY | 2024-01-20 14:16 | XMS_ITS | Encounter Summary ---
Author Organization [facility] Address [address] [place] [address] Care Team Providers Care Manager Technical Sales Name Role Phone Carleen Guillen NP Primary Care Provider [phone] Encounter Details Date Type Department Care Team (Latest Contact Info) Description 11/13/2018 8:27 EDT - 11/13/2018 23:59 EDT Hospital Encounter [address] [address] Unknown, Provider, Discharge Disposition: Home or Self Care Social History Tobacco Use Types Packs/Day Years Used Date Smoking Tobacco: Never Assessed Sex and Gender Information Value Date Recorded Sex Assigned at Not on file Gender Identity Not on file Sexual Orientation Not on file documented as of this encounter Discharge Disposition Disposition Code Departure Means Destination Home or Self Halfway documented in this encounter Plan of Treatment Not on file documented as of this encounter Visit Diagnoses Not on filedocumented in this encounter Care Teams Manager Technical Sales Relationship Specialty Start Date End Date Carleen Guillen NP [address] [place] [address] [address] [place] [address] PCP - General 07/03/13 documented as of this encounter
--- OUTSIDE RECORDS SUMMARY | 2024-01-20 14:16 | XMS_ITS | Encounter Summary ---
Author Organization [facility] Address [address] [place] [address] Care Team Providers Care Chinchilla Farmer Name Role Phone Unavailable Primary Care Provider Unavailabl e Encounter Details Date Type Department Care Team (Late st Contact Info) Description 09/05/2001 Results Only [facility] conversion [address] [place] [address] Jeremiah Sinclair MD [address] [place] [address] [address] [place] [address] Social History Tobacco Use Types Packs/Day Years Used Date Smoking Tobacco: Never Assessed Sex and Gender Information Value Date Recorded Sex Assigned at Not on file Gender Identity Not on file Sexual Orientation Not on file documented as of this encounter Plan of Treatment Not on file documented as of this encounter Procedures Procedure Name Priority Date/Time Associated Diagnosis Comments CYTOPATHOLOGY Routine 09/05/2001 0:00 EST documented in this encounter Results * CYTOPATHOLOGY (09/05/2001 0:00 EST) Pathology Report: CYTOPATHOLOGY REPORT Reports generated via electronic interface contain original data; however they are lacking the format of the original report. Caution should be taken when reading/interpreti ng unformatted reports. Name: ? SAEID SINGH ? Accession #: ? [id number] : ? 1970 (Age: 30) ??F ?Collect Date: ? 09/05/2001 Location: ? [facility] ? Receive Date: ? 09/08/2001 Provider: ?JEREMIAH SINCLAIR MD Copy to: ? Specimen/Source: ?ThinPrep Pap Test, Vagina Last Menstrual Period: ? Treatment History: ? BRIAN: LSO 06/24 Other: ? Client ID#: [id number] ? SPECIMEN ADEQUACY ? Satisfactory for Evaluation - assessment of transformation zone component not applicable ( e.g. atrophy, vaginal sample, hysterectomy) GENERAL CATEGORIZATION ? Negative for Intraepithelial Lesion or Malignancy INTERPRETATION ? Fungal organisms present morphologically consistent with Anabelle species. ? Document reviewed and electronically signed by: ? Indy Kennedy, ??SCT(ASCP) ? Report Date: ??09/11/2001 10:29 End of Report LUCAS ABRAMS 09/05/2001 09/08/2001 Jeremiah Sinclair MD PATHOLOGY ORDERABLES Performing Organization Address City/State/[facility] Co de Phone Number LUCAS ABRAMS [address] [place] [address] documented in this encounter Visit Diagnoses Not on filedocumented in this encounter
--- OUTSIDE RECORDS SUMMARY | 2024-01-20 14:16 | XMS_ITS | Encounter Summary ---
Author Organization [facility] [place] [address] Care Team Providers Care Order Desk Clerk Name Role Phone Carleen Guillen APRN Primary Care Provider + Encounter Details Date Type Department Care Team (Late st Contact Info) Description 04/06/2014 - 04/06/2014 11:59 PM EDT Hospital Encounter [place] [address] [address] Ricardo Temporary Pain Discharge Disposition: Home [...] 4 hours as needed. Use with spacer cloNIDine (CATAPRES) 0.1 mg tablet Take 0.1 mg by mouth 2 times daily. 08/02/2014 OXYcodone 10 mg Tab Take 15 mg [...] FILM LIBRARY STORAGE ONLY MR SPINE Routine 04/06/2014 12:00 AM EDT Pain documented in this encounter Results * Film Library- Storage only MR Spine (04/06/2014 12:00 AM EDT) Narrative [facility] - 09/07/2015 4:26 PM EDT See PACS for result report. Dr Víctor Silva Daysi FILM LIBRARY ORD ERABLES [place], [place] documented in this encounter Visit Diagnoses Diagnosis Pain Generalized pain documented in this encounter Care Teams Order Desk Clerk Relationship Specialty Start Date End Date Carleen Guillen APRN PCP - General 02/12/13 12/08/19 documented as of this encounter
--- OUTSIDE RECORDS SUMMARY | 2024-01-20 14:16 | XMS_ITS | Encounter Summary ---
[place] [address] Care Team Providers Care Materials Scientist Name Role Phone Cheyenne Victoria MD Primary Care Provider [phone] Reason for Visit * Reason Comments Back And Neck Pain Bilateral Arm Pain Bilateral Leg Pain Encounter Details Date Type Department Care Team (Late st Contact Info) Description 02/11/2013 9:35 AM EDT Office [place] [address] Bo Blanca PA [facility] [place] [address] Chronic low back pain (Primary Dx); Chronic neck pain; Bilateral arm pain; Bilateral leg pain Discharge Disposition: Home Social History Tobacco Use Types Packs/Day Years Used Date Smoking Tobacco: Every Day Cigarettes 0.5 30 Sex and Gender Information Value Date Recorded Sex Assigned at Not on file Gender Identity Not on file Sexual Orientation Not on file documented as of this encounter Last Filed Vital Signs Vital Sign Reading Time Taken Comments Blood Pressure 132/82 02/11/2013 10:11 AM EDT Pulse - - Temperature - - Respiratory Rate - - Oxygen Saturation - - Inhaled Oxygen Concentration - - Weight 68 kg (150 lb) 02/11/2013 10:11 AM EDT Height 153.7 cm (5' 0.5) 02/11/2013 10:11 AM ED T Body Mass Index 28.81 02/11/2013 10:11 AM EDT documented in this encounter Progress Notes * Bo Blanca PA - 02/11/2013 10:37 AM EDT Chief Complaint: Chief Complaint Patient presents with ??? Back And Neck Pain ??? Bilateral Arm Pain ??? Bilateral Leg Pain HPI: This patient is a 42 y.o. Right-handed female that presents to the spine center for Chronic neck pain, low back pain with bilateral arm and leg pain symptoms. She is status post L4-S1 instrumented fusion for spondylolisthesis and chronic back pain performed by Dr. Santiago. She does have a known history also of fibromyalgia. For the past few years she's been dealing with chronic neck and lowback pain symptoms. The pain symptoms are located mostly in the midline of the spine. She also describes bilateral arm and leg pain symptoms which were not describe any clear dermatomal fashion and she does get numbness and tingling in her fingers and hands bilaterally. She rates the pain currentlyis a 7/10 with pain ranging between a 5 to-10. Her neck pain is usually aggravated with cold and damp days, flexing her neck and turning her neck and feels better lying down. Her back pain is usuallyworse with house chores in gardening and feels better lying down. The arm symptoms are aggravated with any sort of her to give the arms and legs usually are worse with walking up hills. She does not describe any bowel or bladder incontinence or myelopathic symptoms. She does report having had some steroid injections in her back before without significant benefit. She has had 2 prior lumbar spine surgeries that included discectomy, and she also has had an L4-S1 instrumented fusion with an L5-S1 interbody fusion, and Anglin procedure. ROS: Negative for any GI, or constitutional symptoms. Medications & Allergies: Are updated on the system. Problem List: There is no problem list on file for this patient. PMH: Past Medical History Diagnosis Date ??? [...] 30 years Types: Cigarettes ??? Smokeless tobacco: Not on file ??? Alcohol Use: Not on file ??? Drug Use: Not on file ??? Sexually Active: Not on file Other Topics Concern ??? Not on file Social History Narrative ??? No narrative on file Physical Exam: This patient is an obese 42-year-old female who is alert and oriented x3. She stands in a slightly flexed posture. There is a surgical scar the midline from about L4-S1. She indicates with an antalgic gait on the right leg but was able to toe walk, heel walk and tandem walk. She has tenderness fromabout C7-T3, and the upper trapezius muscle groups, also at L5-S1 there was some tenderness throughout the thoracic spine as well. She has relatively full lumbar range of motion without any increasedpain today. She also has relatively full cervical range of motion all directions with neck pain in all directions of movement. Shoulder range of motion is full producing neck pain. Her sensation was intact in all extremities. Reflexes were 2+ and symmetrical in the upper extremities, and 3+ and symmetrical in the lower extremities. Motor testing did reveal 4/5 strength with right shoulder abduction due to his shoulder pain, bilateral pincer grasp of the hand, and right hip flexion. Straight legraise and crossed straight leg raise are both negative causing some knee discomfort. Spurling's test was negative with only neck pain. There is trace findings of Willard's on the left but negative onthe right. There is no clonus and negative Babinski. Distal pulses are intact her Imaging: I did not have current imaging for her spine at this visit I did have the report of a recent x-ray of the entire spine. The radiologist reports that there was a fairly negative cervical spine imaged. There is some mild degenerative changes in the thoracic spine with endplate spurring. There is a stable instrumented fusion from L4-S1 with moderate anterior spondylolisthesis of L5 on S1 and some disc space narrowing at L5-S1. The report was reviewed with the patient and scanned into the system, and the images were being requested to be transferred. Assessment: Chronic axial neck and low back pain, with bilateral arm and leg pain. Plan: I have reviewed with the patient that she does have a complicated medical history related to her pain symptoms. She does have a history of fibromyalgia and also prior spine surgery. I am uncertain if her arm or leg symptoms are related to the spine. It may be related to fibromyalgia, however because of my uncertainty as to if it could be spinal related I think he would be reasonable to get MRIs of the cervical and lumbar spine. Presuming the images do not demonstrate clear nerve compression we did briefly discuss the option of physical therapy in the spine center, medial branch block/radiofrequency ablation and the functional orthodoxy program. If there are findings for nerve compression I discussed the possibility of an LESI or possibly a surgical consultation. After our discussion and answering the patients questions, we have come to an aggreement in the below stated plan: 1) I have ordered an MRI of the cervical and lumbar spine and will see the patient back after the images are complete. This dictation was performed using Totsy voice recognition dictation. documented in this encounter Plan of Treatment Not on file documented as of this encounter Results * MRI cervical spine [...] of the clinical situation. (Reference-Tomvik et al, [id number]) Findings: (prevalence in patients without low back pain), Diskdegeneration (decreased T2 signal, height loss, bulge) (91%), Disk T2-signal loss(83%), Disk height loss (56%), Disk bulge (64%), Disk protrusion (32%), Annular fissure (38%). Film and interpretation reviewed by the attending Anthony Adkins MD IMG MRI ORDERABLES * MRI lumbar spine with/WO contrast (03/10/2013 12:19 PM EDT) Anatomical Region Laterality Modality L-spine Magnetic Resonan ce 03/10/2013 12:1 9 PM EDT Narrative 03/10/2013 4:38 PM EDT [...] of the clinical situation. (Reference-Tomvik et al, [id number]) Findings: (prevalence in patients without low back pain), Diskdegeneration (decreased T2 signal, height loss, bulge) (91%), Disk T2-signal loss(83%), Disk height loss (56%), Disk bulge (64%), Disk protrusion (32%), Annular fissure (38%). Film and interpretation reviewed by the attending Anthony Adkins MD IMG MRI ORDERABLES documented in this encounter Visit Diagnoses Diagnosis Chronic low back pain- Primary Lumbago Chronic neck pain Cervicalgia Bilateral arm pain Pain in limb Bilateral leg pain Pain in limb Chronic neck pain Cervicalgia Chronic low back pain Lumbago Bilateral arm pain Pain in limb Bilateral leg pain Pain in limb Chronic neck pain Cervicalgia Chronic low back pain Lumbago Bilateral arm pain Pain in limb Bilateral leg pain Pain in limb documented in this encounter Care Teams Materials Scientist Relationship Specialty Start Date End Date Cheyenne Victoria MD [address] [place] [address] PCP - General 05/16/10 02/11/13 documented as of this encounter
--- OUTSIDE RECORDS SUMMARY | 2024-01-20 14:16 | XMS_ITS | Encounter Summary ---
Author Organization [facility] Address [address] [place] [address] Care Team Providers Care Scorer Single Name Role Phone Carleen Guillen NP Primary Care Provider [phone] Encounter Details Date Type Department Care Team (Late st Contact Info) Description 12/01/2020 Lab Requisition [facility] Pathology & Laboratory Medicine - [facility] [address] [place] [address] Johnathan Ornelas, DO [address] [place] [address] Drug induced acute pancreatitis without necrosis or infection; Hypokalemia; Dehydration; Encounter for prophylactic measures, unspecified; Anemia, unspecified; Iron deficiency anemia, unspecified; Gastro-esophageal reflux disease without esophagitis Social History Tobacco Use Types Packs/Day Years [...] Priority Date/Time Associated Diagnosis Comments SURGICAL PATHOLOGY Today 12/01/2020 9: 51 EDT Drug induced acute pancreatitis without necrosis or infection Hypokalemia Dehydration Encounter for prophylactic measures, unspecified Anemia, unspecified Iron deficiency anemia, unspecified Gastro-esophageal reflux disease without esophagitis documented in this encounter Results * SURGICAL PATHOLOGY (12/01/2020 9:51 EDT) Final Diagnosis A. STOMACH, ANTRUM, BIOPSY: - Transitional-type mucosa with no significant diagnostic abnormality. 12/02/2020 18:38 [facility] Attestation By the signature below, the attending physician certifies that they have 1) personally conducted a gross and/or microscopic examination of the described specimen(s), and/or personally interpreted the results of laboratory testing of the described specimen(s), and 2) personally rendered or confirmed the above diagnosis. 12/02/2020 18:38 [facility] at 1838 Clinical History Mild gastritis 12/02/2020 18:38 [facility] Gross Description A. Received in formalin labelled with proper patient identification (initials V, K) and gastric antrum is a 0.6 x 0.2 x 0.2 cm camacho-pink tissue. Submitted intact in A1. JUANITA STILES(ASCP) 12/01/2020 18:38 12/02/2020 18:38 [facility] Performing Lab [facility] 12/02/2020 18:38 [facility] Scanned Images 12/02/2020 18:38 [facility] Tissue PYLORIC ANTRUM STRUCTURE / Unknown 12/01/2020 9:51 EDT 12/01/2020 16:07 EDT Johnathan Ornelas DO PATHOLOGY ORDERABL ES [facility] [address] [place] [address] documented in this encounter Visit Diagnoses Diagnosis Drug induced acute pancreatitis without necrosis or infection Hypokalemia Hypopotassemia Dehydration Encounter for prophylactic measures, unspecified Anemia, unspecified Iron deficiency anemia, unspecified Gastro-esophageal reflux disease without esophagitis Esophageal reflux documented in this encounter Care Teams Scorer Single Relationship Specialty Start Date End Date Carleen Guillen NP [address] [place] [address] [address] [place] [address] PCP - General 07/03/13 documented as of this encounter
--- OUTSIDE RECORDS SUMMARY | 2024-01-20 14:16 | XMS_ITS | Encounter Summary ---
[place] [address] Care Team Providers Care Sort Supervisor Name Role Phone Carleen Guillen APRN Primary Care Provider + Encounter Details Date Type Department Care Team (Late st Contact Info) Description 04/23/2013 [place] [id number] Cheli Khoury RN Social History Tobacco Use Types Packs/Day Years Used Date Smoking Tobacco: Every Day Cigarettes 0.5 30 Smokeless Tobacco: Never Comments:avs information giv en Sex and Gender Information Value Date Recorded Sex Assigned at Not on file Gender Identity Not on file Sexual Orientation Not on file documented as of this encounter Miscellaneous Notes * Telephone Encounter - Cheli Khoury RN - 04/23/2013 2:34 PM EDT Patient called and left a Message asking for the results of her labs done last week. States in message it is okay to leave a message with results. Liver Function Tests done 04/17/13 were all wnl. Patient notified. documented in this encounter Plan of Treatment Not on file documented as of this encounter Visit Diagnoses Not on filedocumented in this encounter Care Teams Sort Supervisor Relationship Specialty Start Date End Date Carleen Guillen APRN PCP - General 02/12/13 12/08/19 documented as of this encounter
--- OUTSIDE RECORDS SUMMARY | 2024-01-20 14:16 | XMS_ITS | Encounter Summary ---
Author Organization [facility] Address [facility] [place] [address] Care Team Providers Care Simulation Tech Name Role Phone Carleen Guillen APRN Primary Care Provider + Encounter Details Date Type Department Care Team (Latest Contact Info) Description 03/10/2013 10:22 AM EDT Hospital [place] [id number] Chronic neck pain; Chronic low back pain; [...] Sig Dispensed Refills Start Date End Date lamoTRIgine (LAMICTAL XR) 50 mg TR24 Take [...] 4 hours as needed. Use with spacer methadone (DOLOPHINE) 10 mg tablet Take 10 [...] Name Priority Date/Time Associated Diagnosis Comments MRI LUMBAR SPINE WITH/WO CONTRAST Routine 03/10/2013 12:19 PM EDT Chronic neck pain Chronic low back pain Bilateral arm pain Bilateral leg pain documented in this encounter Results * MRI lumbar spine with/WO contrast (03/10/2013 [...] in the context of the clinical situation. (Reference-Nay et al, [id number]) Findings: (prevalence in patients without low back [...] limb documented in this encounter Care Teams Simulation Tech Relationship Specialty Start Date End Date Carleen Guillen, MONTY PCP - General 02/12/13 12/08/19 documented as of this encounter
--- OUTSIDE RECORDS SUMMARY | 2024-01-20 14:16 | XMS_ITS | Encounter Summary ---
Author Organization [facility] Address [address] [place] [address] Care Team Providers Care Human Service Technician Name Role Phone Carleen Guillen NP Primary Care Provider [phone] Encounter Details Date Type Department Care Team (Late st Contact Info) Description 11/19/2019 Lab Requisition [facility] Pathology & Laboratory Medicine - [address] [id number] Outr Resulting Lab, Provider Social History Tobacco [...] Procedure Name Priority Date/Time Associated Diagnosis Comments ZZCOVID-19 TEST [facility] PCR Today 11/19/2019 11:06 EDT COVID-19 TESTING Routine 11/19/2019 11:0 6 EDT documented in this encounter Results * COVID-19 TEST [facility] PCR (11/19/2019 11:06 EDT) Swab ENTIRE NASOPHARYNX / Unknown 11/19/2019 11:06 EDT 11/19/2019 15:57 EDT Provider Outr Resulting Lab MICROBIOLOGY - GENERAL ORDERABLES [facility] [address] [place] [address] * COVID-19 TESTING (11/19/2019 11:06 EDT) COVID-19 rt-PCR Result Negative Negative 11/20/2019 15:48 EDT [facility] Comment: Negative results do not preclude 2019-nCoV infection and should not be used as the sole basis for treatment or other patient management decisions. Negative results must be combined with clinical observations, patient history, and epidemiological information. This test was developed and its performance characteristics determined by [facility]. It has not been cleared or approved by the US Food and Drug Administration. FDA does not require this test to go through premarket FDA review. This test is used for clinical purposes. It should not be regarded as investigational or for research. This laboratory is certified under the Clinical Laboratory Improvement Amendments (CLIA) as qualified to perform high complexity clinical laboratory testing. This test is based on the CDC COVID-19 Emergency Use Authorization (EUA) assay, with minor modification as defined by the FDA Performed on the [employer] [address] Fast. Performing Lab [address] [facility] 11/20/2019 15:48 EDT [facility] Swab ENTIRE NASOPHARYNX / Unknown 11/19/2019 11:06 EDT 11/19/2019 15:57 EDT Provider Outr Resulting Lab MICROBIOLOGY - GENERAL ORDERABLES [facility] [address] [place] [address] documented in this encounter Visit Diagnoses Not on filedocumented in this encounter Care Teams Human Service Technician Relationship Specialty Start Date End Date Carleen Guillen NP [address] [place] [address] [address] [place] [address] PCP - General 07/03/13 documented as of this encounter
--- OUTSIDE RECORDS SUMMARY | 2024-01-20 14:16 | XMS_ITS | Encounter Summary ---
Author Organization [facility] Address [address] [place] [address] Care Team Providers Care Cotton Roll Packer Name Role Phone Carleen Guillen NP Primary Care Provider [phone] Encounter Details Date Type Department Care Team (Late st Contact Info) Description 06/29/2020 Lab Requisition [facility] Pathology & Laboratory Medicine - [address] [address] Outr Resulting Lab, Provider Social History Tobacco [...] Comments ZZCOVID-19 TEST [facility] PCR Today 06/28/2020 14:30 EST COVID-19 TESTING Routine 06/28/2020 14:3 0 EST documented in this encounter Results * COVID-19 TEST [facility] PCR (06/28/2020 14:30 EST) Swab ENTIRE NASOPHARYNX / Unknown 06/28/2020 14:30 EST 06/29/2020 15:55 EST Provider Outr Resulting Lab MICROBIOLOGY - GENERAL ORDERABLES [facility] [address] [place] [address] * COVID-19 TESTING (06/28/2020 14:30 EST) COVID-19 rt-PCR Result Negative Negative 06/30/2020 16:26 EST [facility] Comment: Negative results do not preclude 2019-nCoV infection and should not be used as the sole basis for treatment or other patient management decisions. Negative results must be combined with clinical observations, patient history, and epidemiological information. This test was developed and its performance characteristics determined by [facility]. It has not been cleared or approved [...] testing. This test is based on the [facility] COVID-19 Emergency Use Authorization (EUA) assay, with minor modification as defined by the FDA Performed on the Visible Path Flex. Performing Lab [facility] 06/30/2020 16:26 EST [facility] Swab 06/28/2020 14:3 0 EST 06/29/2020 15:55 EST Provider Outr Resulting Lab MICROBIOLOGY - GENERAL ORDERABLES [facility] [address] [place] [address] documented in this encounter Visit Diagnoses Not on filedocumented in this encounter Care Teams Cotton Roll Packer Relationship Specialty Start Date End Date Carleen Guillen NP [address] [place] [address] [address] [place] [id number] PCP - General 07/03/13 documented as of this encounter
--- OUTSIDE RECORDS SUMMARY | 2024-01-20 14:16 | XMS_ITS | Encounter Summary ---
Author Organization [facility] Address [facility] [place] [address] Care Team Providers Care Graphic Specialist Name Role Phone Carleen Guillen APRN Primary Care Provider + Encounter Details Date Type Department Care Team (Late st Contact Info) Description 05/18/2013 Telephone [place] [address] Yahir Mata MD [facility] [place] [address] Social History Tobacco Use Types Packs/Day Years Used Date Smoking Tobacco: Every Day Cigarettes 0.5 30 Smokeless Tobacco: Never Comments:avs information giv en Sex and Gender Information Value Date Recorded Sex Assigned at Not on file Gender Identity Not on file Sexual Orientation Not on file documented as of this encounter Miscellaneous Notes * Telephone Encounter - Yahir Mata MD - 05/18/2013 9:02 AM EST Normal LFTs. She has appointment with Dr. Dodge for cholecystectomy. documented in this encounter Plan of Treatment Not on file documented as of this encounter Visit Diagnoses Not on filedocumented in this encounter Care Teams Graphic Specialist Relationship Specialty Start Date End Date Carleen Guillen APRN PCP - General 02/12/13 12/08/19 documented as of this encounter
--- OUTSIDE RECORDS SUMMARY | 2024-01-20 14:16 | XMS_ITS | Encounter Summary ---
Author Organization [facility] Address [address] [place] [address] Care Team Providers Care Special Duty Nurse Name Role Phone Carleen Guillen NP Primary Care Provider [phone] Encounter Details Date Type Department Care Team (Late st Contact Info) Description 07/11/2020 Lab Requisition [facility]ology [facility] Laboratory Medicine - [facility] [address] [place] [address] Outr Resulting Lab, Provider Social History Tobacco [...] Comments ZZCOVID-19 TEST [facility] PCR Today 07/10/2020 20:45 EST COVID-19 TESTING Routine 07/10/2020 20:4 5 EST documented in this encounter Results * COVID-19 TEST [facility] PCR (07/10/2020 20:45 EST) Swab ENTIRE NASOPHARYNX / Unknown 07/10/2020 20:45 EST 07/11/2020 15:59 EST Provider Outr Resulting Lab MICROBIOLOGY - GENERAL ORDERABLES [facility] [address] [place] [address] * COVID-19 TESTING (07/10/2020 20:45 EST) COVID-19 rt-PCR Result Negative Negative 07/12/2020 12:32 EST [facility] Comment: This test has not been FDA cleared or approved. This test has been authorized by FDA under an EUA for use by authorized laboratories. This test has been authorized only for detection of nucleic acid from 2019-nCoV, not for any other viruses or pathogens. This test is only authorized for the duration of the declaration that circumstances exist justifying the authorization of emergency use of in vitro diagnostic tests for detection and/or diagnosis of 2019-nCoV under section 564(b)(1) of Act, 21 U.S.C ?? 360bbb-3(b) (1), unless the authorization is terminated or revoked sooner. Negative results do not preclude 2019-nCoV infection and should not be used as the sole basis for treatment or other patient management decisions. Negative results must be combined with clinical observations, patient history, and epidemiological information. Testing was performed using the froilan SARS-CoV-2 assay ([employer] on the Frolian 6800 System Performing Lab Froilan [address] [facility] Lab 07/12/2020 12:32 EST [facility] Swab 07/10/2020 20:4 5 EST 07/11/2020 15:59 EST Provider Outr Resulting Lab MICROBIOLOGY - GENERAL ORDERABLES [facility] [address] [place] [address] documented in this encounter Visit Diagnoses Not on filedocumented in this encounter Care Teams Special Duty Nurse Relationship Specialty Start Date End Date Carleen Guillen NP [address] [place] [address] [address] [place] [id number] PCP - General 07/03/13 documented as of this encounter
--- OUTSIDE RECORDS SUMMARY | 2024-01-20 14:16 | XMS_ITS | Encounter Summary ---
Author Organization [facility] Address [address] [place] [address] Care Team Providers Care Gas Turbine Powerplant Mechanic Helper Name Role Phone Unavailable Primary Care Provider Unavailabl e Encounter Details Date Type Department Care Team (Late st Contact Info) Description 04/29/2000 Results Only [facility] [address] [place] [address] Jeremiah Sinclair MD [address] [place] [address] [address] [place] [address] Social History Tobacco Use Types [...] Priority Date/Time Associated Diagnosis Comments CYTOPATHOLOGY Routine 04/29/2000 0:00 EST documented in this encounter Results * CYTOPATHOLOGY (04/29/2000 0:00 EST) Pathology Report: CYTOPATHOLOGY REPORT Reports generated via electronic interface contain original data; however they are lacking the format of the original report. Caution should be taken when reading/interpreti ng unformatted reports. Name: ? SAEID SINGH ? Accession #: ? [id number] : ? 1970 (Age: 29) ??F ?Collect Date: ? 04/29/2000 Location: ? [facility] ? Receive Date: ? 05/02/2000 Provider: ?JEREMIAH SINCLAIR MD Copy to: ? Specimen/Source: ?Conventional Pap Test, Cervix Last Menstrual Period: ? Hormonal/Contracep tive Status: ? Yes Previous Gynecologic Pathology: ? Yes: Atypia ? SPECIMEN ADEQUACY ? Satisfactory for evaluation. GENERAL CATEGORIZATION ? Benign Cellular Changes DESCRIPTIVE DIAGNOSIS ? Parakeratosis - surface reaction present. ? Document reviewed and electronically signed by: ? JONATHAN PATEL MD [facility] ? Report Date: ??05/15/2000 14:19 End of Report [facility] 04/29/2000 05/02/2000 Jeremiah Sinclair MD PATHOLOGY ORDERABLES [facility] [address] [place] [address] documented in this encounter Visit Diagnoses Not on filedocumented in this encounter
--- NOTE | 2024-01-20 16:19 | W.ED.GENAD ---
Discharge Plan Discharge Details Chief Complaint: Cellulitis Primary Care Provider: Ezequiel Oakley ED Provider: Serena Hughes Home Meds and New Rx's Prescriptions: No Action mirtazapine 30 mg tablet 45 mg PO QHS albuterol 90 mcg/actuation aerosol 2 puff IH Q4H PRN ferrous gluconate 324 mg (37.5 mg iron) tablet 324 mg PO DAILY lisinopril 10 mg tablet 10 mg PO DAILY clonidine HCl 0.1 mg tablet 0.1 mg PO BID atorvastatin 40 mg tablet 40 mg PO DAILY omeprazole [Prilosec] 40 MG capsule,delayed release(DR/EC) 40 mg PO DAILY methadone [Methadose] 40 mg tablet,soluble 150 mg PO DAILY duloxetine [Cymbalta] 20 MG capsule,delayed release(DR/EC) 60 mg PO BID cyclobenzaprine 10 mg tablet 10 mg PO TID hydroxyzine HCl 25 MG tablet 25 mg PO TID PRN lamotrigine [Lamictal] 100 MG tablet 300 mg PO DIRECTED Rx Instructions: 2 TABS IN THE MORNING AND 1 TAB AT BEDTIME epinephrine 0.3 MG/SYR auto-injector 0.3 mg IJ PRN PRN (Reason: Anaphylaxis) Qty: 1 0RF Dulera 100-5 mcg/actuation Hfa Aerosol Inhaler 2 puff INHALATION BID mometasone [Nasonex] 50 mcg/actuation [place],Non-Aerosol 1 spray INTRANASAL BID chlorthalidone 25 MG tablet 25 mg PO DAILY HPI General Date/Time Provider Initiated Documentation: 01/20/24 13:06. HPI Narrative: Krissy is a 53-year-old female who presents to the emergency department today for evaluation of left shoulder and left elbow pain/swelling. She reports that she had olecranon bursitis drained by PCP Ezequiel Oakley last week after having swelling to her elbow for approximately 1 to 2 months after hitting her elbow. She reports that felt better, but then returned a couple of days ago with increasing warmth/swelling and pain. She also reports she has had pain to her posterior left shoulder for the last 3 days, no associated injury. She denies fever/chills, general malaise, rashes, tick bites, other joint pain/swelling, distal numbness/tingling, arm weakness. She does have a history of previous shoulder surgery. Denies history of T2DM, IV drug use or ETOH use. No recent surgeries in the last 6 months. She is currently being treated with antibiotics for dental infection, not sure which one (will call pharmacy to confirm). She is able to tolerate Toradol without difficulty, is unable to take NSAIDs orally due to GI upset. Physical exam remarkable for significant swelling to olecranon bursa with mild warmth/erythema overlying. No rashes. Full painless range of motion to shoulder and elbow. Muscle spasm noted along scapula/trapezius. Distal pulses intact. Full painless range of motion to hand. Patient is alert and oriented, no acute distress. DDx includes but is not limited to: Traumatic bursitis, iatrogenic bursitis due to fluid aspiration, overlying cellulitis, muscle spasm, osteoarthritis, gout, inflammatory arthritis such as rheumatoid arthritis I independently interpreted the following tests: CBC, sed rate, Pro-Octavio all reassuring. CRP slightly elevated at 0.6. X-rays reassuring, only swelling consistent with olecranon bursitis noted. While in the emergency department Krissy received IV Toradol for pain with good improvement in discomfort. Overall workup today reassuring; no red flags concerning for septic joint. Likely left shoulder muscle spasm combined with olecranon bursitis Dr. Gonzales also to bedside to evaluate patient. No indication at this time for aspiration, as likely will reaccumulate. Recommend follow-up with orthopedics for definitive management such as possible bursectomy. Recommend ice/heat, lidocaine patches, and gentle massage. Related Data Home Medications ?Medication ?Instructions ?Recorded ?Confirmed duloxetine 20 mg capsule,delayed 60 mg PO BID 11/28/12 01/20/24 release (Cymbalta) hydroxyzine HCl 25 mg tablet 25 mg PO TID PRN 04/13/13 01/20/24 omeprazole 40 mg capsule,delayed 40 mg PO DAILY 11/02/15 01/20/24 release (Prilosec) lamotrigine 100 mg tablet 300 mg PO DIRECTED 03/16/16 01/20/24 (Lamictal) epinephrine 0.3 mg/0.3 mL 0.3 mg (0.3 mL) IJ PRN PRN 08/16/16 01/20/24 injection, auto-injector Anaphylaxis ##1 chlorthalidone 25 mg tablet 25 mg PO DAILY 07/12/17 01/20/24 albuterol 90 mcg/actuation aerosol 2 puff inhalation Q4H PRN 08/19/18 01/20/24 inhaler mometasone 50 mcg/actuation nasal 1 spray intranasal BID 11/28/20 01/20/24 spray (Nasonex) mometasone-formoterol HFA 100 2 puff inhalation BID 11/28/20 01/20/24 mcg-5 mcg/actuation aerosol inhaler (Dulera) atorvastatin 40 mg tablet 40 mg PO DAILY 01/08/22 01/20/24 clonidine HCl 0.1 mg tablet 0.1 mg PO BID 01/08/22 01/20/24 ferrous gluconate 324 mg (37.5 mg 324 mg PO DAILY 01/08/22 01/20/24 iron) tablet lisinopril 10 mg tablet 10 mg PO DAILY 01/08/22 01/20/24 mirtazapine 30 mg tablet 45 mg PO QHS 08/30/22 01/20/24 cyclobenzaprine 10 mg tablet 10 mg PO TID 09/18/22 01/20/24 methadone 40 mg soluble tablet 150 mg PO DAILY 09/18/22 01/20/24 (Methadose) Previous Rx's ?Medication ?Instructions ?Recorded epinephrine 0.3 mg/0.3 mL 0.3 mg (0.3 mL) IJ PRN PRN 08/16/16 injection, auto-injector Anaphylaxis ##1 Allergies Allergy/AdvReac Type Severity Reaction Status Date / Time penicillin G Allergy Severe THROAT Verified 01/20/24 13:20 CLOSES penicillin V Allergy Severe Anaphylaxis Unverified 01/20/24 13:20 clindamycin Allergy Intermediate Skin Rash Verified 01/20/24 13:20 milnacipran HCl (From Allergy Intermediate Skin Rash Verified 01/20/24 13:20 Savella) chlorthalidone Allergy Unknown Palpitation Unverified 01/20/24 13:20 s milnacipran (From Savella) Allergy Unknown Rash Unverified 01/20/24 13:20 cefuroxime axetil (From Allergy SKIN RASH Verified 01/20/24 13:20 Ceftin) acetaminophen (From Vicodin) AdvReac Intermediate I cant Verified 01/20/24 13:20 take it it ruins my liver azithromycin (From Zithromax) AdvReac Intermediate GI upset Verified 01/20/24 13:20 clarithromycin (From Biaxin) AdvReac Intermediate Nausea Verified 01/20/24 13:20 hydrocodone (From Vicodin) AdvReac Intermediate I cant Verified 01/20/24 13:20 take it it ruins my liver ibuprofen AdvReac Intermediate GI Upset Verified 01/20/24 13:20 ketorolac tromethamine (From AdvReac Intermediate GI Upset, Verified 01/20/24 13:20 Toradol) can take IV form pregabalin (From Lyrica) AdvReac Intermediate Worsen Mood Verified 01/20/24 13:20 Sulfa (Sulfonamide AdvReac Intermediate GI upset Verified 01/20/24 13:20 Antibiotics) ENVIORNMENTAL Allergy Mild SINUSES Uncoded 01/20/24 13:20 MESSED UP-EYES General Stated Complaint: Cellulitis GRISEL: 4 Review of Systems Narrative: see HPI Exam Const General: cooperative, healthy appearing, comfortable, no acute distress and well developed Nutritional Appearance: average body habitus Neck Neck: normal visual inspection and full ROM Neuro Gait: normal gait Motor: muscle tone normal throughout and strength 5/5 throughout Sensory Exam: no sensory deficits noted Extrem Right upper extremity: normal to inspection Left upper extremity: full ROM, normal capillary refill, no joint enlargement, shoulder/upper arm Details: tenderness (with muscle spasm to trapezius/scapula) and normal ROM; no abrasions, no lacerations, no ecchymosis, no crepitus, no foreign bodies, no deformity and no unsual warmth and elbow/forearm Details: swelling Location: of the olecranon (with mild erythema and warmth) and distal pulses intact; no abrasions, no ecchymosis, no crepitus, no penetrating wound and no deformity; no edema Course Vital Signs Vital signs: Vital Signs Temperature 36.0 C L 01/20/24 13:14 Pulse 96 H 01/20/24 13:14 Respiratory Rate 16 01/20/24 13:14 Blood Pressure 97/77 L 01/20/24 13:14 Pulse Oximetry 99 01/20/24 13:14 Temperature 36.0 C L 01/20/24 13:14 Temperature Source Skin 01/20/24 13:14 Pulse 96 H 01/20/24 13:14 Respiratory Rate 16 01/20/24 13:14 Respiratory Effort Normal 01/20/24 16:03 Blood Pressure 97/77 L 01/20/24 13:14 Blood Pressure Position Sitting 01/20/24 13:14 Pulse Oximetry 99 01/20/24 13:14 Oxygen Delivery Method Room Air 01/20/24 13:14 Oxygen Flow Rate 0 01/20/24 13:14 Pain Level 9 01/20/24 13:14 Medical Decision Making Imaging Data Radiologic Study: Radiologist's impression: Exam(s) XR SHOULDER LT COMPLETE 2+V EXAM: XR SHOULDER LT COMPLETE 2+V CLINICAL HISTORY: L shoulder pain. TECHNIQUE: 2D digital imaging was performed of the left shoulder. Six images were obtained. AP, Grashey, Y-view and axillary views were obtained. COMPARISON: CR,XR XR SHOULDER LT COMPLETE 2+V from 06/24/2023 FINDINGS: BONES: No acute fracture is present. No bony destructive lesion is seen. Postsurgical changes of a prior tenodesis. Prior distal clavicle resection. JOINTS: No dislocation present. SOFT TISSUE: Tiny calcifications adjacent to the greater tuberosity suggesting calcific tendinitis. IMPRESSION: No acute abnormality. Prior left shoulder surgery as described above. Radiologic Study #2: Radiologist's impression: Exam(s) XR ELBOW LT COMPLETE EXAM: XR ELBOW LT COMPLETE CLINICAL HISTORY: olecranon bursitis. TECHNIQUE: 2D digital imaging was performed of the left elbow. Three images were obtained. AP, lateral and oblique views were obtained. COMPARISON: CR XR ELBOW LT COMPLETE from 06/22/2022 FINDINGS: BONES: No acute fracture is present. No bony destructive lesion is seen. JOINTS: The elbow is normally aligned. No joint effusion is seen. The joint spaces are well maintained. SOFT TISSUE: Marked soft tissue swelling posterior to the olecranon. IMPRESSION: Soft tissue swelling posterior to the olecranon. No soft tissue gas, underlying bony abnormality or soft tissue calcifications are seen. This may represent a bursitis. Sequelae of inflammatory arthritis should be considered. Trauma should also be considered. Please correlate with the patient's clinical history. Quality:SDOH Health Related Social Needs: No Data to Display PFSH All Active Problems (Updated 07/25/23 @ 00:04 by KALEIGH HANKINS) Rotator cuff tear, left (Acute) Right wrist pain (Acute) Lumbar post-laminectomy syndrome (Acute) History of vocal cord polypectomy (Acute) Hypokalemia (Acute) Antral gastritis (Acute) GERD (gastroesophageal reflux disease) (Chronic) Impingement syndrome of left shoulder (Acute) Bursitis of left shoulder (Acute) 40 mg Depo-Medrol injection: 03/27/2022; 07/25/2021 Tendinitis of long head of biceps brachii of left shoulder (Acute) Calcific tendinitis of left shoulder (Acute) Contusion of left shoulder (Acute) Superficial postoperative wound infection (Acute) DJD of left AC (acromioclavicular) joint (Acute) history of distal clavicle excision Tobacco abuse (Acute) Pain of right thumb (Acute) Left shoulder tendonitis (Acute) Injection: 01/15/2019 Vocal cord mass (Chronic) Anemia (Chronic) H/O esophagogastroduodenoscopy (Chronic ~09/23/18) Chronic laryngitis (Acute 06/25/13) Hoarse (Acute 06/25/13) Left carpal tunnel syndrome (Acute 02/23/16) Throat irritation (Acute) Status post laparoscopic cholecystectomy (Acute 06/30/13) Biliary colic (Acute 06/30/13) Medical History (Updated 07/25/23 @ 00:04 by KALEIGH HANKINS) Smoker Anemia, iron deficiency Anxiety with depression Stage 2 moderate COPD by GOLD classification Chronic lower back pain Hip pain Chronic back pain Pain, joint, shoulder, right Osteoporosis Acute pain of right wrist Opioid dependence Dyspepsia Vitamin D deficiency Acne rosacea Seasonal allergies Osteoarthritis Low back pain Change in voice Pain in left shoulder Thoracic back pain Migraine Chronic sinusitis Edema of left lower extremity Spondylolisthesis Chronic anemia Fibromyalgia Depression Anxiety Hyperlipidemia Hypertension COPD (chronic obstructive pulmonary disease) Opioid abuse pt. denies this Hypothyroid Hypokalemia Surgical History Status post arthroscopy of left shoulder (09/23/20) S/P open biceps tenodesis, extensive debridement and subacromial decompression with partial acromioplasty Dr. Kaur History of vocal cord polypectomy Microlaryngoscopy with right vocal cord polyp excision, 11/13/2018 H/O spinal fusion History of carpal tunnel surgery of left wrist H/O hernia repair History of total abdominal hysterectomy with BSO right arm surgery on nerves Cholecystectomy Family History Father , from Colon Cancer in his late 60's Colon cancer Mother Diverticulitis s/p resection Social History Smoking/Tobacco Use Status: Current every day Tobacco Type: cigarettes Smoking packs per day: 1 Smoking cigarettes per day: 20.0 Tobacco: How many years used: 25 Smoking risk assessment performed?: Yes Alcohol Intake: never Drug use: Rarely Substance use type: marijuana Details: methadone client Current gender identity: female Do you feel safe at home: Yes Do you feel safe in your relationship?: Yes
[2024-01-20 16:22] VITALS: BP 122/76; PULSE 76; RESP 20; TEMP 26.5; O2SAT 99
[2024-01-20 16:41] LABS: ESR 18 mm/hr (0-30)
[2024-01-20 16:43] VITALS: TEMP 36.2
[2024-01-20] MEDS: Ketorolac 15 MG/ML VIAL IVP (16:43)
--- NOTE | 2024-01-20 17:03 | DI.RAD_ITS ---
Exam(s) XR ELBOW LT COMPLETE EXAM: XR ELBOW LT COMPLETE CLINICAL HISTORY: olecranon bursitis. TECHNIQUE: 2D digital imaging was performed of the left elbow. Three images were obtained. AP, lat eral and oblique views were obtained. COMPARISON: CR XR ELBOW LT COMPLETE from 06/22/2022 FINDINGS: BONES: No acute fracture is present. No bony destructive lesion is seen. JOINTS: The elbow is normally aligned. No joint effusion is seen. The joint spaces are well maintaine d. SOFT TISSUE: Marked soft tissue swelling posterior to the olecranon. IMPRESSION: Soft tissue swelling posterior to the olecranon. No soft tissue gas, underlying bony abnormality or soft tissue calcifications are seen. This may represent a bursitis. Sequelae of inflammatory arthri tis should be considered. Trauma should also be considered. Please correlate with the patient's cli nical history. DATA REPOSITORY: RADIATION DOSE DELIVERED:
--- NOTE | 2024-01-20 17:03 | DI.RAD_ITS ---
Exam(s) XR SHOULDER LT COMPLETE 2+V EXAM: XR SHOULDER LT COMPLETE 2+V CLINICAL HISTORY: L shoulder pain. TECHNIQUE: 2D digital imaging was performed of the left shoulder. Six images were obtained. AP, Gr ashey, Y-view and axillary views were obtained. COMPARISON: CR,XR XR SHOULDER LT COMPLETE 2+V from 06/24/2023 FINDINGS: BONES: No acute fracture is present. No bony destructive lesion is seen. Postsurgical changes of a pr ior tenodesis. Prior distal clavicle resection. JOINTS: No dislocation present. SOFT TISSUE: Tiny calcifications adjacent to the greater tuberosity suggesting calcific tendinitis. IMPRESSION: No acute abnormality. Prior left shoulder surgery as described above. DATA REPOSITORY: RADIATION DOSE DELIVERED:
[2024-01-20 17:16] LABS: Procalcitonin < 0.1 ng/mL
[2024-01-20 17:50] LABS: Abs Immature Grans 0.01 10^3/uL (0.0-0.06); Absolute Basophil Count 0.04 10^3/uL (0.0-0.2); Absolute Eosinophil Count 0.07 10^3/uL (0.0-0.7); Absolute Lymphocyte Count 1.62 10^3/uL (1.2-3.4); Absolute Monocyte Count 0.98 10^3/uL (0.1-0.8); Absolute Neutrophil Count 5.67 10^3/uL (1.2-6.7); Basophils % 0.5 %; Eosinophils % 0.8 %; HCT 33.3 % (36.0-46.0); HGB 10.3 g/dL (11.2-15.7); Immature Grans % 0.1 %; Lymphocytes % 19.3 %; MCH 27.2 pg (27.0-33.0); MCHC 30.9 % (32.0-36.0); MCV 88 fL (80-95); MPV 9.4 fL (8.0-11.0); Monocytes % 11.7 %; Neutrophils % 67.6 %; Platelet Count 315 10^3/uL (130-400); RBC 3.79 10^6/uL (3.93-5.22); RDW 18.4 % (11.7-14.6); RDW-SD 59.1 fL; WBC 8.39 10^3/uL (4.4-10.8)
[2024-01-20 18:03] LABS: Uric Acid 3.8 mg/dL (2.6-6.0)
[2024-01-20 18:36] VITALS: BP 120/81; PULSE 72; RESP 15; O2SAT 99
== END 2024-01-20 18:36 | disposition home or self-care (01) ==
PROVIDERS: Emergency Provider Nurse Practitioner Family; PCP Physician Assistant
DX: M25.512 Pain in left shoulder (principal); M70.22 Olecranon bursitis, left elbow; L03.114 Cellulitis of left upper limb; J44.9 Chronic obstructive pulmonary disease, unspecified; I10 Essential (primary) hypertension; E78.5 Hyperlipidemia, unspecified; F17.210 Nicotine dependence, cigarettes, uncomplicated; Z98.1 Arthrodesis status
CPT/HCPCS: 36415; 84145; 85652; 96374; 99284; 73030; 73080; 84550; 85025; 86140; 99283; J1885

== ENCOUNTER 2024-02-13 06:04 | Day surgery (SDC) | payer MEDICAID, SELFPAY ==
[2024-02-13] VITALS (44 sets, daily range): BP systolic 80–127; BP diastolic 51–82; PULSE 84–102; RESP 11–28; TEMP 36.1–37.2; O2SAT 91–100; BMI 25.8
--- OUTSIDE RECORDS SUMMARY | 2024-02-13 06:05 | XMS_ITS | Encounter Summary ---
[place] [address] Care Team Providers Care Coater Brake Linings Name Role Phone Peter Piña DNP Primary Care Provider Encounter Details Date Type Department Care Team (Late st Contact Info) Description 02/03/2020 Telephone [facility] [place] [phone] Mari Kim Social History Tobacco Use Types [...] on filedocumented in this encounter Care Teams Coater Brake Linings Relationship Specialty Start Date End Date Peter Piña DNP PCP - General Family Medicine 12/09/19 documented as of this encounter
--- OUTSIDE RECORDS SUMMARY | 2024-02-13 06:05 | XMS_ITS | Encounter Summary ---
Author Organization [facility] Address [facility] [place] [address] Care Team Providers Care Customs Compliance Analyst Name Role Phone Carleen Guillen APRN Primary Care Provider + Encounter Details Date Type Department Care Team (Late st Contact Info) Description 12/01/2019 Ancillary Procedure [place] [id number] Malick Hastings MD [facility] PHYSICAL [place] [address] Social History Tobacco Use Types Packs/Day Years [...] MR Spine (12/01/2019 12:00 AM EDT) Narrative [facility] - 01/12/2020 2:34 PM EDT This exam is auto-finalizing. It's purpose is for storage only. Malick Hastings MD IM FILM LIBRARY ORD ERABLES [place], [place] documented in this encounter Visit Diagnoses Not on filedocumented in this encounter Care Teams Customs Compliance Analyst Relationship Specialty Start Date End Date Carleen Guillen APRN PCP - General 02/12/13 12/08/19 documented as of this encounter
--- OUTSIDE RECORDS SUMMARY | 2024-02-13 06:05 | XMS_ITS | Clinical Summary ---
Author Organization [facility] Address [facility] [place] [address] Care Team Providers Care Saddle Stitching Machine Operator Name Role Phone Peter Piña DNP Primary Care Provider Allergies Active Allergy Reactions Criticality Noted Date [...] Influenza standard series) 02/23/2024 06/06/2006 Care Teams Saddle Stitching Machine Operator Relationship Specialty Start Date End Date Peter Piña DNP PCP - General Family Medicine 12/09/19
--- OUTSIDE RECORDS SUMMARY | 2024-02-13 06:05 | XMS_ITS | Encounter Summary ---
Author Organization [facility] Address [facility] [place] [address] Care Team Providers Care Vp Sales Name Role Phone Peter Piña DNP Primary Care Provider [phone] Encounter Details Date Type Department Care Team (Latest Contact Info) Description 01/14/2020 10:54 AM EDT - 01/14/2020 11:59 PM EDT Hospital Encounter XRay at [address] [place] [address] Malick Hastings MD [facility] PHYSICAL [place] [address] Failed back syndrome of lumbar spine; Pain [...] thigh documented in this encounter Care Teams Vp Sales Relationship Specialty Start Date End Date Peter Piña DNP PCP - General Family Medicine 12/09/19 documented as of this encounter
--- OUTSIDE RECORDS SUMMARY | 2024-02-13 06:05 | XMS_ITS | Encounter Summary ---
Author Organization [facility] [place] [address] Care Team Providers Care Special Agent Group Insurance Name Role Phone Peter Piña Nilepillo DNP Primary Care Provider Reason for Referral * Physical Therapy (Routine) - Closed Specialty Diagnoses / Procedures Referred By Contac t Referred To Contact Physical Therapy Diagnoses Sacroiliac dysfunction Left hip impingement syndrome Segmental and somatic dysfunction of lumbar region Chronic pain syndrome Malick Hastings MD [facility] PHYSICAL [place] [address] Physical Therapy, [address] [address] Referral ID Status Reason Start Date Expiration Date V isits Requested Visits Authorized [id number] Closed Evaluate and Treat 01/28/2020 07/26/2020 12 12 Encounter Details Date Type Department Care Team (Late st Contact Info) Description 01/28/2020 Telephone [place] [address] Malick Hastings MD [facility] PHYSICAL MEDICINE [place] [address] Social History Tobacco Use Types Packs/Day Years [...] segmental dysfunction. Rx will be faxed to [facility] in [place], [place]. documented in this encounter Plan of [...] syndrome documented in this encounter Care Teams Special Agent Group Insurance Relationship Specialty Start Date End Date Peter Piña DNP PCP - General Family Medicine 12/09/19 documented as of this encounter
--- OUTSIDE RECORDS SUMMARY | 2024-02-13 06:05 | XMS_ITS | Encounter Summary ---
Author Organization [facility] Address [facility] [place] [address] Care Team Providers Care Stamp Pad Finisher Name Role Phone Peter Piña DNP Primary Care Provider [phone] Reason for Visit * Reason Comments Back Pain Left Leg Pain Left Foot Pain * Consultation (Routine) - Specialty Diagnoses / Procedures Referred By Contac t Referred To Contact [facility] Diagnoses Spondylolisthesis, site unspecified Spine - Lumbar spondylolisthesis/ MRI 11/2019 @ [facility] Peter Piña DNP [address] [place] [address] [facility] [place] [address] Referral ID Status Reason Start Date Expiration Date V isits Requested Visits Authorized [id number] Consult, Test & Treat Connection Center PCP Updated and/or Approved 12/07/2019 06/07/2020 6 6 Encounter Details Date Type Department Care Team (Late st Contact Info) Description 01/14/2020 9:30 AM EDT Office Visit [facility] [place] [address] Malick Hastings MD [facility] PHYSICAL MEDICINE [place] [address] Chronic pain syndrome; Failed back [...] consideration for multidisciplinary rehabilitation through the [facility]. Current symptoms/concerns: The patient states that [...] helpful. This has been administered through the [facility] program. She is primarily concerned about decreased [...] pain management procedures in the past in [facility]. The patient was seen in the [...] to consider multidisciplinary rehabilitation through the [facility] and reviewed the rationale for such treatment in detail with her. Plan: 1. Pelvic and left hip radiographs, as above. 2. The patient will be contacted by telephone to discuss the radiographic results and to determine possible treatment and physiatric follow-up. The consultation request of Peter Piña APRN is greatly appreciated. Malick Hastings MD, MS 01/14/2020 * Shannon Ulrich, HAND SHOE CUTTER - 01/14/2020 9:30 AM EDT Confirmed with [...] thigh documented in this encounter Care Teams Stamp Pad Finisher Relationship Specialty Start Date End Date Peter Piña DNP PCP - General Family Medicine 12/09/19 documented as of this encounter
--- OUTSIDE RECORDS SUMMARY | 2024-02-13 06:06 | XMS_ITS | Encounter Summary ---
Author Organization [facility] Address [address] [place] [address] Care Team Providers Care Tavern Keeper Name Role Phone Carleen Guillen NP Primary Care Provider [phone] Encounter Details Date Type Department Care Team (Latest Contact Info) Description 11/13/2018 8:27 EDT - 11/13/2018 23:59 EDT Hospital Encounter [address] [address] Unknown, Provider, Discharge Disposition: Home or Self Care Social History Tobacco Use Types Packs/Day Years Used Date Smoking Tobacco: Never Assessed Sex and Gender Information Value Date Recorded Sex Assigned at Not on file Gender Identity Not on file Sexual Orientation Not on file documented as of this encounter Discharge Disposition Disposition Code Departure Means Destination Home or Self Nursing Home documented in this encounter Plan of Treatment Not on file documented as of this encounter Visit Diagnoses Not on filedocumented in this encounter Care Teams Tavern Keeper Relationship Specialty Start Date End Date Carleen Guillen NP [address] [place] [address] [address] [place] [address] PCP - General 07/03/13 documented as of this encounter
--- OUTSIDE RECORDS SUMMARY | 2024-02-13 06:06 | XMS_ITS | Encounter Summary ---
Author Organization [facility] Address [facility] [place] [address] Care Team Providers Care Orthopedic Assistant Name Role Phone Carleen Guillen APRN Primary Care Provider + Reason for Referral * Psychiatric (Routine) - Closed Specialty Diagnoses / Procedures Referred By Contac t Referred To Contact Psychiatry Diagnoses Opioid abuse Kris Bundy MD [facility] [place] [address] [address] [place] [address] Referral ID Status Reason Start Date Expiration Date V isits Requested Visits Authorized [id number] Closed Consult, Test & Treat 09/06/2015 09/05/2016 1 1 Encounter Details Date Type Department Care Team (Late st Contact Info) Description 09/06/2015 Orders [place] [address] Kris Bundy MD [facility] [place], [place] [id number] Opioid abuse Social History Tobacco Use Types [...] - 09/06/2015 1:47 PM EDT Seen at [facility] today. Needs addiction eval for cocaine, purchasing methadone from street. Ordered addiction evaluation. KRIS BUNDY MD documented in this encounter Plan of Treatment Scheduled Referrals Name Type Priority Associated Diagnoses Order Schedule Referral to Chemical Dependency Outpatient Referral Routine Opioid abuse Ordered: 09/06/2015 documented as of this encounter Visit Diagnoses Diagnosis Opioid abuse Opioid abuse, unspecified documented in this encounter Care Teams Orthopedic Assistant Relationship Specialty Start Date End Date Carleen Guillen APRN PCP - General 02/12/13 12/08/19 documented as of this encounter
--- OUTSIDE RECORDS SUMMARY | 2024-02-13 06:06 | XMS_ITS | Encounter Summary ---
Author Organization [facility] Address [address] [place] [address] Care Team Providers Care Assisted Living Executive Director Name Role Phone Carleen Guillen NP Primary Care Provider [phone] Encounter Details Date Type Department Care Team (Latest Contact Info) Description 09/23/2018 18:48 EDT - 09/23/2018 23:59 EDT Hospital Encounter [address] [address] Unknown, Provider, Discharge Disposition: Home or Self Care Social History Tobacco Use Types Packs/Day Years Used Date Smoking Tobacco: Never Assessed Sex and Gender Information Value Date Recorded Sex Assigned at Not on file Gender Identity Not on file Sexual Orientation Not on file documented as of this encounter Discharge Disposition Disposition Code Departure Means Destination Home or Self Skilled Nursing documented in this encounter Plan of Treatment Not on file documented as of this encounter Visit Diagnoses Not on filedocumented in this encounter Care Teams Assisted Living Executive Director Relationship Specialty Start Date End Date Carleen Guillen NP [address] [place] [address] [address] [place] [address] PCP - General 07/03/13 documented as of this encounter
--- OUTSIDE RECORDS SUMMARY | 2024-02-13 06:06 | XMS_ITS | Encounter Summary ---
Author Organization [facility] Address [facility] [address] [place] [id number] Care Team Providers Care Molecular Modeler Name Role Phone Carleen Guillen APRN Primary Care Provider + Reason for Referral * Consultation (Routine) - Closed Specialty Diagnoses / Procedures Referred By Contac t Referred To Contact Orthopaedics Diagnoses Lumbar postlaminectomy syndrome Kris Bundy MD [facility] [place] [address] Barry King MD [facility] [place] [address] Referral ID Status Reason Start Date Expiration Date V isits Requested Visits Authorized [id number] Closed Consult, Test & Treat 09/09/2015 09/08/2016 1 1 Encounter Details Date Type Department Care Team (Late st Contact Info) Description 09/09/2015 Orders [place] [address] Kris Bundy MD [facility] [place] [address] Lumbar postlaminectomy syndrome Social History Tobacco Use [...] region documented in this encounter Care Teams Molecular Modeler Relationship Specialty Start Date End Date Carleen Guillen, BUTTON MAKER AND INSTALLER PCP - General 02/12/13 12/08/19 documented as of this encounter
--- OUTSIDE RECORDS SUMMARY | 2024-02-13 06:06 | XMS_ITS | Encounter Summary ---
Author Organization [facility] Address [address] [place] [address] Care Team Providers Care Fur Stylist Name Role Phone Carleen Guillen NP Primary Care Provider [phone] Encounter Details Date Type Department Care Team (Late st Contact Info) Description 06/02/2020 Lab Requisition [facility] Pathology & Laboratory Medicine - [address] [address] Outr Resulting Lab, Provider Social History Tobacco [...] in accordance with CLIA regulations, College of [employer] Pathologists (CAP) guidelines (Sep 10, 2019), and FDA guidance (Aug 22, 2019). This test is only for use under the Food and Drug Administration's Emergency Use Authorization. Swab ENTIRE NASOPHARYNX / Unknown 06/01/2020 13:50 EST 06/02/2020 15:59 EST Provider Outr Resulting Lab MICROBIOLOGY - GENERAL ORDERABLES [facility] [place], [place] * COVID-19 TESTING (06/01/2020 13:50 EST) COVID-19 rt-PCR Result NEGATIVE Negative 06/04/2020 9:55 EST [facility] Comment: 2019-novel Coronavirus (2019-nCoV) not [...] in accordance with CLIA regulations, College of [place] Pathologists (CAP) guidelines (Sep 10, 2019), and FDA guidance (Aug 22, 2019). This test is only for use under the Food and Drug Administration's Emergency Use Authorization. Performing Lab [facility] 06/04/2020 9:55 EST [facility] Swab 06/01/2020 13:5 0 EST 06/02/2020 15:59 EST Provider Outr Resulting Lab MICROBIOLOGY - GENERAL ORDERABLES [facility] [address] [place] [address] [facility] [place], [place] documented in this encounter Visit Diagnoses Not on filedocumented in this encounter Care Teams Fur Stylist Relationship Specialty Start Date End Date Carleen Guillen NP [address] [place] [address] PCP - General 07/03/13 documented as of this encounter
--- OUTSIDE RECORDS SUMMARY | 2024-02-13 06:06 | XMS_ITS | Encounter Summary ---
Author Organization [facility] Address [facility] [place] [address] Care Team Providers Care Director Veterinary Name Role Phone Savanah Freedman APRN Primary Care Provider + Reason for Visit * Reason Comments GI Problem Encounter Details Date Type Department Care Team (Late st Contact Info) Description 04/17/2013 9:00 AM EDT Office [place] [address] Yahir Mata MD [facility] [place] [place] [address] RUQ pain (Primary Dx); Cholelithiasis Discharge Disposition: [...] IOC which she prefers to do in [facility]. 25 minutes of this 40 minute visit spent in discussion and coordination of care regarding gallstones. Yahir Mata MD head cleaning porter Director, GI Endoscopy Section of Gastroenterology and Hepatology [facility] [place] [address] Cc:SAVANAH FREEDMAN APRN [facility] [address] [place] [address] documented in this encounter Plan of Treatment Not on file documented as of this encounter Procedures Procedure Name Priority Date/Time Associated Diagnosis Comments HEPATIC FUNCTION PANEL Routine 04/17/2013 10:26 AM EDT RUQ pain documented in this encounter Results * Hepatic Function Panel (04/17/2013 10:26 AM EDT) Protein, Total 7.8 6.4 - 8.3 gm/dL CERNER MILLENNIUM Albumin 4.5 3.2 - 5.2 gm/dL CERNER MILLENNIUM Aspartate Aminotransferase 18 0 - 30 unit/L CERNER MILLENNIUM Alanine Aminotransferase 15 0 - 30 unit/L CERNER MILLENNIUM Alkaline Phosphatase 95 40 - 104 unit/L CERNER MILLENNIUM Bilirubin, Total 0.2 0.2 - 1.3 mg/dL CERNER MILLENNIUM Bilirubin, Direct 0.1 0.0 - 0.3 mg/dL CERNER [...] obstruction documented in this encounter Care Teams Director Veterinary Relationship Specialty Start Date End Date Savanah Freedman APRN PCP - General 02/12/13 12/08/19 documented as of this encounter
--- OUTSIDE RECORDS SUMMARY | 2024-02-13 06:06 | XMS_ITS | Encounter Summary ---
Author Organization [facility] Address [address] [place] [address] Care Team Providers Care Automation Technician Name Role Phone Carleen Guillen NP Primary Care Provider [phone] Encounter Details Date Type Department Care Team (Late st Contact Info) Description 07/11/2020 Lab Requisition [facility] Pathology & Laboratory Medicine - [facility] [address] [place] [address] Outr Resulting Lab, Provider Social History Tobacco [...] Outr Resulting Lab MICROBIOLOGY - GENERAL ORDERABLES [facility] [address] [place] [address] * COVID-19 TESTING (07/10/2020 20:45 EST) COVID-19 rt-PCR Result Negative Negative 07/12/2020 12:32 EST [facility] Comment: This test has [...] performed using the froilan SARS-CoV-2 assay ([employer] on the Froilan 6800 System Performing Lab [employer]ilan [address] [facility] 07/12/2020 12:32 EST [facility] Swab 07/10/2020 20:4 5 EST 07/11/2020 15:59 EST Provider Outr Resulting Lab MICROBIOLOGY - GENERAL ORDERABLES [facility] [address] [place] [address] documented in this encounter Visit Diagnoses Not on filedocumented in this encounter Care Teams Automation Technician Relationship Specialty Start Date End Date Carleen Guillen NP [address] [place] [address] [address] [place] [address] PCP - General 07/03/13 documented as of this encounter
--- OUTSIDE RECORDS SUMMARY | 2024-02-13 06:06 | XMS_ITS | Encounter Summary ---
Author Organization [facility] Address [address] [place] [address] Care Team Providers Care Sleeve Tailor Name Role Phone Carleen Guillen NP Primary Care Provider [phone] Encounter Details Date Type Department Care Team (Late st Contact Info) Description 12/01/2020 Lab Requisition [facility] Pathology & Laboratory Medicine - [facility] [address] [place] [address] Johnathan Ornelas, DO [address] [place] [address] Drug induced acute pancreatitis without necrosis or [...] with no significant diagnostic abnormality. 12/02/2020 18:38 [facility] Attestation By the signature below, the attending physician certifies that they have 1) personally conducted a gross and/or microscopic examination of the described specimen(s), and/or personally interpreted the results of laboratory testing of the described specimen(s), and 2) personally rendered or confirmed the above diagnosis. 12/02/2020 18:38 [facility] at 1838 Clinical History Mild gastritis 12/02/2020 18:38 [facility] Gross Description A. Received in formalin labelled with proper patient identification (initials V, K) and gastric antrum is a 0.6 x 0.2 x 0.2 cm camacho-pink tissue. Submitted intact in A1. JUANITA STILES(ASCP) 12/01/2020 18:38 12/02/2020 18:38 [facility] Performing Lab [facility] 12/02/2020 18:38 [facility] Scanned Images 12/02/2020 18:38 [facility] Tissue PYLORIC ANTRUM STRUCTURE / Unknown 12/01/2020 9:51 EDT 12/01/2020 16:07 EDT Johnathan Ornelas DO PATHOLOGY ORDERABL ES [facility] [address] [place] [address] documented in this encounter Visit Diagnoses Diagnosis Drug induced acute pancreatitis without necrosis or infection Hypokalemia Hypopotassemia Dehydration Encounter for prophylactic measures, unspecified Anemia, unspecified Iron deficiency anemia, unspecified Gastro-esophageal reflux disease without esophagitis Esophageal reflux documented in this encounter Care Teams Sleeve Tailor Relationship Specialty Start Date End Date Carleen Guillen NP [address] [place] [address] [address] [place] [address] PCP - General 07/03/13 documented as of this encounter
--- OUTSIDE RECORDS SUMMARY | 2024-02-13 06:06 | XMS_ITS | Encounter Summary ---
[place] [address] Care Team Providers Care Automotive Refinisher Name Role Phone Carleen Guillen APRN Primary Care Provider + Encounter Details Date Type Department Care Team (Late st Contact Info) Description 04/23/2013 Tele[place] [address] Cheli Khoury RN Social History Tobacco Use [...] on filedocumented in this encounter Care Teams Automotive Refinisher Relationship Specialty Start Date End Date Carleen Guillen APRN PCP - General 02/12/13 12/08/19 documented as of this encounter
--- OUTSIDE RECORDS SUMMARY | 2024-02-13 06:06 | XMS_ITS | Encounter Summary ---
Author Organization [facility] [place] [address] Care Team Providers Care Beer Merchant Name Role Phone Cheyenne Victoria MD Primary Care Provider [phone] Encounter Details Date Type Department Care Team (Late st Contact Info) Description 12/29/2012 [place] [address] Bo Blanca PA [facility] [place] [address] Social History Tobacco Use Types Packs/Day Years [...] This is a non-reportable exam. Bo [facility] FILM LIBRARY ORD ERABLES RAD [address] [facility] [place] [address] documented in this encounter Visit Diagnoses Not on filedocumented in this encounter Care Teams Beer Merchant Relationship Specialty Start Date End Date Cheyenne Victoria MD [address] [place] [address] PCP - General 05/16/10 02/11/13 documented as of this encounter
--- OUTSIDE RECORDS SUMMARY | 2024-02-13 06:06 | XMS_ITS | Referral Summary ---
Author Organization [facility] Address [address] [place] [address] Care Team Providers Care Charge Lpn Name Role Phone Carleen Guillen NP Primary Care Provider [phone] Social History Tobacco Use Types Packs/Day Years Used Date Smoking Tobacco: Never Assessed Interpersonal Safety Answer Date Record ed Physically Hurt Never 01/24/2020 Verbally Threaten Not on file 01/24/2020 Sex and Gender Information Value Date Recorded Sex Assigned at Not on file Gender Identity Not on file Sexual Orientation Not on file Plan of Treatment Not on file Care Teams Charge Lpn Relationship Specialty Start Date End Date Carleen Guillen NP [address] [place] [address] [address] [place] [address] PCP - General 07/03/13
--- OUTSIDE RECORDS SUMMARY | 2024-02-13 06:06 | XMS_ITS | Encounter Summary ---
Author Organization [facility] Address [facility] [address] [place] [id number] Care Team Providers Care Ups Driver Name Role Phone Carleen Guillen APRN Primary Care Provider + Reason for Referral * Psychiatric (Routine) - Specialty Diagnoses / Procedures Referred By Contac t Referred To Contact Psychiatry Diagnoses Lumbar post-laminectomy syndrome Yael Pete MD [facility] [place] [address] Ericka Elizabeth, PhD [facility] [place] [address] Referral ID Status Reason Start Date Expiration Date V isits Requested Visits Authorized [id number] Consult, Test & Treat 08/02/2014 08/02/2015 1 1 Reason for Visit * Reason Comments Pain Management Back Pain Encounter Details Date Type Department Care Team (Late st Contact Info) Description 08/02/2014 12:30 PM EST Office [place] [address] Yael Pete MD [address] [place] [address] Yael Pete MD [facility] [place] [address] Right lumbar radiculopathy; Lumbar post-laminectomy syndrome; Encounter [...] to that she had lumbar discectomy in [place], [place]. The patient notes thatshe had some [...] (affected her mood) -Interventional pain management in [facility]. She does not know what the [...] notes that she had a procedure at [facility] with 2 days of relief. She [...] would need to review her MRI from [facility], which was not available today. I [...] medications documented in this encounter Care Teams Ups Driver Relationship Specialty Start Date End Date Carleen Guillen, MONTY PCP - General 02/12/13 12/08/19 documented as of this encounter
--- OUTSIDE RECORDS SUMMARY | 2024-02-13 06:06 | XMS_ITS | Encounter Summary ---
Author Organization [facility] [place] [address] Care Team Providers Care Quality Liaison Name Role Phone Peter Piña DNP Primary Care Provider [phone] Encounter Details Date Type Department Care Team (Late st Contact Info) Description 02/07/2006 Orders [place] [address] Bulmaro Santiago MD [facility] [place] [address] Social History Tobacco Use Types Packs/Day Years [...] (02/07/2006 5:53 PM EDT) Surgical Pathology Report - [id number] ? Location: 3T; [facility]; A The signing pathologist has (i) [...] Bulmaro Santiago MD PATHOLOGY/CYTOLOGY O RDERABLES [facility] documented in this encounter Visit Diagnoses Not on filedocumented in this encounter Care Teams Quality Liaison Relationship Specialty Start Date End Date Peter Piña DNP PCP - General Family Medicine 12/09/19 documented as of this encounter
--- OUTSIDE RECORDS SUMMARY | 2024-02-13 06:06 | XMS_ITS | Encounter Summary ---
[place] [address] Care Team Providers Care Binder Operator Name Role Phone Carleen Guillen APRN Primary Care Provider + Encounter Details Date Type Department Care Team (Late st Contact Info) Description 02/13/2013 External [place] [address] Klaudia Andrew, RON Social History Tobacco Use [...] on filedocumented in this encounter Care Teams Binder Operator Relationship Specialty Start Date End Date Carleen Guillen APRN PCP - General 02/12/13 12/08/19 documented as of this encounter
--- OUTSIDE RECORDS SUMMARY | 2024-02-13 06:06 | XMS_ITS | Encounter Summary ---
Author Organization [facility] Address [address] [place] [address] Care Team Providers Care Tobacco Baler Name Role Phone Carleen Guillen NP Primary Care Provider [phone] Encounter Details Date Type Department Care Team (Late st Contact Info) Description 09/09/2019 Lab Requisition [facility] Pathology & Laboratory Medicine - [address] [address] Unknown, Provider, Social History Tobacco Use Types [...] IGA <1.2 <4.0 U/mL 09/11/2019 12:15 EDT [facility] Comment: A negative result may be due to IgA deficiency and does not rule out celiac disease. ? Negative: ??<4.0 U/mL ? Weak Positive: ??4.0 - 10.0 U/mL ? Positive: ??>10.0 U/mL Results were obtained with the INOVA QUANTA Lite R h-tTG IgA ZION assay on the [employer] DSX. IgA 281 85 - 499 mg/dL 09/11/2019 12:15 EDT [facility] Celiac Disease Interpretation Negative Serology. Celiac disease unlikely. Approximately 10% of patients with celiac disease are seronegative. Patients who are already adhering to a gluten-free diet may also be seronegative. If celiac disease is highly clinically suspected, referral to gastroenterology for additional evaluation is recommended. 09/11/2019 12:15 EDT [facility] Blood VENOUS BLOOD / Unknown 09/08/2019 19:03 EDT 09/09/2019 15:38 EDT Provider Unknown IMMUNOLOGY AND SEROL KAVITHA ORDERABLES [facility] [address] [place] [address] documented in this encounter Visit Diagnoses Not on filedocumented in this encounter Care Teams Tobacco Baler Relationship Specialty Start Date End Date Carleen Guillen NP [address] [place] [address] [address] [place] [address] PCP - General 07/03/13 documented as of this encounter
--- OUTSIDE RECORDS SUMMARY | 2024-02-13 06:06 | XMS_ITS | Encounter Summary ---
Author Organization [facility] Address [address] [place] [address] Care Team Providers Care Manager Pe Name Role Phone Unavailable Primary Care Provider Unavailabl e Encounter Details Date Type Department Care Team (Latest Contact Info) Description 06/30/2013 13:33 EST - 06/30/2013 23:59 EST Hospital Encounter [address] [address] Unknown, Provider, Discharge Disposition: Home or Self Care Social History Tobacco Use Types Packs/Day Years Used Date Smoking Tobacco: Never Assessed Sex and Gender Information Value Date Recorded Sex Assigned at Not on file Gender Identity Not on file Sexual Orientation Not on file documented as of this encounter Discharge Disposition Disposition Code Departure Means Destination Home or Self Snf documented in this encounter Plan of Treatment Not on file documented as of this encounter Visit Diagnoses Not on filedocumented in this encounter
--- OUTSIDE RECORDS SUMMARY | 2024-02-13 06:06 | XMS_ITS | Encounter Summary ---
Author Organization [facility] Address [address] [place] [address] Care Team Providers Care Supervisor Feed Mill Name Role Phone Carleen Guillen NP Primary Care Provider [phone] Encounter Details Date Type Department Care Team (Late st Contact Info) Description 11/19/2019 Lab Requisition [facility] Pathology & Laboratory Medicine - [address] [id number] Outr Resulting Lab, Provider Social History Tobacco [...] Outr Resulting Lab MICROBIOLOGY - GENERAL ORDERABLES [facility] [address] [place] [address] * COVID-19 TESTING (11/19/2019 11:06 EDT) COVID-19 rt-PCR Result Negative Negative 11/20/2019 15:48 EDT [facility] Comment: Negative results do not preclude 2019-nCoV infection and should not be used as the sole basis for treatment or other patient management decisions. Negative results must be combined with clinical observations, patient history, and epidemiological information. This test was developed and its performance characteristics determined by [facility]. It has not been cleared or approved [...] by the FDA Performed on the [employer] 7500 Fast. Performing Lab AB 7500 [facility] Lab 11/20/2019 15:48 EDT [facility] Swab ENTIRE NASOPHARYNX / Unknown 11/19/2019 11:06 EDT 11/19/2019 15:57 EDT Provider Outr Resulting Lab MICROBIOLOGY - GENERAL ORDERABLES [facility] [address] [place] [address] documented in this encounter Visit Diagnoses Not on filedocumented in this encounter Care Teams Supervisor Feed Mill Relationship Specialty Start Date End Date Carleen Guillen NP [address] [place] [address] [address] [place] [address] PCP - General 07/03/13 documented as of this encounter
--- OUTSIDE RECORDS SUMMARY | 2024-02-13 06:06 | XMS_ITS | Encounter Summary ---
Author Organization [facility] Address [address] [place] [address] Care Team Providers Care Home Health Aide Caregiver Name Role Phone Carleen Guillen NP Primary Care Provider [phone] Encounter Details Date Type Department Care Team (Late st Contact Info) Description 11/13/2018 Results [address] [facility] [phone] John Elder MD [address] [place] [phone] Social History Tobacco Use Types Packs/Day Years [...] ? SAEID SINGH ? Accession #: ? [id number] ? : ? 1970 (Age: 48) ??F ? Collect Date: ? 11/13/2018 ? Location: ? [facility] ? Receive Date: ? 11/13/2018 ? Provider: JOHN ELDER MD Copy to: STEVE CARPENTER DNP ? Final Pathologic Diagnosis: VOCAL CORD, RIGHT, MASS, BIOPSY: - Vocal cord polyp with squamous atypia, favor reactive. See comment. Comment: Deeper levels have been examined. Retail Security Professional slides of this case were reviewed at [...] vocal cord mass is an aggregate of camacho-ihnojosa membranous tissue (0.6 x 0.6 x 0.3 cm). The specimen is submitted entirely in 1-2. JUANITA Batres (ASCP) 11/13/2018 4:25 PM End of Report [facility] 11/13/2018 15:4 3 EDT 11/13/2018 15:43 EDT John Elder MD PATHOLOGY ORDERABLES [facility] [address] [place] [address] documented in this encounter Visit Diagnoses Not on filedocumented in this encounter Care Teams Home Health Aide Caregiver Relationship Specialty Start Date End Date Carleen Guillen NP [address] [place] [address] [address] [place] [address] PCP - General 07/03/13 documented as of this encounter
--- OUTSIDE RECORDS SUMMARY | 2024-02-13 06:06 | XMS_ITS | Encounter Summary ---
[place] [address] Care Team Providers Care Ribbon Blocker Name Role Phone Carleen Guillen APRN Primary Care Provider + Encounter Details Date Type Department Care Team (Latest Contact Info) Description 03/10/2013 10:23 AM EDT - 03/10/2013 11:59 PM EDT Hospital [place] [address] Chronic neck pain; Chronic low back pain; [...] of the clinical situation. (Reference-Tomvik et al, [id number]) Findings: (prevalence in patients without low back [...] mLs documented in this encounter Care Teams Ribbon Blocker Relationship Specialty Start Date End Date Carleen Guillen APRN PCP - General 02/12/13 12/08/19 documented as of this encounter
--- OUTSIDE RECORDS SUMMARY | 2024-02-13 06:06 | XMS_ITS | Encounter Summary ---
Author Organization [facility] Address [address] [place] [address] Care Team Providers Care Coagulating Operator Name Role Phone Unavailable Primary Care Provider Unavailabl e Encounter Details Date Type Department Care Team (Late st Contact Info) Description 06/30/2013 Results Only [facility] Laboratory Services - [facility] ([facility] [address] [place], [place] [address] Yang Hyatt, DO [address] [facility] [address] [place], [place] [id number] Social History Tobacco Use Types Packs/Day Years [...] reading/interpreti ng unformatted reports. Name: ? SAEID SINHG ? Accession #: ? [id number] ? : ? 1970 (Age: 42) ??F ? Collect Date: ? 06/30/2013 ? Location: ? [facility] ? Receive Date: ? 07/01/2013 ? Provider: YANG HYATT DO Copy to: SAVANAH FREEDMAN HOSE TURNER ? Final Pathologic Diagnosis: GALLBLADDER, CHOLECYSTECTOMY: - [...] x 0.4 cm in aggregate. ? Two order entry representative sections, the inked en face cystic duct margin, and the cystic duct lymph node are submitted in block 1. Claire Diaz 07/01/2013 11:36 AM End of Report [facility] 06/30/2013 8:31 EST 07/01/2013 8:31 EST Yang Hyatt DO PATHOLOGY ORDER NELSY LUACS [facility] [address] [place] [address] documented in this encounter Visit Diagnoses Not on filedocumented in this encounter
--- OUTSIDE RECORDS SUMMARY | 2024-02-13 06:06 | XMS_ITS | Encounter Summary ---
Author Organization [facility] [place] [address] Care Team Providers Care Electrical Installation Supervisor Name Role Phone Carleen Guillen APRN Primary Care Provider + Encounter Details Date Type Department Care Team (Late st Contact Info) Description 09/06/2015 - 09/06/2015 11:59 PM EDT Hospital Encounter [place] [address] [address] Ricardo Temporary Pain Discharge Disposition: Home [...] DX Spine (09/06/2015 12:00 AM EDT) Narrative [facility] - 09/07/2015 4:29 PM EDT See PACS for result report. Dr Renee [place] [facility] FILM LIBRARY ORD ERABLES [place], [place] documented in this encounter Visit Diagnoses Diagnosis Pain Generalized pain documented in this encounter Care Teams Electrical Installation Supervisor Relationship Specialty Start Date End Date Carleen Guillen APRN PCP - General 02/12/13 12/08/19 documented as of this encounter
--- OUTSIDE RECORDS SUMMARY | 2024-02-13 06:06 | XMS_ITS | Encounter Summary ---
Author Organization [facility] Address [facility] [place] [address] Care Team Providers Care Pacu Rn Name Role Phone Carleen Guillen APRN Primary Care Provider + Encounter Details Date Type Department Care Team (Late st Contact Info) Description 05/18/2013 Telephone [place] [address] Yahir Mata MD [facility] [place] [address] Social History Tobacco Use Types Packs/Day Years [...] on filedocumented in this encounter Care Teams Pacu Rn Relationship Specialty Start Date End Date Carleen Guillen APRN PCP - General 02/12/13 12/08/19 documented as of this encounter
--- OUTSIDE RECORDS SUMMARY | 2024-02-13 06:06 | XMS_ITS | Encounter Summary ---
Author Organization [facility] Address [address] [place] [address] Care Team Providers Care Montessori Preschool Teacher Name Role Phone Unavailable Primary Care Provider Unavailabl e Encounter Details Date Type Department Care Team (Late st Contact Info) Description 04/29/2000 Results Only [facility] - Maple conversion [address] [place] [address] Jeremiah Sinclair MD [address] [place] [address] [address] [place] [address] Social History Tobacco Use Types [...] ? SAEID SINGH ? Accession #: ? [id number] : ? 1970 (Age: 29) ??F ?Collect [...] signed by: ? JONATHAN PATEL MD [facility] ? Report Date: ??05/15/2000 14:19 End of Report [facility] 04/29/2000 05/02/2000 Jeremiah Sinclair MD PATHOLOGY ORDERABLES [facility] [address] [place] [address] documented in this encounter Visit Diagnoses Not on filedocumented in this encounter
--- OUTSIDE RECORDS SUMMARY | 2024-02-13 06:06 | XMS_ITS | Encounter Summary ---
Author Organization [facility] [place] [address] Care Team Providers Care Die Sinker Name Role Phone Carleen Guillen APRN Primary Care Provider + Encounter Details Date Type Department Care Team (Late st Contact Info) Description 04/06/2014 - 04/06/2014 11:59 PM EDT Hospital Encounter [place] [address] [address] Ricardo Temporary Pain Discharge Disposition: Home [...] MR Spine (04/06/2014 12:00 AM EDT) Narrative [facility] - 09/07/2015 4:26 PM EDT See PACS for result report. Dr Víctor Silva Daysi FILM LIBRARY ORD ERABLES [place], [place] documented in this encounter Visit Diagnoses Diagnosis Pain Generalized pain documented in this encounter Care Teams Die Sinker Relationship Specialty Start Date End Date Carleen Guillen APRN PCP - General 02/12/13 12/08/19 documented as of this encounter
--- OUTSIDE RECORDS SUMMARY | 2024-02-13 06:06 | XMS_ITS | Encounter Summary ---
Author Organization [facility] Address [facility] [place] [address] Care Team Providers Care Welder Assembler Name Role Phone Carleen Guillen APRN Primary Care Provider + Encounter Details Date Type Department Care Team (Late st Contact Info) Description 02/11/2013 External Results XRay at [address] [place] [address] Provider, Scanning Social History Tobacco Use Types [...] on filedocumented in this encounter Care Teams Welder Assembler Relationship Specialty Start Date End Date Carleen Guillen APRN PCP - General 02/12/13 12/08/19 documented as of this encounter
--- OUTSIDE RECORDS SUMMARY | 2024-02-13 06:06 | XMS_ITS | Encounter Summary ---
Author Organization [facility] Address [address] [place] [address] Care Team Providers Care Pipe Installer Name Role Phone Carleen Guillen NP Primary Care Provider [phone] Encounter Details Date Type Department Care Team (Late st Contact Info) Description 09/23/2018 Results Only [facility] [phone] Hiral Lion, DO [address] [facility] [address] [place] [address] Social History Tobacco Use Types [...] ? SAEID SINGH ? Accession #: ? [id number] ? : ? 1970 (Age: 48) ??F ? Collect Date: ? 09/23/2018 ? Location: ? [facility] ? Receive Date: ? 09/23/2018 ? Provider: DANELLE LEAVITT MD Copy to: LEAH REDDY HUMAN RESOURCES MANAGER MANUFACTURING ? Final Pathologic Diagnosis: STOMACH, ANTRUM, BIOPSY: [...] (ASCP) 09/24/2018 11:41 AM End of Report [facility] 09/23/2018 11:2 2 EDT 09/23/2018 11:22 EDT Danelle Leavitt MD PATHOLOGY ORDERA SHANIQUA [facility] [address] [place] [address] * SURGICAL PATHOLOGY (09/23/2018 11:11 EDT) Pathology Report: SURGICAL PATHOLOGY REPORT Reports generated via electronic interface contain original data; however they are lacking the format of the original report. Caution should be taken when reading/interpret ing unformatted reports. Name: ? SAEID SINGH ? Accession #: ? [id number] ? : ? 1970 (Age: 48) ??F [...] (ASCP) 09/24/2018 11:43 AM End of Report [facility] 09/23/2018 11:1 1 EDT 09/23/2018 11:11 EDT Hiral Lion DO PATHOLOGY ORDERABLES [facility] [address] [place] [address] documented in this encounter Visit Diagnoses Not on filedocumented in this encounter Care Teams Pipe Installer Relationship Specialty Start Date End Date Carleen Guillen NP [address] [place] [address] [address] [place] [address] PCP - General 07/03/13 documented as of this encounter
--- OUTSIDE RECORDS SUMMARY | 2024-02-13 06:06 | XMS_ITS | Encounter Summary ---
Author Organization [facility] [place] [address] Care Team Providers Care Boilermaker Loftsman Name Role Phone Cheyenne Victoria MD Primary Care Provider [phone] Encounter Details Date Type Department Care Team (Late st Contact Info) Description 12/30/2007 Orders [place] [address] Bo Blanca PA [facility] [place] [address] Social History Tobacco Use Types Packs/Day Years [...] This is a non-reportable exam. Bo [facility] FILM LIBRARY ORD ERABLES RAD [address] [facility] [place] [address] documented in this encounter Visit Diagnoses Not on filedocumented in this encounter Care Teams Boilermaker Loftsman Relationship Specialty Start Date End Date Cheyenne Victoria MD [address] [place] [address] PCP - General 05/16/10 02/11/13 documented as of this encounter
--- OUTSIDE RECORDS SUMMARY | 2024-02-13 06:06 | XMS_ITS | Encounter Summary ---
Author Organization [facility] Address [address] [place] [address] Care Team Providers Care Machine Sorter Name Role Phone Carleen Guillen NP Primary Care Provider [phone] Encounter Details Date Type Department Care Team (Late st Contact Info) Description 06/29/2020 Lab Requisition [facility] Pathology & Laboratory Medicine - [address] [address] Outr Resulting Lab, Provider Social History Tobacco [...] Outr Resulting Lab MICROBIOLOGY - GENERAL ORDERABLES [facility] [address] [place] [address] * COVID-19 TESTING (06/28/2020 14:30 EST) COVID-19 rt-PCR Result Negative Negative 06/30/2020 16:26 EST [facility] Comment: Negative results do not preclude 2019-nCoV infection and should not be used as the sole basis for treatment or other patient management decisions. Negative results must be combined with clinical observations, patient history, and epidemiological information. This test was developed and its performance characteristics determined by [facility]. It has not been cleared or [...] testing. This test is based on the [facility] COVID-19 Emergency Use Authorization (EUA) assay, with minor modification as defined by the FDA Performed on the [employer] Flex. Performing Lab [facility] Lab 06/30/2020 16:26 EST [facility] Swab 06/28/2020 14:3 0 EST 06/29/2020 15:55 EST Provider Outr Resulting Lab MICROBIOLOGY - GENERAL ORDERABLES [facility] [address] [place] [address] documented in this encounter Visit Diagnoses Not on filedocumented in this encounter Care Teams Machine Sorter Relationship Specialty Start Date End Date Carleen Guillen NP [address] [place] [address] [address] [place] [phone] PCP - General 07/03/13 documented as of this encounter
--- OUTSIDE RECORDS SUMMARY | 2024-02-13 06:06 | XMS_ITS | Encounter Summary ---
Author Organization [facility] Address [address] [place] [address] Care Team Providers Care Splitter Tender Name Role Phone Unavailable Primary Care Provider Unavailabl e Encounter Details Date Type Department Care Team (Late st Contact Info) Description 09/05/2001 Results Only [facility] - Maple conversion [address] [place] [address] Jeremiah Sinclair MD [address] [place] [address] [address] [place] [address] Social History Tobacco Use Types [...] ? SAEID SINGH ? Accession #: ? [id number] : ? 1970 (Age: 30) ??F ?Collect Date: ? 09/05/2001 Location: ? [facility] ? Receive Date: ? 09/08/2001 Provider: ?JEREMIAH SINCLAIR MD Copy to: ? Specimen/Source: ?ThinPrep Pap Test, Vagina Last Menstrual Period: ? Treatment History: ? BRIAN: LSO 06/24 Other: ? Client ID#: [id number] ? SPECIMEN ADEQUACY ? Satisfactory for Evaluation [...] Sinclair MD PATHOLOGY ORDERABLES Performing Organization Address City/State/[facility] Co de Phone Number [facility]UC[facility] ABRAMS [address] [place] [address] documented in this encounter Visit Diagnoses Not on filedocumented in this encounter
--- OUTSIDE RECORDS SUMMARY | 2024-02-13 06:06 | XMS_ITS | Encounter Summary ---
Author Organization [facility] Address [facility] [place] [address] Care Team Providers Care Veterinary Inspector Name Role Phone Carleen Guillen APRN Primary Care Provider + Reason for Visit * Reason Comments Other follow up to mri Low Back Pain Neck Pain with right arm pain Bilateral Leg Pain Encounter Details Date Type Department Care Team (Late st Contact Info) Description 03/10/2013 2:20 PM EDT Follow-[place] [address] CLINIC, Bo Renner PA [facility] [place] [address] Bilateral arm pain; Bilateral leg pain; Chronic [...] a smoking cessation program, such as the [place] [place]'s [place] from Smoking program. Set a quit date. [...] come in several forms, many of themavailable [id number]: Nicotine patches Nicotine gum and lozenges Nicotine [...] year. Visit our health information library at [email or web address]. You can alsoview health information on [employer], your personal patient account. Log in or sign up today. Enter Y522 in the search box to learn more about Stopping Smoking: After Your Visit. ?? [id number] [employer]. Care instructions adapted under license by [facility]. This care instruction is for use with your licensed healthcare professional. If you have questions about a medical condition or this instruction, always ask your healthcare professional. [employer] disclaims any warranty or liability for your use of this information. Content Version: 9.1.066257; Last Revised: January 10, 2011 documented in [...] spine center, I do think the functional yazidism program may be the best option. She [...] and planning. This dictation was performed using [employer] voice recognition dictation. documented in this encounter Plan of Treatment Not on file documented as of this encounter Visit Diagnoses Diagnosis Bilateral arm pain Pain in limb Bilateral leg pain Pain in limb Chronic low back pain Lumbago Chronic neck pain Cervicalgia documented in this encounter Care Teams Veterinary Inspector Relationship Specialty Start Date End Date Carleen Guillen, MONTY PCP - General 02/12/13 12/08/19 documented as of this encounter
--- OUTSIDE RECORDS SUMMARY | 2024-02-13 06:06 | XMS_ITS | Encounter Summary ---
Author Organization [facility] Address [facility] [place] [address] Care Team Providers Care Engineering Systems Analyst Name Role Phone Carleen Guillen APRN Primary Care Provider + Encounter Details Date Type Department Care Team (Latest Contact Info) Description 03/10/2013 10:22 AM EDT Hospital En[place] [phone] Chronic neck pain; Chronic low back pain; [...] of the clinical situation. (Reference-Nay et al, [id number]) Findings: (prevalence in patients without low back [...] limb documented in this encounter Care Teams Engineering Systems Analyst Relationship Specialty Start Date End Date Carleen Guillen, MONTY PCP - General 02/12/13 12/08/19 documented as of this encounter
--- OUTSIDE RECORDS SUMMARY | 2024-02-13 06:06 | XMS_ITS | Encounter Summary ---
[place] [address] Care Team Providers Care Wood Sash And Frame Carpenter Name Role Phone Cheyenne Victoria MD Primary Care Provider [phone] Reason for Visit * Reason Comments Back And Neck Pain Bilateral Arm Pain Bilateral Leg Pain Encounter Details Date Type Department Care Team (Late st Contact Info) Description 02/11/2013 9:35 AM EDT Office [place] [address] Bo Blanca PA [facility] [place] [address] Chronic low back pain (Primary Dx); Chronic [...] medial branch block/radiofrequency ablation and the functional sikhism program. If there are findings for nerve [...] are complete. This dictation was performed using Warply voice recognition dictation. documented in this encounter [...] of the clinical situation. (Reference-Tomvik et al, [id number]) Findings: (prevalence in patients without low back [...] of the clinical situation. (Reference-Tomvik et al, [id number]) Findings: (prevalence in patients without low back [...] limb documented in this encounter Care Teams Wood Sash And Frame Carpenter Relationship Specialty Start Date End Date Cheyenne Victoria MD [address] [place] [address] PCP - General 05/16/10 02/11/13 documented as of this encounter
--- OUTSIDE RECORDS SUMMARY | 2024-02-13 06:06 | XMS_ITS | Encounter Summary ---
Author Organization [facility] Address [address] [place] [address] Care Team Providers Care Toaster Element Repairer Name Role Phone Carleen Guillen NP Primary Care Provider [phone] Encounter Details Date Type Department Care Team (Late st Contact Info) Description 11/09/2019 Lab Requisition [facility] Pathology & Laboratory Medicine - [facility] [address] [place] [address] Outr Resulting Lab, Provider Social History Tobacco [...] rt-PCR Result NEGATIVE Negative 11/10/2019 14:20 EDT [facility] Comment: 2019-novel Coronavirus (2019-nCoV) [...] in accordance with CLIA regulations, College [employer] (CAP) guidelines (Sep 10, 2019), and FDA guidance (Aug 22, 2019). This test is only for use under the Food and Drug Administration's Emergency Use Authorization. Swab ENTIRE NASOPHARYNX / Unknown 11/09/2019 14:05 EDT 11/09/2019 20:49 EDT Provider Outr Resulting Lab MICROBIOLOGY - GENERAL ORDERABLES [facility] [place] * COVID-19 TESTING (11/09/2019 14:05 EDT) COVID-19 rt-PCR Result NEGATIVE Negative 11/10/2019 18:01 EDT [facility] Comment: 2019-novel Coronavirus (2019-nCoV) not [...] in accordance with CLIA regulations, College [employer] (CAP) guidelines (Sep 10, 2019), and FDA guidance (Aug 22, 2019). This test is only for use under the Food and Drug Administration's Emergency Use Authorization. Performing Lab [facility] 11/10/2019 18:01 EDT [facility] Swab ENTIRE NASOPHARYNX / Unknown 11/09/2019 14:05 EDT 11/09/2019 20:49 EDT Provider Outr Resulting Lab MICROBIOLOGY - GENERAL ORDERABLES [facility] [address] [place] [address] [facility] [place] documented in this encounter Visit Diagnoses Not on filedocumented in this encounter Care Teams Toaster Element Repairer Relationship Specialty Start Date End Date Carleen Guillen NP [address] [place] [address] [address] [place] [address] PCP - General 07/03/13 documented as of this encounter
--- OUTSIDE RECORDS SUMMARY | 2024-02-13 06:06 | XMS_ITS | Clinical Summary ---
Author Organization [facility] Address [address] [place] [address] Care Team Providers Care Medical Laboratory Manager Name Role Phone Carleen Guillen NP Primary [...] COVID-19 Vaccine ( season) 2023 Care Teams Medical Laboratory Manager Relationship Specialty Start Date End Date Carleen Guillen NP [address] [place] [address] [address] [place] [address] PCP - General 07/03/13
--- OUTSIDE RECORDS SUMMARY | 2024-02-13 06:06 | XMS_ITS | Encounter Summary ---
Author Organization [facility] Address [facility] [place] [place] [address] Care Team Providers Care Inside Meter Tester Name Role Phone Carleen Guillen APRN Primary Care Provider + Reason for Referral * Physical Therapy (Routine) - Specialty Diagnoses / Procedures Referred By Contac t Referred To Contact Physical Therapy Diagnoses Chronic low back pain Barry King MD [facility] [place] [address] Referral ID Status Reason Start Date Expiration Date V isits Requested Visits Authorized [id number] Evaluate and Treat 09/21/2015 03/19/2016 12 12 Reason for Visit * Reason Comments Low Back Pain broken screw mostly on the left side Left Leg Pain * Consultation (Routine) - Closed Specialty Diagnoses / Procedures Referred By Contac t Referred To Contact Orthopaedics Diagnoses Lumbar postlaminectomy syndrome Kris Bundy MD [facility] [place] [address] Barry King MD [facility] [place] [address] Referral ID Status Reason Start Date Expiration Date V isits Requested Visits Authorized [id number] Closed Consult, Test & Treat 09/09/2015 09/08/2016 1 1 Encounter Details Date Type Department Care Team (Late st Contact Info) Description 09/21/2015 2:20 PM EDT Office [place] [address] Barry King MD [facility] [place] [address] Chronic low back pain Social History Tobacco [...] disability since 2004. She worked as a termite technician prior to that. She smokes 1 pack [...] might be a candidate for the functional confucianist program if traditional physical therapy is not [...] Lumbago documented in this encounter Care Teams Inside Meter Tester Relationship Specialty Start Date End Date Carleen Guillen APRN PCP - General 02/12/13 12/08/19 documented as of this encounter
--- OUTSIDE RECORDS SUMMARY | 2024-02-13 06:06 | XMS_ITS | Encounter Summary ---
Author Organization [facility] Address [address] [place] [address] Care Team Providers Care Equipment Associate Name Role Phone Carleen Guillen NP Primary Care Provider [phone] Encounter Details Date Type Department Care Team (Late st Contact Info) Description 03/13/2017 Results Only [facility] [phone] Lili Ayala MD [address] [place] [address] [place] [address] Social History Tobacco Use Types [...] ? SAEID SINGH ? Accession #: ? [id number] ? : ? 1970 (Age: 46) ??F ? Collect Date: ? 03/13/2017 ? Location: ? [facility] ? Receive Date: ? 03/14/2017 ? Provider: LILI AYALA MD Copy to: LEAH REDDY LANDSCAPER HELPER ? Final Pathologic Diagnosis: JOINT, OLECRANON, RIGHT, [...] to red-brown partially hemorrhagic, partially mucinous material. Nursing Support Worker sections are submitted in 1. JUANITA Smith (ASCP) 03/14/2017 10:42 AM End of Report [facility] 03/13/2017 9:37 EDT 03/14/2017 9:37 EDT Lili Ayala MD PATHOLOGY ORDERABLES [facility] [address] [place] [address] documented in this encounter Visit Diagnoses Not on filedocumented in this encounter Care Teams Equipment Associate Relationship Specialty Start Date End Date Carleen Guillen NP [address] [place] [address] [address] [place] [address] PCP - General 07/03/13 documented as of this encounter
--- OUTSIDE RECORDS SUMMARY | 2024-02-13 06:06 | XMS_ITS | Encounter Summary ---
Author Organization [facility] Address [address] [place] [address] Care Team Providers Care Export Agent Name Role Phone Carleen Guillen NP Primary Care Provider [phone] Encounter Details Date Type Department Care Team (Latest Contact Info) Description 03/13/2017 16:27 EDT - 03/13/2017 23:59 EDT Hospital Encounter [address] [address] Unknown, Provider, Discharge Disposition: Home or Self [...] on filedocumented in this encounter Care Teams Export Agent Relationship Specialty Start Date End Date Carleen Guillen NP [address] [place] [address] [address] [place] [address] PCP - General 07/03/13 documented as of this encounter
[2024-02-13] MEDS: Lactated Ringers 1,000 ML 30 ML IV (06:51)
--- NOTE | 2024-02-13 07:01 | ROE_ITS ---
Date of service: 02/13/24 Time of Service: 07:30 Operative Note Operative Note DATE OF PROCEDURE: 02/13/24 PRE-OP DIAGNOSIS: Left elbow olecranon bursitis POST-OP DIAGNOSIS: same PROCEDURE: Left elbow excision olecranon bursitis, CPT #64525 SURGEON: Vasyl Kaur REGISTRAR NURSES' REGISTRY: Martir Wise ANESTHESIA TYPE: Local By Surgeon and General LMA/ETT Refer to Anesthesia Record ESTIMATED BLOOD LOSS: 5 PATHOLOGY: other (Olecranon bursa fluid for culture and crystal analysis) COMPLICATIONS: None Patient was transported to: PACU Patient's condition: stable Indications: Please see complete medical record for details. Findings: Probable aseptic chronic olecranon bursitis Procedure Description: In the operating room, [general] anesthesia was induced. The patient was positioned lateral on the operating room table. All bony prominences were well- padded. Preoperative antibiotics were administered. The left elbow was prepped and draped in the usual sterile fashion. The correct patient, procedure, and side of the procedure were all verified prior to incision. Left elbow bursa was obvious, no significant erythema, active drainage, or signs of infection. An 18-gauge needle and a syringe was used to aspirate and deflate the olecranon bursa with over 10 cc of fluid aspirated. There were soft numerous loose bodies consistent with chronic bursitis. The fluid was passed off for Gram stain, culture, and crystal analysis. The surgical area was then preinjected with 20 cc of 0.25% bupivacaine widely. A longitudinal curvilinear incision, taking care to curve laterally about the posterior elbow, was made over the bursitis. The bursal sac was thickened and confluent with the subcutaneous skin layers so could not be removed in entirety separately. Instead, from the inside out the abnormal bursal layers were removed with rongeur and abraded, thoroughly washed and irrigated, and then confirmed to be removed thoroughly and completely as possible to a healthy lightly bleeding tissue margin. The small site where the bursa had been draining occasionally was excised as well as some skin on both margins to reduce the size of the residual pocket as the skin had been stretched out to accommodate the chronic fluid collection. Wound was copiously irrigated. Hemostasis was appropriate. Subcutaneous tissue was closed tightly with 2-0 Monocryl buried interrupted, skin with 3-0 Monocryl subcuticular running, skin glue applied followed by Mepilex Band-Aid and generous 4 x 4 gauze padding and Antione bandage and soft roll. The elbow and bandages were León compressed in an Antione bandage. The patient awoke from anesthesia without complication and was transferred to the recovery room in a stable condition.
--- NOTE | 2024-02-13 07:03 | W.PM.DSUDISC ---
Date of service: 02/13/24 Time of Service: 10:00 Discharge Plan Disposition Patient Disposition: Home Discharge Details Attending Provider: Vasyl Kaur Primary Care Provider: Ezequiel Oakley Home Meds and New Rx's Prescriptions: Continued mirtazapine 30 mg tablet 45 mg PO QHS albuterol 90 mcg/actuation aerosol 2 puff IH Q4H PRN ferrous gluconate 324 mg (37.5 mg iron) tablet 324 mg PO DAILY lisinopril 10 mg tablet 10 mg PO DAILY clonidine HCl 0.1 mg tablet 0.1 mg PO BID atorvastatin 40 mg tablet 40 mg PO DAILY omeprazole [Prilosec] 40 MG capsule,delayed release(DR/EC) 40 mg PO DAILY methadone [Methadose] 40 mg tablet,soluble 150 mg PO DAILY duloxetine [Cymbalta] 20 MG capsule,delayed release(DR/EC) 60 mg PO BID cyclobenzaprine 10 mg tablet 10 mg PO TID hydroxyzine HCl 25 MG tablet 25 mg PO TID PRN lamotrigine [Lamictal] 100 MG tablet 300 mg PO DIRECTED Rx Instructions: 2 TABS IN THE MORNING AND 1 TAB AT BEDTIME epinephrine 0.3 MG/SYR auto-injector 0.3 mg IJ PRN PRN (Reason: Anaphylaxis) Qty: 1 0RF Dulera 100-5 mcg/actuation Hfa Aerosol Inhaler 2 puff INHALATION BID mometasone [Nasonex] 50 mcg/actuation [place],Non-Aerosol 1 spray INTRANASAL BID pregabalin 50 mg capsule 50 mg PO BID Patient Comments: TAKE ONE CAPSULE BY MOUTH TWICE A DAY chlorthalidone 25 MG tablet 25 mg PO DAILY Discharge Instructions Additional Instructions: Surgery: Left elbow excision olecranon bursitis Activity: Light use left upper extremity. Avoid bumping elbow surgical site. Rest on pillows or padding. Gentle range of motion. Prescriptions: No new. Resume home medications. May use acetaminophen/Tylenol for mild to moderate pain or discomfort. Dressings: Leave Mepilex Band-Aid in place until follow-up. Keep clean and dry at all times. You may loosen/adjust Antione bandage wrap and padding for comfort and swelling. Follow-up: 10-[address] Kaur You may take off the leg compression stockings this evening at home. You may also leave them on a few days longer if you have a history of leg swelling or edema. Let us know right away if you develop any redness, drainage, fevers, chest pain, or trouble breathing. Do not drink alcohol or drive for at least 24 hours after anesthesia. Please call the office during business hours with any questions or concerns. Discharge Orders Discharge Orders: Discharge Order (Routine); Ordered 02/13/24 Ordered By: Vasyl Kaur DS: Diagnosis Discharge Diagnosis (1) Olecranon bursitis, left elbow: Status: Acute
--- NOTE | 2024-02-13 07:13 | W.ANESPRE ---
General Info Date of Service Date Performed: 02/13/24 Height: 5 ft Weight: 60 kg Body Mass Index (BMI): 25.8 Surgical Procedure: Operation Date: 02/13/24 07:40 Proposed Procedure Side Surgeon p Olecranon Bursectomy Left Vasyl Kaur MD Meds Allergies and Home Medications Allergies Allergy/AdvReac Type Severity Reaction Status Date / Time penicillin G Allergy Severe THROAT Verified 02/13/24 06:13 CLOSES penicillin V Allergy Severe Anaphylaxis Verified 02/13/24 06:13 clindamycin Allergy Intermediate Skin Rash Verified 02/13/24 06:13 milnacipran HCl (From Allergy Intermediate Skin Rash Verified 02/13/24 06:13 Savella) chlorthalidone Allergy Unknown Palpitation Verified 02/13/24 06:14 s milnacipran (From Savella) Allergy Unknown Rash Verified 02/13/24 06:13 cefuroxime axetil (From Allergy SKIN RASH Verified 02/13/24 06:13 Ceftin) azithromycin (From Zithromax) AdvReac Intermediate GI upset Verified 02/13/24 06:13 clarithromycin (From Biaxin) AdvReac Intermediate Nausea Verified 02/13/24 06:13 hydrocodone (From Vicodin) AdvReac Intermediate I cant Verified 02/13/24 06:13 take it it ruins my liver ibuprofen AdvReac Intermediate GI Upset Verified 02/13/24 06:13 ketorolac tromethamine (From AdvReac Intermediate GI Upset, Verified 02/13/24 06:13 Toradol) can take IV form pregabalin (From Lyrica) AdvReac Intermediate Worsen Mood Verified 02/13/24 06:13 Sulfa (Sulfonamide AdvReac Intermediate GI upset Verified 02/13/24 06:13 Antibiotics) ENVIORNMENTAL Allergy Mild SINUSES Uncoded 02/13/24 06:13 MESSED UP-EYES Home Medication ?Medication ?Instructions ?Recorded duloxetine 20 mg capsule,delayed 60 mg PO BID 11/28/12 release (Cymbalta) hydroxyzine HCl 25 mg tablet 25 mg PO TID PRN 04/13/13 omeprazole 40 mg capsule,delayed 40 mg PO DAILY 11/02/15 release (Prilosec) lamotrigine 100 mg tablet 300 mg PO DIRECTED 03/16/16 (Lamictal) epinephrine 0.3 mg/0.3 mL 0.3 mg (0.3 mL) IJ PRN PRN 08/16/16 injection, auto-injector Anaphylaxis ##1 chlorthalidone 25 mg tablet 25 mg PO DAILY 07/12/17 albuterol 90 mcg/actuation aerosol 2 puff inhalation Q4H PRN 08/19/18 inhaler mometasone 50 mcg/actuation nasal 1 spray intranasal BID 11/28/20 spray (Nasonex) mometasone-formoterol HFA 100 2 puff inhalation BID 11/28/20 mcg-5 mcg/actuation aerosol inhaler (Dulera) atorvastatin 40 mg tablet 40 mg PO DAILY 01/08/22 clonidine HCl 0.1 mg tablet 0.1 mg PO BID 01/08/22 ferrous gluconate 324 mg (37.5 mg 324 mg PO DAILY 01/08/22 iron) tablet lisinopril 10 mg tablet 10 mg PO DAILY 01/08/22 mirtazapine 30 mg tablet 45 mg PO QHS 08/30/22 cyclobenzaprine 10 mg tablet 10 mg PO TID 09/18/22 methadone 40 mg soluble tablet 150 mg PO DAILY 09/18/22 (Methadose) pregabalin 50 mg capsule 50 mg PO BID 02/11/24 Current Visit Medications: Current Medications Generic Name Dose Route Start Last Admin Trade Name Praveenq PRN Reason Stop Dose Admin Acetaminophen 1,000 mg 02/13/24 07:00 Acetaminophen 500 Mg Tab PO 03/14/24 06:59 Q6H PRN PRN Ringer's Solution 1,000 mls @ 30 mls/hr 02/13/24 06:00 IV 03/13/24 23:59 INFUSION IDALIA Cefazolin Sodium/Dextrose 2 gm in 50 mls @ 100 mls/hr 02/13/24 06:00 Ancef Duplex IVPB 03/13/24 23:59 PREOP IDALIA IV Miscellaneous Supplies 1 each 02/13/24 06:00 Iv Access IV 03/13/24 23:59 DIRECTED IDALIA Sodium Chloride 0 ml 02/13/24 06:00 Normal Saline Flush 10 Ml Syr IV 03/13/24 23:59 PRN PRN Sodium Chloride 0 ml 02/13/24 06:00 Normal Saline 10 Ml Vial IJ 03/13/24 23:59 DIRECTED PRN Sterile Water 0 ml 02/13/24 06:00 Water,Injection,Sterile 10 Ml Vial IJ 03/13/24 23:59 DIRECTED PRN PFSH Active Problems Active Problems: Problem Status Onset Code Olecranon bursitis, left elbow Acute M70.22 Acute shoulder pain Acute M25.519 Olecranon bursitis Acute M70.20 Rotator cuff tear, left Acute M75.102 Right wrist pain Acute M25.531 Lumbar post-laminectomy syndrome Acute M96.1 History of vocal cord polypectomy Acute Z98.890 Hypokalemia Acute E87.6 Antral gastritis Acute K29.50 GERD (gastroesophageal reflux disease) Chronic K21.9 Impingement syndrome of left shoulder Acute M75.42 Bursitis of left shoulder Acute M75.52 Tendinitis of long head of biceps brachii of left shoulder Acute M75.22 Calcific tendinitis of left shoulder Acute M75.32 Contusion of left shoulder Acute S40.012A Superficial postoperative wound infection Acute T81.49XA DJD of left AC (acromioclavicular) joint Acute M19.012 Tobacco abuse Acute Z72.0 Pain of right thumb Acute M79.644 Left shoulder tendonitis Acute M75.82 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 Anemia Chronic D64.9 H/O esophagogastroduodenoscopy Chronic ~09/23/18 Z98.890 Chronic laryngitis Acute 06/25/13 J37.0 Hoarse Acute 06/25/13 R49.0 Left carpal tunnel syndrome Acute 02/23/16 G56.02 Throat irritation Acute J39.2 Status post laparoscopic cholecystectomy Acute 06/30/13 Z90.49 Biliary colic Acute 06/30/13 K80.50 Medical History Medical History Smoker Anemia, iron deficiency Anxiety with depression Stage 2 moderate COPD by GOLD classification Chronic lower back pain Hip pain Chronic back pain Pain, joint, shoulder, right Osteoporosis Acute pain of right wrist Opioid dependence Dyspepsia Vitamin D deficiency Acne rosacea Seasonal allergies Osteoarthritis Low back pain Change in voice Pain in left shoulder Thoracic back pain Migraine Chronic sinusitis Edema of left lower extremity Spondylolisthesis Chronic anemia Fibromyalgia Depression Anxiety Hyperlipidemia Hypertension COPD (chronic obstructive pulmonary disease) Opioid abuse pt. denies this Hypothyroid Hypokalemia Surgical History Surgical History Status post arthroscopy of left shoulder (09/23/20) S/P open biceps tenodesis, extensive debridement and subacromial decompression with partial acromioplasty Dr. Kaur History of vocal cord polypectomy Microlaryngoscopy with right vocal cord polyp excision, 11/13/2018 H/O spinal fusion History of carpal tunnel surgery of left wrist H/O hernia repair History of total abdominal hysterectomy with BSO right arm surgery on nerves Cholecystectomy Tobacco Smoking/Tobacco Use Status: Current every day Tobacco Type: cigarettes Smoking packs per day: 1 Alcohol Alcohol Intake: never Substance Use Substance use: Rarely Substance use type: marijuana Details: methadone client Vital Signs and Lab Results Vital Signs Most Recent Vital Signs in EMR: Most Recent Vital Signs Temp Pulse Resp BP Pulse Ox 36.1 C L 102 H 18 98/60 L 96 02/13/24 06:22 02/13/24 06:22 02/13/24 06:22 02/13/24 06:22 02/13/24 06:22 Lab Results Blood Type / Crossmatch: No Data to Display Complete Blood Count: White Blood Count 8.39 10^3/uL (4.4-10.8) 01/20/24 16:34 Red Blood Count 3.79 10^6/uL (3.93-5.22) L 01/20/24 16:34 Hemoglobin 10.3 g/dL (11.2-15.7) L 01/20/24 16:34 Hematocrit 33.3 % (36.0-46.0) L 01/20/24 16:34 Platelet Count 315 10^3/uL (130-400) 01/20/24 16:34 Complete Metabolic Panel: C-Reactive Protein 0.60 mg/dL (<or=0.5) H 01/20/24 16:34 Liver Function Panel: No Data to Display Coagulation Panel: No Data to Display Cardiac Panel: No Data to Display Arterial Blood Gas: No Data to Display Venous Blood Gas: No Data to Display Pancreas Panel: No Data to Display Thyroid Panel: No Data to Display Infectious Disease: No Data to Display Blood Cultures: No Data to Display Toxicology Panel: No Data to Display Imaging and Studies Imaging and Studies Study information below may be from another EMR and interpreted by another provider. Please see original notes in EMR for more complete details. Stress Test Summary: 01/11/16 Impressions: Normal study after pharmacologic stress. Summary: 1. Myocardial perfusion imaging: No myocardial perfusion defects noted. 2. The calculated left ventricular ejection fraction after stress: 50%. LV global systolic function is normal. No left ventricular regional motion abnormality. Anesthesia Assessment and Plan Anesthesia History Personal History: No History of Anesthesia Complications Family History: No Family History of Anesthesia Complications Exercise Tolerance Exercise Tolerance: Metabolic Equivalents>4 Pertinent Negatives Pertinent Negatives: No Symptoms of GERD, No Major Cardiovascular Symptoms or Complaints and No History of CVA/TIA Cardiac & Pulmonary Exam Cardiac Exam: Normal S1/S2 Heart Sounds Pulmonary Exam: Clear Bilateral Breath Sounds Implantable Cardiac Device Does patient have a Pacemaker or an ICD?: No Airway Exam Known Difficult Airway: No Mallampati Class: 2 Mouth Opening: Normal (> 3cm) Thyromental Distance: Greater than 3 cm Neck Range of Motion: Full ROM Neck Circumference: Normal Teeth Condition: Removable Dentures/Plates Upper ASA Classification ASA Score: ASA 3 Emergency Case?: No NPO Status NPO Status: NPO Clears >2 hours, Solids >8 hours Anesthesia Plan Resuscitation Status: Full Code Anesthesia Technique: General Anesthesia Airway Planned: Endotracheal Tube Monitors Used: Standard Monitors Preoperative Comments:: Pt. state sin general she does not eat or dink well, does not take very good care of herself. Last meal was breakfast yesterday with poor hydration throughout the day. Today she woke up nauseated and vomited. Presented to DSU and had dry heaves. Only other symptoms were headache which she often gets. She did skip her methadone today, but states she has in the past and has felt fine. She received 8mg zofran ODT with some improvement as well as 500ml LR. After 1st bolus she was still +orthostatic BP 105 down to 80 sys, but asymptomatic. She received an additional 500ml LR with resolution of all symptoms and no longer orthostatic. She is motivated to have surgery today. We discussed we would proceed but did discuss possible hypotension/aspiration during anesthesia. Will proceed to surgery.
[2024-02-13] MEDS: ceFAZolin 2 GM/50 ML BAG IVPB (08:00)
[2024-02-13] MEDS: TRANEXAMIC ACID/SOD. CHL. 1,000 MG/100 ML BAG 600 MG (08:05)
[2024-02-13] MEDS: Bupivacaine 0.25% Pres-Free W/EPI 30 ML VIAL (08:20)
[2024-02-13 09:28] LABS: Crystals (BF) No Crystals seen
[2024-02-13] MEDS: Albuterol/Ipratropium 3 ML UPD VIAL UPD (10:02)
--- NOTE | 2024-02-13 12:13 | W.ANESPOSTOP ---
Postoperative Evaluation Date, Time and Location Date Performed: 02/13/24 Time Performed: 11:05 Patient Location: Day Surgery Unit Vital Signs Most Recent Imported Vital Signs: Most Recent Vital Signs Temp Pulse Resp BP Pulse Ox 36.6 C 96 H 18 123/72 93 02/13/24 10:59 02/13/24 10:59 02/13/24 10:59 02/13/24 10:59 02/13/24 10:59 Pain Score Most Recent Pain Score: Most Recent Pain Score Pain Level 0 02/13/24 10:59 Assessment Mental Status: Awake (Alert & Oriented to Patient Baseline) Airway and Respiratory Function: Patent airway with normal (patient baseline) respiratory exam Cardiovascular Function: Hemodynamically Stable Hydration Status: Adequately Hydrated Nausea & Vomiting: No Nausea or Vomiting Pain: Pt. Denies Any Pain Peripheral Nerve Block: Patient did not receive a nerve block Postoperative Comments:: Despite events preoperatively, patient continues to do well, is comfortable and no nausea. Hemodynamics are good and pt. states she feels much better than this morning.
== END 2024-02-13 11:47 | disposition home or self-care (01) ==
PROVIDERS: PCP Physician Assistant; Visit Provider Student in an Organized Health Care Education/Training Program
PROC: (CPT 24105; principal; 2024-02-13 07:30)
DX: M70.22 Olecranon bursitis, left elbow (principal)
CPT/HCPCS: 24105; 87077; 87070; 87075; 87186; 87205; 89060; J0330; J0690; J1885; J2001; J2704; J7620

== ENCOUNTER 2024-05-19 01:38 | Outpatient (CLI) | payer MEDICAID, SELFPAY ==
--- NOTE | 2024-05-19 | DI.CTLCSR_ITS ---
Exam(s) CT CHEST LUNG CANCER SCREEN EXAM: CT CHEST LUNG CANCER SCREEN CLINICAL HISTORY: SMOKER, F17.210,SCREENING FOR LUNG CA. TECHNIQUE: Imaging Protocol: Low Dose Technique CONTRAST MATERIAL: None COMPARISON: CT CT CHEST LUNG CANCER SCREEN from 11/05/2022 FINDINGS: CHEST: LUNGS: There are no ominous pulmonary nodules. There are no confluent infiltrates. No pleural effusi ons. MEDIASTINUM: There is no obvious hilar nor mediastinal adenopathy. CARDIAC: Heart size is normal. There is no pericardial effusion.Caliber of the thoracic aorta is wit hin normal limits. OTHER: No obvious adrenal masses. No splenomegaly. OSSEOUS: No fractures. No significant osseous lesions.. Chronic degenerative disc disease in the lower thoracic spine. No listhesis. IMPRESSION: 1. No significant lung nodules. 2. No infiltrates nor pleural effusions nor intrathoracic adenopathy. 3. Lung RADS Cat 1 - Negative: No nodules and definitely benign nodules Lung-RADS 1.0 CATEGORIES: Category 0 - Prior chest CT exam(s) being located for comparison. Category 1 - Annual screening in 12 months. No nodules or definitely benign nodules. Category 2 - Annual screening in 12 months. Benign appearance. Nodules with low likelihood of becomin g active cancer. Category 3 - 6-month follow-up. Probably benign. Short-term follow-up suggested. Nodules with low lik elihood of becoming active cancer. Category 4A - 3-month follow-up and CT/PET if >8 mm in size. Suspicious finding. Findings which requi re additional testing. Category 4B - Findings which require additional testing and tissue sampling. Category 4X - Category 3 or 4 nodules with additional features or imaging findings that increases the suspicion of malignancy. Modifier S- Potentially clinically significant findings (non lung cancer) RADIATION DOSE DELIVERED: 26.8mGy.cm Total DLP DATA REPOSITORY: All CT scans at this facility are submitted to the National Radiology Data Registry (NRDR) Dose Index Registry (DIR) with the [employer] ([employer]). RADIATION OPTIMIZATION: All CT scans at this facility use at least one of these dose optimization te chniques: automated exposure control; mA and/or kV adjustment per patient size (includes targeted exa ms where dose is matched to clinical indication); or iterative reconstruction.
== END 2024-05-19 01:58 ==
LOC: DI 01:38
PROVIDERS: PCP Physician Assistant; Visit Provider Physician Assistant
DX: F17.210 Nicotine dependence, cigarettes, uncomplicated (principal); Z12.2 Encounter for screening for malignant neoplasm of respiratory organs
CPT/HCPCS: 71271

== ENCOUNTER 2024-08-14 11:16 | Outpatient (CLI) | payer MEDICAID, SELFPAY ==
--- NOTE | 2024-08-14 11:15 | RT.EKG_ITS ---
APPROVED REPORT Exam: Resting ECG Reason for Exam: High Dose Medication Patient Location: O HR:72 bpm ECG Measurements Heart Rate 72 AXIS MD 168 P 60 QRSd 99 QRS 54 QT 416 T 56 QTc 456 Conclusion Sinus rhythm...normal P axis, V-rate 50- 99 Probable left atrial enlargement...P >50mS, <-0.10mV V1 Otherwise normal ECG
== END 2024-08-14 11:17 | disposition home or self-care (01) ==
PROVIDERS: PCP Physician Assistant; Visit Provider Family Medicine
DX: Z79.899 Other long term (current) drug therapy (principal)
CPT/HCPCS: 93005; 93010

== ENCOUNTER 2024-09-03 12:06 | Outpatient (REF) | payer MEDICAID, SELFPAY ==
[2024-09-03 16:09] LABS: HCT 22.1 % (36.0-46.0); Platelet Count 222 10^3/uL (130-400); RBC 3.22 10^6/uL (3.93-5.22); RDW-SD 51.6 fL; WBC 4.41 10^3/uL (4.4-10.8)
[2024-09-03 16:31] LABS: MCHC 27.1 % (32.0-36.0); MCV 69 fL (80-95)
[2024-09-03 16:32] LABS: MCH 18.6 pg (27.0-33.0); RDW 20.8 % (11.7-14.6)
[2024-09-03 17:18] LABS: ALT 13 U/L (14-59); AST 19 U/L (15-37); Albumin 3.8 g/dL (3.4-5.0); Alkaline Phosphatase 91 U/L (46-116); Anion Gap 7.9 mmol/L (3-11); BUN 15 mg/dL (7-18); Bilirubin, Total 0.2 mg/dL (0.2-1.0); CO2 30.1 mmol/L (21.0-32.0); CREATININE 1.1 mg/dL (0.55-1.02); Calcium 8.9 mg/dL (8.5-10.1); Calculated LDL 42 mg/dL (<100); Chloride 104 mmol/L (98-107); Cholesterol 149 mg/dL (<200); Estimated GFR 59.34 (mL/min/1.73m2); Ferritin 6 ng/mL (8-252); Glucose 94 mg/dL (74-106); HDL Cholesterol 43 mg/dL (>or=50); Potassium 4.2 mmol/L (3.5-5.1); Sodium 142 mmol/L (136-145); Total Protein 6.9 g/dL (6.4-8.2); Triglyceride 321 mg/dL (<150); Vitamin D 25 Total 17 ng/mL (30-100)
[2024-09-03 17:43] LABS: Iron 11 ug/dL (50-170); Total Iron Binding Capacity 437 ug/dL (250-450); Transferrin Sat 3 % (15-50)
== END 2024-09-03 12:07 | disposition home or self-care (01) ==
LOC: NCHCN 12:06
PROVIDERS: PCP Physician Assistant; Visit Provider Physician Assistant
DX: E78.5 Hyperlipidemia, unspecified (principal); D50.9 Iron deficiency anemia, unspecified; E55.9 Vitamin D deficiency, unspecified
CPT/HCPCS: 80053; 80061; 82306; 85027; 82728; 83540; 83550

== ENCOUNTER 2024-09-04 15:47 | Outpatient (CLI) | payer MEDICAID, SELFPAY | END 2024-09-04 15:48 | disposition home or self-care (01) | LOC: LBO 15:49 | PROVIDERS: PCP Physician Assistant; Visit Provider Physician Assistant | DX: D64.9 Anemia, unspecified (principal) | CPT/HCPCS: 36415; 86850; 86900; 86901 ==

== ENCOUNTER 2024-09-07 01:39 | Outpatient (RCR) | payer MEDICAID, SELFPAY ==
[2024-09-07 08:39] LABS: MCH 18.8 pg (27.0-33.0); MCHC 26.8 % (32.0-36.0); MCV 70 fL (80-95); MPV 9.5 fL (8.0-11.0); Platelet Count 231 10^3/uL (130-400); RBC 2.92 10^6/uL (3.93-5.22); RDW 21.2 % (11.7-14.6); RDW-SD 51.1 fL; WBC 2.93 10^3/uL (4.4-10.8)
[2024-09-07 09:07] LABS: HCT 20.5 % (36.0-46.0); HGB 5.5 g/dL (11.2-15.7)
[2024-09-07] MEDS: Normal Saline Flush 5 ML SYR IVP (09:40)
== END 2024-09-21 23:59 | disposition home or self-care (01) ==
LOC: INF 01:39
PROVIDERS: PCP Physician Assistant; Visit Provider Family Medicine
DX: D64.9 Anemia, unspecified (principal); E78.5 Hyperlipidemia, unspecified; E55.9 Vitamin D deficiency, unspecified
CPT/HCPCS: 36415; 85027; 86850; 86900; 86901; 86920

== ENCOUNTER 2024-09-07 08:53 | Emergency (ER) | payer MEDICAID, SELFPAY ==
[2024-09-07] VITALS (78 sets, daily range): BP systolic 98–158; BP diastolic 52–104; PULSE 60–94; RESP 5–24; TEMP 35.9–37.1; O2SAT 89–100
--- NOTE | 2024-09-07 09:21 | ED.GENADUL_ITS ---
Discharge Plan Disposition Patient Disposition: Home Condition: Stable Discharge Details Clinical Impression: Anemia, Right lower lobe pulmonary infiltrate Primary Care Provider: Ezequiel Oakley ED Provider: Christie Virgen Home Meds and New Rx's Prescriptions: New doxycycline hyclate 100 mg tablet 100 mg PO BID 10 Days Qty: 20 0RF Continued mirtazapine 30 mg tablet 30 mg PO QHS albuterol 90 mcg/actuation aerosol 2 puff IH Q4H PRN ferrous gluconate 324 mg (37.5 mg iron) tablet 324 mg PO DAILY lisinopril 10 mg tablet 10 mg PO DAILY atorvastatin 40 mg tablet 40 mg PO DAILY omeprazole [Prilosec] 40 MG capsule,delayed release(DR/EC) 40 mg PO DAILY methadone [Methadose] 40 mg tablet,soluble 150 mg PO DAILY Patient Comments: pt states now taking 170mg @ [facility] duloxetine [Cymbalta] 20 MG capsule,delayed release(DR/EC) 60 mg PO BID lamotrigine [Lamictal] 100 MG tablet 300 mg PO DIRECTED Rx Instructions: 2 TABS IN THE MORNING AND 1 TAB AT BEDTIME Dulera 100-5 mcg/actuation HFA aerosol inhaler 2 puff INHALATION BID PRN No Action clonidine HCl 0.1 mg tablet 0.1 mg PO BID cyclobenzaprine 10 mg tablet 10 mg PO TID PRN hydroxyzine HCl 25 MG tablet 25 mg PO TID PRN epinephrine 0.3 MG/SYR auto-injector 0.3 mg IJ PRN PRN (Reason: Anaphylaxis) Qty: 1 0RF mometasone [Nasonex] 50 mcg/actuation Palmer,Non-Aerosol 1 spray INTRANASAL BID pregabalin 50 mg capsule 50 mg PO BID Patient Comments: TAKE ONE CAPSULE BY MOUTH TWICE A DAY chlorthalidone 25 MG tablet 25 mg PO DAILY Discharge Instructions Instructions: Anemia caused by low iron, Pneumonia, Adult ED Additional Instructions: On chest x-ray does show that you have a right lower lobe infiltrate which could be an early pneumonia. You are also very anemic here today. You received 2 units of packed red blood cells. Please take the medication antibiotic twice daily with yogurt or probiotic as directed. Continue to take your iron as previously prescribed. Follow up with primary care provider in 3-5 days. Return to ED sooner if any worsening chest pain, fever or shortness of breath or concerns. You have been placed on care management list to assist you in getting a close follow-up appointment. Referrals: Ezequiel Oakley [Primary Care Provider] - 3 days (Call today or tomorrow to make an appointment within a week.) HPI General Mode of arrival: ambulatory . Date/Time Provider Initiated Documentation: 09/07/24 09:00 . Limitations to Documentation: no limitations . Information obtained by: patient, RN notes reviewed and old records reviewed . HPI Narrative: 53-year-old female presents to the ER from [facility] after being found to have a lower H&H than Saturday. Hemoglobin 5.5 hematocrit 20. Patient was scheduled to have a unit of PRBCs but was referred here for further evaluation and treatment. Patient has no complaints at this time. She denies any abdominal pain she does report dark stools however she is taking iron supplementation. She does have a history of anemia and has been found to be iron deficient. She denies any nausea vomiting diarrhea. She does appear pale. She does endorse being a daily smoker denies any drugs or alcohol she does endorse taking Tylenol daily.Other past medical history includes hypothyroidism hypokalemia COPD hypertension hyperlipidemia anxiety depression fibromyalgia vitamin D deficiency. Related Data Home Medications ?Medication ?Instructions ?Recorded ?Confirmed duloxetine 20 mg capsule,delayed 60 mg PO BID 11/28/12 09/07/24 release (Cymbalta) hydroxyzine HCl 25 mg tablet 25 mg PO TID PRN 04/13/13 09/07/24 omeprazole 40 mg capsule,delayed 40 mg PO DAILY 11/02/15 09/07/24 release (Prilosec) lamotrigine 100 mg tablet 300 mg PO DIRECTED 03/16/16 09/07/24 (Lamictal) epinephrine 0.3 mg/0.3 mL 0.3 mg (0.3 mL) IJ PRN PRN 08/16/16 09/07/24 injection, auto-injector Anaphylaxis ##1 chlorthalidone 25 mg tablet 25 mg PO DAILY 07/12/17 09/07/24 albuterol 90 mcg/actuation aerosol 2 puff inhalation Q4H PRN 08/19/18 09/07/24 inhaler mometasone 50 mcg/actuation nasal 1 spray intranasal BID 11/28/20 09/07/24 spray (Nasonex) atorvastatin 40 mg tablet 40 mg PO DAILY 01/08/22 09/07/24 clonidine HCl 0.1 mg tablet 0.1 mg PO BID 01/08/22 09/07/24 ferrous gluconate 324 mg (37.5 mg 324 mg PO DAILY 01/08/22 09/07/24 iron) tablet lisinopril 10 mg tablet 10 mg PO DAILY 01/08/22 09/07/24 mirtazapine 30 mg tablet 30 mg PO QHS 08/30/22 09/07/24 cyclobenzaprine 10 mg tablet 10 mg PO TID PRN 09/18/22 09/07/24 methadone 40 mg soluble tablet 150 mg PO DAILY 09/18/22 09/07/24 (Methadose) pregabalin 50 mg capsule 50 mg PO BID 02/11/24 09/07/24 mometasone-formoterol HFA 100 2 puff inhalation BID PRN 02/26/24 09/07/24 mcg-5 mcg/actuation aerosol inhaler (Dulera) doxycycline hyclate 100 mg tablet 100 mg PO BID 10 days #20 tabs 09/07/24 Previous Rx's ?Medication ?Instructions ?Recorded epinephrine 0.3 mg/0.3 mL 0.3 mg (0.3 mL) IJ PRN PRN 08/16/16 injection, auto-injector Anaphylaxis ##1 doxycycline hyclate 100 mg tablet 100 mg PO BID 10 days #20 tabs 09/07/24 Allergies Allergy/AdvReac Type Severity Reaction Status Date / Time penicillin G Allergy Severe THROAT Verified 09/07/24 09:00 CLOSES penicillin V Allergy Severe Anaphylaxis Verified 09/07/24 09:00 clindamycin Allergy Intermediate Skin Rash Verified 09/07/24 09:00 milnacipran HCl (From Allergy Intermediate Skin Rash Verified 09/07/24 09:00 Savella) milnacipran (From Savella) Allergy Unknown Rash Verified 09/07/24 09:00 cefuroxime axetil (From Allergy SKIN RASH Verified 09/07/24 09:00 Ceftin) azithromycin (From Zithromax) AdvReac Intermediate GI upset Verified 09/07/24 09:00 clarithromycin (From Biaxin) AdvReac Intermediate Nausea Verified 09/07/24 09:00 hydrocodone (From Vicodin) AdvReac Intermediate I cant Verified 09/07/24 09:00 take it it ruins my liver ibuprofen AdvReac Intermediate GI Upset Verified 09/07/24 09:00 ketorolac tromethamine (From AdvReac Intermediate GI Upset, Verified 09/07/24 09:00 Toradol) can take IV form pregabalin (From Lyrica) AdvReac Intermediate Worsen Mood Verified 02/26/24 09:12 Sulfa (Sulfonamide AdvReac Intermediate GI upset Verified 09/07/24 09:00 Antibiotics) ENVIORNMENTAL Allergy Mild SINUSES Uncoded 09/07/24 09:00 MESSED UP-EYES General Stated Complaint: GI Bleed GRISEL: 3 Review of Systems All systems reviewed & are unremarkable except as noted in HPI and below Exam Narrative Exam Narrative: Constitutional: Alert and oriented x3. Appears stated age. Normal body habitus. Head: Normocephalic, no trauma. Eyes: Pupils PERRL, Red reflex noted, EOM's intact. Eyelids symmetrical without lesions, discharge, or swelling. ENT: Bilateral TM's WNL, External ear normal to inspection, no mastoid TTP, swelling, or erythema, Nasal turbinates WNL, no nasal discharge. Poor dentition, Posterior pharynx WNL, no exudate. Chest: RRR, Normal S1, S2, distal pulses intact. Resp: Lungs clear to auscultation bilaterally, no wheezes, rales, or rhonchi. Abdomen: Soft, non-distended, Normoactive bowel sounds all 4 quads. Musculoskeletal: Normal gait, Moves all 4 extremities without difficulty. Skin: No suspicious rashes or lesions. Capillary refill less than 2 sec. pale, pallor. Neurologic: Cranial nerves II-XII intact. Alert and oriented x 3. Motor: No deficits noted. Sensory: Intact bilaterally all 4 extremities. Hematologic/Lymphatic: No ecchymosis, no lymphadenopathy. Const General: cooperative and healthy appearing Nutritional Appearance: average body habitus Orientation: alert, awake and oriented x3 Resp Effort & Inspection: normal respiratory effort and able to speak in complete sentences Auscultation: clear to auscultation bilaterally Cardio Palpation: normal PMI Rate: regular rate Rhythm: regular rhythm Heart Sounds: S1 normal and S2 normal GI Inspection: normal to inspection Palpation: soft Rectal Exam - female: visual inspection normal, normal sphincter tone, heme negative stool, No hemorrhoids and No mass Back/Spine/Pelvis Thoracic/Lumbar Spine: thoracic spinal tenderness and lumbar spinal tenderness (Hx of metal rods in back) Skin General skin exam: no rashes or lesions noted and pallor Lesions: no lesions Rashes: no rashes Wounds: no wounds Course Vital Signs Vital signs: Vital Signs Temperature 37.1 C 09/07/24 08:56 Pulse 93 H 09/07/24 08:56 Respiratory Rate 20 09/07/24 08:56 Blood Pressure 128/64 09/07/24 08:56 Pulse Oximetry 96 09/07/24 08:56 Temperature 37.1 C 09/07/24 08:56 Temperature Source Oral 09/07/24 08:56 Pulse 81 09/07/24 09:16 Pulse 82 09/07/24 09:16 Respiratory Rate 15 09/07/24 09:16 Blood Pressure 134/100 H 09/07/24 09:16 Blood Pressure Mean 106 09/07/24 09:16 Blood Pressure Position Sitting 09/07/24 08:56 Pulse Oximetry 96 09/07/24 09:16 Oxygen Delivery Method Room Air 09/07/24 08:56 Oxygen Flow Rate 0 09/07/24 08:56 Pain Level 8 09/07/24 08:56 Medical Decision Making 53-year-old female with history of chronic anemia and iron deficiency presents to the ER referred from the infusion center due to falling hemoglobin hematocrit. H&H is 5.5 and 20. She was scheduled to get a unit infusion which she did not receive. Sent here for further evaluation and treatment. Labs ordered including CMP lipase PT PTT type and screen. Will give 2 units of PRBCs which were ordered. Rectal exam performed upon arrival guaiac negative. Abdomen is soft nontender. She does complain of some back pain which is also chronic she does have a history of spine surgery with rods to her back. Other past medical history includes hypothyroidism hypokalemia COPD hypertension hyperlipidemia anxiety depression fibromyalgia vitamin D deficiency. CBC was done today so this was not repeated. Today the results were WBCs 2.93 hemoglobin 5.5 hematocrit 20 hypochromic hypovolemic anemia which is chronic. Patient does endorse that she is only taking the iron supplements for the last couple of days and has not taken them regularly as prescribed. CMP shows carbon dioxide 32.4 anion gap 2.6 albumin 3.1 lipase 16. Will recheck CBC after 2 units infused. 1427: 2 units of PRBCs infused informed by licensed staff [facility] that patient is complaining of right shoulder and right chest pain after the infusion was completed, she does have some expiratory wheezes in her bilateral bases. Chest x-ray ordered, EKG and albuterol. Patient does have an inhaler at home which she rarely uses. Vital signs are stable heart rate 83, O2 sat 100% on room air blood pressure 149/88. Repeat CBC is being drawn at this time. X-ray shows a right lower lobe infiltrate. Patient states that she was beginning to feel congested over the weekend. She is currently having a DuoNeb. Discussed results with her she verbalized understanding. I did offer her admission which patient declined at this time. Will give outpatient oral antibiotics I did stress the importance of close follow-up with her PCP. For recheck and or to return to the emergency department if she feels any worse she verbalized understanding is in agreement with the plan. Repeat CBC shows a hemoglobin of 8.4 and 29. This is much improved from her previous levels of 5 and 20. She reports that she feels better. Prescribe doxycycline twice daily for the next [address] her on the care management list to assist her in getting a close follow-up PCP appointment. Discussed strict return instructions she verbalized understanding. This text was generated using [employer] dictation system, please disregard any oddities of phrase or misspellings. Medical Records Medical records reviewed: Yes I reviewed the patient's medical records. Imaging Data Radiologic Study: Imaging: X-Ray Radiologist's impression: EXAM: XR PORTABLE CHEST AP CLINICAL HISTORY: CP, SOB TECHNIQUE: 2D digital imaging was performed. COMPARISON: CT CT CHEST LUNG CANCER SCREEN from 05/19/2024 FINDINGS: LUNGS: There are patchy densities at the right lung base. No pleural abnormality seen. HEART: Normal size. AORTA: Normal diameter. BONES: Dextroscoliosis. Soft tissues: Unremarkable. IMPRESSION: Right lower lobe infiltrate. Quality:SDOH Health Related Social Needs: Health related social needs food insecurity (Z59.41), problems related to housing/economic circumstances (Z59.89) PFSH All Active Problems (Updated 09/07/24 @ 14:59 by Christie Virgen NP) Right lower lobe pulmonary infiltrate (Acute) Anemia (Chronic) Olecranon bursitis, left elbow (Acute) s/p Left elbow excision olecranon bursitis 02/13/24 Rotator cuff tear, left (Acute) Right wrist pain (Acute) Lumbar post-laminectomy syndrome (Acute) History of vocal cord polypectomy (Acute) Hypokalemia (Acute) Antral gastritis (Acute) GERD (gastroesophageal reflux disease) (Chronic) Impingement syndrome of left shoulder (Acute) Bursitis of left shoulder (Acute) 40 mg Depo-Medrol injection: 03/27/2022; 07/25/2021 Tendinitis of long head of biceps brachii of left shoulder (Acute) Calcific tendinitis of left shoulder (Acute) Contusion of left shoulder (Acute) Superficial postoperative wound infection (Acute) DJD of left AC (acromioclavicular) joint (Acute) history of distal clavicle excision Tobacco abuse (Acute) Pain of right thumb (Acute) Left shoulder tendonitis (Acute) Injection: 01/15/2019 Vocal cord mass (Chronic) Anemia (Chronic) H/O esophagogastroduodenoscopy (Chronic ~09/23/18) Chronic laryngitis (Acute 06/25/13) Hoarse (Acute 06/25/13) Left carpal tunnel syndrome (Acute 02/23/16) Throat irritation (Acute) Status post laparoscopic cholecystectomy (Acute 06/30/13) Biliary colic (Acute 06/30/13) Medical History Smoker Anemia, iron deficiency Anxiety with depression Stage 2 moderate COPD by GOLD classification Chronic lower back pain Hip pain Chronic back pain Pain, joint, shoulder, right Osteoporosis Acute pain of right wrist Opioid dependence Dyspepsia Vitamin D deficiency Acne rosacea Seasonal allergies Osteoarthritis Low back pain Change in voice Pain in left shoulder Thoracic back pain Migraine Chronic sinusitis Edema of left lower extremity Spondylolisthesis Chronic anemia Fibromyalgia Depression Anxiety Hyperlipidemia Hypertension COPD (chronic obstructive pulmonary disease) Opioid abuse pt. denies this Hypothyroid Hypokalemia Surgical History Status post arthroscopy of left shoulder (09/23/20) S/P open biceps tenodesis, extensive debridement and subacromial decompression with partial acromioplasty Dr. Kaur History of vocal cord polypectomy Microlaryngoscopy with right vocal cord polyp excision, 11/13/2018 H/O spinal fusion History of carpal tunnel surgery of left wrist H/O hernia repair History of total abdominal hysterectomy with BSO right arm surgery on nerves Cholecystectomy Family History Father , from Colon Cancer in his late 60's Colon cancer Mother Diverticulitis s/p resection Social History Smoking/Tobacco Use Status: Current every day Tobacco Type: cigarettes Smoking packs per day: 1 Smoking cigarettes per day: 20.0 Tobacco: How many years used: 25 Smoking risk assessment performed?: Yes Alcohol Intake: never Drug use: Rarely Substance use type: marijuana Details: methadone client Housing: apartment Current gender identity: female Do you feel safe at home: Yes Do you feel safe in your relationship?: Yes
[2024-09-07 09:47] LABS: INR 0.9 (0.9-1.1); Prothrombin Time 9.4 sec (9.1-11.1)
[2024-09-07 09:53] LABS: ALT 17 U/L (14-59); AST 18 U/L (15-37); Albumin 3.1 g/dL (3.4-5.0); Alkaline Phosphatase 77 U/L (46-116); Anion Gap 2.6 mmol/L (3-11); BUN 10 mg/dL (7-18); Bilirubin, Total 0.2 mg/dL (0.2-1.0); CO2 32.4 mmol/L (21.0-32.0); CREATININE 0.9 mg/dL (0.55-1.02); Calcium 8.6 mg/dL (8.5-10.1); Chloride 105 mmol/L (98-107); Glucose 92 mg/dL (74-106); Lipase 16 U/L (<78); Magnesium 1.8 mg/dL (1.8-2.4); Potassium 4.5 mmol/L (3.5-5.1); Sodium 140 mmol/L (136-145); Total Protein 6.3 g/dL (6.4-8.2)
[2024-09-07] MEDS: Acetaminophen 325 MG TAB 650 MG PO (11:05)
--- NOTE | 2024-09-07 14:26 | RT.EKG_ITS ---
APPROVED REPORT Exam: Resting ECG Reason for Exam: Chest pain Patient Location: E HR:84 bpm ECG Measurements Heart Rate 84 AXIS MA 191 P 55 QRSd 102 QRS 49 QT 410 T 52 QTc 486 Conclusion Sinus rhythm...normal P axis, V-rate 60- 99 Probable left atrial enlargement...P >50mS, <-0.10mV V1 No STEMI
[2024-09-07] MEDS: Albuterol/Ipratropium 3 ML UPD VIAL UPD (14:34)
[2024-09-07 14:36] LABS: HGB 8.4 g/dL (11.2-15.7); MCH 21.7 pg (27.0-33.0); MCV 75 fL (80-95); MPV 9.8 fL (8.0-11.0); Platelet Count 224 10^3/uL (130-400); RDW 23.8 % (11.7-14.6); RDW-SD 61.5 fL; WBC 5.35 10^3/uL (4.4-10.8)
--- NOTE | 2024-09-07 14:44 | DI.RAD_ITS ---
Exam(s) XR PORTABLE CHEST AP EXAM: XR PORTABLE CHEST AP CLINICAL HISTORY: CP, SOB TECHNIQUE: 2D digital imaging was performed. COMPARISON: CT CT CHEST LUNG CANCER SCREEN from 05/19/2024 FINDINGS: LUNGS: There are patchy densities at the right lung base. No pleural abnormality seen. HEART: Normal size. AORTA: Normal diameter. BONES: Dextroscoliosis. Soft tissues: Unremarkable. IMPRESSION: Right lower lobe infiltrate. DATA REPOSITORY: RADIATION DOSE DELIVERED:
[2024-09-07 14:48] LABS: RBC 3.87 10^6/uL (3.93-5.22)
[2024-09-07] MEDS: Doxycycline Hyclate 100 MG CAP PO (15:20)
== END 2024-09-07 15:23 | disposition home or self-care (01) ==
PROVIDERS: Emergency Provider Registered Nurse Emergency; PCP Physician Assistant
DX: R91.8 Other nonspecific abnormal finding of lung field (principal); D64.9 Anemia, unspecified; Z59.41 Food insecurity; Z59.89 Other problems related to housing and economic circumstances; F17.210 Nicotine dependence, cigarettes, uncomplicated
CPT/HCPCS: 36430; 80053; 83690; 85027; 86850; 86900; 86901; 86920; 93005; 94640; 99285; 71045; 83735; 85025; 85610; 93010; 99284; J7620; P9016

== ENCOUNTER 2024-09-15 15:22 | Emergency (ER) | payer MEDICAID, SELFPAY ==
[2024-09-15 15:25] VITALS: BP 157/85; PULSE 93; RESP 18; TEMP 36.8; O2SAT 96
[2024-09-15 16:15] LABS: Abs Immature Grans 0.01 10^3/uL (0.0-0.06); Absolute Basophil Count 0.04 10^3/uL (0.0-0.2); Absolute Eosinophil Count 0.11 10^3/uL (0.0-0.7); Absolute Lymphocyte Count 2.08 10^3/uL (1.2-3.4); Absolute Monocyte Count 0.69 10^3/uL (0.1-0.8); Absolute Neutrophil Count 2.17 10^3/uL (1.2-6.7); Basophils % 0.8 %; Eosinophils % 2.2 %; HCT 32.1 % (36.0-46.0); HGB 9.2 g/dL (11.2-15.7); Immature Grans % 0.2 %; Lymphocytes % 40.8 %; MCH 22.2 pg (27.0-33.0); MCHC 28.7 % (32.0-36.0); MCV 77 fL (80-95); MPV 9.5 fL (8.0-11.0); Monocytes % 13.5 %; Neutrophils % 42.5 %; Platelet Count 235 10^3/uL (130-400); RBC 4.15 10^6/uL (3.93-5.22); RDW 25.6 % (11.7-14.6); RDW-SD 70.9 fL
[2024-09-15 16:42] LABS: Anisocytosis 2+; Diff Comment RBC Morph Reviewed; Hypochromasia 1+
[2024-09-15 16:43] LABS: Microcytosis 1+; Poikilocytes 1+
--- NOTE | 2024-09-15 17:41 | W.ED.GENAD ---
Discharge Plan Disposition Patient Disposition: Home Discharge Details Clinical Impression: Anemia Primary Care Provider: Ezequiel Oakley ED Provider: Fouzia Beasley Home Meds and New Rx's Prescriptions: No Action mirtazapine 30 mg tablet 30 mg PO QHS albuterol 90 mcg/actuation aerosol 2 puff IH Q4H PRN ferrous gluconate 324 mg (37.5 mg iron) tablet 324 mg PO DAILY lisinopril 10 mg tablet 10 mg PO DAILY clonidine HCl 0.1 mg tablet 0.1 mg PO BID atorvastatin 40 mg tablet 40 mg PO DAILY omeprazole [Prilosec] 40 MG capsule,delayed release(DR/EC) 40 mg PO DAILY methadone [Methadose] 40 mg tablet,soluble 150 mg PO DAILY Patient Comments: pt states now taking 170mg @ [facility] duloxetine [Cymbalta] 20 MG capsule,delayed release(DR/EC) 60 mg PO BID cyclobenzaprine 10 mg tablet 10 mg PO TID hydroxyzine HCl 25 MG tablet 25 mg PO TID PRN lamotrigine [Lamictal] 100 MG tablet 300 mg PO DIRECTED Rx Instructions: 2 TABS IN THE MORNING AND 1 TAB AT BEDTIME epinephrine 0.3 MG/SYR auto-injector 0.3 mg IJ PRN PRN (Reason: Anaphylaxis) Qty: 1 0RF mometasone [Nasonex] 50 mcg/actuation [place],Non-Aerosol 1 spray INTRANASAL BID Dulera 100-5 mcg/actuation HFA aerosol inhaler 2 puff INHALATION BID PRN pregabalin 50 mg capsule 50 mg PO BID Patient Comments: TAKE ONE CAPSULE BY MOUTH TWICE A DAY chlorthalidone 25 MG tablet 25 mg PO DAILY doxycycline hyclate 100 mg tablet 100 mg PO BID 10 Days Qty: 20 0RF Discharge Instructions Additional Instructions: Your anemia is improving, hemoglobin is 9.2 today, please continue your iron supplementation and follow-up with your primary care provider Discharge Data Discharge Date/Time-TO BE ENTERED AT DEPARTURE: 09/15/24 16:57 HPI General Date/Time Provider Initiated Documentation: 09/15/24 15:28. Limitations to Documentation: no limitations. Information obtained by: patient. HPI Narrative: C4-year-old female with past medical history of anemia and noncompliance with her iron supplementation presents for a hemoglobin check. She reports that she was recently evaluated in the emergency department and diagnosed with a pneumonia and was told that her hemoglobins were low. She states that she had a scheduled appointment with her PCP yesterday and that she overslept and missed the appointment. She states that she was supposed to get her lab work rechecked. She reports that she has been taking her iron supplementation and that she has not been having any symptoms of shortness of breath or lightheadedness. Related Data Home Medications ?Medication ?Instructions ?Recorded ?Confirmed duloxetine 20 mg capsule,delayed 60 mg PO BID 11/28/12 09/15/24 release (Cymbalta) hydroxyzine HCl 25 mg tablet 25 mg PO TID PRN 04/13/13 09/15/24 omeprazole 40 mg capsule,delayed 40 mg PO DAILY 11/02/15 09/15/24 release (Prilosec) lamotrigine 100 mg tablet 300 mg PO DIRECTED 03/16/16 09/15/24 (Lamictal) epinephrine 0.3 mg/0.3 mL 0.3 mg (0.3 mL) IJ PRN PRN 08/16/16 09/15/24 injection, auto-injector Anaphylaxis ##1 chlorthalidone 25 mg tablet 25 mg PO DAILY 07/12/17 09/15/24 albuterol 90 mcg/actuation aerosol 2 puff inhalation Q4H PRN 08/19/18 09/15/24 inhaler mometasone 50 mcg/actuation nasal 1 spray intranasal BID 11/28/20 09/15/24 spray (Nasonex) atorvastatin 40 mg tablet 40 mg PO DAILY 01/08/22 09/15/24 clonidine HCl 0.1 mg tablet 0.1 mg PO BID 01/08/22 09/15/24 ferrous gluconate 324 mg (37.5 mg 324 mg PO DAILY 01/08/22 09/15/24 iron) tablet lisinopril 10 mg tablet 10 mg PO DAILY 01/08/22 09/15/24 mirtazapine 30 mg tablet 30 mg PO QHS 08/30/22 09/15/24 cyclobenzaprine 10 mg tablet 10 mg PO TID 09/18/22 09/15/24 methadone 40 mg soluble tablet 150 mg PO DAILY 09/18/22 09/15/24 (Methadose) pregabalin 50 mg capsule 50 mg PO BID 02/11/24 09/15/24 mometasone-formoterol HFA 100 2 puff inhalation BID PRN 02/26/24 09/15/24 mcg-5 mcg/actuation aerosol inhaler (Dulera) doxycycline hyclate 100 mg tablet 100 mg PO BID 10 days #20 tabs 09/07/24 09/15/24 Previous Rx's ?Medication ?Instructions ?Recorded epinephrine 0.3 mg/0.3 mL 0.3 mg (0.3 mL) IJ PRN PRN 08/16/16 injection, auto-injector Anaphylaxis ##1 doxycycline hyclate 100 mg tablet 100 mg PO BID 10 days #20 tabs 09/07/24 Allergies Allergy/AdvReac Type Severity Reaction Status Date / Time penicillin G Allergy Severe THROAT Verified 09/15/24 15:28 CLOSES penicillin V Allergy Severe Anaphylaxis Verified 09/15/24 15:28 clindamycin Allergy Intermediate Skin Rash Verified 09/15/24 15:28 milnacipran HCl (From Allergy Intermediate Skin Rash Verified 09/15/24 15:28 Savella) milnacipran (From Savella) Allergy Unknown Rash Verified 09/15/24 15:28 cefuroxime axetil (From Allergy SKIN RASH Verified 09/15/24 15:28 Ceftin) azithromycin (From Zithromax) AdvReac Intermediate GI upset Verified 09/15/24 15:28 clarithromycin (From Biaxin) AdvReac Intermediate Nausea Verified 09/15/24 15:28 hydrocodone (From Vicodin) AdvReac Intermediate I cant Verified 09/15/24 15:28 take it it ruins my liver ibuprofen AdvReac Intermediate GI Upset Verified 09/15/24 15:28 ketorolac tromethamine (From AdvReac Intermediate GI Upset, Verified 09/15/24 15:28 Toradol) can take IV form pregabalin (From Lyrica) AdvReac Intermediate Worsen Mood Verified 09/15/24 15:28 Sulfa (Sulfonamide AdvReac Intermediate GI upset Verified 09/15/24 15:28 Antibiotics) ENVIORNMENTAL Allergy Mild SINUSES Uncoded 09/15/24 15:28 MESSED UP-EYES General Stated Complaint: Recheck GRISEL: 3 Exam Narrative Exam Narrative: Review of Systems: All systems reviewed & are unremarkable except as noted in HPI and below Well-developed, no acute distress NCAT PERRL, normal conjunctiva RRR Unlabored respiratory effort clear bilaterally Nondistended abdomen Course Vital Signs Vital signs: Vital Signs Temperature 36.8 C 09/15/24 15:25 Pulse 93 H 09/15/24 15:25 Respiratory Rate 18 09/15/24 15:25 Blood Pressure 157/85 H 09/15/24 15:25 Pulse Oximetry 96 09/15/24 15:25 Temperature 36.8 C 09/15/24 15:25 Pulse 93 H 09/15/24 15:25 Respiratory Rate 18 09/15/24 15:25 Blood Pressure 157/85 H 09/15/24 15:25 Pulse Oximetry 96 09/15/24 15:25 Lab/Test Results Lab/Test Results: Laboratory Tests Range/Units 09/15/24 16:06 WBC (4.4-10.8) 10^3/uL 5.10 RBC (3.93-5.22) 10^6/uL 4.15 Hgb (11.2-15.7) g/dL 9.2 L Hct (36.0-46.0) % 32.1 L MCV (80-95) fL 77 L MCH (27.0-33.0) pg 22.2 L MCHC (32.0-36.0) % 28.7 L RDW (11.7-14.6) % 25.6 H Plt Count (130-400) 10^3/uL 235 MPV (8.0-11.0) fL 9.5 Immature Gran % % 0.2 Neutrophils % % 42.5 Lymphocytes % % 40.8 Monocytes % % 13.5 Eosinophils % % 2.2 Basophils % % 0.8 Nucleated RBC % (0.0-0.3) % 0.0 Absolute Neutrophils (1.2-6.7) 10^3/uL 2.17 Absolute Lymphocytes (1.2-3.4) 10^3/uL 2.08 Absolute Monocytes (0.1-0.8) 10^3/uL 0.69 Absolute Eosinophils (0.0-0.7) 10^3/uL 0.11 Absolute Basophils (0.0-0.2) 10^3/uL 0.04 RBC Morphology See Below Hypochromasia 1+ Poikilocytosis 1+ Anisocytosis 2+ Microcytosis 1+ Medical Decision Making Emergent evaluation of anemia. I reviewed the patient's medical record and noted that she had a recent emergency department visit was diagnosed with pneumonia and discharged on doxycycline. Her last hemoglobin was 8.4. She missed her outpatient recheck and was told to come to the emergency department to have her blood work obtained. Her hemoglobin today is up to 9.2. I recommend that she continue her iron supplementation and follow-up with her PCP for any ongoing needs. Quality:SDOH Health Related Social Needs: Health related social needs food insecurity (Z59.41), problems related to housing/economic circumstances (Z59.89) PFSH All Active Problems (Updated 09/15/24 @ 16:48 by Fouzia Beasley MD) Anemia (Chronic) Right lower lobe pulmonary infiltrate (Acute) Anemia (Chronic) Olecranon bursitis, left elbow (Acute) s/p Left elbow excision olecranon bursitis 02/13/24 Rotator cuff tear, left (Acute) Right wrist pain (Acute) Lumbar post-laminectomy syndrome (Acute) History of vocal cord polypectomy (Acute) Hypokalemia (Acute) Antral gastritis (Acute) GERD (gastroesophageal reflux disease) (Chronic) Impingement syndrome of left shoulder (Acute) Bursitis of left shoulder (Acute) 40 mg Depo-Medrol injection: 03/27/2022; 07/25/2021 Tendinitis of long head of biceps brachii of left shoulder (Acute) Calcific tendinitis of left shoulder (Acute) Contusion of left shoulder (Acute) Superficial postoperative wound infection (Acute) DJD of left AC (acromioclavicular) joint (Acute) history of distal clavicle excision Tobacco abuse (Acute) Pain of right thumb (Acute) Left shoulder tendonitis (Acute) Injection: 01/15/2019 Vocal cord mass (Chronic) Anemia (Chronic) H/O esophagogastroduodenoscopy (Chronic ~09/23/18) Chronic laryngitis (Acute 06/25/13) Hoarse (Acute 06/25/13) Left carpal tunnel syndrome (Acute 02/23/16) Throat irritation (Acute) Status post laparoscopic cholecystectomy (Acute 06/30/13) Biliary colic (Acute 06/30/13) Medical History Smoker Anemia, iron deficiency Anxiety with depression Stage 2 moderate COPD by GOLD classification Chronic lower back pain Hip pain Chronic back pain Pain, joint, shoulder, right Osteoporosis Acute pain of right wrist Opioid dependence Dyspepsia Vitamin D deficiency Acne rosacea Seasonal allergies Osteoarthritis Low back pain Change in voice Pain in left shoulder Thoracic back pain Migraine Chronic sinusitis Edema of left lower extremity Spondylolisthesis Chronic anemia Fibromyalgia Depression Anxiety Hyperlipidemia Hypertension COPD (chronic obstructive pulmonary disease) Opioid abuse pt. denies this Hypothyroid Hypokalemia Surgical History Status post arthroscopy of left shoulder (09/23/20) S/P open biceps tenodesis, extensive debridement and subacromial decompression with partial acromioplasty Dr. Kaur History of vocal cord polypectomy Microlaryngoscopy with right vocal cord polyp excision, 11/13/2018 H/O spinal fusion History of carpal tunnel surgery of left wrist H/O hernia repair History of total abdominal hysterectomy with BSO right arm surgery on nerves Cholecystectomy Family History Father , from Colon Cancer in his late 60's Colon cancer Mother Diverticulitis s/p resection Social History Smoking/Tobacco Use Status: Current every day Tobacco Type: cigarettes Smoking packs per day: 1 Smoking cigarettes per day: 20.0 Tobacco: How many years used: 25 Smoking risk assessment performed?: Yes Alcohol Intake: never Drug use: Rarely Substance use type: marijuana Details: methadone client Housing: apartment Current gender identity: female Do you feel safe at home: Yes Do you feel safe in your relationship?: Yes
== END 2024-09-15 16:57 | disposition home or self-care (01) ==
PROVIDERS: Emergency Provider Emergency Medicine; PCP Physician Assistant
DX: D64.9 Anemia, unspecified (principal); J44.9 Chronic obstructive pulmonary disease, unspecified; E78.5 Hyperlipidemia, unspecified; I10 Essential (primary) hypertension; E03.9 Hypothyroidism, unspecified; F17.210 Nicotine dependence, cigarettes, uncomplicated; Z98.1 Arthrodesis status
CPT/HCPCS: 99283; 85025

== ENCOUNTER 2025-03-04 14:49 | Outpatient (REF) | payer MEDICAID, SELFPAY ==
[2025-03-04 19:15] LABS: HCT 37.2 % (36.0-46.0); HGB 11.9 g/dL (11.2-15.7); MCH 28.8 pg (27.0-33.0); MCHC 32.0 % (32.0-36.0); MCV 90 fL (80-95); MPV 10.0 fL (8.0-11.0); Platelet Count 256 10^3/uL (130-400); RBC 4.13 10^6/uL (3.93-5.22); RDW 19.3 % (11.7-14.6); RDW-SD 63.2 fL; WBC 5.16 10^3/uL (4.4-10.8)
[2025-03-04 19:49] LABS: Anion Gap 5.9 mmol/L (3-11); BUN 24 mg/dL (7-18); CO2 32.1 mmol/L (21.0-32.0); Calcium 9.5 mg/dL (8.5-10.1); Chloride 99 mmol/L (98-107); Estimated GFR 58.97 (mL/min/1.73m2); Ferritin 29 ng/mL (8-252); Glucose 98 mg/dL (74-106); Potassium 4.6 mmol/L (3.5-5.1); Sodium 137 mmol/L (136-145)
[2025-03-04 19:55] LABS: Iron 111 ug/dL (50-170); Total Iron Binding Capacity 434 ug/dL (250-450); Transferrin Sat 26 % (15-50)
== END 2025-03-04 14:50 | disposition home or self-care (01) ==
LOC: NCHCN 14:49
PROVIDERS: PCP Physician Assistant; Visit Provider Physician Assistant
DX: D50.9 Iron deficiency anemia, unspecified (principal); E87.6 Hypokalemia
CPT/HCPCS: 80048; 85027; 82728; 83540; 83550

== ENCOUNTER 2025-03-17 03:37 | Outpatient (CLI) | payer MEDICAID, SELFPAY ==
--- NOTE | 2025-03-17 | DI.MAMMO_ITS ---
Exam(s) MAMMO SCREENING EXAM: MAMMO SCREENING CLINICAL HISTORY: SCREENING MAMMO Z12.31 TECHNIQUE: Bilateral full field digital CC and MLO mammographic images were obtained with 3D tomosynthesis and utilizing computer aided detection (CAD). COMPARISON: Comparison is made with prior examinations. FINDINGS: Masses/Architectural Distortion: No suspicious masses or areas of architectural distortion are present. Microcalcifications: No suspicious pleomorphic-type are seen. Skin Thickening/Nipple Retraction: None. IMPRESSION: 1. No significant interval change with no specific features of malignancy noted. 2. Unless there is more urgent need, screening mammography is recommended, as per [place] [employer] guidelines. BI-RADS Category 1 - Negative Breast Density - Category B - There are scattered areas of fibroglandular density. Breast density Category C or D implies that the patient has dense breast tissue. Dense breast tissue can make it harder to find cancer on a mammogram. Dense breast tissue is also associated with an increased risk of breast cancer. This information about the result of the mammogram report was provided to the patient to raise their awareness. Use this report when you speak with the patient about their risks for breast cancer, which includes their family history. At that time, you may recommend additional screening tests (Ultrasound or MRI) as these tests may add significant information. A negative radiographic report should not delay biopsy if a dominant or clinically suspicious mass is present. Up to ten percent of cancers are not identified on mammography. A negative report may reinforce clinical impression. Adenosis and dense breasts may obscure an underlying neoplasm. False positive reports average 6 to 10%. Patient will receive a letter notifying them of these results.
== END 2025-03-17 03:57 ==
LOC: DI 03:38
PROVIDERS: PCP Physician Assistant; Visit Provider Physician Assistant
DX: Z12.31 Encounter for screening mammogram for malignant neoplasm of breast (principal)
CPT/HCPCS: 77063; 77067